=== PATIENT | male | born 1990 | race Caucasian/White ===

== ENCOUNTER → 2018-07-25 12:21 | Outpatient (CLI) | payer MEDICAID, SELFPAY ==
[2018-07-25 12:28] LABS: Bacteria 0 SEEN /hpf (None Seen); Mucous, Urine 0 SEEN /hpf (<or=2+); Red Blood Cells-Urine 0 SEEN /hpf (0-5); Squamous Epithelial Cells - UA 0 SEEN /hpf (0-5); White Blood Cells 0 SEEN /hpf (0-5)
[2018-07-25 14:23] LABS: Absolute Lymphocyte Count 2.34 X10^3/ul (0.83-4.51); Absolute Neutrophil Count 4.4 X10^3/uL (2.0-7.7); Basophil# 0.09 X10^3/uL; Basophil% 1.2 % (0-1); Eosinophil# 0.07 X10^3/uL; Eosinophils% 0.9 % (0-5); Hemoglobin 14.6 g/dl (13.0-16.5); Lymphocyte # 2.34 X10^3/ul (4.0); Lymphocyte % 30.2 % (19-41); Mean Corp Hgb Conc 33.2 g/gl (32-36); Mean Corpuscular Hgb 34.4 pg (27.0-32.0); Mean Corpuscular Volume 103.5 fL (80-94); Mean Platelet Vol. 9.7 fl (6.2-12.0); Monocyte# 0.84 X10^3/uL; Monocyte% 10.9 % (0-10); Neutrophil # 4.38 X10^3/uL (2.7-7.7); Neutrophil % 56.5 % (47-70); POSITIVE COUNT NO; POSITIVE DIFFERENTIAL NO; POSITIVE MORPHOLOGY NO; Platelet Count 164 K/mm3 (150-450); RBC Distribution Width CV 12.6 % (11.6-14.6); RBC Distribution Width SD 47.3 fl (35.1-43.9); Red Blood Count 4.25 M/mm3 (4.6-6.2); White Blood Count 7.7 K/mm3 (4.4-11.0)
[2018-07-25 14:55] LABS: Color, Urine Yellow (Yellow); Glucose, Dipstick Normal (Normal); Ketone-Dipstick Negative (Negative); Leukocyte Esterase-Dipstick Negative /ul (Negative); Nitrite-Dipstick Negative (Negative); Occult Blood-Urine Negative /ul (Negative); Protein-Dipstick Negative (Negative); Specific Gravity, Urine 1.005 (1.002-1.030); Urine Bilirubin Dipstick Negative (Negative); Urine Clarity Clear (Clear); Urine Urobilinogen Normal (Normal)
[2018-07-25 14:59] LABS: ALB/GLOB Ratio 0.8 RATIO (0.9-2.4); AST(SGOT) 307 U/L (15-37); Alanine Aminotransfer ALT/SGPT 88 U/L (16-61); Albumin, Serum 3.9 g/dL (3.2-5.0); Alkaline Phosphatase 164 U/L (45-117); Anion Gap 9 (5-15); BUN 5 mg/dL (7-18); BUN/Creat Ratio 10.3 RATIO (10-20); Calcium,Total 8.2 mg/dL (8.5-10.1); Chloride 101 mmol/L (98-107); Creatinine, Serum 0.49 mg/dL (0.70-1.30); EST Glomerular Filtration Rate 218 mL/min (>60); Est Glom Filt Rate - Afr Amer 264 mL/min (>60); Globulin 4.8 g/dL (2.2-4.2); Glucose 105 mg/dL (74-106); Potassium 3.6 mmol/L (3.5-5.1); Protein, Total 8.7 g/dL (6.4-8.2); Sodium Level 132 mmol/L (136-145)
[2018-07-25 15:01] LABS: Amphetamine Urine VISTA NEGATIVE (<1000 ng/mL); Barbiturate Urine VISTA NEGATIVE (< 200 ng/mL); Benzodiazepine Urine VISTA NEGATIVE (< 200 ng/mL); Cocaine Urine VISTA NEGATIVE (< 300 ng/mL); Ecstacy Urine VISTA NEGATIVE (< 500 ng/mL); Methadone Urine VISTA NEGATIVE (< 300 ng/mL); PCP Urine VISTA NEGATIVE (< 25 ng/mL); THC Urine VISTA NEGATIVE (< 50 ng/mL); Vista UDS pH Range 5
[2018-07-25 15:32] LABS: HIV - WCH Non-Reactive (Nonreactive); Vitamin B12 1190 pg/mL (211-911)
[2018-07-25 16:04] LABS: Chlamydia Trachomatis by PCR Negative (Negative); Neisserai gonorrhoeae by PCR Negative (Negative); Probe Check PASS; Sample Adequacy Control PASS; Specimen Processing Control PASS
[2018-07-29 01:31] LABS: Rapid Plasmin Reagin (RPR) NONREACTIVE (NONREACTIVE)
[2018-07-29 08:18] LABS: HEPATITIS B SURFACE AG Negative (Negative); Hep B Surface Antibodies Reactive (.); Vitamin B1, Thiamine 143.8 nmol/L (66.5-200.0)
[2018-07-29 08:19] LABS: Hep C Antibodies >11.0 s/co ratio (0.0-0.9)
== END ==
PROVIDERS: Family Provider Family Medicine; PCP Family Medicine; Referring Provider Family Medicine; Visit Provider Family Medicine
DX: F10.20 Alcohol dependence, uncomplicated (principal); Z72.52 High risk homosexual behavior; Z72.0 Tobacco use; Z87.898 Personal history of other specified conditions
CPT/HCPCS: 80053; 80307; 80320; 81001; 82607; 82746; 84425; 85025; 86592; 86703; 86706; 86803; 87340; 87491; 87591; G0480

== ENCOUNTER 2018-08-28 20:11 | Inpatient (IN) | payer MEDICAID, SELFPAY ==
[2018-08-28 20:13] VITALS: BP 139/81; PULSE 123; RESP 18; TEMP 36.8; O2SAT 92; BMI 25.0
[2018-08-28] MEDS: 0.9% Normal Saline 1,000 ML 1000 ML IV (22:00)
[2018-08-28 22:17] LABS: Absolute Lymphocyte Count 3.74 X10^3/ul (0.83-4.51); Absolute Neutrophil Count 4.1 X10^3/uL (2.0-7.7); Basophil# 0.15 X10^3/uL; Basophil% 1.7 % (0-1); Eosinophil# 0.04 X10^3/uL; Eosinophils% 0.4 % (0-5); Hematocrit 41.8 % (40-54); Hemoglobin 14.6 g/dl (13.0-16.5); Lymphocyte # 3.74 X10^3/ul (4.0); Lymphocyte % 41.5 % (19-41); Mean Corp Hgb Conc 34.9 g/gl (32-36); Mean Corpuscular Hgb 35.1 pg (27.0-32.0); Mean Corpuscular Volume 100.5 fL (80-94); Mean Platelet Vol. 9.4 fl (6.2-12.0); Monocyte# 0.95 X10^3/uL; Monocyte% 10.5 % (0-10); Neutrophil % 45.6 % (47-70); Platelet Count 126 K/mm3 (150-450); RBC Distribution Width CV 14.4 % (11.6-14.6); Red Blood Count 4.16 M/mm3 (4.6-6.2)
[2018-08-28 22:23] LABS: POSITIVE COUNT NO; POSITIVE DIFFERENTIAL NO; POSITIVE MORPHOLOGY NO
[2018-08-28 22:25] VITALS: BP 116/81; PULSE 110; RESP 14; O2SAT 91
[2018-08-28 22:32] LABS: ALB/GLOB Ratio 0.7 RATIO (0.9-2.4); AST(SGOT) 225 U/L (15-37); Alanine Aminotransfer ALT/SGPT 39 U/L (16-61); Albumin, Serum 3.3 g/dL (3.2-5.0); Alkaline Phosphatase 246 U/L (45-117); Anion Gap 14 (5-15); BUN 4 mg/dL (7-18); BUN/Creat Ratio 7.2 RATIO (10-20); Calcium,Total 8.1 mg/dL (8.5-10.1); Chloride 101 mmol/L (98-107); Creatinine, Serum 0.56 mg/dL (0.70-1.30); EST Glomerular Filtration Rate 187 mL/min (>60); Est Glom Filt Rate - Afr Amer 226 mL/min (>60); Estimated Creatinine Clearance 185.25 ml/min; Globulin 4.8 g/dL (2.2-4.2); Glucose 124 mg/dL (74-106); Potassium 3.8 mmol/L (3.5-5.1); Protein, Total 8.1 g/dL (6.4-8.2); Sodium Level 138 mmol/L (136-145)
--- NOTE | 2018-08-28 23:10 | ED.RN ---
md aware of alchol level of 673.
[2018-08-28 23:15] LABS: Amphetamine Urine VISTA NEGATIVE (<1000 ng/mL); Barbiturate Urine VISTA NEGATIVE (< 200 ng/mL); Benzodiazepine Urine VISTA NEGATIVE (< 200 ng/mL); Cocaine Urine VISTA NEGATIVE (< 300 ng/mL); Ecstacy Urine VISTA NEGATIVE (< 500 ng/mL); Methadone Urine VISTA NEGATIVE (< 300 ng/mL); PCP Urine VISTA NEGATIVE (< 25 ng/mL); THC Urine VISTA NEGATIVE (< 50 ng/mL); Vista UDS pH Range 6
--- NOTE | 2018-08-28 23:15 | ED.DCSUM_ITS ---
- ER Visit Summary Date of Service: 08/28/18 Chief Complaint: Requesting detox History of Present Illness: The patient is a 28 M presenting requesting alcohol detox. Patient states that [facility]. He is requesting help for alcohol detox. His last drink was at 6 PM. He drinks ap proximately a case of beer per day. His last detox was in May in [place]. Physical Examination: Vitals are stable. Patient is afebrile. Alert no acute distress. HEENT exam is unremarkable. Neck is supple. Lungs are clear and equal bilaterally. Heart is regular and tachycardic Abdomen is soft nontender nondistended. Extremities are unremarkable. Skin is warm and dry. No focal neurologic deficit. Intoxicated Remainder of exam is unremarkable. Emergency Department Course and Treatment: Patient was given IV fluids. CBC shows platelets 126. Chemistries show glucose 124. Total bili 1.7, alk phos 246, AST 225. Alcohol level 673. Urine tox is negative. Discussed with the hospitalist for admission. Disposition: Admission Impression: Alcohol intoxication and alcohol dependence This note was generated with [employer] dictation software. It may contain incorrect words, spelling, and punctuation that were not noted in review of the chart prior to signing ED Disposition - Plan for ED Patient: Referrals: Dipak Steve MD [Primary Care Provider] -
[2018-08-28 23:19] VITALS: BP 104/63; PULSE 101; RESP 14
--- NOTE | 2018-08-28 23:47 | PCM.HP.STD ---
Problem List (1) Alcohol dependence Status: Acute (2) Alcohol withdrawal Status: Acute History of Present Illness Date of Admission: 08/29/18 Chief Complaint: alcohol withdrawal The patient is a 28 year old M with a significant history of alcohol dependence and tobacco abuse who presented with alcohol withdrawal symptoms. Patient reports shakiness; nausea; and visual hallucinations. At the time of evaluation patient had urinated in his clothes and on the floor of the emergency department; and stripped naked to remove his wet clothes and apologized for his nakedness. He reports drinking 20 beers per day. Emergency department doctor reported that per patient's friend [employer] had accepted the patient in the program beginning from 08/29/2018. Patient's alcohol level on presentation was 673. Emergency department doctor determined that it was not safe for patient to be discharged home. His last drink was on the same day of presentation. Urinary drug screen at the emergency department was unremarkable. Patient was found to have elevated liver enzymes on presentation. Past Medical History Medical History: Medical History (Last Updated 08/29/18 @ 04:57 by Juan Griffin MD) Alcohol dependence F10.20 Allergies Penicillins Adverse Reaction (Verified 08/28/18 20:14) Vomiting Home Medications: Ambulatory Orders Medication Instructions Recorded NK 08/28/18 Surgical History: - - Face reconstruction Psychiatric History: Anxiety, Depression Smoking Status: Current every day smoker Tobacco Use: Cigarettes - *Family History Maternal History Items: - - Alcoholism Paternal History Items: - - Denies any knowledge of paternal medical history Review of Systems Unable to obtain accurate/complete ROS d/t: Poor cognitive ability secondary to under the influence of alcohol VTE Information - Inpt Only VTE Present on Admission: No VTE Mechan Device Prophylaxis: None VTE Pharm Prophylaxis ordered?: No Reason prophylaxis not ordered:: Treatment Not Indicated - Low risk ambulate Patient Problems: Active and Suspected Problems Alcohol dependence (Acute) Alcohol withdrawal (Acute) - Physical Exam General: Alert, Oriented x3 HEENT: Atraumatic, PERRLA, EOMI, Normocephalic Neck: Supple, No JVD, Negative Carotid Bruits Lungs: Clear to auscultation, Normal air movement Cardiovascular: No murmurs, Tachycardic Abdomen: Bowel Sounds Present, Soft, Tender - Mild Extremities: No edema, Capillary Refill Less than 3 Seconds Skin: No rashes, No breakdown Musculoskeletal: No Tenderness to Palpation of Joints or Extremities Neurological: - - Poor cognitive ability with urinating on himself and on the floor. [facility] Psych/Mental Status: Irrational Behavior - Urinated on himself and at the floor of the emergency department Vital Signs Temp Pulse Resp BP Pulse Ox 98.3 F 101 H 14 104/63 91 08/28/18 20:13 08/28/18 23:19 08/28/18 23:19 08/28/18 23:19 08/28/18 22:25 Oxygen Delivery Method Room Air Weight: 72.3 kg Body Mass Index (BMI) 25.0 Laboratory Tests Past 24 Hrs 08/28/18 08/28/18 08/28/18 20:55 21:55 21:55 WBC 9.0 RBC 4.16 L Hgb 14.6 Hct 41.8 MCV 100.5 H MCH 35.1 H MCHC 34.9 RDW 14.4 RDW Differential 53.0 H Plt Count 126 L MPV 9.4 Immature Gran % (Auto) 0.300 Neut % (Auto) 45.6 L Lymph % (Auto) 41.5 H [place] % (Auto) 10.5 H Eos % (Auto) 0.4 Baso % (Auto) 1.7 H Absolute Neuts (auto) 4.1 Absolute Lymphs (auto) 3.74 Total Counted Not Reportable Sodium 138 Potassium 3.8 Chloride 101 Carbon Dioxide 23.0 Anion Gap 14 BUN 4 L Creatinine 0.56 L Estim Creat Clear Calc 185.25 Est GFR (MDRD) Af Amer 226 Est GFR (MDRD) Non-Af 187 BUN/Creatinine Ratio 7.2 L Glucose 124 H Calcium 8.1 L Total Bilirubin 1.70 H AST 225 H ALT 39 Alkaline Phosphatase 246 H Total Protein 8.1 Albumin 3.3 Globulin 4.8 H Albumin/Globulin Ratio 0.7 L Urine Opiates Screen NEGATIVE Urine Methadone Screen NEGATIVE Ur Barbiturates Screen NEGATIVE Ur Phencyclidine Scrn NEGATIVE Ur Amphetamines Screen NEGATIVE U Methamphetamin-MDMA NEGATIVE U Benzodiazepines Scrn NEGATIVE Urine Cocaine Screen NEGATIVE U Cannabinoids Screen NEGATIVE Ur Drug Screen Comment Ethyl Alcohol 08/28/18 21:55 WBC RBC Hgb Hct MCV MCH MCHC RDW RDW Differential Plt Count MPV Immature Gran % (Auto) Neut % (Auto) Lymph % (Auto) [place] % (Auto) Eos % (Auto) Baso % (Auto) Absolute Neuts (auto) Absolute Lymphs (auto) Total Counted Sodium Potassium Chloride Carbon Dioxide Anion Gap BUN Creatinine Estim Creat Clear Calc Est GFR (MDRD) Af Amer Est GFR (MDRD) Non-Af BUN/Creatinine Ratio Glucose Calcium Total Bilirubin AST ALT Alkaline Phosphatase Total Protein Albumin Globulin Albumin/Globulin Ratio Urine Opiates Screen Urine Methadone Screen Ur Barbiturates Screen Ur Phencyclidine Scrn Ur Amphetamines Screen U Methamphetamin-MDMA U Benzodiazepines Scrn Urine Cocaine Screen U Cannabinoids Screen Ur Drug Screen Comment Ethyl Alcohol 673.0 H* Assessment/Plan All Active Problems Alcohol dependence (Acute) Alcohol withdrawal (Acute) The patient is a 28 year old M with a significant history of alcohol dependence and tobacco abuse who presented in an early stage of alcohol withdrawal. Alcohol withdrawal Patient noted to have a level of 673 admission and with withdrawal symptoms. Drug urine screen unremarkable. Will place patient on acute [facility] withdrawal program. Because of liver dysfunction ativan was chosen for withdrawal management Folic acid; multivitamins and thiamine ordered. Supportive medications with Bentyl, methocarbamol and Zofran as needed. Patient was counseled Alcoholic hepatitis Patient noted to have AST of 225; ALT of 39. Alkaline phosphatase 246. Likely from alcoholic hepatitis. Review of records show that this is chronic. Tobacco abuse Counseled. Nicotine patch ordered DVT prophylaxis Low risk Ambulate. Code Visit OBSV E&M: 42758 Initial observation care L3
[2018-08-29] VITALS (11 sets, daily range): BP systolic 112–138; BP diastolic 67–90; PULSE 98–128; RESP 12–20; TEMP 36.5–37.7; O2SAT 89–98; BMI 23.3
[2018-08-29] MEDS: LORazepam 1 MG Tablet PO ×6 (02:56→22:35)
[2018-08-29] MEDS: hydrOXYzine PAM 25 MG Capsule 50 MG PO ×3 (02:56→22:35)
[2018-08-29] MEDS: Methocarbamol 750 MG Tablet PO ×3 (02:56→18:12)
[2018-08-29] MEDS: Multivitamins,Therapeutic Tablet 1 TABLET PO (08:43)
[2018-08-29] MEDS: Folic Acid 1 MG Tablet PO (08:43)
[2018-08-29] MEDS: Thiamine Hydrochloride 100 MG Tablet PO (08:43)
--- NOTE | 2018-08-29 10:31 | PCM.PN.HOSP ---
Patient Problems: Active and Suspected Problems (Last Updated 08/29/18 @ 04:57 by Juan Griffin MD) Alcohol dependence (Acute) Alcohol withdrawal (Acute) Subjective: Patient seen and examined. He is been managed for acute alcohol withdrawal. He complained of tremors. He denied any fever chills, palpitations or dizziness, chest pain, diarrhea vomiting. Review of systems otherwise negative. He is on alcohol withdrawal protocol with Ativan. Labs and vitals reviewed. Vitals/I&O's: Vital Signs Temp Pulse Resp BP Pulse Ox 98.2 F 115 H 16 128/72 H 97 08/29/18 09:29 08/29/18 09:29 08/29/18 09:41 08/29/18 09:29 08/29/18 06:35 Oxygen Flow Rate (L/min) 2 Oxygen Delivery Method Nasal Cannula Weight: 153 lb 3.54 oz Body Mass Index (BMI) 23.3 Intake and Output for Last 24 Hours 08/27/18 08/28/18 08/29/18 23:59 23:59 23:59 Output Total 550 / 550 Balance -550 / -550 General: Alert, Oriented x3, Cooperative, No apparent distress HEENT: Atraumatic, PERRLA, EOMI, Normocephalic Oral: Moist Mucosa Neck: Supple, No JVD, Negative Carotid Bruits Lungs: Clear to auscultation, Normal air movement, No rhonchi, No wheeze, No rales Cardiovascular: Regular Rhythm, Normal S1, Normal S2, No murmurs, Tachycardic Abdomen: Bowel Sounds Present, Soft, Non Tender, Non-Distended, No Hepato-splenomegaly Extremities: No clubbing, No cyanosis, No edema, Capillary Refill Less than 3 Seconds Skin: No rashes, No breakdown Musculoskeletal: No Tenderness to Palpation of Joints or Extremities Lymphatic: No Cervical, Supraclavicular, or Inguinal Adenopathy Neurological: Cranial nerves II-XII grossly intact, - - tremors of UEs Psych/Mental Status: Normal Affect, Appropriate, Alert and oriented to time, place, person, mood and affect Laboratory Results 08/28/18 20:55: Urine Opiates Screen NEGATIVE, Urine Methadone Screen NEGATIVE, Ur Barbiturates Screen NEGATIVE, Ur Phencyclidine Scrn NEGATIVE, Ur Amphetamines Screen NEGATIVE, U Methamphetamin-MDMA NEGATIVE, U Benzodiazepines Scrn NEGATIVE, Urine Cocaine Screen NEGATIVE, U Cannabinoids Screen NEGATIVE, Ur Drug Screen Comment 08/28/18 21:55: WBC 9.0, RBC 4.16 L, Hgb 14.6, Hct 41.8, MCV 100.5 H, MCH 35.1 H, MCHC 34.9, RDW 14.4, RDW Differential 53.0 H, Plt Count 126 L, MPV 9.4, Immature Gran % (Auto) 0.300, Neut % (Auto) 45.6 L, Lymph % (Auto) 41.5 H, [place] % (Auto) 10.5 H, Eos % (Auto) 0.4, Baso % (Auto) 1.7 H, Absolute Neuts (auto) 4.1, Absolute Lymphs (auto) 3.74, Total Counted Not Reportable 08/28/18 21:55: Sodium 138, Potassium 3.8, Chloride 101, Carbon Dioxide 23.0, Anion Gap 14, BUN 4 L, Creatinine 0.56 L, Estim Creat Clear Calc 185.25, Est GFR (MDRD) Af Amer 226, Est GFR (MDRD) Non-Af 187, BUN/Creatinine Ratio 7.2 L, Glucose 124 H, Calcium 8.1 L, Total Bilirubin 1.70 H, AST 225 H, ALT 39, Alkaline Phosphatase 246 H, Total Protein 8.1, Albumin 3.3, Globulin 4.8 H, Albumin/Globulin Ratio 0.7 L 08/28/18 21:55: Ethyl Alcohol 673.0 H* Current Medications Bisacodyl (Dulcolax) 5 mg PO DAILY PRN PRN PRN Reason: Constipation Dicyclomine HCl (Bentyl) 20 mg PO Q6H PRN PRN PRN Reason: abdominal discomfort Folic Acid (Folic Acid) 1 mg PO DAILYCM SHERYL Stop: 08/31/18 08:01 Last Admin: 08/29/18 08:43 Dose: 1 mg Hydroxyzine Pamoate (Vistaril Pamoate Capsule) 50 mg PO Q6H PRN PRN PRN Reason: Mild Anxiety (score 1/3) Last Admin: 08/29/18 02:56 Dose: 50 mg Lorazepam (Ativan) 1 mg IV Q4H PRN PRN PRN Reason: Severe Anxiety Lorazepam (Ativan) 2 mg IV X1 PRN PRN Reason: Seizure Lorazepam (Ativan) 1 mg PO Q4H SHERYL; Taper Stop: 09/01/18 06:29 Last Admin: 08/29/18 09:55 Dose: 1 mg Methocarbamol (Methocarbamol) 750 mg PO Q6H PRN PRN PRN Reason: Muscle Aches Last Admin: 08/29/18 09:55 Dose: 750 mg Multivitamins (Multivitamin) 1 tablet PO DAILYCM SHERYL Last Admin: 08/29/18 08:43 Dose: 1 tablet Nicotine (Nicoderm Cq (Pbkc)) 21 mg TRANSDERM. DAILY SHERYL Last Admin: 08/29/18 03:25 Dose: 21 mg Ondansetron HCl (Zofran) 4 mg IV Q8H PRN PRN PRN Reason: NAUSEA/VOMITING Sodium Chloride () 5 - 15 ml IV UD PRN PRN Reason: SALINE FLUSH Thiamine HCl (Vitamin B1) 100 mg PO DAILYCM SHERYL Stop: 08/31/18 08:01 Last Admin: 08/29/18 08:43 Dose: 100 mg Medical Necessity - Tobacco Use Smoking Status: Current every day smoker Tobacco Use: Cigarettes Assessment/Plan All Active Problems (Last Updated 08/29/18 @ 04:57 by Juan Griffin MD) Alcohol dependence (Acute) Alcohol withdrawal (Acute) 1. Acute alcohol withdrawal Alcohol level on admission was 673. Urine tox screen was unremarkable. On alcohol withdrawal protocol because of Ativan. Folic acid, thiamine and multivitamins. Monitor CIWA score. 2. Elevated liver enzymes: total bilirubin was 1.7, with AST/ALT of 225/39, and ALP of 246. This is chronic, and likely due to liver disease from alcohol abuse. WIll monitor 3. Tobacco abuse: counselled to quit. On nicotine patch 21mg daily 4. Thrombocytopenia: Platelets of 126. Likely due to alcohol effect on bone marrow. Will monitor. DVT prophylaxis: low risk; encouraged to ambulate Code Visit Inpatient E&M: 02585 Subs Hosp L2
--- NOTE | 2018-08-29 10:36 | PN_ITS ---
Patient Problems: Active and Suspected Problems (Last Updated 08/29/18 @ 04:57 by Juan Griffin MD) Alcohol dependence (Acute) Alcohol withdrawal (Acute) Subjective: Patient seen and examined. He is been managed for acute alcohol withdrawal. He complained of tremors. He denied any fever chills, palpitations or dizziness, chest pain, diarrhea vomiting. Review of systems otherwise negative. He is on alcohol withdrawal protocol with Ativan. Labs and vitals reviewed. Vitals/I&O's: Vital Signs Temp Pulse Resp BP Pulse Ox 98.2 F 115 H 16 128/72 H 97 08/29/18 09:29 08/29/18 09:29 08/29/18 09:41 08/29/18 09:29 08/29/18 06:35 Oxygen Flow Rate (L/min) 2 Oxygen Delivery Method Nasal Cannula Weight: 153 lb 3.54 oz Body Mass Index (BMI) 23.3 Intake and Output for Last 24 Hours 08/27/18 08/28/18 08/29/18 23:59 23:59 23:59 Output Total 550 / 550 Balance -550 / -550 General: Alert, Oriented x3, Cooperative, No apparent distress HEENT: Atraumatic, PERRLA, EOMI, Normocephalic Oral: Moist Mucosa Neck: Supple, No JVD, Negative Carotid Bruits Lungs: Clear to auscultation, Normal air movement, No rhonchi, No wheeze, No rales Cardiovascular: Regular Rhythm, Normal S1, Normal S2, No murmurs, Tachycardic Abdomen: Bowel Sounds Present, Soft, Non Tender, Non-Distended, No Hepato- splenomegaly Extremities: No clubbing, No cyanosis, No edema, Capillary Refill Less than 3 Seconds Skin: No rashes, No breakdown Musculoskeletal: No Tenderness to Palpation of Joints or Extremities Lymphatic: No Cervical, Supraclavicular, or Inguinal Adenopathy Neurological: Cranial nerves II-XII grossly intact, - - tremors of UEs Psych/Mental Status: Normal Affect, Appropriate, Alert and oriented to time, place, person, mood and affect Laboratory Results 08/28/18 20:55: Urine Opiates Screen NEGATIVE, Urine Methadone Screen NEGATIVE, Ur Barbiturates Screen NEGATIVE, Ur Phencyclidine Scrn NEGATIVE, Ur Amphetamines Screen NEGATIVE, U Methamphetamin-MDMA NEGATIVE, U Benzodiazepines Scrn NEGATIVE, Urine Cocaine Screen NEGATIVE, U Cannabinoids Screen NEGATIVE, Ur Drug Screen Comment 08/28/18 21:55: WBC 9.0, RBC 4.16 L, Hgb 14.6, Hct 41.8, MCV 100.5 H, MCH 35.1 H , MCHC 34.9, RDW 14.4, RDW Differential 53.0 H, Plt Count 126 L, MPV 9.4, Immature Gran % (Auto) 0.300, Neut % (Auto) 45.6 L, Lymph % (Auto) 41.5 H, [place] % (Auto) 10.5 H, Eos % (Auto) 0.4, Baso % (Auto) 1.7 H, Absolute Neuts (auto) 4.1, Absolute Lymphs (auto) 3.74, Total Counted Not Reportable 08/28/18 21:55: Sodium 138, Potassium 3.8, Chloride 101, Carbon Dioxide 23.0, Anion Gap 14, BUN 4 L, Creatinine 0.56 L, Estim Creat Clear Calc 185.25, Est GFR (MDRD) Af Amer 226, Est GFR (MDRD) Non-Af 187, BUN/Creatinine Ratio 7.2 L, Glucose 124 H, Calcium 8.1 L, Total Bilirubin 1.70 H, AST 225 H, ALT 39, Alkaline Phosphatase 246 H, Total Protein 8.1, Albumin 3.3, Globulin 4.8 H, Albumin/Globulin Ratio 0.7 L 08/28/18 21:55: Ethyl Alcohol 673.0 H* Current Medications Bisacodyl (Dulcolax) 5 mg PO DAILY PRN PRN PRN Reason: Constipation Dicyclomine HCl (Bentyl) 20 mg PO Q6H PRN PRN PRN Reason: abdominal discomfort Folic Acid (Folic Acid) 1 mg PO DAILYCM SHERYL Stop: 08/31/18 08:01 Last Admin: 08/29/18 08:43 Dose: 1 mg Hydroxyzine Pamoate (Vistaril Pamoate Capsule) 50 mg PO Q6H PRN PRN PRN Reason: Mild Anxiety (score 1/3) Last Admin: 08/29/18 02:56 Dose: 50 mg Lorazepam (Ativan) 1 mg IV Q4H PRN PRN PRN Reason: Severe Anxiety Lorazepam (Ativan) 2 mg IV X1 PRN PRN Reason: Seizure Lorazepam (Ativan) 1 mg PO Q4H SHERYL; Taper Stop: 09/01/18 06:29 Last Admin: 08/29/18 09:55 Dose: 1 mg Methocarbamol (Methocarbamol) 750 mg PO Q6H PRN PRN PRN Reason: Muscle Aches Last Admin: 08/29/18 09:55 Dose: 750 mg Multivitamins (Multivitamin) 1 tablet PO DAILYCM SHERYL Last Admin: 08/29/18 08:43 Dose: 1 tablet Nicotine (Nicoderm Cq (Pbkc)) 21 mg TRANSDERM. DAILY SHERYL Last Admin: 08/29/18 03:25 Dose: 21 mg Ondansetron HCl (Zofran) 4 mg IV Q8H PRN PRN PRN Reason: NAUSEA/VOMITING Sodium Chloride () 5 - 15 ml IV UD PRN PRN Reason: SALINE FLUSH Thiamine HCl (Vitamin B1) 100 mg PO DAILYCM SHERYL Stop: 08/31/18 08:01 Last Admin: 08/29/18 08:43 Dose: 100 mg Medical Necessity - Tobacco Use Smoking Status: Current every day smoker Tobacco Use: Cigarettes Assessment/Plan All Active Problems (Last Updated 08/29/18 @ 04:57 by Juan Griffin MD) Alcohol dependence (Acute) Alcohol withdrawal (Acute) 1. Acute alcohol withdrawal * Alcohol level on admission was 673. Urine tox screen was unremarkable. * On alcohol withdrawal protocol because of Ativan. * Folic acid, thiamine and multivitamins. * Monitor CIWA score. * 2. Elevated liver enzymes: * total bilirubin was 1.7, with AST/ALT of 225/39, and ALP of 246. * This is chronic, and likely due to liver disease from alcohol abuse. * WIll monitor * 3. Tobacco abuse: counselled to quit. On nicotine patch 21mg daily 4. Thrombocytopenia: Platelets of 126. Likely due to alcohol effect on bone marrow. Will monitor. DVT prophylaxis: low risk; encouraged to ambulate Code Visit Inpatient E&M: 36394 Subs Hosp L2
[2018-08-29] MEDS: Dicyclomine 10 MG Capsule 20 MG PO (18:12)
[2018-08-29] MEDS: Ondansetron 4 MG/2 ML Vial IV (20:03)
[2018-08-29] MEDS: LORazepam 2 MG/ML Syringe 1 MG IV (22:45)
[2018-08-30] VITALS (7 sets, daily range): BP systolic 133–142; BP diastolic 82–100; PULSE 97–121; RESP 16–18; TEMP 36.9–38.1; O2SAT 93–97
[2018-08-30] MEDS: LORazepam 2 MG/ML Syringe 1 MG IV (03:10)
[2018-08-30] MEDS: Methocarbamol 750 MG Tablet PO ×3 (03:10→23:24)
[2018-08-30] MEDS: chlordiazePOXIDE 25 MG Capsule 50 MG PO ×4 (03:55→21:53)
--- NOTE | 2018-08-30 03:55 | NURSING ---
I pulled Librium dose from accudose machine for Cecile ROMERO because the pt really needed the med and I was helping her out. I then watched her administer the med to the pt.
--- NOTE | 2018-08-30 08:16 | RAD_ITS ---
STUDY: X-RAY - LUMBAR SPINE REASON FOR EXAM: Male, 28 years old. Back pain TECHNIQUE: 2 view(s) of the lumbar spine were obtained. COMPARISON: None FINDINGS: There is straightening of the normal lumbar lordosis. There is no substantial scoliosis. There is a normal alignment of the vertebrae. Normal vertebral bodies and endplates. Normal disc space heights. The soft tissue structures are unremarkable. RAD/Lumbar Spine 2 or 3 Views IMPRESSION: There is straightening of the normal lordotic curve, a nonspecific finding, which may be due to positioning or which might be due to muscle spasm. Electronically Signed: Rubia Keenan MD at 1:47 EDT , Service support ,
[2018-08-30] MEDS: Folic Acid 1 MG Tablet PO (08:25)
[2018-08-30] MEDS: Thiamine Hydrochloride 100 MG Tablet PO (08:25)
[2018-08-30] MEDS: Multivitamins,Therapeutic Tablet 1 TABLET PO (08:25)
--- NOTE | 2018-08-30 08:25 | NEWVISION ---
Patient has pre-arranged plan to go to [facility] for their men's rehabilitation housing / [facility] in [place] immediately post discharge. Agency to provide transportation upon discharge. [facility] [phone]
--- NOTE | 2018-08-30 09:59 | PCM.PN.HOSP ---
Patient Problems: Active and Suspected Problems (Last Updated 08/29/18 @ 04:57 by Juan Griffin MD) Alcohol dependence (Acute) Alcohol withdrawal (Acute) Subjective: Patient seen and examined. He complains of low back pain which is been going on for about 2 months. He denies any fever or chills, palpitations or dizziness, chest pain, diarrhea vomiting. His last use of IV drugs was 2 years ago. 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 Review of systems otherwise negative. Vitals reviewed. Vitals/I&O's: Vital Signs Temp Pulse Resp BP Pulse Ox 98.4 F 97 16 138/97 H 94 08/30/18 08:09 08/30/18 08:09 08/30/18 08:09 08/30/18 08:09 08/30/18 08:09 Oxygen Flow Rate (L/min) 2 Oxygen Delivery Method Room Air Weight: 153 lb 3.54 oz Body Mass Index (BMI) 23.3 Intake and Output for Last 24 Hours 08/28/18 08/29/18 08/30/18 23:59 23:59 23:59 Intake Total 1000 / 1000 Output Total 550 / 550 400 / 400 Balance -550 / -550 600 / 600 General: Alert, Oriented x3, Cooperative, No apparent distress HEENT: Atraumatic, PERRLA, EOMI, Normocephalic Oral: Moist Mucosa Neck: Supple, No JVD, Negative Carotid Bruits Lungs: Clear to auscultation, Normal air movement, No rhonchi, No wheeze, No rales Cardiovascular: Regular Rhythm, Normal S1, Normal S2, No murmurs, Tachycardic Abdomen: Bowel Sounds Present, Soft, Non Tender, Non-Distended, No Hepato-splenomegaly Extremities: No clubbing, No cyanosis, No edema, Capillary Refill Less than 3 Seconds Skin: No rashes, No breakdown Musculoskeletal: No Tenderness to Palpation of Joints or Extremities; no tenderness on palpation of lower back Lymphatic: No Cervical, Supraclavicular, or Inguinal Adenopathy Neurological: Cranial nerves II-XII grossly intact, - - tremors of UEs have improved significantly Psych/Mental Status: Normal Affect, Appropriate, Alert and oriented to time, place, person, mood and affect Current Medications Bisacodyl (Dulcolax) 5 mg PO DAILY PRN PRN PRN Reason: Constipation Chlordiazepoxide (Librium) 50 mg PO Q6H [facility]; Taper Stop: 09/02/18 05:44 Last Admin: 08/30/18 03:55 Dose: 50 mg Dicyclomine HCl (Bentyl) 20 mg PO Q6H PRN PRN PRN Reason: abdominal discomfort Last Admin: 08/29/18 18:12 Dose: 20 mg [facility] Stop: 08/31/18 08:01 Last Admin: 08/30/18 08:25 Dose: 1 mg Hydroxyzine Pamoate (Vistaril Pamoate Capsule) 50 mg PO Q6H PRN PRN PRN Reason: Mild Anxiety (score 1/3) Last Admin: 08/29/18 22:35 Dose: 50 mg Lorazepam (Ativan) 1 mg IV Q4H PRN PRN PRN Reason: Severe Anxiety Last Admin: 08/30/18 03:10 Dose: 1 mg Lorazepam (Ativan) 2 mg IV X1 PRN PRN Reason: Seizure Lorazepam (Ativan) 1 mg PO Q6H [facility]; Taper Stop: 09/01/18 06:29 Last Admin: 08/30/18 05:25 Dose: Not Given Methocarbamol (Methocarbamol) 750 mg PO Q6H PRN PRN PRN Reason: Muscle Aches Last Admin: 08/30/18 03:10 Dose: 750 mg Multivitamins ([facility]ivitamin) [facility] Last Admin: 08/30/18 08:25 Dose: 1 tablet Nicotine (Nicoderm Cq (Pbkc)) 21 mg TRANSDERM. DAILY [facility] Last Admin: 08/29/18 03:25 Dose: 21 mg Ondansetron HCl (Zofran) 4 mg IV Q8H PRN PRN PRN Reason: NAUSEA/VOMITING Last Admin: 08/29/18 20:03 Dose: 4 mg Sodium Chloride () 5 - 15 ml IV UD PRN PRN Reason: SALINE FLUSH Thiamine HCl (Vitamin B1) [facility] Stop: 08/31/18 08:01 Last Admin: 08/30/18 08:25 Dose: 100 mg Medical Necessity - Tobacco Use Smoking Status: Current every day smoker Tobacco Use: Cigarettes Assessment/Plan All Active Problems (Last Updated 08/29/18 @ 04:57 by Juan Griffin MD) Alcohol dependence (Acute) Alcohol withdrawal (Acute) 1. Acute alcohol withdrawal Alcohol level on admission was 673. Urine tox screen was unremarkable. On alcohol withdrawal protocol with of Ativan. Folic acid, thiamine and multivitamins. Monitor CIWA score- is 8 today 2. Back pain, likely musculoskeletal complains of 6/10 back pain; no recent use of IV drugs, so suspicion for diskitis is low. will get lumbar xray ibuprofen for pain 3. Elevated liver enzymes: This is chronic, and likely due to liver disease from alcohol abuse. counseled to quit alcohol use 4. Tobacco abuse: counselled to quit. On nicotine patch 21mg daily 5. Thrombocytopenia: platelets were 126 on admission; is chronic. Due to alcohol abuse. WIll monitor DVT prophylaxis: low risk; encouraged to ambulate\ [facility]. Code Visit Inpatient E&M: 53843 Subs Hosp L2
--- NOTE | 2018-08-30 10:04 | PN_ITS ---
Patient Problems: Active and Suspected Problems (Last Updated 08/29/18 @ 04:57 by Juan Griffin MD) Alcohol dependence (Acute) Alcohol withdrawal (Acute) Subjective: Patient seen and examined. He complains of low back pain which is been going on for about 2 months. He denies any fever or chills, palpitations or dizziness, chest pain, diarrhea vomiting. His last use of IV drugs was 2 years ago. 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 Review of systems otherwise negative. Vitals reviewed. Vitals/I&O's: Vital Signs Temp Pulse Resp BP Pulse Ox 98.4 F 97 16 138/97 H 94 08/30/18 08:09 08/30/18 08:09 08/30/18 08:09 08/30/18 08:09 08/30/18 08:09 Oxygen Flow Rate (L/min) 2 Oxygen Delivery Method Room Air Weight: 153 lb 3.54 oz Body Mass Index (BMI) 23.3 Intake and Output for Last 24 Hours 08/28/18 08/29/18 08/30/18 23:59 23:59 23:59 Intake Total 1000 / 1000 Output Total 550 / 550 400 / 400 Balance -550 / -550 600 / 600 General: Alert, Oriented x3, Cooperative, No apparent distress HEENT: Atraumatic, PERRLA, EOMI, Normocephalic Oral: Moist Mucosa Neck: Supple, No JVD, Negative Carotid Bruits Lungs: Clear to auscultation, Normal air movement, No rhonchi, No wheeze, No rales Cardiovascular: Regular Rhythm, Normal S1, Normal S2, No murmurs, Tachycardic Abdomen: Bowel Sounds Present, Soft, Non Tender, Non-Distended, No Hepato- splenomegaly Extremities: No clubbing, No cyanosis, No edema, Capillary Refill Less than 3 Seconds Skin: No rashes, No breakdown Musculoskeletal: No Tenderness to Palpation of Joints or Extremities; no tenderness on palpation of lower back Lymphatic: No Cervical, Supraclavicular, or Inguinal Adenopathy Neurological: Cranial nerves II-XII grossly intact, - - tremors of UEs have improved significantly Psych/Mental Status: Normal Affect, Appropriate, Alert and oriented to time, place, person, mood and affect Current Medications Bisacodyl (Dulcolax) 5 mg PO DAILY PRN PRN PRN Reason: Constipation Chlordiazepoxide (Librium) 50 mg PO Q6H [facility]; Taper Stop: 09/02/18 05:44 Last Admin: 08/30/18 03:55 Dose: 50 mg Dicyclomine HCl (Bentyl) 20 mg PO Q6H PRN PRN PRN Reason: abdominal discomfort Last Admin: 08/29/18 18:12 Dose: 20 [facility] Stop: 08/31/18 08:01 Last Admin: 08/30/18 08:25 Dose: 1 mg Hydroxyzine Pamoate (Vistaril Pamoate Capsule) 50 mg PO Q6H PRN PRN PRN Reason: Mild Anxiety (score 1/3) Last Admin: 08/29/18 22:35 Dose: 50 mg Lorazepam (Ativan) 1 mg IV Q4H PRN PRN PRN Reason: Severe Anxiety Last Admin: 08/30/18 03:10 Dose: 1 mg Lorazepam (Ativan) 2 mg IV X1 PRN PRN Reason: Seizure Lorazepam (Ativan) 1 mg PO Q6H [facility]; Taper Stop: 09/01/18 06:29 Last Admin: 08/30/18 05:25 Dose: Not Given Methocarbamol (Methocarbamol) 750 mg PO Q6H PRN PRN PRN Reason: Muscle Aches Last Admin: 08/30/18 03:10 Dose: 750 mg [facility]amin) [facility] Last Admin: 08/30/18 08:25 Dose: 1 tablet Nicotine (Nicoderm Cq (Pbkc)) 21 mg TRANSDERM. DAILY [facility] Last Admin: 08/29/18 03:25 Dose: 21 mg Ondansetron HCl (Zofran) 4 mg IV Q8H PRN PRN PRN Reason: NAUSEA/VOMITING Last Admin: 08/29/18 20:03 Dose: 4 mg Sodium Chloride () 5 - 15 ml IV UD PRN PRN Reason: SALINE FLUSH Thiamine [facility]itamin B1) [facility] Stop: 08/31/18 08:01 Last Admin: 08/30/18 08:25 Dose: 100 mg Medical Necessity - Tobacco Use Smoking Status: Current every day smoker Tobacco Use: Cigarettes Assessment/Plan All Active Problems (Last Updated 08/29/18 @ 04:57 by Juan Griffin MD) Alcohol dependence (Acute) Alcohol withdrawal (Acute) 1. Acute alcohol withdrawal * Alcohol level on admission was 673. Urine tox screen was unremarkable. * On alcohol withdrawal protocol with of Ativan. * Folic acid, thiamine and multivitamins. * Monitor CIWA score- is 8 today * 2. Back pain, likely musculoskeletal * complains of 6/10 back pain; no recent use of IV drugs, so suspicion for diskitis is low. * will get lumbar xray * ibuprofen for pain * 3. Elevated liver enzymes: * This is chronic, and likely due to liver disease from alcohol abuse. * counseled to quit alcohol use * 4. Tobacco abuse: counselled to quit. On nicotine patch 21mg daily 5. Thrombocytopenia: platelets were 126 on admission; is chronic. Due to alcohol abuse. WIll monitor DVT prophylaxis: low risk; encouraged to ambulate\ [facility]. Code Visit Inpatient E&M: 04432 Subs Hosp L2
[2018-08-30] MEDS: LORazepam 1 MG Tablet PO ×3 (10:24→23:23)
[2018-08-30] MEDS: hydrOXYzine PAM 25 MG Capsule 50 MG PO (20:03)
[2018-08-31] MEDS: hydrOXYzine PAM 25 MG Capsule 50 MG PO (02:31)
[2018-08-31 05:53] VITALS: BP 111/69; PULSE 105; RESP 16; TEMP 37.4
[2018-08-31] MEDS: chlordiazePOXIDE 25 MG Capsule 50 MG PO (05:54)
[2018-08-31] MEDS: Methocarbamol 750 MG Tablet PO (06:43)
[2018-08-31] MEDS: LORazepam 1 MG Tablet PO (06:43)
[2018-08-31] MEDS: Multivitamins,Therapeutic Tablet 1 TABLET PO (08:57)
[2018-08-31] MEDS: Folic Acid 1 MG Tablet PO (08:57)
[2018-08-31] MEDS: Thiamine Hydrochloride 100 MG Tablet PO (08:57)
[2018-08-31 09:01] VITALS: BP 115/77; PULSE 111; RESP 18; TEMP 37.2
--- NOTE | 2018-08-31 09:57 | PCM.DC ---
- Discharge Diagnoses Current Active Problems: Current Active and Chronic Problems (Last Updated 08/29/18 @ 04:57 by Juan Griffin MD) Alcohol dependence (Acute) Alcohol withdrawal (Acute) You will use the following diet at home:: No restrictions Your food should be the consistency of: Regular Your liquids should be the consistency of: Regular/Thin Discharge Activity: Return to Normal Activity Weight Bearing Status: Weight bearing as tolerated Call your doctor if you observe: Fever of 101 or Higher, Shortness of breath, Uncontrolled pain Instructions: The Impact of Alcoholism, Alcoholism: Getting Help Allergies/Adverse Reactions: Allergies Penicillins Adverse Reaction (Verified 08/28/18 20:14) Vomiting Medications to take at Discharge NK 08/28/18 Primary Care Physician: Dipak Steve MD [Primary Care Provider] - Please follow up with your Primary Care Physician in: one week Test Results: Test results from this visit will be discussed in further detail at your follow-up appointment, if applicable. Proposed Discharge Date: 08/31/18
--- NOTE | 2018-08-31 10:00 | DCINST_ITS ---
- Discharge Diagnoses Current Active Problems: Current Active and Chronic Problems (Last Updated 08/29/18 @ 04:57 by Juan Griffin MD) Alcohol dependence (Acute) Alcohol withdrawal (Acute) You will use the following diet at home:: No restrictions Your food should be the consistency of: Regular Your liquids should be the consistency of: Regular/Thin Discharge Activity: Return to Normal Activity Weight Bearing Status: Weight bearing as tolerated Call your doctor if you observe: Fever of 101 or Higher, Shortness of breath, Uncontrolled pain Instructions: The Impact of Alcoholism, Alcoholism: Getting Help Allergies/Adverse Reactions: Allergies Penicillins Adverse Reaction (Verified 08/28/18 20:14) Vomiting Medications to take at Discharge NK 08/28/18 Primary Care Physician: Dipak Steve MD [Primary Care Provider] - Please follow up with your Primary Care Physician in: one week Test Results: Test results from this visit will be discussed in further detail at your follow- up appointment, if applicable. Proposed Discharge Date: 08/31/18
--- NOTE | 2018-08-31 10:00 | PCM.DC.SUM ---
Discharge Date and Diagnosis Date of Admission: 08/29/18 Date of Discharge: 08/31/18 - Primary Discharge Diagnosis Active and Suspected Problems (Last Updated 08/29/18 @ 04:57 by Juan Griffin MD) Alcohol dependence (Acute) Alcohol withdrawal (Acute) Hospital Course and Treatment Imaging Results: Diagnostic Data Lumbar Spine X-Ray 08/30/18 08:16 IMPRESSION: There is straightening of the normal lordotic curve, a nonspecific finding, which may be due to positioning or which might be due to muscle spasm. Electronically Signed: Rubia Keenan MD at 1:47 EDT , Service support , Consultations 08/29/18 04:51 Consult: [employer] Routine Consulting Provider: Consulted Physician Type:: Other * Specify below * Reason for consult:: etoh withdrawal Operations: None Procedures: None Summary of Care Provided: The patient is a 28 year old M with past medical history of alcohol and tobacco dependence. He was admitted for acute alcohol withdrawal. He complained of increased shakiness, nausea and visual hallucinations. Patient stated he drank up to 20 beers per day and his blood alcohol level on admission was 673. He was admitted and managed for acute alcohol withdrawal per [employer] protocol. U tox was negative. He however had elevated liver enzymes which were chronic and was thought to be due to alcohol. He was started on alcohol withdrawal protocol with Ativan. Patient subsequently complained of back pain which was chronic and x-ray of the lumbar spine done was negative for any acute pathology. Patient remained stable and CIWA score trended down, and was 5 on day of discharge. He was discharged to rehab facility- [facility]- on 08/31/2018. He is to follow-up with his primary care doctor in 1 week. Patient seen and examined prior to discharge. He had no complaints and felt well. Back pain had resolved. Review of systems otherwise negative. Labs and vitals reviewed. Home medication reviewed and reconciled. o/e: Vital Signs Height 5 ft 8 in Weight: 153 lb 3.54 oz Weight in Pounds 153.2 lbs Pulse Ox 97 Temperature 98.9 F Pulse Rate 111 Respiratory Rate 18 Blood Pressure [BP] 112/68 Blood Pressure 115/77 Blood Pressure Position [BP] Supine Blood Pressure Position Semi-Fowlers [] General: Alert, Oriented x3, Cooperative, No apparent distress HEENT: Atraumatic, PERRLA, EOMI, Normocephalic Oral: Moist Mucosa Neck: Supple, No JVD, Negative Carotid Bruits Lungs: Clear to auscultation, Normal air movement, No rhonchi, No wheeze, No rales Cardiovascular: Regular Rhythm, Normal S1, Normal S2, No murmurs, Tachycardic Abdomen: Bowel Sounds Present, Soft, Non Tender, Non-Distended, No Hepato-splenomegaly Extremities: No clubbing, No cyanosis, No edema, Capillary Refill Less than 3 Seconds Skin: No rashes, No breakdown Musculoskeletal: No Tenderness to Palpation of Joints or Extremities; no tenderness on palpation of lower back Lymphatic: No Cervical, Supraclavicular, or Inguinal Adenopathy Neurological: Cranial nerves II-XII grossly intact, - - tremors of UEs have resolved Psych/Mental Status: Normal Affect, Appropriate, Alert and oriented to time, place, person, mood and affect Plan as discussed. - Physical Exam Vital Signs Temp Pulse Resp BP Pulse Ox 98.9 F 111 H 18 115/77 97 08/31/18 09:01 08/31/18 09:01 08/31/18 09:01 08/31/18 09:01 08/30/18 14:48 Oxygen Flow Rate (L/min) 2 Oxygen Delivery Method Room Air Weight: 153 lb 3.54 oz Body Mass Index (BMI) 23.3 Intake and Output for Last 24 Hours 08/29/18 08/30/18 08/31/18 23:59 23:59 23:59 Intake Total 1700 / 1700 100 / 100 Output Total 550 / 550 1974 400 / 400 Balance -550 / -550 -275 / -275 -300 / -300 Discharge Diet: No Restrictions Discharge Activity: Return to Normal Activity Weight Bearing Status: Weight bearing as tolerated Call your doctor if you observe: Fever of 101 or Higher, Shortness of breath, Uncontrolled pain Home Medications: Medications to take at Discharge NK 08/28/18 Primary Care Physician: Dipak Steve MD [Primary Care Provider] - Please follow up with your Primary Care Physician in: one week Patient Instructions: The Impact of Alcoholism, Alcoholism: Getting Help Disposition: Inpt Rehab Unit/Facility Minutes spent on discharge:: 40 Patient Condition:: Stable Medical Necessity - Tobacco Use Smoking Status: Current every day smoker Tobacco Use: Cigarettes Meaningful Use Info Meaningful Use Diagnoses (Choose all that apply): None applicable Code Visit Inpatient E&M: 52810 Disch Hosp
--- NOTE | 2018-08-31 10:18 | NURSING ---
Addendum entered by Meryl Leblanc 08/31/18 10:19: Primary RN aware of this conversation Original Note: discussed discharge plan including taper with both Dr. Klein and Deann from [facility]. aware pt will be discharged. Deann aware and re-arranged pickling grader by [facility] for 11:30. aware per Deann pt may leave unit prior to this time as they know pt and his has their phone number.
== END 2018-08-31 10:30 | disposition home or self-care (01) | DRG 775 ==
LOC: ED 08-29 00:11 → MS3 08-29 01:21
PROVIDERS: Admitting Provider Hospitalist; Emergency Provider Emergency Medicine; Family Provider Family Medicine; PCP Family Medicine; Visit Provider Student in an Organized Health Care Education/Training Program
DX: F10.239 Alcohol dependence with withdrawal, unspecified (principal); F10.229 Alcohol dependence with intoxication, unspecified; Y90.8 Blood alcohol level of 240 mg/100 ml or more; F17.210 Nicotine dependence, cigarettes, uncomplicated; M54.9 Dorsalgia, unspecified; R74.8 Abnormal levels of other serum enzymes; D69.6 Thrombocytopenia, unspecified
CPT/HCPCS: 72100; 80053; 80307; 80320; 85025; 99284; 99406; J7030; G0480; J2405; J3490

== ENCOUNTER 2019-01-07 14:25 | Inpatient (IN) | payer MEDICAID, SELFPAY ==
[2018-10-28 14:35] VITALS: BMI 23.3
[2019-01-07] VITALS (10 sets, daily range): BP systolic 117–132; BP diastolic 89–97; PULSE 94–109; RESP 15–24; TEMP 36.8; O2SAT 96–98; BMI 25.2; BMI 24.7
[2019-01-07] MEDS: 0.9% Normal Saline 1,000 ML 1000 ML IV (15:15)
[2019-01-07 15:24] LABS: Absolute Lymphocyte Count 3.18 X10^3/uL (0.83-4.51); Absolute Neutrophil Count 4.5 X10^3/uL (2.0-7.7); Basophil# 0.12 X10^3/uL; Basophil% 1.3 % (0-1); Eosinophil# 0.11 X10^3/uL; Eosinophils% 1.2 % (0-5); Hematocrit 46.7 % (40-54); Hemoglobin 15.8 g/dL (13.0-16.5); Lymphocyte # 3.18 X10^3/ul (4.0); Lymphocyte % 34.2 % (19-41); Mean Corp Hgb Conc 33.8 g/dL (32-36); Mean Corpuscular Hgb 31.6 pg (27.0-32.0); Mean Corpuscular Volume 93.4 fL (80-94); Mean Platelet Vol. 8.2 fl (6.2-12.0); Monocyte# 1.28 X10^3/uL; Monocyte% 13.8 % (0-10); NRBC Flagged by Analyzer 0 % (0-5); Neutrophil # 4.54 X10^3/uL (2.7-7.7); Neutrophil % 48.7 % (47-70); Platelet Count 207 K/mm3 (150-450); RBC Distribution Width CV 18.6 % (11.6-14.6); RBC Distribution Width SD 61.6 fl (35.1-43.9); White Blood Count 9.3 K/mm3 (4.4-11.0)
[2019-01-07 15:29] LABS: Amphetamine Urine VISTA NEGATIVE (<1000 ng/mL); Barbiturate Urine VISTA NEGATIVE (< 200 ng/mL); Benzodiazepine Urine VISTA NEGATIVE (< 200 ng/mL); Cocaine Urine VISTA NEGATIVE (< 300 ng/mL); Ecstacy Urine VISTA NEGATIVE (< 500 ng/mL); Methadone Urine VISTA NEGATIVE (< 300 ng/mL); PCP Urine VISTA NEGATIVE (< 25 ng/mL); THC Urine VISTA NEGATIVE (< 50 ng/mL); Vista UDS pH Range 6
[2019-01-07 15:43] LABS: ALB/GLOB Ratio 0.9 RATIO (0.9-2.4); AST(SGOT) 468 U/L (15-37); Alanine Aminotransfer ALT/SGPT 239 U/L (16-61); Albumin, Serum 4.1 g/dL (3.2-5.0); Alkaline Phosphatase 177 U/L (45-117); Anion Gap 7 (5-15); BUN 10 mg/dL (7-18); Calcium,Total 8.5 mg/dL (8.5-10.1); Chloride 103 mmol/L (98-107); Creatinine, Serum 0.77 mg/dL (0.70-1.30); EST Glomerular Filtration Rate 128 mL/min (>60); Est Glom Filt Rate - Afr Amer 155 mL/min (>60); Globulin 4.8 g/dL (2.2-4.2); Glucose 107 mg/dL (74-106); Lipase 439 U/L (73-393); Potassium 4.1 mmol/L (3.5-5.1); Protein, Total 8.9 g/dL (6.4-8.2); Sodium Level 139 mmol/L (136-145)
--- NOTE | 2019-01-07 15:43 | ED.VISSUMM ---
- ER Visit Summary Date of Service: 01/07/19 Chief Complaint: Alcohol detox History of Present Illness: The patient is a [address] Dang. He reports that he went through detox in August and had been going to [facility]. However, he began drinking approximately 10 days ago. He reports that he is drinking a pint of vodka and 30 beers per day. His last drink was just prior to arrival. He reports his had 6 beers today. Physical Examination: Vitals: Stable. Afebrile. General: Well-nourished and well-developed. Head: Normocephalic atraumatic. Neck: Supple, no lymphadenopathy. No JVD. Nontender. Cardiovascular: Regular rate and rhythm. No murmurs. Respiratory: No respiratory distress. Clear to auscultation bilaterally. Abdominal: Soft, Mild epigastric tenderness to palpation, nondistended, normal bowel sounds. No guarding, rebound, or peritoneal signs. Back: Nontender. Extremities: Nontender, no edema. Skin: Normal color, no rash. Neurologic: Alert and oriented ?3. Cranial nerves II through XII are intact. Normal strength and sensation. Psych: Normal affect. Vomiting. Test Results: CBC shows monocytes of 14. Chem-7 is unremarkable. LFTs show an alk phos of 177, ALP of 239, AST 468. Lipase is 439. Toxin is negative. Alcohol level is 398. Emergency Department Course and Treatment: Patient was given a dose of Ativan IV. He is resting comfortably. Treatment Plan: Patient was discussed with Dr. Osorio. He will be admitted to the hospital for further evaluation and treatment. Disposition: Admitted in stable condition. Impression: 1. Alcohol withdrawal. This note was generated with [employer] dictation software. It may contain incorrect words, spelling, and punctuation that were not noted in review of the chart prior to signing ED Disposition - Plan for ED Patient: Referrals: Fady Dang MD [Primary Care Provider] -
[2019-01-07] MEDS: LORazepam 2 MG/ML Syringe 1 MG IV ×2 (16:45→23:35)
--- NOTE | 2019-01-07 16:47 | ED.RN ---
DR PATTON NOTIFIED OF ETOH RESULTS
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
[2019-01-07] MEDS: chlordiazePOXIDE 25 MG Capsule PO ×2 (18:14→23:35)
[2019-01-07] MEDS: Folic Acid 1 MG Tablet PO (18:14)
[2019-01-07] MEDS: Lactated Ringers 1,000 ML 125 ML IV (18:14)
[2019-01-07] MEDS: Thiamine Hydrochloride 100 MG Tablet PO (18:14)
[2019-01-07] MEDS: traZODone 50 MG Tablet PO (21:26)
--- NOTE | 2019-01-07 23:40 | NURSING ---
Pt asked for Ativan. He appears to be fairly calm but he said that he is feeling very anxious during this phase of his withdrawal so Ativan given.
[2019-01-08] VITALS (9 sets, daily range): BP systolic 131–137; BP diastolic 88–97; PULSE 71–99; RESP 16–20; TEMP 36.8–37.2; O2SAT 94–99
[2019-01-08] MEDS: chlordiazePOXIDE 25 MG Capsule PO ×3 (05:33→20:48)
[2019-01-08] MEDS: 0.9% NaCl Peripheral Flush Adult/Peds IV ×3 (05:36→21:01)
[2019-01-08] MEDS: LORazepam 2 MG/ML Syringe 1 MG IV ×2 (05:44→12:15)
[2019-01-08] MEDS: Dicyclomine 10 MG Capsule 20 MG PO (05:54)
[2019-01-08 06:29] LABS: ALB/GLOB Ratio 0.9 RATIO (0.9-2.4); AST(SGOT) 343 U/L (15-37); Alanine Aminotransfer ALT/SGPT 193 U/L (16-61); Albumin, Serum 3.3 g/dL (3.2-5.0); Alkaline Phosphatase 146 U/L (45-117); Anion Gap 8 (5-15); BUN 11 mg/dL (7-18); BUN/Creat Ratio 16.5 RATIO (10-20); Calcium,Total 8.1 mg/dL (8.5-10.1); Chloride 110 mmol/L (98-107); Creatinine, Serum 0.67 mg/dL (0.70-1.30); EST Glomerular Filtration Rate 151 mL/min (>60); Est Glom Filt Rate - Afr Amer 183 mL/min (>60); Estimated Creatinine Clearance 165.61 ml/min; Globulin 3.6 g/dL (2.2-4.2); Glucose 84 mg/dL (74-106); Lipase 382 U/L (73-393); Potassium 4.2 mmol/L (3.5-5.1); Protein, Total 6.9 g/dL (6.4-8.2); Sodium Level 143 mmol/L (136-145)
[2019-01-08] MEDS: Folic Acid 1 MG Tablet PO (07:58)
[2019-01-08] MEDS: Thiamine Hydrochloride 100 MG Tablet PO (07:58)
[2019-01-08] MEDS: Multivitamins,Therapeutic Tablet 1 TABLET PO (07:58)
[2019-01-08] MEDS: FLUoxetine 20 MG Capsule 40 MG PO (07:59)
[2019-01-08] MEDS: hydrOXYzine PAM 25 MG Capsule 50 MG PO ×2 (08:01→15:57)
[2019-01-08] MEDS: Ibuprofen 600 MG Tablet PO ×2 (08:01→21:14)
--- NOTE | 2019-01-08 08:56 | NURSING ---
offered pt shower but declined at this time
--- NOTE | 2019-01-08 09:16 | PCM.PN.HOSP ---
Patient Problems: Active and Suspected Problems (Last Reviewed 10/28/18 @ 14:33 by Angélica Bliss) Alcohol withdrawal (Acute) Subjective: Still with tremors, nausea, abdominal pain. No hallucination, no headache. Vitals/I&O's: Vital Signs Temp Pulse Resp BP Pulse Ox 36.8 C 99 16 131/91 H 97 01/08/19 08:04 01/08/19 08:04 01/08/19 08:04 01/08/19 08:04 01/08/19 08:04 Oxygen Delivery Method Room Air Weight: 76.204 kg Body Mass Index (BMI) 24.7 Intake and Output for Last 24 Hours 01/06/19 01/07/19 01/08/19 23:59 23:59 23:59 Intake Total 1634 / 1634 781 / 781 Output Total / Balance 1630 / 1630 781 / 781 General: Alert, - - diaphoretic. non-toxic HEENT: Atraumatic, Normocephalic Oral: Moist Mucosa, No Gingival or Mucosal Lesions/ Ulcerations Neck: No Nodes, Thyroid Normal Size and Texture Lungs: Clear to auscultation, Normal air movement, No rhonchi, No wheeze, No rales Cardiovascular: Regular rate, Regular Rhythm, Normal S1, Normal S2, No murmurs Abdomen: Bowel Sounds Present, Soft, Non-Distended, Hepatomegaly - approximately 1 cm below costal margin., Tender - in RUQ Extremities: No edema, No Calf Tenderness Psych/Mental Status: Normal Affect, Appropriate Laboratory Results 01/07/19 15:05: Urine Opiates Screen NEGATIVE, Urine Methadone Screen NEGATIVE, Ur Barbiturates Screen NEGATIVE, Ur Phencyclidine Scrn NEGATIVE, Ur Amphetamines Screen NEGATIVE, U Methamphetamin-MDMA NEGATIVE, U Benzodiazepines Scrn NEGATIVE, Urine Cocaine Screen NEGATIVE, U Cannabinoids Screen NEGATIVE, Ur Drug Screen Comment 01/07/19 15:10: WBC 9.3, RBC 5.00, Hgb 15.8, Hct 46.7, MCV 93.4, MCH 31.6, MCHC 33.8, RDW Std Deviation 61.6 H, RDW Coeff of Mango 18.6 H, Plt Count 207, MPV 8.2, Immature Gran % (Auto) 0.800, Neut % (Auto) 48.7, Lymph % (Auto) 34.2, [place] % (Auto) 13.8 H, Eos % (Auto) 1.2, Baso % (Auto) 1.3 H, Absolute Neuts (auto) 4.5, Absolute Lymphs (auto) 3.18, Nucleated RBC % 0 01/07/19 15:10: Sodium 139, Potassium 4.1, Chloride 103, Carbon Dioxide 29.0, Anion Gap 7, BUN 10, Creatinine 0.77, Estim Creat Clear Calc 144.10, Est GFR (MDRD) Af Amer 155, Est GFR (MDRD) Non-Af 128, BUN/Creatinine Ratio 13.0, Glucose 107 H, Calcium 8.5, Total Bilirubin 0.70, AST 468 H, ALT 239 H, Alkaline Phosphatase 177 H, Total Protein 8.9 H, Albumin 4.1, Globulin 4.8 H, Albumin/Globulin Ratio 0.9, Lipase 439 H 01/07/19 15:10: Ethyl Alcohol 398.0 H* 01/07/19 15:10: Magnesium 2.0 01/07/19 15:10: Phosphorus 4.0 01/08/19 05:32: Sodium 143, Potassium 4.2, Chloride 110 H, Carbon Dioxide 25.0, Anion Gap 8, BUN 11, Creatinine 0.67 L, Estim Creat Clear Calc 165.61, Est GFR (MDRD) Af Amer 183, Est GFR (MDRD) Non-Af 151, BUN/Creatinine Ratio 16.5, Glucose 84, Calcium 8.1 L, Total Bilirubin 0.80, AST 343 H, ALT 193 H, Alkaline Phosphatase 146 H, Total Protein 6.9, Albumin 3.3, Globulin 3.6, Albumin/Globulin Ratio 0.9, Lipase 382 Current Medications Acetaminophen (Tylenol) 500 mg PO Q4H PRN PRN PRN Reason: Temp > 100.4 F Al Hydroxide/Mg Hydroxide (Mylanta Ii) 30 ml PO Q6H PRN PRN PRN Reason: dyspesia Bisacodyl (Dulcolax) 10 mg RECTAL DAILY PRN PRN Reason: Constipation Chlordiazepoxide (Librium) 50 mg PO Q6H SHERYL; Taper Stop: 01/10/19 19:59 Last Admin: 01/08/19 05:33 Dose: 50 mg Documented by: Dextrose (D50w Syringe) 0 gm IV X1 PRN; Protocol PRN Reason: Hypoglycemia Dicyclomine HCl (Bentyl) 20 mg PO Q6H PRN PRN PRN Reason: abdominal discomfort Last Admin: 01/08/19 05:54 Dose: 20 mg Documented by: Famotidine (Pepcid) 20 mg PO QHS PRN PRN Reason: gerd symptoms Fluoxetine HCl (Prozac) 40 mg PO DAILY [facility] Last Admin: 01/08/19 07:59 Dose: 40 mg Documented by: Folic [facility] ([facility] Acid) [facility] Stop: 01/09/19 08:01 Last Admin: 01/08/19 07:58 Dose: 1 mg Documented by: Glucagon () 1 mg IM .X1 PRN PRN Reason: Hypoglycemia Hydroxyzine Pamoate (Vistaril Pamoate Capsule) 50 mg PO Q6H PRN PRN PRN Reason: Mild Anxiety (score 1/3) Last Admin: 01/08/19 08:01 Dose: 50 mg Documented by: Ibuprofen (Motrin) 600 mg PO Q8H PRN PRN PRN Reason: Mild-Moderate Pain (1-5/10) Last Admin: 01/08/19 08:01 Dose: 600 mg Documented by: Loperamide HCl (Imodium) 2 - 4 mg PO UD PRN PRN Reason: LOOSE STOOLS Loratadine (Claritin) 10 mg PO DAILY PRN PRN Reason: allergy symptoms Lorazepam (Ativan) 1 mg IV Q4H PRN PRN PRN Reason: Severe Anxiety Last Admin: 01/08/19 05:44 Dose: 1 mg Documented by: Lorazepam (Ativan) 2 mg IV X1 PRN PRN Reason: Seizure Methocarbamol (Methocarbamol) 750 mg PO Q6H PRN PRN PRN Reason: Muscle Aches Multivitamins ([facility]ivitamin) [facility] Last Admin: 01/08/19 07:58 Dose: 1 tablet Documented by: Nicotine (Nicoderm Cq (Pbkc)) 14 mg TRANSDERM. DAILY [facility] Last Admin: 01/08/19 07:59 Dose: 14 mg Documented by: Ondansetron HCl (Zofran Odt) 4 mg PO Q6H PRN PRN PRN Reason: NAUSEA Senna (Senokot) 1 tablet PO QHS PRN PRN Reason: Constipation Sodium Chloride () 10 - 40 ml IV UD PRN PRN Reason: SALINE FLUSH Last Admin: 01/08/19 05:43 Dose: 10 ml Documented by: Thiamine HCl (Vitamin B1) 100 mg PO DAILYCM [facility] Stop: 01/09/19 08:01 Last Admin: 01/08/19 07:58 Dose: 100 mg Documented by: Trazodone HCl (Desyrel) 50 mg PO QHS [facility] Last Admin: 01/07/19 21:26 Dose: 50 mg Documented by: Medical Necessity - Tobacco Use Smoking Status: Current every day smoker - 1/2 pack/day cigarette tobacco usage. Tobacco Use: Cigarettes Assessment/Plan All Active Problems (Last Reviewed 10/28/18 @ 14:33 by Angélica Bliss) Alcohol withdrawal (Acute) Substance abuse in remission (Acute) Drug abuse (Resolved) UTI (urinary tract infection) (Resolved) Bone fracture (Resolved) Alcohol dependence (Acute) Alcohol withdrawal (Acute) Alcohol dependence (Acute) 1. acute alcohol withdrawal CIWA 16 (on medication) continue chlordiazepoxide taper continue thiamine and folate. last drink was 01/07 at 1400. had been sober until 2 weeks ago, then he resumed drinking large quantities of alcohol has had delirium tremens previously. 2. acute alcoholic hepatitis monitor for now LFTs trending down slightly monitor consider imaging if gets worse 3. Elevated lipase trivial elevation resolved no further work up at this time unless clear signs of acute pancreatitis 4. VTE prophylaxis: low-risk at this time. ambulation. Code Visit Inpatient E&M: 52399 Subs Hosp L2
[2019-01-08] MEDS: Methocarbamol 750 MG Tablet PO (15:57)
[2019-01-08] MEDS: traZODone 50 MG Tablet PO (21:14)
[2019-01-09 02:45] VITALS: BP 133/96; PULSE 77; RESP 16; TEMP 36.7; O2SAT 98
[2019-01-09] MEDS: chlordiazePOXIDE 25 MG Capsule PO ×3 (03:56→21:04)
[2019-01-09 06:30] LABS: ALB/GLOB Ratio 0.9 RATIO (0.9-2.4); AST(SGOT) 290 U/L (15-37); Alanine Aminotransfer ALT/SGPT 170 U/L (16-61); Albumin, Serum 3.5 g/dL (3.2-5.0); Alkaline Phosphatase 156 U/L (45-117); Anion Gap 8 (5-15); BUN 10 mg/dL (7-18); BUN/Creat Ratio 14.6 RATIO (10-20); Calcium,Total 8.4 mg/dL (8.5-10.1); Chloride 109 mmol/L (98-107); Creatinine, Serum 0.68 mg/dL (0.70-1.30); EST Glomerular Filtration Rate 147 mL/min (>60); Est Glom Filt Rate - Afr Amer 178 mL/min (>60); Estimated Creatinine Clearance 163.18 ml/min; Globulin 3.8 g/dL (2.2-4.2); Glucose 95 mg/dL (74-106); Potassium 3.6 mmol/L (3.5-5.1); Protein, Total 7.3 g/dL (6.4-8.2); Sodium Level 141 mmol/L (136-145)
[2019-01-09 10:56] VITALS: BP 134/97; PULSE 86; RESP 18; TEMP 36.8; O2SAT 100
[2019-01-09] MEDS: Thiamine Hydrochloride 100 MG Tablet PO (10:58)
[2019-01-09] MEDS: FLUoxetine 20 MG Capsule 40 MG PO (10:58)
[2019-01-09] MEDS: Folic Acid 1 MG Tablet PO (10:58)
[2019-01-09] MEDS: Multivitamins,Therapeutic Tablet 1 TABLET PO (10:58)
--- NOTE | 2019-01-09 11:11 | PCM.PN.HOSP ---
Patient Problems: Active and Suspected Problems (Last Reviewed 10/28/18 @ 14:33 by Angélica Bliss) Alcohol withdrawal (Acute) Subjective: Feeling much better. Slept like a baby last night. No headache, nausea, vomiting. Vitals/I&O's: Vital Signs Temp Pulse Resp BP Pulse Ox 36.8 C 86 18 134/97 H 100 01/09/19 10:56 01/09/19 10:56 01/09/19 10:56 01/09/19 10:56 01/09/19 10:56 Oxygen Delivery Method Room Air Weight: 76.204 kg Body Mass Index (BMI) 24.7 Intake and Output for Last 24 Hours 01/07/19 01/08/19 01/09/19 23:59 23:59 23:59 Intake Total 1634 / 1634 781 / 1186 505 / 505 Output Total 650 / 650 Balance 1630 / 1630 781 / 536 -145 / -145 General: Alert, No apparent distress HEENT: Atraumatic, Normocephalic Oral: Moist Mucosa, No Gingival or Mucosal Lesions/ Ulcerations Neck: No Nodes, Thyroid Normal Size and Texture Lungs: Clear to auscultation, Normal air movement, No rhonchi, No wheeze, No rales Cardiovascular: Regular rate, Regular Rhythm, Normal S1, Normal S2 Abdomen: Bowel Sounds Present, Soft, Non Tender, Non-Distended, No Hepato-splenomegaly Extremities: No edema, No Calf Tenderness Psych/Mental Status: Normal Affect, Appropriate Laboratory Results 01/09/19 05:34: Sodium 141, Potassium 3.6, Chloride 109 H, Carbon Dioxide 24.0, Anion Gap 8, BUN 10, Creatinine 0.68 L, Estim Creat Clear Calc 163.18, Est GFR (MDRD) Af Amer 178, Est GFR (MDRD) Non-Af 147, BUN/Creatinine Ratio 14.6, Glucose 95, Calcium 8.4 L, Total Bilirubin 2.20 H, AST 290 H, ALT 170 H, Alkaline Phosphatase 156 H, Total Protein 7.3, Albumin 3.5, Globulin 3.8, Albumin/Globulin Ratio 0.9 Current Medications Acetaminophen (Tylenol) 500 mg PO Q4H PRN PRN PRN Reason: Temp > 100.4 F Al Hydroxide/Mg Hydroxide (Mylanta Ii) 30 ml PO Q6H PRN PRN PRN Reason: dyspesia Bisacodyl (Dulcolax) 10 mg RECTAL DAILY PRN PRN Reason: Constipation Chlordiazepoxide (Librium) 50 mg PO Q8H SHERYL; Taper Stop: 01/10/19 19:59 Last Admin: 01/09/19 03:56 Dose: 50 mg Documented by: Dextrose (D50w Syringe) 0 gm IV X1 PRN; Protocol PRN Reason: Hypoglycemia Dicyclomine HCl (Bentyl) 20 mg PO Q6H PRN PRN PRN Reason: abdominal discomfort Last Admin: 01/08/19 05:54 Dose: 20 mg Documented by: Famotidine (Pepcid) 20 mg PO QHS PRN PRN Reason: gerd symptoms Fluoxetine HCl (Prozac) 40 mg PO DAILY [facility] Last Admin: 01/09/19 10:58 Dose: 40 mg Documented by: Glucagon () 1 mg IM .X1 PRN PRN Reason: Hypoglycemia Hydroxyzine Pamoate (Vistaril Pamoate Capsule) 50 mg PO Q6H PRN PRN PRN Reason: Mild Anxiety (score 1/3) Last Admin: 01/08/19 15:57 Dose: 50 mg Documented by: Ibuprofen (Motrin) 600 mg PO Q8H PRN PRN PRN Reason: Mild-Moderate Pain (1-5/10) Last Admin: 01/08/19 21:14 Dose: 600 mg Documented by: Loperamide HCl (Imodium) 2 - 4 mg PO UD PRN PRN Reason: LOOSE STOOLS Loratadine (Claritin) 10 mg PO DAILY PRN PRN Reason: allergy symptoms Lorazepam (Ativan) 1 mg IV Q4H PRN PRN PRN Reason: Severe Anxiety Last Admin: 01/08/19 12:15 Dose: 1 mg Documented by: Lorazepam (Ativan) 2 mg IV X1 PRN PRN Reason: Seizure Methocarbamol (Methocarbamol) 750 mg PO Q6H PRN PRN PRN Reason: Muscle Aches Last Admin: 01/08/19 15:57 Dose: 750 mg Documented by: Multivitamins (Multivitamin) 1 tablet PO DAILYCM [facility] Last Admin: 01/09/19 10:58 Dose: 1 tablet Documented by: Nicotine (Nicoderm Cq (Pbkc)) 14 mg TRANSDERM. DAILY [facility] Last Admin: 01/09/19 10:58 Dose: 14 mg Documented by: Ondansetron HCl (Zofran Odt) 4 mg PO Q6H PRN PRN PRN Reason: NAUSEA Senna (Senokot) 1 tablet PO QHS PRN PRN Reason: Constipation Sodium Chloride () 10 - 40 ml IV UD PRN PRN Reason: SALINE FLUSH Last Admin: 01/08/19 21:01 Dose: 10 ml Documented by: Trazodone HCl (Desyrel) 50 mg PO QHS [facility] Last Admin: 01/08/19 21:14 Dose: 50 mg Documented by: Medical Necessity - Tobacco Use Smoking Status: Current every day smoker Tobacco Use: Cigarettes Assessment/Plan All Active Problems (Last Reviewed 10/28/18 @ 14:33 by Angélica Bliss) Alcohol withdrawal (Acute) Substance abuse in remission (Acute) Drug abuse (Resolved) UTI (urinary tract infection) (Resolved) Bone fracture (Resolved) Alcohol dependence (Acute) Alcohol withdrawal (Acute) Alcohol dependence (Acute) 1. acute alcohol withdrawal improving CIWA 6 (on medication) continue chlordiazepoxide taper continue thiamine and folate. last drink was 01/07 at 1400. had been sober until 2 weeks ago, then he resumed drinking large quantities of alcohol has had delirium tremens previously. patient plans on going to [facility] after he is discharged (previously arranged) anticipate discharge on 01/10, if continues to improve. 2. acute alcoholic hepatitis improving, though bilirubin is up LFTs trending down slightly monitor consider imaging if gets worse 3. Elevated lipase trivial elevation resolved no further work up at this time unless clear signs of acute pancreatitis 4. VTE prophylaxis: low-risk at this time. ambulation. Code Visit Inpatient E&M: 58453 Subs Hosp L2
--- NOTE | 2019-01-09 11:15 | CASEMGMT ---
Social Work Note SW met with pt to discuss discharge plans. Pt states that he plans to follow up with [facility] in [place], [place] where pt is from. Pt states that he was already a client of [facility] and will be returning there at discharge. Pt denied additional needs or concerns at this time. Brenda Ayala COMMUNITY ENGAGEMENT LEADER, BUILDING STONECUTTER
[2019-01-09] MEDS: hydrOXYzine PAM 25 MG Capsule 50 MG PO (17:38)
[2019-01-09] MEDS: traZODone 50 MG Tablet PO (21:04)
[2019-01-09] MEDS: LORazepam 2 MG/ML Syringe 1 MG IV (21:09)
[2019-01-09] MEDS: 0.9% NaCl Peripheral Flush Adult/Peds IV (21:09)
[2019-01-09 22:00] VITALS: BP 126/93; PULSE 77; RESP 16; TEMP 37.3; O2SAT 97
[2019-01-10 02:00] VITALS: BP 126/93; PULSE 77; RESP 16; TEMP 37.3; O2SAT 97
[2019-01-10 02:45] VITALS: BP 128/95; PULSE 76; RESP 16; TEMP 37.1; O2SAT 97
[2019-01-10 06:00] VITALS: BP 128/94; PULSE 78; RESP 16; TEMP 37.1; O2SAT 97
--- NOTE | 2019-01-10 08:01 | DCINST_ITS ---
- Discharge Diagnoses Current Active Problems: Current Active and Chronic Problems (Last Reviewed 10/28/18 @ 14:33 by Angélica Bliss) Alcohol withdrawal (Acute) Tobacco use (Chronic) You will use the following diet at home:: No restrictions Your food should be the consistency of: Regular Your liquids should be the consistency of: Regular/Thin Call your doctor if you observe: Fever of 101 or Higher, - - intractable nausea and vomiting. worsening abdominal pain. Allergies/Adverse Reactions: Allergies adhesive tape Allergy (Mild, Verified 01/07/19 14:29) Hives Medications to take at Discharge fluoxetine 20 mg capsule 20 mg PO DAILY #90 cap 10/28/18 fluoxetine 40 mg capsule 40 mg PO DAILY #90 cap 10/28/18 loratadine 10 mg capsule 10 mg PO DAILY PRN #30 cap 10/28/18 hydroxyzine HCl 25 mg tablet 25 mg PO TID-QID PRN #60 tab 11/29/18 Multivitamins,Therapeutic [Multivitamin] 1 tablet PO DAILY #1 tablet 01/10/19 The following prescriptions were given: Multivitamins,Therapeutic [Multivitamin] 1 tablet PO DAILY #1 tablet Primary Care Physician: Fady Dang MD [Primary Care Provider] - Within 2 Weeks Test Results: Test results from this visit will be discussed in further detail at your follow- up appointment, if applicable. Please Follow Up With: Intensive outpatient program When: This week. Proposed Discharge Date: 01/10/19
--- NOTE | 2019-01-10 08:03 | DS.PCM_ITS ---
Discharge Date and Diagnosis - Problem List Patient Problems: Active and Suspected Problems (Last Reviewed 10/28/18 @ 14:33 by Angélica Bliss) Alcohol withdrawal (Acute) Date of Admission: 01/07/19 Date of Discharge: 01/10/19 - Primary Discharge Diagnosis Active and Suspected Problems (Last Reviewed 10/28/18 @ 14:33 by Angélica Bliss) Alcohol withdrawal (Acute) - Secondary Discharge Diagnosis Chronic Problems (Last Reviewed 10/28/18 @ 14:33 by Angélica Bliss) Tobacco use (Chronic) Depression with anxiety (Chronic) Hypertension (Chronic) Hepatitis C (Chronic) Hepatitis B (Chronic) H/O emotional problems (Chronic) Seasonal allergies (Chronic) Hospital Course and Treatment Operations: None Procedures: None Summary of Care Provided: The patient is a 28 year old M presents seeking treatment for alcohol withdrawal. 1. acute alcohol withdrawal * improving * CIWA 1 (on medication) * last drink was 01/07 at 1400. * had been sober until 2 weeks prior to arrival, then he resumed drinking large quantities of alcohol * has had delirium tremens previously--none here. * patient plans on going to [facility] after he is discharged (previously arranged) * DC home. 2. acute alcoholic hepatitis * improving, though bilirubin is up * LFTs trending down slightly * monitor * consider imaging if gets worse * follow up as outpatient. 3. Elevated lipase * trivial elevation * resolved * no further work up at this time unless clear signs of acute pancreatitis [] Patient Problems: Active and Suspected Problems (Last Reviewed 10/28/18 @ 14:33 by Angélica Bliss) Alcohol withdrawal (Acute) - Physical Exam General: Alert, No apparent distress HEENT: Atraumatic, Normocephalic Psych/Mental Status: Normal Affect, Appropriate Vital Signs Temp Pulse Resp BP Pulse Ox 37.1 C 78 16 128/94 H 97 01/10/19 06:00 01/10/19 06:00 01/10/19 06:00 01/10/19 06:00 01/10/19 06:00 Oxygen Delivery Method Room Air Weight: 76.204 kg Body Mass Index (BMI) 24.7 Intake and Output for Last 24 Hours 01/08/19 01/09/19 01/10/19 23:59 23:59 23:59 Intake Total 781 / 1186 1225 / 2065 1320 / 1320 Output Total 650 / 650 Balance 781 / 536 575 / 1415 1320 / 1320 Discharge Diet: No Restrictions Call your doctor if you observe: Fever of 101 or Higher, - - intractable nausea and vomiting. worsening abdominal pain. Home Medications: Medications to take at Discharge fluoxetine 20 mg capsule 20 mg PO DAILY #90 cap 10/28/18 fluoxetine 40 mg capsule 40 mg PO DAILY #90 cap 10/28/18 loratadine 10 mg capsule 10 mg PO DAILY PRN #30 cap 10/28/18 hydroxyzine HCl 25 mg tablet 25 mg PO TID-QID PRN #60 tab 11/29/18 Multivitamins,Therapeutic [Multivitamin] 1 tablet PO DAILY #1 tablet 01/10/19 Following Prescrptions Were Given to Patient: Multivitamins,Therapeutic [Multivitamin] 1 tablet PO DAILY #1 tablet Primary Care Physician: Fady Dang MD [Primary Care Provider] - Within 2 Weeks Please Follow Up With: Intensive outpatient program When: This week. Disposition: Home Minutes spent on discharge:: 24 Patient Condition:: Good Medical Necessity - Tobacco Use Smoking Status: Current every day smoker Tobacco Use: Cigarettes Meaningful Use Info Meaningful Use Diagnoses (Choose all that apply): None applicable Code Visit Inpatient E&M: 27315 Disch Hosp
[2019-01-10 08:21] VITALS: BP 124/87; PULSE 84; RESP 16; TEMP 36.8; O2SAT 100
[2019-01-10] MEDS: Multivitamins,Therapeutic Tablet 1 TABLET PO (08:23)
[2019-01-10] MEDS: FLUoxetine 20 MG Capsule 40 MG PO (08:23)
[2019-01-10] MEDS: hydrOXYzine PAM 25 MG Capsule 50 MG PO (08:27)
[2019-01-10] MEDS: chlordiazePOXIDE 25 MG Capsule PO (08:27)
[2019-01-10 10:08] VITALS: BP 122/68; PULSE 78; RESP 16; TEMP 36.7; O2SAT 99
== END 2019-01-10 11:40 | disposition home or self-care (01) | DRG 775 ==
LOC: ED 15:38 → MS3 18:24
PROVIDERS: Admitting Provider Family Medicine; Emergency Provider Emergency Medicine; Family Provider Internal Medicine; PCP Internal Medicine; Referring Provider Family Medicine
DX: F10.239 Alcohol dependence with withdrawal, unspecified (principal); Y90.8 Blood alcohol level of 240 mg/100 ml or more; F17.210 Nicotine dependence, cigarettes, uncomplicated; B18.1 Chronic viral hepatitis B without delta-agent; B18.2 Chronic viral hepatitis C; K70.10 Alcoholic hepatitis without ascites; I10 Essential (primary) hypertension; J30.2 Other seasonal allergic rhinitis; F41.8 Other specified anxiety disorders
CPT/HCPCS: 36415; 80053; 80307; 80320; 83690; 83735; 84100; 85025; 99285; J7030; J7120; A4216; G0480

== ENCOUNTER → 2019-01-20 | Outpatient (CLI) | payer MEDICAID, SELFPAY ==
[2019-01-20 10:05] VITALS: BMI 24.7
[2019-01-20 12:39] LABS: Hematocrit 46.2 % (40-54); Hemoglobin 15.2 g/dL (13.0-16.5); Mean Corp Hgb Conc 32.9 g/dL (32-36); Mean Corpuscular Hgb 31.8 pg (27.0-32.0); Mean Corpuscular Volume 96.7 fL (80-94); Mean Platelet Vol. 9.5 fl (6.2-12.0); Platelet Count 303 K/mm3 (150-450); RBC Distribution Width CV 15.5 % (11.6-14.6); RBC Distribution Width SD 55.4 fl (35.1-43.9); Red Blood Count 4.78 M/mm3 (4.6-6.2); White Blood Count 8.7 K/mm3 (4.4-11.0)
[2019-01-20 13:11] LABS: ALB/GLOB Ratio 1.2 RATIO (0.9-2.4); AST(SGOT) 43 U/L (15-37); Alanine Aminotransfer ALT/SGPT 52 U/L (16-61); Albumin, Serum 4.3 g/dL (3.2-5.0); Alkaline Phosphatase 100 U/L (45-117); Anion Gap 4 (5-15); BUN 9 mg/dL (7-18); BUN/Creat Ratio 9.3 RATIO (10-20); Calcium,Total 8.8 mg/dL (8.5-10.1); Chloride 106 mmol/L (98-107); Creatinine, Serum 0.97 mg/dL (0.70-1.30); EST Glomerular Filtration Rate 98 mL/min (>60); Est Glom Filt Rate - Afr Amer 119 mL/min (>60); Globulin 3.7 g/dL (2.2-4.2); Glucose 93 mg/dL (74-106); Potassium 4.5 mmol/L (3.5-5.1); Sodium Level 138 mmol/L (136-145)
[2019-01-20 13:14] LABS: GGTP 900 U/L (15-85)
[2019-01-24 15:11] LABS: HCV log 10 6.637 (.)
== END | disposition home or self-care (01) ==
PROVIDERS: Family Provider Internal Medicine; PCP Internal Medicine; Visit Provider Nurse Practitioner Family
DX: B19.20 Unspecified viral hepatitis C without hepatic coma (principal); F10.20 Alcohol dependence, uncomplicated; R74.8 Abnormal levels of other serum enzymes
CPT/HCPCS: 36415; 80053; 82977; 85027; 87522

== ENCOUNTER 2019-04-09 14:42 | Inpatient (IN) | payer MEDICAID, SELFPAY ==
[2019-01-20 10:05] VITALS: BMI 24.7
[2019-04-09 14:43] VITALS: BP 134/95; PULSE 101; RESP 16; TEMP 36.4; O2SAT 100; BMI 27.3
--- NOTE | 2019-04-09 15:35 | ED.VIS.GEN ---
History of Present Illness Chief Complaint: ETOH Intox Informant: Patient, Friend Narrative: Patient presenting wanting detox from alcohol. States he has been drinking heavily for at least 4 months, the last time he was here in detox. His last drink was less than half an hour prior to arrival here today. He has withdrawal symptoms every morning before he starts drinking. He has no suicidal ideation. He had a cold recently but he is over that. He has had upper abdominal sharp pains for the past several weeks that do not get worse when he drinks alcohol, he states he just drinks until he does not feel it anymore. His typical daily intake is about a 24 pack of beer plus a pint of vodka. He denies doing any other illicit substances. - Past Medical History (1) Substance abuse in remission Status: Chronic (2) Depression with anxiety Status: Chronic (3) Hepatitis B Status: Chronic (4) Hepatitis C Status: Chronic (5) Hypertension Status: Chronic (6) Seasonal allergies Status: Chronic Past Medical History - Allergies and Home Meds Allergies/Adverse Reactions: Allergies adhesive tape Allergy (Mild, Verified 04/09/19 14:45) Hives Surgical History: - Lives: Friends Smoking Status: Current every day smoker Alcohol: Heavy Drugs: None - Family History Maternal Family History: Family History (Last Reviewed 10/28/18 @ 14:33 by Angéliac Bliss) Grandfather Hypertension Grandmother Hypertension Breast cancer Mother Breast cancer Hypertension Alcohol abuse Anxiety Asthma Respiratory disease Cancer Father Alcohol abuse Family History: Reports: - - Alcoholism history, noted to be sober x30 years now. Paternal Family History: Family History (Last Reviewed 10/28/18 @ 14:33 by Angélica Bliss) Grandfather Hypertension Grandmother Hypertension Breast cancer Mother Breast cancer Hypertension Alcohol abuse Anxiety Asthma Respiratory disease Cancer Father Alcohol abuse Family History: Reports: - - Alcoholism, drug abuse ongoing, history of breast cancer. Review of Systems General: Denies: Chills, Fever, Sweats Eyes: Denies: Visual changes - bilaterally, Diplopia ENT: Denies: Rhinorrhea, Sore throat Cardiovascular: Denies: Chest pain, Palpitations Respiratory: Denies: Dyspnea, Cough, Dyspnea on exertion Gastrointestinal: Reports: Abdominal pain. Denies: Nausea, Vomiting, Diarrhea, Melena, Hematochezia Genitourinary: Denies: Dysuria, Hematuria, Frequency Musculoskeletal: Denies: Neck pain, Back pain, Extremity Pain Skin: Denies: Rash, Wounds Neurological: Denies: Headache, Weakness, Numbness Psych: Denies: Suicidal thoughts, Suicidal ideations Physical Exam Vital Signs/Narrative: Vital Signs Temp Pulse Resp BP Pulse Ox 04/09/19 14:43 97.5 F L 101 H 16 134/95 H 100 Inital Vital Signs reviewed: Yes General: Well nourished, Well developed, No Acute Distress - Pleasantly intoxicated. Head: Normocephalic, Atraumatic Eyes: Perrl, EOMI. Negative for: Scleral icterus ENT: Moist mucous membranes, No rhinorrhea Neck: Supple, Nontender Cardiovascular: Regular rate, Regular rhythm, No murmurs Respiratory: No distress, CTA bilaterally, Chest nontender Abdomen: Soft, Nondistended, Normal bowel sounds, Tender - Diffusely but worse in upper abdomen, Guarding - Voluntary. Negative for: Hepatomegaly - Exam limited by voluntary guarding, Splenomegaly - Exam limited by voluntary guarding Back: Nontender, Normal Inspection Extremities: Nontender, No edema Skin: Normal color, No rash, No Trauma. Negative for: Jaundice Neurological: Alert, Oriented x3, Cranial nerves II-XII grossly intact, Normal Strength, Normal Sensation, Normal Gait Psychological: Normal affect, Normal Mood Diagnostic/Tx/Re-eval 04/09/19 16:43 Abdomen/Pelvis W IV Cont ONLY [CT] Stat Laboratory Results 04/09/19 04/09/19 04/09/19 15:15 15:15 15:15 WBC 8.2 RBC 4.19 L Hgb 14.2 Hct 40.7 MCV 97.1 H MCH 33.9 H MCHC 34.9 RDW Std Deviation 63.8 H RDW Coeff of Mango 18.0 H Plt Count 235 MPV 8.7 Immature Gran % (Auto) 1.000 H Neut % (Auto) 43.1 L Lymph % (Auto) 41.7 H [place] % (Auto) 10.8 H Eos % (Auto) 1.8 Baso % (Auto) 1.6 H Absolute Neuts (auto) 3.5 Absolute Lymphs (auto) 3.42 Nucleated RBC % 0 PT INR Sodium 133 L Potassium 4.1 Chloride 99 Carbon Dioxide 25.0 Anion Gap 9 BUN 7 Creatinine 0.62 L Estim Creat Clear Calc 171.61 Est GFR (MDRD) Af Amer 199 Est GFR (MDRD) Non-Af 164 BUN/Creatinine Ratio 11.3 Glucose 109 H Calcium 8.4 L Total Bilirubin 1.60 H AST 291 H ALT 108 H Alkaline Phosphatase 213 H Total Protein 8.8 H Albumin 3.7 Globulin 5.1 H Albumin/Globulin Ratio 0.7 L Lipase 1918 H Urine Opiates Screen Urine Methadone Screen Ur Barbiturates Screen Ur Phencyclidine Scrn Ur Amphetamines Screen U Methamphetamin-MDMA U Benzodiazepines Scrn Urine Cocaine Screen U Cannabinoids Screen Ur Drug Screen Comment Ethyl Alcohol 401.0 H* 04/09/19 04/09/19 04/09/19 15:15 15:15 15:55 WBC RBC Hgb Hct MCV MCH MCHC RDW Std Deviation RDW Coeff of Mango Plt Count MPV Immature Gran % (Auto) Neut % (Auto) Lymph % (Auto) [place] % (Auto) Eos % (Auto) Baso % (Auto) Absolute Neuts (auto) Absolute Lymphs (auto) Nucleated RBC % PT Cancelled 13.6 INR Cancelled 1.1 Sodium Potassium Chloride Carbon Dioxide Anion Gap BUN Creatinine Estim Creat Clear Calc Est GFR (MDRD) Af Amer Est GFR (MDRD) Non-Af BUN/Creatinine Ratio Glucose Calcium Total Bilirubin AST ALT Alkaline Phosphatase Total Protein Albumin Globulin Albumin/Globulin Ratio Lipase Urine Opiates Screen NEGATIVE Urine Methadone Screen NEGATIVE Ur Barbiturates Screen NEGATIVE Ur Phencyclidine Scrn NEGATIVE Ur Amphetamines Screen NEGATIVE U Methamphetamin-MDMA NEGATIVE U Benzodiazepines Scrn NEGATIVE Urine Cocaine Screen NEGATIVE U Cannabinoids Screen NEGATIVE Ur Drug Screen Comment Ethyl Alcohol - Medical Decision Making Labs show slightly elevated liver enzymes which is not surprising, however his lipase is almost 2000. On reevaluation the patient is eating a meal. I suspect he does not have acute pancreatitis given his symptoms, however in discussing with hospitalist we both agree that a CT for further evaluation would be warranted. After the CT, will admit to the floor for further testing/treatment/evaluation. I reviewed the CT, it does not appear to show major inflammatory changes around the pancreas. The liver looks a little enlarged. The gallbladder wall enhances but there does not appear to be significant distention or stones. Results are pending, I am okay with patient going to floor. ED Disposition - Plan for ED Patient: Disposition: Acute Care Hospital [facility] Diagnosis: Alcohol dependence, Chronic pancreatitis due to acute alcohol intoxication
[2019-04-09 15:36] LABS: Absolute Lymphocyte Count 3.42 X10^3/uL (0.83-4.51); Absolute Neutrophil Count 3.5 X10^3/uL (2.0-7.7); Basophil# 0.13 X10^3/uL; Basophil% 1.6 % (0-1); Eosinophil# 0.15 X10^3/uL; Eosinophils% 1.8 % (0-5); Hematocrit 40.7 % (40-54); Hemoglobin 14.2 g/dL (13.0-16.5); Lymphocyte # 3.42 X10^3/ul (4.0); Lymphocyte % 41.7 % (19-41); Mean Corp Hgb Conc 34.9 g/dL (32-36); Mean Corpuscular Hgb 33.9 pg (27.0-32.0); Mean Corpuscular Volume 97.1 fL (80-94); Mean Platelet Vol. 8.7 fl (6.2-12.0); Monocyte# 0.89 X10^3/uL; Monocyte% 10.8 % (0-10); NRBC Flagged by Analyzer 0 % (0-5); Neutrophil # 3.54 X10^3/uL (2.7-7.7); Neutrophil % 43.1 % (47-70); Platelet Count 235 K/mm3 (150-450); RBC Distribution Width SD 63.8 fl (35.1-43.9); Red Blood Count 4.19 M/mm3 (4.6-6.2); White Blood Count 8.2 K/mm3 (4.4-11.0)
--- NOTE | 2019-04-09 15:42 | NURSING ---
COAGS NEED REDRAWN
[2019-04-09 15:59] LABS: ALB/GLOB Ratio 0.7 RATIO (0.9-2.4); AST(SGOT) 291 U/L (15-37); Alanine Aminotransfer ALT/SGPT 108 U/L (16-61); Albumin, Serum 3.7 g/dL (3.2-5.0); Alkaline Phosphatase 213 U/L (45-117); Anion Gap 9 (5-15); BUN 7 mg/dL (7-18); BUN/Creat Ratio 11.3 RATIO (10-20); Calcium,Total 8.4 mg/dL (8.5-10.1); Chloride 99 mmol/L (98-107); Creatinine, Serum 0.62 mg/dL (0.70-1.30); EST Glomerular Filtration Rate 164 mL/min (>60); Est Glom Filt Rate - Afr Amer 199 mL/min (>60); Estimated Creatinine Clearance 171.61 ml/min; Globulin 5.1 g/dL (2.2-4.2); Glucose 109 mg/dL (74-106); Lipase 1918 U/L (73-393); Potassium 4.1 mmol/L (3.5-5.1); Protein, Total 8.8 g/dL (6.4-8.2); Sodium Level 133 mmol/L (136-145)
[2019-04-09 16:02] LABS: Amphetamine Urine VISTA NEGATIVE (<1000 ng/mL); Barbiturate Urine VISTA NEGATIVE (< 200 ng/mL); Benzodiazepine Urine VISTA NEGATIVE (< 200 ng/mL); Cocaine Urine VISTA NEGATIVE (< 300 ng/mL); Ecstacy Urine VISTA NEGATIVE (< 500 ng/mL); Methadone Urine VISTA NEGATIVE (< 300 ng/mL); PCP Urine VISTA NEGATIVE (< 25 ng/mL); THC Urine VISTA NEGATIVE (< 50 ng/mL); Vista UDS pH Range 6
[2019-04-09 16:19] LABS: International Normalized Ratio 1.1; Prothrombin Time (Protime)PT. 13.6 SECONDS (11.7-14.9)
--- NOTE | 2019-04-09 16:43 | CT_ITS ---
HISTORY: UPPER ABD PAIN, ALCOHOL DETOX, ELEVATED LIVER PANC ENZYMES TECHNIQUE: Helically acquired images were obtained of the abdomen and pelvis following the intravenous administration of 100 ml of Isovue 370 Iodinated contrast. 2D reformats. No oral contrast was administered. A radiation dose optimization technique was used for this scan. COMPARISON: None FINDINGS: # of images incl. paperwork: 412 LUNG BASES: Clear. CT abdomen: Bones are unremarkable. The gallbladder is contracted with a hyperenhancing thickened wall. The liver is enlarged and heterogeneous with severe amounts of fatty infiltration The umbilical vein is enlarged suggesting collateral portosystemic blood flow and portal venous hypertension. The spleen is not enlarged. No splenic hilar varices are perceived spleen, pancreas, and adrenal glands, are normal. The kidneys are normal. The aorta is normal. CT pelvis: No ascites is present. The prostate gland is not enlarged. The appendix is normal. Series 2 image 80. The bladder is normal. Bowel-gas pattern is normal. CT/Abdomen/Pelvis W IV Cont ONLY IMPRESSION: Hepatomegaly with severe hepatic steatosis. Evidence for portal venous hypertension and spontaneous portosystemic shunting through the umbilical vein Evidence for contusion in the subcutaneous fat superficial to the right gluteus muscle. This could be related to a subcutaneous injection Individualized dose optimization techniques were used for this CT. at 0016 Reported and signed by: Seng Encarnacion MD Electronically Signed: Seng Encarnacion MD at 0:15 EST Tel , Service support ,
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
--- NOTE | 2019-04-09 16:46 | NURSING ---
MED SURG KORAM PANCREATITIS, ALCOHOL DEPENDENCE
[2019-04-09] MEDS: 0.9% Normal Saline 1,000 ML 999 ML IV (17:27)
[2019-04-09 17:57] VITALS: BP 117/78; PULSE 92; RESP 18; O2SAT 95
[2019-04-09 18:52] VITALS: BMI 25.8
[2019-04-09 19:06] VITALS: BP 139/99; PULSE 104; RESP 16; TEMP 36.6; O2SAT 98
[2019-04-09] MEDS: chlordiazePOXIDE 25 MG Capsule PO (19:11)
[2019-04-09] MEDS: 0.9% Normal Saline 1,000 ML 150 ML IV (19:11)
[2019-04-09] MEDS: LORazepam 2 MG/ML Syringe IV (19:40)
[2019-04-09 22:54] VITALS: BP 129/90; PULSE 101; RESP 16; TEMP 36.8; O2SAT 97
[2019-04-09] MEDS: QUEtiapine 25 MG Tablet PO (22:59)
[2019-04-09] MEDS: Famotidine 20 MG Tablet PO (22:59)
[2019-04-10] MEDS: 0.9% Normal Saline 1,000 ML 150 ML IV ×2 (01:00→07:49)
[2019-04-10] MEDS: chlordiazePOXIDE 25 MG Capsule PO ×4 (01:00→22:00)
[2019-04-10 03:00] VITALS: BP 140/101; PULSE 89; RESP 16; TEMP 37.1; O2SAT 95
[2019-04-10] MEDS: hydrOXYzine PAM 25 MG Capsule PO (03:29)
[2019-04-10 06:17] LABS: Absolute Lymphocyte Count 1.87 X10^3/uL (0.83-4.51); Basophil# 0.12 X10^3/uL; Basophil% 2.5 % (0-1); Eosinophils% 2.1 % (0-5); Hematocrit 39.1 % (40-54); Hemoglobin 13.2 g/dL (13.0-16.5); Lymphocyte # 1.87 X10^3/ul (4.0); Lymphocyte % 38.4 % (19-41); Mean Corp Hgb Conc 33.8 g/dL (32-36); Mean Corpuscular Hgb 33.2 pg (27.0-32.0); Mean Corpuscular Volume 98.5 fL (80-94); Monocyte% 14.4 % (0-10); NRBC Flagged by Analyzer 0 % (0-5); Neutrophil # 2.04 X10^3/uL (2.7-7.7); Neutrophil % 41.8 % (47-70); Platelet Count 202 K/mm3 (150-450); RBC Distribution Width CV 17.5 % (11.6-14.6); RBC Distribution Width SD 63.8 fl (35.1-43.9); Red Blood Count 3.97 M/mm3 (4.6-6.2); White Blood Count 4.9 K/mm3 (4.4-11.0)
[2019-04-10 06:51] LABS: ALB/GLOB Ratio 0.8 RATIO (0.9-2.4); AST(SGOT) 199 U/L (15-37); Alanine Aminotransfer ALT/SGPT 84 U/L (16-61); Albumin, Serum 3.3 g/dL (3.2-5.0); Alkaline Phosphatase 179 U/L (45-117); Anion Gap 9 (5-15); BUN 8 mg/dL (7-18); BUN/Creat Ratio 14.4 RATIO (10-20); Calcium,Total 8.2 mg/dL (8.5-10.1); Chloride 109 mmol/L (98-107); Creatinine, Serum 0.56 mg/dL (0.70-1.30); EST Glomerular Filtration Rate 186 mL/min (>60); Est Glom Filt Rate - Afr Amer 225 mL/min (>60); Glucose 82 mg/dL (74-106); Potassium 4.4 mmol/L (3.5-5.1); Protein, Total 7.3 g/dL (6.4-8.2); Sodium Level 140 mmol/L (136-145)
[2019-04-10 08:58] VITALS: BP 152/101; PULSE 90; RESP 16; TEMP 36.9; O2SAT 96
[2019-04-10] MEDS: LORazepam 1 MG Tablet 2 MG PO ×2 (09:14→19:41)
[2019-04-10] MEDS: Multivitamins,Ther W-Minerals Tablet 1 TABLET PO (09:15)
[2019-04-10] MEDS: Thiamine Hydrochloride 100 MG Tablet PO (09:15)
[2019-04-10] MEDS: FLUoxetine 20 MG Capsule 60 MG PO (09:15)
[2019-04-10] MEDS: Folic Acid 1 MG Tablet PO (09:15)
--- NOTE | 2019-04-10 09:51 | PCM.PN.HOSP ---
Patient Problems: Active and Suspected Problems (Last Reviewed 10/28/18 @ 14:33 by Angélica Bliss) Alcohol dependence (Acute) Detox - 2-07/2018 & 08/2018 Subjective: Patient seen and examined. Abdominal pain is better today. He does admit to some tremors of his upper extremities but denies any nausea vomiting, diarrhea, lightheadedness weakness or dizziness. Review of systems otherwise negative. Patient tells me that he was told that he had hepatitis B but later told that he may have cleared it from his body. He does have hepatitis C but has never been treated for it.Labs and vitals reviewed; total bilirubin went up to 2, and AST and ALT trended down slightly. Vitals/I&O's: Vital Signs Temp Pulse Resp BP Pulse Ox 98.4 F 90 16 152/101 H 96 04/10/19 08:58 04/10/19 08:58 04/10/19 08:58 04/10/19 08:58 04/10/19 08:58 Oxygen Delivery Method Room Air Weight: 169 lb 14.4 oz Body Mass Index (BMI) 25.8 Intake and Output for Last 24 Hours 04/08/19 04/09/19 04/10/19 23:59 23:59 23:59 Intake Total 1000 / 1400 2372.5 / 2372.5 Balance 1000 / 1400 2372.5 / 2372.5 General: Alert, Oriented x3, Cooperative, No apparent distress HEENT: Atraumatic, PERRLA, EOMI, Normocephalic Oral: Dry Mucosa Neck: Supple, No JVD, Negative Carotid Bruits Lungs: Clear to auscultation, Normal air movement, No rhonchi, No wheeze, No rales Cardiovascular: Regular rate, Regular Rhythm, Normal S1, Normal S2, No murmurs Abdomen: Bowel Sounds Present, Soft, Tender - Minimal epigastric tenderness with no guarding or rebound tenderness. Extremities: No clubbing, No cyanosis, No edema, Capillary Refill Less than 3 Seconds Skin: No rashes, No breakdown Musculoskeletal: No Tenderness to Palpation of Joints or Extremities Lymphatic: No Cervical, Supraclavicular, or Inguinal Adenopathy Neurological: Cranial nerves II-XII grossly intact, Neuro grossly intact, Motor Exam 5/5 strength throughout Psych/Mental Status: Normal Affect, Appropriate, Alert and oriented to time, place, person, mood and affect Laboratory Results 04/09/19 15:15: WBC 8.2, RBC 4.19 L, Hgb 14.2, Hct 40.7, MCV 97.1 H, MCH 33.9 H, MCHC 34.9, RDW Std Deviation 63.8 H, RDW Coeff of Mango 18.0 H, Plt Count 235, MPV 8.7, Immature Gran % (Auto) 1.000 H, Neut % (Auto) 43.1 L, Lymph % (Auto) 41.7 H, Mccreary % (Auto) 10.8 H, Eos % (Auto) 1.8, Baso % (Auto) 1.6 H, Absolute Neuts (auto) 3.5, Absolute Lymphs (auto) 3.42, Nucleated RBC % 0 04/09/19 15:15: Sodium 133 L, Potassium 4.1, Chloride 99, Carbon Dioxide 25.0, Anion Gap 9, BUN 7, Creatinine 0.62 L, Estim Creat Clear Calc 171.61, Est GFR (MDRD) Af Amer 199, Est GFR (MDRD) Non-Af 164, BUN/Creatinine Ratio 11.3, Glucose 109 H, Calcium 8.4 L, Total Bilirubin 1.60 H, AST 291 H, ALT 108 H, Alkaline Phosphatase 213 H, Total Protein 8.8 H, Albumin 3.7, Globulin 5.1 H, Albumin/Globulin Ratio 0.7 L, Lipase 1918 H 04/09/19 15:15: Ethyl Alcohol 401.0 H* 04/09/19 15:15: PT Cancelled, INR Cancelled 04/09/19 15:15: Urine Opiates Screen NEGATIVE, Urine Methadone Screen NEGATIVE, Ur Barbiturates Screen NEGATIVE, Ur Phencyclidine Scrn NEGATIVE, Ur Amphetamines Screen NEGATIVE, U Methamphetamin-MDMA NEGATIVE, U Benzodiazepines Scrn NEGATIVE, Urine Cocaine Screen NEGATIVE, U Cannabinoids Screen NEGATIVE, Ur Drug Screen Comment 04/09/19 15:31: Magnesium 2.0 04/09/19 15:55: PT 13.6, INR 1.1 04/10/19 05:32: WBC 4.9, RBC 3.97 L, Hgb 13.2, Hct 39.1 L, MCV 98.5 H, MCH 33.2 H, MCHC 33.8, RDW Std Deviation 63.8 H, RDW Coeff of Mango 17.5 H, Plt Count 202, MPV 9.0, Immature Gran % (Auto) 0.800, Neut % (Auto) 41.8 L, Lymph % (Auto) 38.4, Mccreary % (Auto) 14.4 H, Eos % (Auto) 2.1, Baso % (Auto) 2.5 H, Absolute Neuts (auto) 2.0, Absolute Lymphs (auto) 1.87, Nucleated RBC % 0 04/10/19 05:32: Sodium 140, Potassium 4.4, Chloride 109 H, Carbon Dioxide 22.0, Anion Gap 9, BUN 8, Creatinine 0.56 L, Estim Creat Clear Calc 190.00, Est GFR (MDRD) Af Amer 225, Est GFR (MDRD) Non-Af 186, BUN/Creatinine Ratio 14.4, Glucose 82, Calcium 8.2 L, Total Bilirubin 2.00 H, AST 199 H, ALT 84 H, Alkaline Phosphatase 179 H, Total Protein 7.3, Albumin 3.3, Globulin 4.0, Albumin/Globulin Ratio 0.8 L Diagnostic Data Abdomen/Pelvis CT 04/09/19 16:43 IMPRESSION: Hepatomegaly with severe hepatic steatosis. Evidence for portal venous hypertension and spontaneous portosystemic shunting through the umbilical vein Evidence for contusion in the subcutaneous fat superficial to the right gluteus muscle. This could be related to a subcutaneous injection Individualized dose optimization techniques were used for this CT. at 0016 Reported and signed by: Seng Encarnacion MD Electronically Signed: Seng Encarnacion MD at 0:15 EST Tel , Service support , Current Medications Chlordiazepoxide (Librium) 50 mg PO Q6H [facility]; Taper Stop: 04/12/19 20:59 Last Admin: 04/10/19 06:41 Dose: 50 mg Documented by: Dextrose (D50w Syringe) 0 gm IV X1 PRN; Protocol PRN Reason: Hypoglycemia Diphenhydramine HCl (Benadryl) 25 mg PO QHS PRN PRN Reason: allergic reaction Enoxaparin Sodium (Lovenox) 40 mg SC DAILY@1000 [facility] Last Admin: 04/10/19 09:15 Dose: Not Given Documented by: Famotidine (Pepcid) 20 mg PO QHS [facility] Last Admin: 04/09/19 22:59 Dose: 20 mg Documented by: Fluoxetine HCl (Prozac) 60 mg PO DAILY [facility] Last Admin: 04/10/19 09:15 Dose: 60 mg Documented by: Folic Acid (Folic Acid) 1 mg PO DAILYCM [facility] Stop: 04/12/19 08:01 Last Admin: 04/10/19 09:15 Dose: 1 mg Documented by: Glucagon () 1 mg IM .X1 PRN PRN Reason: Hypoglycemia Hydroxyzine Pamoate (Vistaril Pamoate Capsule) 25 mg PO Q6H PRN PRN PRN Reason: ANXIETY Last Admin: 04/10/19 03:29 Dose: 25 mg Documented by: Sodium Chloride () 1,000 mls @ 150 mls/hr IV .Q6H40M [facility] Stop: 04/10/19 14:50 Last Admin: 04/10/19 07:49 Dose: 150 mls/hr Documented by: Lorazepam (Ativan) 2 mg PO Q2H PRN PRN; Protocol PRN Reason: CIWA score > 8 but <15 Last Admin: 04/10/19 09:14 Dose: 2 mg Documented by: Lorazepam (Ativan) 2 mg PO UD PRN; Protocol PRN Reason: CIWA score >/=15. Lorazepam (Ativan) 2 mg IV Q2H PRN PRN; Protocol PRN Reason: CIWA score > 8 but <15 Last Admin: 04/09/19 19:40 Dose: 2 mg Documented by: Lorazepam (Ativan) 2 mg IV UD PRN; Protocol PRN Reason: CIWA score >/=15. Lorazepam (Ativan) 2 mg IV X1 PRN PRN Reason: Seizure Morphine Sulfate () 2 mg IV Q3H PRN PRN PRN Reason: Pain Score 6-10/10 Multivitamins/Minerals (Multivitamin With Minerals) 1 tablet PO DAILY@0800 [facility] Last Admin: 04/10/19 09:15 Dose: 1 tablet Documented by: Nicotine (Nicoderm Cq (Pbkc)) 21 mg TRANSDERM. DAILY [facility] Last Admin: 04/10/19 09:19 Dose: 21 mg Documented by: Ondansetron HCl (Zofran) 4 mg IV Q8H PRN PRN PRN Reason: NAUSEA/VOMITING Quetiapine Fumarate (Seroquel) 25 mg PO QHS [facility] Last Admin: 04/09/19 22:59 Dose: 25 mg Documented by: Sodium Chloride () 10 - 40 ml IV UD PRN PRN Reason: SALINE FLUSH Thiamine HCl (Vitamin B1) 100 mg PO DAILY [facility] Last Admin: 04/10/19 09:15 Dose: 100 mg Documented by: STROKE Vital Signs/Narrative: Vital Signs Temp Pulse Resp BP Pulse Ox 04/10/19 08:58 98.4 F 90 16 152/101 H 96 Medical Necessity - Tobacco Use Smoking Status: Current every day smoker Tobacco Use: Cigarettes Assessment/Plan All Active Problems (Last Reviewed 10/28/18 @ 14:33 by Angélica Bliss) Alcohol withdrawal (Acute) Drug abuse (Resolved) UTI (urinary tract infection) (Resolved) Bone fracture (Resolved) Alcohol dependence (Acute) Alcohol withdrawal (Acute) Alcohol dependence (Acute) 61-wddy-kue-year-old male admitted with complaint of acute abdominal pain and also acute alcohol withdrawal. 1. Acute alcohol withdrawal serum alcohol level was 401 on alcohol withdrawal protocol with librium monitor CIWA score magnesium level was 2 Folic acid, multivitamin as well as thiamine p.o. 2. Acute pancreatitis due to alcohol: lipase level was 1918. Epiastric pain is much better today. CT of the abdomen and pelvis showed hepatomegaly with severe hepatic steatosis and evidence of portal venous hypertension and spontaneous portosystemic shunting through the umbilical vein. No mention was made of pancreas. Start clear liquid diet and advance as tolerated today. Continue hydration with IV fluids and continue IV morphine PRN. 3. History of hepatitis C Bilirubin is trended up to 2 but AST and ALT have trended down today. States that he was told he had chronic hepatitis B and C but was subsequently told that his body had likely clear the hepatitis B. He is treatment na?ve for hepatitis C. CT of the abdomen and pelvis as under treatment showed evidence of severe hepatic steatosis and portal venous hypertension and spontaneous portosystemic shunting through the umbilical vein. Need follow-up with pst supervisor upon discharge. Counseled to quit drinking as he had developed portal hypertension from the drinking and was at risk of esophageal varices and resultant GI bleed if he continued drinking. Previous serology done showed hepatitis B antibody of more than 11 and positive hepatitis C RNA. 4. Depression and bipolar disorder: On fluoxetine and Seroquel. DVT prophylaxis: Lovenox. Disposition: plan is for intensive outpatient therapy in [place] once acute withdrawal process is complete. Code Visit Inpatient E&M: 81949 Subs Hosp L2
--- NOTE | 2019-04-10 10:39 | CASEMGMT ---
Social Work Pt admitted for alcohol detox. Pt at [facility] in August and December of 2018 for same with followup at [facility] in [place]. SW met with pt in room and inquired of d/c plan. Pt stating that [facility] has been very helpful to him in the past and he has been able to stay sober for a while and then becomes undisciplined and falls back into it. Pt stating that he plans to go back to [facility] upon d/c. SW inquired if SW needs to make appointment and pt declined stating he has his child welfare social worker's number at [facility] and will call her at time of discharge and she will get him a same day appointment. Pt stating no further needs at this time. SW will remain available should further needs arise. HAKEEM Collins
[2019-04-10 13:56] VITALS: BP 137/94; PULSE 84; RESP 16; TEMP 37.1; O2SAT 98
[2019-04-10 19:30] VITALS: BP 143/105; PULSE 84; PULSE 85; RESP 18; TEMP 37.4; O2SAT 97; O2SAT 98
[2019-04-10] MEDS: QUEtiapine 25 MG Tablet PO (22:01)
[2019-04-11] MEDS: chlordiazePOXIDE 25 MG Capsule PO ×3 (05:26→20:57)
[2019-04-11 05:35] VITALS: BP 127/95; PULSE 91; RESP 18; TEMP 36.6; O2SAT 100
[2019-04-11 06:22] LABS: Absolute Lymphocyte Count 1.78 X10^3/uL (0.83-4.51); Absolute Neutrophil Count 2.7 X10^3/uL (2.0-7.7); Basophil% 1.8 % (0-1); Eosinophil# 0.16 X10^3/uL; Eosinophils% 2.9 % (0-5); Hematocrit 43.5 % (40-54); Hemoglobin 14.8 g/dL (13.0-16.5); Lymphocyte # 1.78 X10^3/ul (4.0); Lymphocyte % 32.6 % (19-41); Mean Corpuscular Hgb 33.7 pg (27.0-32.0); Mean Corpuscular Volume 99.1 fL (80-94); Monocyte# 0.68 X10^3/uL; Monocyte% 12.5 % (0-10); NRBC Flagged by Analyzer 0 % (0-5); Neutrophil % 49.5 % (47-70); Platelet Count 227 K/mm3 (150-450); RBC Distribution Width CV 15.8 % (11.6-14.6); RBC Distribution Width SD 57.1 fl (35.1-43.9); Red Blood Count 4.39 M/mm3 (4.6-6.2); White Blood Count 5.5 K/mm3 (4.4-11.0)
[2019-04-11 06:47] LABS: Anion Gap 8 (5-15); BUN 8 mg/dL (7-18); BUN/Creat Ratio 12.9 RATIO (10-20); Calcium,Total 9.3 mg/dL (8.5-10.1); Chloride 106 mmol/L (98-107); Creatinine, Serum 0.62 mg/dL (0.70-1.30); EST Glomerular Filtration Rate 164 mL/min (>60); Est Glom Filt Rate - Afr Amer 198 mL/min (>60); Estimated Creatinine Clearance 171.61 ml/min; Glucose 101 mg/dL (74-106); Potassium 3.9 mmol/L (3.5-5.1); Sodium Level 136 mmol/L (136-145)
[2019-04-11 07:57] VITALS: BP 127/88; PULSE 90; RESP 16; TEMP 37.1; O2SAT 100
[2019-04-11] MEDS: Multivitamins,Ther W-Minerals Tablet 1 TABLET PO (08:04)
[2019-04-11] MEDS: Folic Acid 1 MG Tablet PO (08:04)
--- NOTE | 2019-04-11 10:15 | PCM.PN.HOSP ---
Patient Problems: Active and Suspected Problems (Last Reviewed 10/28/18 @ 14:33 by Angélica Bliss) Alcohol dependence (Acute) Detox - 2-07/2018 & 08/2018 Subjective: Patient seen and examined. He feels much better today and has no complaints. Review of symptoms otherwise negative. Labs and vitals reviewed. Was able to tolerate a diet yesterday. Vitals/I&O's: Vital Signs Temp Pulse Resp BP Pulse Ox 98.8 F 90 16 127/88 H 100 04/11/19 07:57 04/11/19 07:57 04/11/19 07:57 04/11/19 07:57 04/11/19 07:57 Oxygen Delivery Method Room Air Weight: 169 lb 14.4 oz Body Mass Index (BMI) 25.8 Intake and Output for Last 24 Hours 04/09/19 04/10/19 04/11/19 23:59 23:59 23:59 Intake Total 1000 / 1400 3312.5 / 3312.5 1300 / 1300 Balance 1000 / 1400 3312.5 / 3312.5 1300 / 1300 General: Alert, Oriented x3, Cooperative, No apparent distress HEENT: Atraumatic, PERRLA, EOMI, Normocephalic Oral: Dry Mucosa Neck: Supple, No JVD, Negative Carotid Bruits Lungs: Clear to auscultation, Normal air movement, No rhonchi, No wheeze, No rales Cardiovascular: Regular rate, Regular Rhythm, Normal S1, Normal S2, No murmurs Abdomen: Bowel Sounds Present, Soft, nontender Extremities: No clubbing, No cyanosis, No edema, Capillary Refill Less than 3 Seconds Skin: No rashes, No breakdown Musculoskeletal: No Tenderness to Palpation of Joints or Extremities Lymphatic: No Cervical, Supraclavicular, or Inguinal Adenopathy Neurological: Cranial nerves II-XII grossly intact, Neuro grossly intact, Motor Exam 5/5 strength throughout Psych/Mental Status: Normal Affect, Appropriate, Alert and oriented to time, place, person, mood and affect Laboratory Results 04/11/19 05:50: WBC 5.5, RBC 4.39 L, Hgb 14.8, Hct 43.5, MCV 99.1 H, MCH 33.7 H, MCHC 34.0, RDW Std Deviation 57.1 H, RDW Coeff of Mango 15.8 H, Plt Count 227, MPV 9.0, Immature Gran % (Auto) 0.700, Neut % (Auto) 49.5, Lymph % (Auto) 32.6, Sterling % (Auto) 12.5 H, Eos % (Auto) 2.9, Baso % (Auto) 1.8 H, Absolute Neuts (auto) 2.7, Absolute Lymphs (auto) 1.78, Nucleated RBC % 0 04/11/19 05:50: Sodium 136, Potassium 3.9, Chloride 106, Carbon Dioxide 22.0, Anion Gap 8, BUN 8, Creatinine 0.62 L, Estim Creat Clear Calc 171.61, Est GFR (MDRD) Af Amer 198, Est GFR (MDRD) Non-Af 164, BUN/Creatinine Ratio 12.9, Glucose 101, Calcium 9.3 Current Medications Chlordiazepoxide (Librium) 50 mg PO Q8H [facility]; Taper Stop: 04/12/19 20:59 Last Admin: 04/11/19 05:26 Dose: 50 mg Documented by: Dextrose (D50w Syringe) 0 gm IV X1 PRN; Protocol PRN Reason: Hypoglycemia Diphenhydramine HCl (Benadryl) 25 mg PO QHS PRN PRN Reason: allergic reaction Enoxaparin Sodium (Lovenox) 40 mg SC DAILY@1000 [facility] Last Admin: 04/10/19 09:15 Dose: Not Given Documented by: Famotidine (Pepcid) 20 mg PO QHS [facility] Last Admin: 04/10/19 22:03 Dose: Not Given Documented by: Fluoxetine HCl (Prozac) 60 mg PO DAILY [facility] Last Admin: 04/10/19 09:15 Dose: 60 mg Documented by: [facility]) [facility] Stop: 04/12/19 08:01 Last Admin: 04/11/19 08:04 Dose: 1 mg Documented by: Glucagon () 1 mg IM .X1 PRN PRN Reason: Hypoglycemia Hydroxyzine Pamoate (Vistaril Pamoate Capsule) 25 mg PO Q6H PRN PRN PRN Reason: ANXIETY Last Admin: 04/10/19 03:29 Dose: 25 mg Documented by: Lorazepam (Ativan) 2 mg PO Q2H PRN PRN; Protocol PRN Reason: CIWA score > 8 but <15 Last Admin: 04/10/19 19:41 Dose: 2 mg Documented by: Lorazepam (Ativan) 2 mg PO UD PRN; Protocol PRN Reason: CIWA score >/=15. Lorazepam (Ativan) 2 mg IV Q2H PRN PRN; Protocol PRN Reason: CIWA score > 8 but <15 Last Admin: 04/09/19 19:40 Dose: 2 mg Documented by: Lorazepam (Ativan) 2 mg IV UD PRN; Protocol PRN Reason: CIWA score >/=15. Lorazepam (Ativan) 2 mg IV X1 PRN PRN Reason: Seizure Morphine Sulfate () 2 mg IV Q3H PRN PRN PRN Reason: Pain Score 6-10/10 Multivitamins/Minerals (Multivitamin With Minerals) 1 tablet PO DAILY@0800 [facility] Last Admin: 04/11/19 08:04 Dose: 1 tablet Documented by: Nicotine (Nicoderm Cq (Pbkc)) 21 mg TRANSDERM. DAILY [facility] Last Admin: 04/10/19 09:19 Dose: 21 mg Documented by: Ondansetron HCl (Zofran) 4 mg IV Q8H PRN PRN PRN Reason: NAUSEA/VOMITING Quetiapine Fumarate (Seroquel) 25 mg PO QHS [facility] Last Admin: 04/10/19 22:01 Dose: 25 mg Documented by: Sodium Chloride () 10 - 40 ml IV UD PRN PRN Reason: SALINE FLUSH Thiamine HCl (Vitamin B1) 100 mg PO DAILY [facility] Last Admin: 04/10/19 09:15 Dose: 100 mg Documented by: STROKE Vital Signs/Narrative: Vital Signs Temp Pulse Resp BP Pulse Ox 04/11/19 07:57 98.8 F 90 16 127/88 H 100 Medical Necessity - Tobacco Use Smoking Status: Current every day smoker Tobacco Use: Cigarettes Assessment/Plan All Active Problems (Last Reviewed 10/28/18 @ 14:33 by Angélica Bliss) Alcohol withdrawal (Acute) Drug abuse (Resolved) UTI (urinary tract infection) (Resolved) Bone fracture (Resolved) Alcohol dependence (Acute) Alcohol withdrawal (Acute) Alcohol dependence (Acute) 13-ayri-[age]-year-old male admitted with complaint of acute abdominal pain and also acute alcohol withdrawal. 1. Acute alcohol withdrawal on alcohol withdrawal protocol with librium monitor CIWA score Folic acid, multivitamin as well as thiamine p.o. 2. Acute pancreatitis due to alcohol: resolving. Abdominal pain has resolved. tolerating regular diet. IV morphine prn 3. History of hepatitis C Bilirubin is trended up to 2 but AST and ALT have trended down today. States that he was told he had chronic hepatitis B and C but was subsequently told that his body had likely clear the hepatitis B. He is treatment na?ve for hepatitis C. CT of the abdomen and pelvis as under treatment showed evidence of severe hepatic steatosis and portal venous hypertension and spontaneous portosystemic shunting through the umbilical vein. Need follow-up with train gate attendant upon discharge. Counseled to quit drinking as he had developed portal hypertension from the drinking and was at risk of esophageal varices and resultant GI bleed if he continued drinking. Previous serology done showed hepatitis B antibody of more than 11 and positive hepatitis C RNA. 4. Depression and bipolar disorder: On fluoxetine and Seroquel. DVT prophylaxis: Lovenox. Disposition: plan is for intensive outpatient therapy in [place] once acute withdrawal process is complete. For DC tomorrow Code Visit Inpatient E&M: 48504 Subs Hosp L2
[2019-04-11] MEDS: Thiamine Hydrochloride 100 MG Tablet PO (10:28)
[2019-04-11] MEDS: FLUoxetine 20 MG Capsule 60 MG PO (10:28)
[2019-04-11 20:40] VITALS: BP 132/93; PULSE 88; RESP 18; TEMP 36.8; O2SAT 99
[2019-04-11] MEDS: LORazepam 1 MG Tablet 2 MG PO (20:54)
[2019-04-11] MEDS: QUEtiapine 25 MG Tablet PO (22:36)
[2019-04-11] MEDS: Famotidine 20 MG Tablet PO (22:36)
[2019-04-11 22:38] VITALS: BP 130/91; PULSE 95; RESP 18; TEMP 36.9; O2SAT 99
[2019-04-12 04:34] VITALS: BP 114/74; PULSE 77; RESP 16; TEMP 36.4; O2SAT 98
[2019-04-12 08:43] VITALS: BP 112/81; PULSE 83; RESP 16; TEMP 36.7; O2SAT 100
[2019-04-12 08:45] VITALS: PULSE 80
[2019-04-12] MEDS: hydrOXYzine PAM 25 MG Capsule PO (08:55)
[2019-04-12] MEDS: Multivitamins,Ther W-Minerals Tablet 1 TABLET PO (08:55)
[2019-04-12] MEDS: Thiamine Hydrochloride 100 MG Tablet PO (08:55)
[2019-04-12] MEDS: chlordiazePOXIDE 25 MG Capsule PO (08:55)
[2019-04-12] MEDS: Folic Acid 1 MG Tablet PO (08:55)
[2019-04-12] MEDS: FLUoxetine 20 MG Capsule 60 MG PO (08:55)
--- NOTE | 2019-04-12 09:36 | DCINST_ITS ---
- Discharge Diagnoses Current Active Problems: Current Active and Chronic Problems (Last Reviewed 10/28/18 @ 14:33 by Angélica Bliss) Chronic pancreatitis due to acute alcohol intoxication (Chronic) Alcohol dependence (Acute) Detox - 2-07/2018 & 08/2018 You will use the following diet at home:: Regular Your food should be the consistency of: Regular Your liquids should be the consistency of: Regular/Thin Discharge Activity: Return to Normal Activity Weight Bearing Status: Weight bearing as tolerated Call your doctor if you observe: Dizziness, Uncontrolled pain Instructions: Signs of Alcohol Addiction (Alcoholism), Understanding Alcoholism, The Impact of Alcoholism, Recovering from Addiction, Addiction: Getting Help, Acute Pancreatitis Additional Instructions: To follow up with outpatient addiction rehab in [place] as scheduled Allergies/Adverse Reactions: Allergies adhesive tape Allergy (Mild, Verified 04/09/19 14:45) Hives Medications to take at Discharge fluoxetine 20 mg capsule 20 mg PO DAILY #90 cap 10/28/18 fluoxetine 40 mg capsule 40 mg PO DAILY #90 cap 10/28/18 diphenhydramine 25 mg capsule 25 mg PO QHS PRN 01/20/19 famotidine 20 mg tablet 20 mg PO QHS 01/20/19 multivitamin tablet 1 tab PO DAILY #90 tab 01/20/19 thiamine HCl (vitamin B1) 100 mg tablet 100 mg PO DAILY #90 tab 01/20/19 Hydroxyzine HCl 25 mg PO Q6H PRN 04/09/19 Quetiapine Fumarate 25 mg PO QHS 04/09/19 Primary Care Physician: Fady Dang MD [Primary Care Provider] - Please follow up with your Primary Care Physician in: one week Test Results: Test results from this visit will be discussed in further detail at your follow- up appointment, if applicable. Proposed Discharge Date: 04/12/19
--- NOTE | 2019-04-12 09:38 | DS.PCM_ITS ---
Discharge Date and Diagnosis Date of Admission: 04/09/19 Date of Discharge: 04/12/19 - Primary Discharge Diagnosis Active and Suspected Problems (Last Reviewed 10/28/18 @ 14:33 by Angélica Bliss) Alcohol dependence (Acute) Detox - 2-07/2018 & 08/2018 acute pancreatitis due to alcohol - Secondary Discharge Diagnosis Chronic Problems (Last Reviewed 10/28/18 @ 14:33 by Angélica Bliss) Tobacco use (Chronic) Chronic pancreatitis due to acute alcohol intoxication (Chronic) Substance abuse in remission (Chronic) Depression with anxiety (Chronic) Hypertension (Chronic) Hepatitis C (Chronic) Hepatitis B (Chronic) H/O emotional problems (Chronic) Seasonal allergies (Chronic) Hospital Course and Treatment Operations: None Procedures: None Summary of Care Provided: The patient is a 29 year old M with past medical history significant for alcohol abuse hepatitis B as well as depression and anxiety and bipolar disorder. He was admitted through the ED on 04/09/2019 for alcohol withdrawal. Patient states he drinks about 24 12 ounce cans as well as 1 bottle of vodka daily. He had been through detox numerous times and stated the last time was several months ago, but he started drinking again a few weeks prior to admission. He denies any lightheadedness or dizziness but admits to some palpitations and abdominal pain. He denies any nausea vomiting or diarrhea. Review systems otherwise negative. On admission in the ED pulse rate was 101 blood pressure was 154/95. Temperature was 91.5 Fahrenheit. Chemistry shows sodium of 133 and total bilirubin of 1.6 as well as AST/ALT of 291/108. Lipase was 1918. CBC showed no leukocytosis. CT of the abdomen and pelvis showed hepatomegaly with severe hepatic steatosis and evidence for portal venous hypertension and spontaneous portosystemic shunting through the umbilical vein. He was admitted to be managed for acute alcohol withdrawal and acute pancreatitis likely alcohol induced. He was started on alcohol withdrawal protocol with Librium. He was initially kept n.p.o. until abdominal pain improved. He was started on full liquid diet which he tolerated and was gradually advanced to regular diet. Patient was counseled to stop drinking and said he wanted to go for an intensive outpatient therapy program in [place]. Patient was also counseled to see his primary care doctor for referral to a pharmacy data analyst as needed on account of the CT scan findings of hepato-megaly with severe hepatic steatosis and portal hypertension. He was discharged home on 04/12/2019 after completing a 3-day acute alcohol withdrawal program. He is follow-up with his primary care doctor within 1 week. Patient seen and examined prior to discharge. He had no complaints and was ready to go home. Review of systems otherwise negative. Labs and vitals reviewed. Home medication reviewed and reconciled. o/e: Vital Signs Height 5 ft 8 in Weight: 169 lb 14.4 oz Weight in Pounds 169.9 lbs Pulse Ox 96 Temperature 98.4 F Pulse Rate 117 Respiratory Rate 16 Blood Pressure 121/87 Blood Pressure Position Sitting General: Alert, Oriented x3, Cooperative, No apparent distress HEENT: Atraumatic, PERRLA, EOMI, Normocephalic Oral: Dry Mucosa Neck: Supple, No JVD, Negative Carotid Bruits Lungs: Clear to auscultation, Normal air movement, No rhonchi, No wheeze, No rales Cardiovascular: Regular rate, Regular Rhythm, Normal S1, Normal S2, No murmurs Abdomen: Bowel Sounds Present, Soft, nontender Extremities: No clubbing, No cyanosis, No edema, Capillary Refill Less than 3 Seconds Skin: No rashes, No breakdown Musculoskeletal: No Tenderness to Palpation of Joints or Extremities Lymphatic: No Cervical, Supraclavicular, or Inguinal Adenopathy Neurological: Cranial nerves II-XII grossly intact, Neuro grossly intact, Motor Exam 5/5 strength throughout Psych/Mental Status: Normal Affect, Appropriate, Alert and oriented to time, place, person, mood and affect Plan as above. - Physical Exam Vitals/I&O's: Vital Signs Temp Pulse Resp BP Pulse Ox 98.0 F 83 16 112/81 H 100 04/12/19 08:43 04/12/19 08:43 04/12/19 08:43 04/12/19 08:43 04/12/19 08:43 Oxygen Delivery Method Room Air Weight: 169 lb 14.4 oz Body Mass Index (BMI) 25.8 Intake and Output for Last 24 Hours 04/10/19 04/11/19 04/12/19 23:59 23:59 23:59 Intake Total 3312.5 / 3312.5 1600 / 1600 Balance 3312.5 / 3312.5 1600 / 1600 Current Medications Chlordiazepoxide (Librium) 25 mg PO Q12H [facility]; Taper Stop: 04/12/19 20:59 Last Admin: 04/12/19 08:55 Dose: 25 mg Documented by: Dextrose (D50w Syringe) 0 gm IV X1 PRN; Protocol PRN Reason: Hypoglycemia Diphenhydramine HCl (Benadryl) 25 mg PO QHS PRN PRN Reason: allergic reaction Enoxaparin Sodium (Lovenox) 40 mg SC DAILY@1000 [facility] Last Admin: 04/12/19 08:56 Dose: Not Given Documented by: Famotidine (Pepcid) 20 mg PO QHS [facility] Last Admin: 04/11/19 22:36 Dose: 20 mg Documented by: Fluoxetine HCl (Prozac) 60 mg PO DAILY [facility] Last Admin: 04/12/19 08:55 Dose: 60 mg Documented by: Glucagon () 1 mg IM .X1 PRN PRN Reason: Hypoglycemia Hydroxyzine Pamoate (Vistaril Pamoate Capsule) 25 mg PO Q6H PRN PRN PRN Reason: ANXIETY Last Admin: 04/12/19 08:55 Dose: 25 mg Documented by: Lorazepam (Ativan) 2 mg PO Q2H PRN PRN; Protocol PRN Reason: CIWA score > 8 but <15 Last Admin: 04/11/19 20:54 Dose: 2 mg Documented by: Lorazepam (Ativan) 2 mg PO UD PRN; Protocol PRN Reason: CIWA score >/=15. Lorazepam (Ativan) 2 mg IV Q2H PRN PRN; Protocol PRN Reason: CIWA score > 8 but <15 Last Admin: 04/09/19 19:40 Dose: 2 mg Documented by: Lorazepam (Ativan) 2 mg IV UD PRN; Protocol PRN Reason: CIWA score >/=15. Lorazepam (Ativan) 2 mg IV X1 PRN PRN Reason: Seizure Morphine Sulfate () 2 mg IV Q3H PRN PRN PRN Reason: Pain Score 6-10/10 Multivitamins/Minerals (Multivitamin With Minerals) 1 tablet PO DAILY@0800 [facility] Last Admin: 04/12/19 08:55 Dose: 1 tablet Documented by: Nicotine (Nicoderm Cq (Pbkc)) 21 mg TRANSDERM. DAILY [facility] Last Admin: 04/12/19 08:56 Dose: 21 mg Documented by: Ondansetron HCl (Zofran) 4 mg IV Q8H PRN PRN PRN Reason: NAUSEA/VOMITING Quetiapine Fumarate (Seroquel) 25 mg PO QHS [facility] Last Admin: 04/11/19 22:36 Dose: 25 mg Documented by: Sodium Chloride () 10 - 40 ml IV UD PRN PRN Reason: SALINE FLUSH Thiamine HCl (Vitamin B1) 100 mg PO DAILY [facility] Last Admin: 04/12/19 08:55 Dose: 100 mg Documented by: Discharge Diet: Low fat/ Low Cholesterol Discharge Activity: Return to Normal Activity Weight Bearing Status: Weight bearing as tolerated Call your doctor if you observe: Dizziness, Uncontrolled pain Home Medications: Medications to take at Discharge fluoxetine 20 mg capsule 20 mg PO DAILY #90 cap 10/28/18 fluoxetine 40 mg capsule 40 mg PO DAILY #90 cap 10/28/18 diphenhydramine 25 mg capsule 25 mg PO QHS PRN 01/20/19 famotidine 20 mg tablet 20 mg PO QHS 01/20/19 multivitamin tablet 1 tab PO DAILY #90 tab 01/20/19 thiamine HCl (vitamin B1) 100 mg tablet 100 mg PO DAILY #90 tab 01/20/19 Hydroxyzine HCl 25 mg PO Q6H PRN 04/09/19 Quetiapine Fumarate 25 mg PO QHS 04/09/19 Primary Care Physician: Fady Dang MD [Primary Care Provider] - Please follow up with your Primary Care Physician in: one week Patient Instructions: Signs of Alcohol Addiction (Alcoholism), Understanding Alcoholism, The Impact of Alcoholism, Addiction: Getting Help, Recovering from Addiction, Acute Pancreatitis Disposition: Home Minutes spent on discharge:: 40 Patient Condition:: Stable Medical Necessity - Tobacco Use Smoking Status: Current every day smoker Tobacco Use: Cigarettes Meaningful Use Info Meaningful Use Diagnoses (Choose all that apply): None applicable Code Visit Inpatient E&M: 90666 Disch Hosp
--- NOTE | 2019-04-12 09:58 | CASEMGMT ---
Social Work Note Pt is being discharged today. SW met with pt. Pt confirms he plans on going to [facility] and states he will have someone available to transport him. Plan: [facility] Brenda Ayala MSW, WAITSTAFF
[2019-04-12 10:43] VITALS: BP 121/87; PULSE 117; RESP 16; TEMP 36.9; O2SAT 96
== END 2019-04-12 10:50 | disposition home or self-care (01) | DRG 775 ==
LOC: ED 16:46 → MS3 17:12
PROVIDERS: Admitting Provider Student in an Organized Health Care Education/Training Program; Emergency Provider Emergency Medicine; Family Provider Internal Medicine; PCP Internal Medicine; Referring Provider Student in an Organized Health Care Education/Training Program; Visit Provider Student in an Organized Health Care Education/Training Program
DX: F10.239 Alcohol dependence with withdrawal, unspecified (principal); F31.9 Bipolar disorder, unspecified; K85.20 Alcohol induced acute pancreatitis without necrosis or infection; K76.6 Portal hypertension; B18.2 Chronic viral hepatitis C; F10.229 Alcohol dependence with intoxication, unspecified; Y90.8 Blood alcohol level of 240 mg/100 ml or more; F41.8 Other specified anxiety disorders; I10 Essential (primary) hypertension; J30.2 Other seasonal allergic rhinitis; B19.10 Unspecified viral hepatitis B without hepatic coma
CPT/HCPCS: 36415; 74177; 80048; 80053; 80307; 80320; 83690; 83735; 85025; 85610; 99284; 99406; J7030; Q9967; G0480

== ENCOUNTER 2019-06-03 16:24 | Inpatient (IN) | payer MEDICAID, SELFPAY ==
[2019-04-09 18:52] VITALS: BMI 25.8
[2019-06-03 16:25] VITALS: BP 127/81; PULSE 110; RESP 15; TEMP 37; O2SAT 96; BMI 26.2
--- NOTE | 2019-06-03 16:49 | ED.VISSUMM ---
- ER Visit Summary Date of Service: 06/03/19 Chief Complaint: Alcohol detox History of Present Illness: The patient is a 29 M who comes in today requesting alcohol detox. He states his last drink was about 2 hours ago. He drinks about 24 beers a day. His last attempted detox was in February which was performed here. He does have a history of alcohol withdrawal and states he gets withdrawal symptoms every morning before he starts drinking again. No history of alcohol withdrawal seizures. He states he tried to do this at home but his symptoms were too bad so he started just drinking again. Physical Examination: Vital signs reviewed. HEENT exam unremarkable. Heart is tachycardic and regular rhythm without murmurs. Lungs are clear to auscultation. Abdomen is soft and nontender. Extremities reveal no edema. Skin exam normal. Neurologic exam normal. Test Results: Laboratory studies show potassium 3.3, alkaline phosphatase 177, ALT to 126, AST 308. Tox screen negative. Alcohol level 266. Emergency Department Course and Treatment: I talked to the hospitalist and since the patient was still intoxicated and not showing any signs of withdrawal he elected not to accept the patient. I kept the patient in the emergency department. I reevaluated him and he is now a little more anxious and he is tremulous on exam. I believe he is starting to exhibit some withdrawal symptoms. I then talked to the hospitalist again we will admit the patient. Treatment Plan: [] Disposition: Admit Impression: Alcohol dependence This note was generated with [employer] dictation software. It may contain incorrect words, spelling, and punctuation that were not noted in review of the chart prior to signing ED Disposition - Plan for ED Patient: Referrals: Fady Dang MD [Primary Care Provider] -
[2019-06-03 17:25] LABS: Absolute Lymphocyte Count 3.32 X10^3/uL (0.83-4.51); Absolute Neutrophil Count 3.6 X10^3/uL (2.0-7.7); Basophil% 1.2 % (0-1); Eosinophil# 0.17 X10^3/uL; Hematocrit 45.8 % (40-54); Hemoglobin 15.7 g/dL (13.0-16.5); Lymphocyte # 3.32 X10^3/ul (4.0); Lymphocyte % 39.8 % (19-41); Mean Corp Hgb Conc 34.3 g/dL (32-36); Mean Corpuscular Hgb 34.5 pg (27.0-32.0); Mean Corpuscular Volume 100.7 fL (80-94); Mean Platelet Vol. 9.2 fl (6.2-12.0); Monocyte# 1.08 X10^3/uL; Monocyte% 12.9 % (0-10); NRBC Flagged by Analyzer 0 % (0-5); Neutrophil % 43.3 % (47-70); Platelet Count 163 K/mm3 (150-450); RBC Distribution Width CV 13.5 % (11.6-14.6); RBC Distribution Width SD 49.8 fl (35.1-43.9); Red Blood Count 4.55 M/mm3 (4.6-6.2); White Blood Count 8.3 K/mm3 (4.4-11.0)
[2019-06-03 17:42] LABS: ALB/GLOB Ratio 0.9 RATIO (0.9-2.4); AST(SGOT) 308 U/L (15-37); Alanine Aminotransfer ALT/SGPT 126 U/L (16-61); Alkaline Phosphatase 177 U/L (45-117); Anion Gap 10 (5-15); BUN 6 mg/dL (7-18); BUN/Creat Ratio 8.8 RATIO (10-20); Calcium,Total 8.9 mg/dL (8.5-10.1); Chloride 102 mmol/L (98-107); Creatinine, Serum 0.68 mg/dL (0.70-1.30); EST Glomerular Filtration Rate 146 mL/min (>60); Est Glom Filt Rate - Afr Amer 177 mL/min (>60); Estimated Creatinine Clearance 156.47 ml/min; Globulin 4.4 g/dL (2.2-4.2); Glucose 97 mg/dL (74-106); Potassium 3.3 mmol/L (3.5-5.1); Protein, Total 8.4 g/dL (6.4-8.2); Sodium Level 139 mmol/L (136-145)
[2019-06-03 17:46] LABS: Amphetamine Urine VISTA NEGATIVE (<1000 ng/mL); Barbiturate Urine VISTA NEGATIVE (< 200 ng/mL); Benzodiazepine Urine VISTA NEGATIVE (< 200 ng/mL); Cocaine Urine VISTA NEGATIVE (< 300 ng/mL); Ecstacy Urine VISTA NEGATIVE (< 500 ng/mL); Methadone Urine VISTA NEGATIVE (< 300 ng/mL); PCP Urine VISTA NEGATIVE (< 25 ng/mL); THC Urine VISTA NEGATIVE (< 50 ng/mL); Vista UDS pH Range 6
[2019-06-03 20:24] VITALS: BP 129/83; PULSE 111; RESP 15; O2SAT 96
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
[2019-06-03 21:33] VITALS: BMI 25.9
[2019-06-03 21:50] VITALS: BP 139/91; PULSE 98; RESP 24; TEMP 36.9; O2SAT 100
[2019-06-03 22:05] VITALS: PULSE 90
[2019-06-03 22:24] VITALS: BP 139/91; PULSE 98; RESP 24; TEMP 36.9; O2SAT 100
[2019-06-03] MEDS: QUEtiapine 25 MG Tablet PO (22:55)
[2019-06-03] MEDS: traZODone 50 MG Tablet PO (22:55)
[2019-06-03] MEDS: LORazepam 1 MG Tablet PO (22:55)
[2019-06-03] MEDS: Famotidine 20 MG Tablet PO (22:55)
[2019-06-04] VITALS (10 sets, daily range): BP systolic 130–155; BP diastolic 83–99; PULSE 84–95; RESP 16–20; TEMP 36.6–37; O2SAT 96–98
[2019-06-04] MEDS: LORazepam 1 MG Tablet PO ×5 (02:32→18:58)
--- NOTE | 2019-06-04 06:33 | NURSING ---
Pt states that his blurry vision has worsened. He states he has had this problem before when he has gone through withdrawal.
[2019-06-04 07:11] LABS: ALB/GLOB Ratio 0.9 RATIO (0.9-2.4); AST(SGOT) 162 U/L (15-37); Alanine Aminotransfer ALT/SGPT 97 U/L (16-61); Albumin, Serum 3.4 g/dL (3.2-5.0); Alkaline Phosphatase 142 U/L (45-117); Anion Gap 7 (5-15); BUN 8 mg/dL (7-18); BUN/Creat Ratio 11.3 RATIO (10-20); Calcium,Total 8.7 mg/dL (8.5-10.1); Chloride 106 mmol/L (98-107); Creatinine, Serum 0.71 mg/dL (0.70-1.30); EST Glomerular Filtration Rate 141 mL/min (>60); Est Glom Filt Rate - Afr Amer 170 mL/min (>60); Estimated Creatinine Clearance 149.86 ml/min; Globulin 3.7 g/dL (2.2-4.2); Glucose 94 mg/dL (74-106); Potassium 4.2 mmol/L (3.5-5.1); Protein, Total 7.1 g/dL (6.4-8.2); Sodium Level 140 mmol/L (136-145)
--- NOTE | 2019-06-04 07:41 | NURSING ---
Anna ROMERO aware of pt's blurry vision and the fact that pt has experienced this before going through withdrawal.
[2019-06-04] MEDS: Multivitamins,Therapeutic Tablet 1 TABLET PO (08:28)
[2019-06-04] MEDS: Thiamine Hydrochloride 100 MG Tablet PO (08:28)
[2019-06-04] MEDS: Folic Acid 1 MG Tablet PO (08:28)
[2019-06-04] MEDS: Loratadine 10 MG Tablet PO (10:35)
[2019-06-04] MEDS: FLUoxetine 20 MG Capsule 60 MG PO (10:35)
[2019-06-04] MEDS: hydrOXYzine PAM 25 MG Capsule 50 MG PO ×2 (10:43→18:58)
--- NOTE | 2019-06-04 13:55 | PCM.PN.HOSP ---
Subjective: Skin okay, has some tremors otherwise resting Vitals/I&O's: Vital Signs Temp Pulse Resp BP Pulse Ox 98.3 F 86 20 H 155/89 H 97 06/04/19 10:30 06/04/19 10:30 06/04/19 10:30 06/04/19 10:30 06/04/19 10:30 Oxygen Delivery Method Room Air Weight: 170 lb 10.205 oz Body Mass Index (BMI) 25.9 Intake and Output for Last 24 Hours 06/02/19 06/03/19 06/04/19 23:59 23:59 23:59 Intake Total 2280 / 2280 Output Total 500 / 500 Balance 1780 / 1780 General: Alert, Oriented x3, Cooperative, No apparent distress HEENT: Atraumatic, PERRLA, EOMI, Normocephalic Oral: Dry Mucosa Neck: Supple, No JVD Lungs: Clear to auscultation, Normal air movement, No rhonchi, No wheeze, No rales Cardiovascular: Regular rate, Regular Rhythm, Normal S1, Normal S2, No murmurs Abdomen: Soft, Non Tender, Non-Distended, No Hepato-splenomegaly Extremities: No edema, Capillary Refill Less than 3 Seconds Skin: No rashes, No breakdown Neurological: Neuro grossly intact, Sensory exam intact to light touch and pain, - - Slight tremors Psych/Mental Status: Normal Affect, Anxious Laboratory Results 06/03/19 17:05: WBC 8.3, RBC 4.55 L, Hgb 15.7, Hct 45.8, MCV 100.7 H, MCH 34.5 H, MCHC 34.3, RDW Std Deviation 49.8 H, RDW Coeff of Mango 13.5, Plt Count 163, MPV 9.2, Immature Gran % (Auto) 0.800, Neut % (Auto) 43.3 L, Lymph % (Auto) 39.8, [place] % (Auto) 12.9 H, Eos % (Auto) 2.0, Baso % (Auto) 1.2 H, Absolute Neuts (auto) 3.6, Absolute Lymphs (auto) 3.32, Nucleated RBC % 0 06/03/19 17:05: Sodium 139, Potassium 3.3 L, Chloride 102, Carbon Dioxide 27.0, Anion Gap 10, BUN 6 L, Creatinine 0.68 L, Estim Creat Clear Calc 156.47, Est GFR (MDRD) Af Amer 177, Est GFR (MDRD) Non-Af 146, BUN/Creatinine Ratio 8.8 L, Glucose 97, Calcium 8.9, Total Bilirubin 0.50, AST 308 H, ALT 126 H, Alkaline Phosphatase 177 H, Total Protein 8.4 H, Albumin 4.0, Globulin 4.4 H, Albumin/Globulin Ratio 0.9 06/03/19 17:05: Ethyl Alcohol 266.0 06/03/19 17:26: Urine Opiates Screen NEGATIVE, Urine Methadone Screen NEGATIVE, Ur Barbiturates Screen NEGATIVE, Ur Phencyclidine Scrn NEGATIVE, Ur Amphetamines Screen NEGATIVE, U Methamphetamin-MDMA NEGATIVE, U Benzodiazepines Scrn NEGATIVE, Urine Cocaine Screen NEGATIVE, U Cannabinoids Screen NEGATIVE, Ur Drug Screen Comment 06/04/19 05:55: Magnesium Cancelled 06/04/19 06:13: Sodium 140, Potassium 4.2, Chloride 106, Carbon Dioxide 27.0, Anion Gap 7, BUN 8, Creatinine 0.71, Estim Creat Clear Calc 149.86, Est GFR (MDRD) Af Amer 170, Est GFR (MDRD) Non-Af 141, BUN/Creatinine Ratio 11.3, Glucose 94, Calcium 8.7, Total Bilirubin 1.00, AST 162 H, ALT 97 H, Alkaline Phosphatase 142 H, Total Protein 7.1, Albumin 3.4, Globulin 3.7, Albumin/Globulin Ratio 0.9 Current Medications Acetaminophen (Tylenol) 500 mg PO Q4H PRN PRN PRN Reason: Temp > 100.4 F Al Hydroxide/Mg Hydroxide (Mylanta Ii) 30 ml PO Q6H PRN PRN PRN Reason: dyspesia Bisacodyl (Dulcolax) 10 mg RECTAL DAILY PRN PRN Reason: Constipation Dicyclomine HCl (Bentyl) 20 mg PO Q6H PRN PRN PRN Reason: abdominal discomfort Diphenhydramine HCl (Benadryl) 25 mg PO QHS PRN PRN Reason: allergic reaction Famotidine (Pepcid) 20 mg PO QHS [facility] Last Admin: 06/03/19 22:55 Dose: 20 mg Documented by: Fluoxetine HCl (Prozac) 60 mg PO DAILY [facility] Last Admin: 06/04/19 10:35 Dose: 60 mg Documented by: Folic Acid ([facility] Acid) [facility] Stop: 06/06/19 08:01 Last Admin: 06/04/19 08:28 Dose: 1 mg Documented by: Hydroxyzine Pamoate (Vistaril Pamoate Capsule) 50 mg PO Q6H PRN PRN PRN Reason: Mild Anxiety (score 1/3) Last Admin: 06/04/19 10:43 Dose: 50 mg Documented by: Ibuprofen (Motrin) 600 mg PO Q8H PRN PRN PRN Reason: Pain Score 1-10/10 Loperamide HCl (Imodium) 2 - 4 mg PO UD PRN PRN Reason: LOOSE STOOLS Loratadine (Claritin) 10 mg PO DAILY [facility] Last Admin: 06/04/19 10:35 Dose: 10 mg Documented by: Lorazepam (Ativan) 2 mg IV X1 PRN PRN Reason: Seizure Lorazepam (Ativan) 1 mg PO Q4H [facility]; Taper Stop: 06/07/19 02:44 Last Admin: 06/04/19 10:43 Dose: 1 mg Documented by: Methocarbamol (Methocarbamol) 750 mg PO Q6H PRN PRN PRN Reason: Muscle Aches Multivitamins (Multivitamin) [facility] Last Admin: 06/04/19 08:28 Dose: 1 tablet Documented by: Nicotine (Nicoderm Cq (Pbkc)) 21 mg TRANSDERM. DAILY [facility] Last Admin: 06/04/19 10:35 Dose: 21 mg Documented by: Nutritional Formula (Lactose Free) (Ensure Enlive) 120 ml PO 4X/DAY [facility] Last Admin: 06/04/19 10:43 Dose: 120 ml Documented by: Ondansetron HCl (Zofran Odt) 4 mg PO Q6H PRN PRN PRN Reason: NAUSEA Quetiapine Fumarate (Seroquel) 25 mg PO QHS [facility] Last Admin: 06/03/19 22:55 Dose: 25 mg Documented by: Senna (Senokot) 1 tablet PO QHS PRN PRN Reason: Constipation Sodium Chloride () 10 - 40 ml IV UD PRN PRN Reason: SALINE FLUSH Thiamine HCl (Vitamin B1) [facility] Stop: 06/06/19 08:01 Last Admin: 06/04/19 08:28 Dose: 100 mg Documented by: Trazodone HCl (Desyrel) 50 mg PO QHS [facility] Last Admin: 06/03/19 22:55 Dose: 50 mg Documented by: STROKE Vital Signs/Narrative: Vital Signs Temp Pulse Resp BP Pulse Ox 06/04/19 10:30 98.3 F 86 20 H 155/89 H 97 06/04/19 10:00 98.2 F 86 20 H 155/89 H 97 Medical Necessity - Tobacco Use Smoking Status: Current every day smoker Tobacco Use: Cigarettes Assessment/Plan All Active Problems (Last Reviewed 10/28/18 @ 14:33 by Angélica Bliss) Alcohol withdrawal (Acute) Drug abuse (Resolved) UTI (urinary tract infection) (Resolved) Bone fracture (Resolved) Alcohol withdrawal (Acute) Alcohol dependence (Acute) 1. Acute alcohol withdrawal -Continue with alcohol withdrawal protocol -We will have social work set him up with outpatient rehab 2. Chronically elevated LFTs -Due to untreated hepatitis -Advised to quit drinking so he can get treatment for his hepatitis C 3. Nicotine abuse -Continue with nicotine patch -Advised cessation 4. Bipolar disorder -Stable -Continue with Prozac and Seroquel DVT: Ambulation Code Visit Inpatient E&M: 49176 Subs Hosp L2
[2019-06-04] MEDS: QUEtiapine 25 MG Tablet PO (22:27)
[2019-06-04] MEDS: Famotidine 20 MG Tablet PO (22:27)
[2019-06-04] MEDS: traZODone 50 MG Tablet PO (22:27)
[2019-06-04] MEDS: 0.9% Saline Lock 10 ML Syringe IV (22:28)
[2019-06-05] MEDS: LORazepam 1 MG Tablet PO ×4 (00:46→17:59)
[2019-06-05 00:47] VITALS: BP 127/86; PULSE 86; RESP 18; TEMP 36.5; O2SAT 96
[2019-06-05 06:09] VITALS: BP 133/86; PULSE 83; RESP 18; TEMP 36.8; O2SAT 94
[2019-06-05] MEDS: hydrOXYzine PAM 25 MG Capsule 50 MG PO ×2 (06:15→14:10)
[2019-06-05] MEDS: Ibuprofen 600 MG Tablet PO ×2 (06:15→17:59)
[2019-06-05] MEDS: Thiamine Hydrochloride 100 MG Tablet PO (08:57)
[2019-06-05] MEDS: Folic Acid 1 MG Tablet PO (08:57)
[2019-06-05] MEDS: Multivitamins,Therapeutic Tablet 1 TABLET PO (08:57)
[2019-06-05] MEDS: FLUoxetine 20 MG Capsule 60 MG PO (09:00)
[2019-06-05] MEDS: Loratadine 10 MG Tablet PO (09:00)
--- NOTE | 2019-06-05 10:29 | PCM.PN.HOSP ---
Reason for Visit: Acute alcohol withdrawal Subjective: Patient is a 29-year-old gentleman with history of chronic alcohol abuse admitted with acute alcohol withdrawal Objective: GENERAL: cooperative remains tremulous HEENT: Atraumatic; EYES; Anicteric, Normal Conjunctiva NECK; supple, normal thyroid, RESPIRATORY: Diminished to auscultation CARDIOVASCULAR: Regular S1 S2, GI: soft, normoactive bowel sounds, : No Renal angle tenderness; EXTREMITIES: No edema, no clubbing, MUSCULOSKELETAL: no muscle waisting NEURO: Awake; no lateralizing signs. SKIN: No Rash PSYCH; Flat affect Vitals/I&O's: Vital Signs Temp Pulse Resp BP Pulse Ox 98.2 F 83 18 133/86 H 94 06/05/19 06:09 06/05/19 06:09 06/05/19 06:09 06/05/19 06:09 06/05/19 06:09 Oxygen Delivery Method Room Air Weight: 77.4 kg Body Mass Index (BMI) 25.9 Intake and Output for Last 24 Hours 06/03/19 06/04/19 06/05/19 23:59 23:59 23:59 Intake Total 3460 / 3460 300 / 300 Output Total 500 / 500 Balance 2960 / 2960 300 / 300 Current Medications Acetaminophen (Tylenol) 500 mg PO Q4H PRN PRN PRN Reason: Temp > 100.4 F Al Hydroxide/Mg Hydroxide (Mylanta Ii) 30 ml PO Q6H PRN PRN PRN Reason: dyspesia Bisacodyl (Dulcolax) 10 mg RECTAL DAILY PRN PRN Reason: Constipation Dicyclomine HCl (Bentyl) 20 mg PO Q6H PRN PRN PRN Reason: abdominal discomfort Diphenhydramine HCl (Benadryl) 25 mg PO QHS PRN PRN Reason: allergic reaction Famotidine (Pepcid) 20 mg PO QHS [facility] Last Admin: 06/04/19 22:27 Dose: 20 mg Documented by: Fluoxetine HCl (Prozac) 60 mg PO DAILY [facility] Last Admin: 06/05/19 09:00 Dose: 60 mg Documented by: [facility]olic [facility] ([facility]) [facility] Stop: 06/06/19 08:01 Last Admin: 06/05/19 08:57 Dose: 1 mg Documented by: Hydroxyzine Pamoate (Vistaril Pamoate Capsule) 50 mg PO Q6H PRN PRN PRN Reason: Mild Anxiety (score 1/3) Last Admin: 06/05/19 06:15 Dose: 50 mg Documented by: Ibuprofen (Motrin) 600 mg PO Q8H PRN PRN PRN Reason: Pain Score 1-10/10 Last Admin: 06/05/19 06:15 Dose: 600 mg Documented by: Loperamide HCl (Imodium) 2 - 4 mg PO UD PRN PRN Reason: LOOSE STOOLS Loratadine (Claritin) 10 mg PO DAILY [facility] Last Admin: 06/05/19 09:00 Dose: 10 mg Documented by: Lorazepam (Ativan) 2 mg IV X1 PRN PRN Reason: Seizure Lorazepam (Ativan) 1 mg PO Q6H [facility]; Taper Stop: 06/07/19 02:44 Last Admin: 06/05/19 06:43 Dose: 1 mg Documented by: Methocarbamol (Methocarbamol) 750 mg PO Q6H PRN PRN PRN Reason: Muscle Aches Multivitamins (Multivitamin) [facility] Last Admin: 06/05/19 08:57 Dose: 1 tablet Documented by: Nicotine (Nicoderm Cq (Pbkc)) 21 mg TRANSDERM. DAILY [facility] Last Admin: 06/05/19 09:00 Dose: 21 mg Documented by: Nutritional Formula (Lactose Free) (Ensure Enlive) 120 ml PO 4X/DAY [facility] Last Admin: 06/05/19 09:07 Dose: 120 ml Documented by: Ondansetron HCl (Zofran Odt) 4 mg PO Q6H PRN PRN PRN Reason: NAUSEA Quetiapine Fumarate (Seroquel) 25 mg PO QHS [facility] Last Admin: 06/04/19 22:27 Dose: 25 mg Documented by: Senna (Senokot) 1 tablet PO QHS PRN PRN Reason: Constipation Sodium Chloride () 10 - 40 ml IV UD PRN PRN Reason: SALINE FLUSH Last Admin: 06/04/19 22:28 Dose: 10 ml Documented by: Thiamine HCl (Vitamin B1) [facility] Stop: 06/06/19 08:01 Last Admin: 06/05/19 08:57 Dose: 100 mg Documented by: Trazodone HCl (Desyrel) 50 mg PO QHS [facility] Last Admin: 06/04/19 22:27 Dose: 50 mg Documented by: Medical Necessity - Tobacco Use Smoking Status: Current every day smoker Tobacco Use: Cigarettes Assessment/Plan All Active Problems (Last Reviewed 10/28/18 @ 14:33 by Angélica Bliss) Alcohol withdrawal (Acute) Drug abuse (Resolved) UTI (urinary tract infection) (Resolved) Bone fracture (Resolved) Alcohol withdrawal (Acute) Alcohol dependence (Acute) Patient is a 29-year-old gentleman with history of chronic alcohol abuse admitted with acute alcohol withdrawal 1. Acute alcohol withdrawal ?Admitted to regular nursing floor currently being managed with alcohol withdrawal protocol using present plan 2. Elevated liver function test ?due to combination of patient underlying chronic hep C as well as his alcohol abuse. Monitoring levels which is currently trending down 3. Chronic hep C ?Patient counseled on the need to follow-up with PCP to initiate treatment 4. Tobacco dependence -counseled on cessation, offered nicotine patch for tobacco cravings 5. Bipolar disorder - patient is on Prozac and Seroquel discontinued 6. DVT prophylaxis -low risk did encourage early ambulation Active Medications Acetaminophen (Tylenol) 500 mg PO Q4H PRN PRN PRN Reason: Temp > 100.4 F Al Hydroxide/Mg Hydroxide (Mylanta Ii) 30 ml PO Q6H PRN PRN PRN Reason: dyspesia Bisacodyl (Dulcolax) 10 mg RECTAL DAILY PRN PRN Reason: Constipation Dicyclomine HCl (Bentyl) 20 mg PO Q6H PRN PRN PRN Reason: abdominal discomfort Diphenhydramine HCl (Benadryl) 25 mg PO QHS PRN PRN Reason: allergic reaction Famotidine (Pepcid) 20 mg PO QHS [facility] Last Admin: 06/04/19 22:27 Dose: 20 mg Documented by: Fluoxetine HCl (Prozac) 60 mg PO DAILY [facility] Last Admin: 06/05/19 09:00 Dose: 60 mg Documented by: Folic Acid (Folic Acid) [facility] Stop: 06/06/19 08:01 Last Admin: 06/05/19 08:57 Dose: 1 mg Documented by: Hydroxyzine Pamoate (Vistaril Pamoate Capsule) 50 mg PO Q6H PRN PRN PRN Reason: Mild Anxiety (score 1/3) Last Admin: 06/05/19 06:15 Dose: 50 mg Documented by: Ibuprofen (Motrin) 600 mg PO Q8H PRN PRN PRN Reason: Pain Score 1-10/10 Last Admin: 06/05/19 06:15 Dose: 600 mg Documented by: Loperamide HCl (Imodium) 2 - 4 mg PO UD PRN PRN Reason: LOOSE STOOLS Loratadine (Claritin) 10 mg PO DAILY [facility] Last Admin: 06/05/19 09:00 Dose: 10 mg Documented by: Lorazepam (Ativan) 2 mg IV X1 PRN PRN Reason: Seizure Lorazepam (Ativan) 1 mg PO Q6H [facility]; Taper Stop: 06/07/19 02:44 Last Admin: 06/05/19 06:43 Dose: 1 mg Documented by: Methocarbamol (Methocarbamol) 750 mg PO Q6H PRN PRN PRN Reason: Muscle Aches Multivitamins (Multivitamin) [facility] Last Admin: 06/05/19 08:57 Dose: 1 tablet Documented by: Nicotine (Nicoderm Cq (Pbkc)) 21 mg TRANSDERM. DAILY [facility] Last Admin: 06/05/19 09:00 Dose: 21 mg Documented by: Nutritional Formula (Lactose Free) (Ensure Enlive) 120 ml PO 4X/DAY [facility] Last Admin: 06/05/19 09:07 Dose: 120 ml Documented by: Ondansetron HCl (Zofran Odt) 4 mg PO Q6H PRN PRN PRN Reason: NAUSEA Quetiapine Fumarate (Seroquel) 25 mg PO QHS [facility] Last Admin: 06/04/19 22:27 Dose: 25 mg Documented by: Senna (Senokot) 1 tablet PO QHS PRN PRN Reason: Constipation Sodium Chloride () 10 - 40 ml IV UD PRN PRN Reason: SALINE FLUSH Last Admin: 06/04/19 22:28 Dose: 10 ml Documented by: Thiamine HCl (Vitamin B1) [facility] Stop: 06/06/19 08:01 Last Admin: 06/05/19 08:57 Dose: 100 mg Documented by: Trazodone HCl (Desyrel) 50 mg PO QHS [facility] Last Admin: 06/04/19 22:27 Dose: 50 mg Documented by: Code Visit Inpatient E&M: 71115 Subs Hosp L2
--- NOTE | 2019-06-05 13:30 | CASEMGMT ---
Social Work Note Pt is at [facility] for alcohol withdrawal. Pt was at [facility] 04/09/2019-04/12/2019 for alcohol withdrawal as well. SW met with pt and introduced self and role at [facility]. Pt is alert and orientated x3. Pt states that the last time he was discharged from [facility] he didn't follow up with [facility] as he thought he could remain sober by himself. Pt states I was too cocky and thought I didn't need help but obviously that didn't work. Pt states that he does plan to resume services at [facility] at discharge. SW asked pt if this worker could make him an appointment and pt denied. Pt states I have a job interview when I leave [facility] and then will schedule an appointment at [facility]. Pt denied additional needs or concerns at this time. Plan: [facility] Brenda Ayala [employer] TRAINING DIRECTOR, [employer]
[2019-06-05 13:59] VITALS: BP 139/99; PULSE 96; RESP 16; TEMP 36.8; O2SAT 98
[2019-06-05 17:51] VITALS: BP 137/102; PULSE 98; RESP 18; TEMP 37; O2SAT 95
[2019-06-05] MEDS: Methocarbamol 750 MG Tablet PO (17:59)
[2019-06-05] MEDS: cloNIDine HCl 0.1 MG Tablet 0.2 MG PO (19:49)
[2019-06-05 22:00] VITALS: BP 134/85; PULSE 83; RESP 18; TEMP 37.1; O2SAT 95
[2019-06-05] MEDS: Famotidine 20 MG Tablet PO (22:00)
[2019-06-05] MEDS: traZODone 50 MG Tablet PO (22:00)
[2019-06-05] MEDS: QUEtiapine 25 MG Tablet PO (22:01)
[2019-06-06 02:30] VITALS: BP 122/85; PULSE 83; RESP 16; TEMP 36.7; O2SAT 97
[2019-06-06] MEDS: LORazepam 1 MG Tablet PO ×3 (03:19→17:39)
--- NOTE | 2019-06-06 07:33 | PCM.PN.HOSP ---
Reason for Visit: Acute alcohol withdrawal Subjective: Patient seen still remains significantly tremulous plan is to observe patient for 1 additional day Objective: GENERAL: cooperative remains tremulous HEENT: Atraumatic; EYES; Anicteric, Normal Conjunctiva NECK; supple, normal thyroid, RESPIRATORY: Diminished to auscultation CARDIOVASCULAR: Regular S1 S2, GI: soft, normoactive bowel sounds, : No Renal angle tenderness; EXTREMITIES: No edema, no clubbing, MUSCULOSKELETAL: no muscle waisting NEURO: Awake; no lateralizing signs. SKIN: No Rash PSYCH; Flat affect Vitals/I&O's: Vital Signs Temp Pulse Resp BP Pulse Ox 98.0 F 83 16 122/85 H 97 06/06/19 02:30 06/06/19 02:30 06/06/19 02:30 06/06/19 02:30 06/06/19 02:30 Oxygen Delivery Method Room Air Weight: 77.4 kg Body Mass Index (BMI) 25.9 Intake and Output for Last 24 Hours 06/04/19 06/05/19 06/06/19 23:59 23:59 23:59 Intake Total 3460 / 3460 1540 / 1540 50 / 50 Output Total 500 / 500 0 / 0 Balance 2960 / 2960 1540 / 1540 50 / 50 Current Medications Acetaminophen (Tylenol) 500 mg PO Q4H PRN PRN PRN Reason: Temp > 100.4 F Al Hydroxide/Mg Hydroxide (Mylanta Ii) 30 ml PO Q6H PRN PRN PRN Reason: dyspesia Bisacodyl (Dulcolax) 10 mg RECTAL DAILY PRN PRN Reason: Constipation Dicyclomine HCl (Bentyl) 20 mg PO Q6H PRN PRN PRN Reason: abdominal discomfort Diphenhydramine HCl (Benadryl) 25 mg PO QHS PRN PRN Reason: allergic reaction Famotidine (Pepcid) 20 mg PO QHS [facility] Last Admin: 06/05/19 22:00 Dose: 20 mg Documented by: Fluoxetine HCl (Prozac) 60 mg PO DAILY [facility] Last Admin: 06/05/19 09:00 Dose: 60 mg Documented by: F[facility] ([facility]) [facility] Stop: 06/06/19 08:01 Last Admin: 06/05/19 08:57 Dose: 1 mg Documented by: Hydroxyzine Pamoate (Vistaril Pamoate Capsule) 50 mg PO Q6H PRN PRN PRN Reason: Mild Anxiety (score 1/3) Last Admin: 06/05/19 14:10 Dose: 50 mg Documented by: Ibuprofen (Motrin) 600 mg PO Q8H PRN PRN PRN Reason: Pain Score 1-10/10 Last Admin: 06/05/19 17:59 Dose: 600 mg Documented by: Loperamide HCl (Imodium) 2 - 4 mg PO UD PRN PRN Reason: LOOSE STOOLS Loratadine (Claritin) 10 mg PO DAILY [facility] Last Admin: 06/05/19 09:00 Dose: 10 mg Documented by: Lorazepam (Ativan) 2 mg IV X1 PRN PRN Reason: Seizure Lorazepam (Ativan) 1 mg PO Q8H [facility]; Taper Stop: 06/07/19 02:44 Last Admin: 06/06/19 03:19 Dose: 1 mg Documented by: Methocarbamol (Methocarbamol) 750 mg PO Q6H PRN PRN PRN Reason: Muscle Aches Last Admin: 06/05/19 17:59 Dose: 750 mg Documented by: Multivitamins ([facility]itamin) [facility] Last Admin: 06/05/19 08:57 Dose: 1 tablet Documented by: Nicotine (Nicoderm Cq (Pbkc)) 21 mg TRANSDERM. DAILY [facility] Last Admin: 06/05/19 09:00 Dose: 21 mg Documented by: Nutritional Formula (Lactose Free) (Ensure Enlive) 120 ml PO 4X/DAY [facility] Last Admin: 06/05/19 22:01 Dose: 120 ml Documented by: Ondansetron HCl (Zofran Odt) 4 mg PO Q6H PRN PRN PRN Reason: NAUSEA Quetiapine Fumarate (Seroquel) 25 mg PO QHS [facility] Last Admin: 06/05/19 22:01 Dose: 25 mg Documented by: Senna (Senokot) 1 tablet PO QHS PRN PRN Reason: Constipation Sodium Chloride () 10 - 40 ml IV UD PRN PRN Reason: SALINE FLUSH Last Admin: 06/04/19 22:28 Dose: 10 ml Documented by: Thiamine HCl (Vitamin B1) [facility] Stop: 06/06/19 08:01 Last Admin: 06/05/19 08:57 Dose: 100 mg Documented by: Trazodone HCl (Desyrel) 50 mg PO QHS [facility] Last Admin: 06/05/19 22:00 Dose: 50 mg Documented by: Medical Necessity - Tobacco Use Smoking Status: Current every day smoker Tobacco Use: Cigarettes Assessment/Plan All Active Problems (Last Reviewed 10/28/18 @ 14:33 by Angélica Bliss) Alcohol withdrawal (Acute) Drug abuse (Resolved) UTI (urinary tract infection) (Resolved) Bone fracture (Resolved) Alcohol withdrawal (Acute) Alcohol dependence (Acute) Patient is a 29-year-old gentleman with history of chronic alcohol abuse admitted with acute alcohol withdrawal 1. Acute alcohol withdrawal ?Admitted to regular nursing floor currently being managed with alcohol withdrawal protocol using Ativan ?06/06/2019; Patient seen still remains significantly tremulous plan is to observe patient for 1 additional day 2. Elevated liver function test ?due to combination of patient underlying chronic hep C as well as his alcohol abuse. Monitoring levels which is currently trending down 3. Chronic hep C ?Patient counseled on the need to follow-up with PCP to initiate treatment 4. Tobacco dependence -counseled on cessation, offered nicotine patch for tobacco cravings 5. Bipolar disorder - patient is on Prozac and Seroquel discontinued 6. DVT prophylaxis -low risk did encourage early ambulation Code Visit Inpatient E&M: [id number] Subs Hosp L2
[2019-06-06 08:18] VITALS: BP 126/91; PULSE 78; RESP 16; TEMP 37; O2SAT 98
[2019-06-06] MEDS: Loratadine 10 MG Tablet PO (08:21)
[2019-06-06] MEDS: Folic Acid 1 MG Tablet PO (08:21)
[2019-06-06] MEDS: Thiamine Hydrochloride 100 MG Tablet PO (08:21)
[2019-06-06] MEDS: Multivitamins,Therapeutic Tablet 1 TABLET PO (08:21)
[2019-06-06] MEDS: FLUoxetine 20 MG Capsule 60 MG PO (08:22)
[2019-06-06] MEDS: Methocarbamol 750 MG Tablet PO ×2 (08:27→15:01)
[2019-06-06] MEDS: Dicyclomine 10 MG Capsule 20 MG PO ×2 (08:27→17:39)
[2019-06-06] MEDS: hydrOXYzine PAM 25 MG Capsule 50 MG PO ×2 (08:27→15:01)
[2019-06-06 15:20] VITALS: BP 128/86; PULSE 76; RESP 18; TEMP 36.7; O2SAT 95
[2019-06-06 21:17] VITALS: BP 145/100; PULSE 77; RESP 16; TEMP 37.2; O2SAT 98
[2019-06-06] MEDS: traZODone 50 MG Tablet PO (21:24)
[2019-06-06] MEDS: Famotidine 20 MG Tablet PO (21:25)
[2019-06-06] MEDS: QUEtiapine 25 MG Tablet PO (21:25)
[2019-06-06] MEDS: Bisacodyl 10 MG Suppository RECTAL (21:27)
[2019-06-07 02:13] VITALS: BP 116/81; PULSE 80; RESP 14; TEMP 36.7; O2SAT 97
--- NOTE | 2019-06-07 08:50 | DCINST_ITS ---
You will use the following diet at home:: Regular Discharge Activity: May not drive while taking narcotic pain medications. Allergies/Adverse Reactions: Allergies adhesive tape Allergy (Mild, Verified 06/03/19 16:29) Hives Medications to take at Discharge diphenhydramine HCl 25 mg capsule 25 mg PO QHS PRN 01/20/19 famotidine 20 mg tablet 20 mg PO QHS 01/20/19 Hydroxyzine HCl 25 mg PO Q6H PRN 04/09/19 Quetiapine Fumarate 25 mg PO QHS PRN 04/09/19 Fluoxetine HCl 20 mg PO DAILY 06/03/19 Fluoxetine HCl 40 mg PO DAILY 06/03/19 Loratadine [Claritin] 10 mg PO DAILY 06/03/19 Multivitamin [Multivitamins] 1 tab PO DAILY 06/03/19 Thiamine HCl [Vitamin B-1] 100 mg PO DAILY 06/03/19 Primary Care Physician: Fady Dang MD [Primary Care Provider] - Please follow up with your Primary Care Physician in: in 1 week Test Results: Test results from this visit will be discussed in further detail at your follow- up appointment, if applicable. Proposed Discharge Date: 06/07/19
--- NOTE | 2019-06-07 08:51 | PCM.DC.SUM ---
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 Acute alcohol withdrawal ?Admitted to regular nursing floor currently being managed with alcohol withdrawal protocol using Ativan ?06/06/2019; Patient seen still remains significantly tremulous plan is to observe patient for 1 additional day 06/07/2019; patient was deemed stable enough to be discharged. He has an appointment to start intensive outpatient therapy. 2. Elevated liver function test ?due to combination of patient underlying chronic hep C as well as his alcohol abuse. Monitoring levels which is currently trending down 3. Chronic hep C ?Patient counseled on the need to follow-up with PCP to initiate treatment 4. Tobacco dependence -counseled on cessation, offered nicotine patch for tobacco cravings 5. Bipolar disorder - patient is on Prozac and Seroquel discontinued 6. DVT prophylaxis -low risk did encourage early ambulation Objective: GENERAL: cooperative HEENT: Atraumatic; EYES; Anicteric, Normal Conjunctiva NECK; supple, normal thyroid, RESPIRATORY: Diminished to auscultation CARDIOVASCULAR: Regular S1 S2, GI: soft, normoactive bowel sounds, : No Renal angle tenderness; EXTREMITIES: No edema, no clubbing, MUSCULOSKELETAL: no muscle waisting NEURO: Awake; no lateralizing signs. SKIN: No Rash PSYCH; Flat affect - Physical Exam Vitals/I&O's: Vital Signs Temp Pulse Resp BP Pulse Ox 98.0 F 80 14 116/81 H 97 06/07/19 02:13 06/07/19 02:13 06/07/19 02:13 06/07/19 02:13 06/07/19 02:13 Oxygen Delivery Method Room Air Weight: 77.4 kg Body Mass Index (BMI) 25.9 Intake and Output for Last 24 Hours 06/05/19 06/06/19 06/07/19 23:59 23:59 23:59 Intake Total 1540 / 1540 1550 / 1550 Output Total 0 / 0 Balance 1540 / 1540 1550 / 1550 Current Medications Acetaminophen (Tylenol) 500 mg PO Q4H PRN PRN PRN Reason: Temp > 100.4 F Al Hydroxide/Mg Hydroxide (Mylanta Ii) 30 ml PO Q6H PRN PRN PRN Reason: dyspesia Bisacodyl (Dulcolax) 10 mg RECTAL DAILY PRN PRN Reason: Constipation Last Admin: 06/06/19 21:27 Dose: 10 mg Documented by: Dicyclomine HCl (Bentyl) 20 mg PO Q6H PRN PRN PRN Reason: abdominal discomfort Last Admin: 06/06/19 17:39 Dose: 20 mg Documented by: Diphenhydramine HCl (Benadryl) 25 mg PO QHS PRN PRN Reason: allergic reaction [facility] Last Admin: 06/06/19 21:25 Dose: 20 mg Documented by: Fluoxetine HCl (Prozac) 60 mg PO DAILY [facility] Last Admin: 06/06/19 08:22 Dose: 60 mg Documented by: Hydroxyzine Pamoate (Vistaril Pamoate Capsule) 50 mg PO Q6H PRN PRN PRN Reason: Mild Anxiety (score 1/3) Last Admin: 06/06/19 15:01 Dose: 50 mg Documented by: Ibuprofen (Motrin) 600 mg PO Q8H PRN PRN PRN Reason: Pain Score 1-10/10 Last Admin: 06/05/19 17:59 Dose: 600 mg Documented by: Loperamide HCl (Imodium) 2 - 4 mg PO UD PRN PRN Reason: LOOSE STOOLS Loratadine (Claritin) 10 mg PO DAILY [facility] Last Admin: 06/06/19 08:21 Dose: 10 mg Documented by: Lorazepam (Ativan) 2 mg IV X1 PRN PRN Reason: Seizure Methocarbamol (Methocarbamol) 750 mg PO Q6H PRN PRN PRN Reason: Muscle Aches Last Admin: 06/06/19 15:01 Dose: 750 mg Documented by: [facility]amin) [facility] Last Admin: 06/06/19 08:21 Dose: 1 tablet Documented by: Nicotine (Nicoderm Cq (Pbkc)) 21 mg TRANSDERM. DAILY [facility] Last Admin: 06/06/19 08:22 Dose: 21 mg Documented by: Nutritional Formula (Lactose Free) (Ensure Enlive) 120 ml PO 4X/DAY [facility] Last Admin: 06/06/19 21:27 Dose: 120 ml Documented by: Ondansetron HCl (Zofran Odt) 4 mg PO Q6H PRN PRN PRN Reason: NAUSEA Quetiapine Fumarate (Seroquel) 25 mg PO QHS [facility] Last Admin: 06/06/19 21:25 Dose: 25 mg Documented by: Senna (Senokot) 1 tablet PO QHS PRN PRN Reason: Constipation Sodium Chloride () 10 - 40 ml IV UD PRN PRN Reason: SALINE FLUSH Last Admin: 06/04/19 22:28 Dose: 10 ml Documented by: Trazodone HCl (Desyrel) 50 mg PO QHS [facility] Last Admin: 06/06/19 21:24 Dose: 50 mg Documented by: Discharge Diet: No Restrictions Discharge Activity: May not drive while taking narcotic pain medications. Home Medications: Medications to take at Discharge diphenhydramine HCl 25 mg capsule 25 mg PO QHS PRN 01/20/19 famotidine 20 mg tablet 20 mg PO QHS 01/20/19 Hydroxyzine HCl 25 mg PO Q6H PRN 04/09/19 Quetiapine Fumarate 25 mg PO QHS PRN 04/09/19 Fluoxetine HCl 20 mg PO DAILY 06/03/19 Fluoxetine HCl 40 mg PO DAILY 06/03/19 Loratadine [Claritin] 10 mg PO DAILY 06/03/19 Multivitamin [Multivitamins] 1 tab PO DAILY 06/03/19 Thiamine HCl [Vitamin B-1] 100 mg PO DAILY 06/03/19 Primary Care Physician: Fady Dang MD [Primary Care Provider] - Please follow up with your Primary Care Physician in: in 1 week Disposition: Home Minutes spent on discharge:: 35 Patient Condition:: Stable Medical Necessity - Tobacco Use Smoking Status: Current every day smoker Tobacco Use: Cigarettes Meaningful Use Info Meaningful Use Diagnoses (Choose all that apply): None applicable Code Visit Inpatient E&M: 23306 Disch Hosp
[2019-06-07 09:30] VITALS: BP 136/94; PULSE 105; RESP 16; TEMP 37.2; O2SAT 99
== END 2019-06-07 09:35 | disposition home or self-care (01) | DRG 775 ==
LOC: ED 17:11 → MS3 21:07
PROVIDERS: Admitting Provider Internal Medicine; Emergency Provider Emergency Medicine; Family Provider Internal Medicine; PCP Internal Medicine; Visit Provider Internal Medicine
DX: F10.230 Alcohol dependence with withdrawal, uncomplicated (principal); B18.2 Chronic viral hepatitis C; F10.229 Alcohol dependence with intoxication, unspecified; F17.210 Nicotine dependence, cigarettes, uncomplicated; Y90.8 Blood alcohol level of 240 mg/100 ml or more; F31.9 Bipolar disorder, unspecified; K86.0 Alcohol-induced chronic pancreatitis; F41.8 Other specified anxiety disorders; J30.2 Other seasonal allergic rhinitis; I10 Essential (primary) hypertension
CPT/HCPCS: 36415; 80053; 80307; 80320; 85025; 97802; 99283; A4216; G0480

== ENCOUNTER 2019-06-19 14:20 | Inpatient (IN) | payer MEDICAID, SELFPAY ==
[2019-06-03 21:33] VITALS: BMI 25.9
[2019-06-19 14:22] VITALS: BP 152/75; PULSE 119; RESP 18; TEMP 37.3; O2SAT 97; BMI 26.6
--- NOTE | 2019-06-19 14:55 | ED.VISSUMM ---
- ER Visit Summary Date of Service: 06/19/19 Chief Complaint: Alcohol withdrawal History of Present Illness: The patient is a 29 M who drinks 1/5 of alcohol daily. Last use was earlier today. He reports withdrawal symptoms including anxiety, tremors, and unsteadiness. Denies any history of DTs or seizures. Denies any suicidal thoughts. Denies any medical complaints currently. He does have a history of hepatitis B and C as well as pancreatitis. Physical Examination: Tachycardic but otherwise vitals unremarkable. Alert and oriented. Depressed mood and flat affect. Heart tachycardic. Lungs clear. Abdomen soft. Skin unremarkable. Test Results: Labs, tox pending. Emergency Department Course and Treatment: We will perform medical clearance and discussed with the hospitalist. Hemoglobin 17.2, alkaline phosphatase 252, ALT 685, AST 1096. Lipase normal. INR 1.0. Urinalysis unremarkable. Tox screen pending. Alcohol level 446. Patient was treated with Ativan for withdrawal symptoms. Hospitalist was contacted for further care. Treatment Plan: As above Disposition: Admission Impression: 1. Alcohol withdrawal This note was generated with [employer] dictation software. It may contain incorrect words, spelling, and punctuation that were not noted in review of the chart prior to signing ED Disposition - Plan for ED Patient: Referrals: Fady Dang MD [Primary Care Provider] -
[2019-06-19 15:17] LABS: Absolute Lymphocyte Count 2.82 X10^3/uL (0.83-4.51); Absolute Neutrophil Count 5.1 X10^3/uL (2.0-7.7); Basophil# 0.09 X10^3/uL; Basophil% 1.1 % (0-1); Eosinophil# 0.11 X10^3/uL; Eosinophils% 1.3 % (0-5); Hematocrit 48.2 % (40-54); Hemoglobin 17.2 g/dL (13.0-16.5); Lymphocyte # 2.82 X10^3/ul (4.0); Lymphocyte % 32.9 % (19-41); Mean Corp Hgb Conc 35.7 g/dL (32-36); Mean Corpuscular Hgb 33.8 pg (27.0-32.0); Mean Corpuscular Volume 94.7 fL (80-94); Mean Platelet Vol. 8.7 fl (6.2-12.0); Monocyte# 0.46 X10^3/uL; Monocyte% 5.4 % (0-10); NRBC Flagged by Analyzer 0 % (0-5); Neutrophil # 5.07 X10^3/uL (2.7-7.7); Neutrophil % 59.1 % (47-70); Platelet Count 228 K/mm3 (150-450); RBC Distribution Width CV 12.5 % (11.6-14.6); RBC Distribution Width SD 44.2 fl (35.1-43.9); Red Blood Count 5.09 M/mm3 (4.6-6.2); White Blood Count 8.6 K/mm3 (4.4-11.0)
[2019-06-19 15:29] LABS: Prothrombin Time (Protime)PT. 12.8 SECONDS (11.7-14.9)
[2019-06-19 15:39] LABS: ALB/GLOB Ratio 0.9 RATIO (0.9-2.4); AST(SGOT) 1096 U/L (15-37); Alanine Aminotransfer ALT/SGPT 685 U/L (16-61); Albumin, Serum 4.3 g/dL (3.2-5.0); Alkaline Phosphatase 252 U/L (45-117); Anion Gap 13 (5-15); BUN 6 mg/dL (7-18); BUN/Creat Ratio 8.2 RATIO (10-20); Calcium,Total 8.7 mg/dL (8.5-10.1); Chloride 103 mmol/L (98-107); Creatinine, Serum 0.73 mg/dL (0.70-1.30); EST Glomerular Filtration Rate 135 mL/min (>60); Est Glom Filt Rate - Afr Amer 164 mL/min (>60); Estimated Creatinine Clearance 145.75 ml/min; Globulin 4.6 g/dL (2.2-4.2); Glucose 98 mg/dL (74-106); Lipase 347 U/L (73-393); Potassium 3.5 mmol/L (3.5-5.1); Protein, Total 8.9 g/dL (6.4-8.2); Sodium Level 140 mmol/L (136-145)
[2019-06-19 16:21] VITALS: BP 141/93; PULSE 127; RESP 17; O2SAT 98
[2019-06-19 16:42] LABS: Bacteria 0 SEEN /hpf (None Seen); Mucous, Urine 0 SEEN /hpf (<or=2+); Red Blood Cells-Urine 0 SEEN /hpf (0-5); Squamous Epithelial Cells - UA 0 SEEN /hpf (0-5); White Blood Cells 0 SEEN /hpf (0-5)
[2019-06-19 16:48] LABS: Color, Urine Yellow (Yellow); Glucose, Dipstick Normal (Normal); Ketone-Dipstick 50 mg/dl (Negative); Leukocyte Esterase-Dipstick Negative /ul (Negative); Nitrite-Dipstick Negative (Negative); Occult Blood-Urine 25 /ul (Negative); Protein-Dipstick 100 mg/dl (Negative); Specific Gravity, Urine 1.015 (1.002-1.030); Urine Bilirubin Dipstick Negative (Negative); Urine Clarity Clear (Clear); Urine Urobilinogen 1 mg/dl (Normal)
[2019-06-19 17:05] LABS: Amphetamine Urine VISTA NEGATIVE (<1000 ng/mL); Barbiturate Urine VISTA NEGATIVE (< 200 ng/mL); Benzodiazepine Urine VISTA NEGATIVE (< 200 ng/mL); Cocaine Urine VISTA NEGATIVE (< 300 ng/mL); Ecstacy Urine VISTA NEGATIVE (< 500 ng/mL); Methadone Urine VISTA NEGATIVE (< 300 ng/mL); PCP Urine VISTA NEGATIVE (< 25 ng/mL); THC Urine VISTA NEGATIVE (< 50 ng/mL); Vista UDS pH Range 6
--- NOTE | 2019-06-19 17:20 | CM.ED ---
SOCIAL WORK INFORMANT: SELF REFERRAL REASON FOR REFERRAL: SUBSTANCE ABUSE MET WITH PATIENT IN ROOM. INTRODUCED ROLE AND REASON FOR REFERRAL. PATIENT PRESENTS TO EMERGENCY DEPARTMENT REQUESTING DETOX FROM ALCOHOL. PATIENT STATES COMPLETED INTAKE WITH [facility] TODAY WITH SAMINA AND WAS BROUGHT TO EMERGENCY DEPARTMENT BY STATION MECHANIC APPRENTICE FROM [facility] FOR DETOX. PATIENT STATES PLAN IS TO COMPLETE 3 MONTH PROGRAM AFTER DETOX WITH [facility]. PATIENT STATES IS TO CONTACT [facility] UPON D/C AND SOMEONE WILL BE IN TO ENGLISH INSTRUCTOR PATIENT FROM HOSPITAL. CALL TO [facility] TO CONFIRM D/C PLAN. LEFT MESSAGE FOR SAMINA. AWAITING CALL BACK. Nancy FOUNTAIN ,LIGHTER, CERTIFIED MASSAGE THERAPIST.
[2019-06-19] MEDS: LORazepam 2 MG/ML Syringe 1 MG IV (17:29)
--- NOTE | 2019-06-19 17:36 | NURSING ---
[address] [facility] ALCOHOL WITHDRAWAL
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
[2019-06-19 18:16] VITALS: BMI 25.0
[2019-06-19 18:27] VITALS: BP 141/89; PULSE 132; RESP 18; TEMP 36.7; O2SAT 98
[2019-06-19 18:28] VITALS: BMI 25.1
[2019-06-19 18:41] LABS: Bedside Glucose 129 mg/dL (70-110)
[2019-06-19] MEDS: LORazepam 1 MG Tablet PO ×2 (18:48→22:31)
[2019-06-19] MEDS: 0.9% Saline Lock 10 ML Syringe IV ×2 (20:08→20:10)
[2019-06-19] MEDS: hydrOXYzine PAM 25 MG Capsule 50 MG PO (20:08)
[2019-06-19] MEDS: Ondansetron ODT 4 MG Tablet PO (20:08)
[2019-06-19] MEDS: Methocarbamol 750 MG Tablet PO (20:08)
[2019-06-19] MEDS: Ibuprofen 400 MG Tablet PO (20:08)
[2019-06-19 20:28] VITALS: BP 147/98; PULSE 124; RESP 18; TEMP 36.4; O2SAT 99
[2019-06-19] MEDS: traZODone 50 MG Tablet PO (20:32)
[2019-06-20 02:00] VITALS: BP 130/91; PULSE 112; RESP 18; TEMP 36.9; O2SAT 98
[2019-06-20] MEDS: LORazepam 1 MG Tablet PO ×5 (02:32→20:16)
[2019-06-20] MEDS: Methocarbamol 750 MG Tablet PO ×3 (02:32→20:22)
[2019-06-20 06:00] VITALS: BP 142/99; PULSE 100; RESP 18; TEMP 36.7; O2SAT 97
[2019-06-20] MEDS: hydrOXYzine PAM 25 MG Capsule 50 MG PO ×3 (06:27→21:45)
[2019-06-20] MEDS: Ibuprofen 400 MG Tablet PO ×2 (06:28→14:57)
--- NOTE | 2019-06-20 07:53 | PCM.PN.HOSP ---
Reason for Visit: Follow-up acute alcohol withdrawal Subjective: Patient is a 29-year-old gentleman with history of chronic alcohol use presented with tremors and assessment of acute alcohol withdrawal made admitted to regular nursing floor for subsequent management Objective: GENERAL: cooperative HEENT: Atraumatic; EYES; Anicteric, Normal Conjunctiva NECK; supple, normal thyroid, RESPIRATORY: Diminished to auscultation CARDIOVASCULAR: Regular S1 S2, GI: soft, normoactive bowel sounds, : No Renal angle tenderness; EXTREMITIES: No edema, no clubbing, MUSCULOSKELETAL: no muscle waisting NEURO: Awake; no lateralizing signs. SKIN: No Rash PSYCH; Flat affect Vitals/I&O's: Vital Signs Temp Pulse Resp BP Pulse Ox 98.1 F 100 18 142/99 H 97 06/20/19 06:00 06/20/19 06:00 06/20/19 06:00 06/20/19 06:00 06/20/19 06:00 Oxygen Delivery Method Room Air Weight: 74.797 kg Body Mass Index (BMI) 25.0 Intake and Output for Last 24 Hours 06/18/19 06/19/19 06/20/19 23:59 23:59 23:59 Intake Total 52 / 52 Balance 52 / 52 Laboratory Results 06/19/19 15:10: WBC 8.6, RBC 5.09, Hgb 17.2 H, Hct 48.2, MCV 94.7 H, MCH 33.8 H, MCHC 35.7, RDW Std Deviation 44.2 H, RDW Coeff of Mango 12.5, Plt Count 228, MPV 8.7, Immature Gran % (Auto) 0.200, Neut % (Auto) 59.1, Lymph % (Auto) 32.9, [place] % (Auto) 5.4, Eos % (Auto) 1.3, Baso % (Auto) 1.1 H, Absolute Neuts (auto) 5.1, Absolute Lymphs (auto) 2.82, Nucleated RBC % 0 06/19/19 15:10: PT 12.8, INR 1.0 06/19/19 15:10: Sodium 140, Potassium 3.5, Chloride 103, Carbon Dioxide 24.0, Anion Gap 13, BUN 6 L, Creatinine 0.73, Estim Creat Clear Calc 145.75, Est GFR (MDRD) Af Amer 164, Est GFR (MDRD) Non-Af 135, BUN/Creatinine Ratio 8.2 L, Glucose 98, Calcium 8.7, Total Bilirubin 0.50, AST 1096 H, ALT 685 H, Alkaline Phosphatase 252 H, Total Protein 8.9 H, Albumin 4.3, Globulin 4.6 H, Albumin/Globulin Ratio 0.9, Lipase 347 06/19/19 15:10: Ethyl Alcohol 446.0 H* 06/19/19 16:20: Urine Color Yellow, Urine Clarity Clear, Urine pH 6.0, Ur Specific [place] 1.015, Urine Protein 100 H, Urine Glucose (UA) Normal, Urine Ketones 50 H, Urine Occult Blood 25 H, Urine Nitrite Negative, Urine Bilirubin Negative, Urine Urobilinogen 1 H, Ur Leukocyte Esterase Negative, Urine RBC 0 SEEN, Urine WBC 0 SEEN, Ur Squamous Epith Cells 0 SEEN, Urine Bacteria 0 SEEN, Urine Mucus 0 SEEN 06/19/19 16:20: Urine Opiates Screen NEGATIVE, Urine Methadone Screen NEGATIVE, Ur Barbiturates Screen NEGATIVE, Ur Phencyclidine Scrn NEGATIVE, Ur Amphetamines Screen NEGATIVE, U Methamphetamin-MDMA NEGATIVE, U Benzodiazepines Scrn NEGATIVE, Urine Cocaine Screen NEGATIVE, U Cannabinoids Screen NEGATIVE, Ur Drug Screen Comment 06/19/19 18:35: POC Glucose 129 H Current Medications Acetaminophen (Tylenol) 500 mg PO Q4H PRN PRN PRN Reason: Temp > 100.4 F Al Hydroxide/Mg Hydroxide (Mylanta Ii) 30 ml PO Q6H PRN PRN PRN Reason: dyspesia Bisacodyl (Dulcolax) 10 mg RECTAL DAILY PRN PRN Reason: Constipation Dicyclomine HCl (Bentyl) 20 mg PO Q6H PRN PRN PRN Reason: abdominal discomfort Fluoxetine HCl (Prozac) 60 mg PO DAILY SHERYL Folic Acid (Folic Acid) 1 mg PO DAILY SHERYL Stop: 06/22/19 08:01 Hydroxyzine Pamoate (Vistaril Pamoate Capsule) 50 mg PO Q6H PRN PRN PRN Reason: Mild Anxiety (score 1/3) Last Admin: 06/20/19 06:27 Dose: 50 mg Documented by: Ibuprofen (Motrin) 400 mg PO Q8H PRN PRN PRN Reason: pain score 1-5/10 Last Admin: 06/20/19 06:28 Dose: 400 mg Documented by: Loperamide HCl (Imodium) 2 - 4 mg PO UD PRN PRN Reason: LOOSE STOOLS Lorazepam (Ativan) 1 mg IV Q4H PRN PRN PRN Reason: Severe Anxiety Lorazepam (Ativan) 2 mg IV X1 PRN PRN Reason: Seizure Lorazepam (Ativan) 1 mg PO Q4H SHERYL; Taper Stop: 06/22/19 22:29 Last Admin: 06/20/19 06:27 Dose: 1 mg Documented by: Methocarbamol (Methocarbamol) 750 mg PO Q6H PRN PRN PRN Reason: Muscle Aches Last Admin: 06/20/19 02:32 Dose: 750 mg Documented by: [facility] Nicotine (Nicoderm Cq (Pbkc)) 21 mg TRANSDERM. DAILY [facility] Last Admin: 06/19/19 18:48 Dose: 21 mg Documented by: Ondansetron HCl (Zofran Odt) 4 mg PO Q6H PRN PRN PRN Reason: NAUSEA Last Admin: 06/19/19 20:08 Dose: 4 mg Documented by: Senna (Senokot) 1 tablet PO QHS PRN PRN Reason: Constipation Sodium Chloride () 10 - 40 ml IV UD PRN PRN Reason: SALINE FLUSH Last Admin: 06/19/19 20:10 Dose: 10 ml Documented by: Thiamine HCl (Vitamin B1) 100 mg PO DAILYCM [facility] Stop: 06/22/19 08:01 Trazodone HCl (Desyrel) 50 mg PO QHS [facility] Last Admin: 06/19/19 20:32 Dose: 50 mg Documented by: STROKE Vital Signs/Narrative: Vital Signs Temp Pulse Resp BP Pulse Ox 06/20/19 06:00 98.1 F 100 18 142/99 H 97 Medical Necessity - Tobacco Use Smoking Status: Current every day smoker Tobacco Use: Cigarettes Assessment/Plan All Active Problems (Last Reviewed 10/28/18 @ 14:33 by Angélica Bliss) Alcohol withdrawal (Acute) Drug abuse (Resolved) UTI (urinary tract infection) (Resolved) Bone fracture (Resolved) Alcohol withdrawal (Acute) Alcohol dependence (Acute) Patient is a 29-year-old gentleman with history of chronic alcohol use presented with tremors and assessment of acute alcohol withdrawal made admitted to regular nursing floor for subsequent management 1. Acute alcohol withdrawal ?Admitted to regular nursing floor being managed with phenobarbital alcohol withdrawal protocol. 2. Acute hepatitis ?Patient liver profile consistent with acute alcoholic hepatitis. Ordered serial monitoring of liver function test and if patient does not improve do plan to start patient on prednisone 3. History of chronic hep C ?Patient to follow-up with PCP for subsequent care 4. Hypertension - may be secondary to patient alcohol withdrawal started on amlodipine 5. Tobacco dependence counseled on cessation, offered nicotine patch for tobacco cravings 6. Bipolar disorder ?Did continue patient psychotropic medications 7. DVT prophylaxis ?Low risk did encourage early ambulation Active Medications Acetaminophen (Tylenol) 500 mg PO Q4H PRN PRN PRN Reason: Temp > 100.4 F Al Hydroxide/Mg Hydroxide (Mylanta Ii) 30 ml PO Q6H PRN PRN PRN Reason: dyspesia Bisacodyl (Dulcolax) 10 mg RECTAL DAILY PRN PRN Reason: Constipation Dicyclomine HCl (Bentyl) 20 mg PO Q6H PRN PRN PRN Reason: abdominal discomfort Fluoxetine HCl (Prozac) 60 mg PO DAILY SHERYL Folic Acid (Folic Acid) 1 mg PO DAILYCM SHERYL Stop: 06/22/19 08:01 Hydroxyzine Pamoate (Vistaril Pamoate Capsule) 50 mg PO Q6H PRN PRN PRN Reason: Mild Anxiety (score 1/3) Last Admin: 06/20/19 06:27 Dose: 50 mg Documented by: Ibuprofen (Motrin) 400 mg PO Q8H PRN PRN PRN Reason: pain score 1-5/10 Last Admin: 06/20/19 06:28 Dose: 400 mg Documented by: Loperamide HCl (Imodium) 2 - 4 mg PO UD PRN PRN Reason: LOOSE STOOLS Lorazepam (Ativan) 1 mg IV Q4H PRN PRN PRN Reason: Severe Anxiety Lorazepam (Ativan) 2 mg IV X1 PRN PRN Reason: Seizure Lorazepam (Ativan) 1 mg PO Q4H SHERYL; Taper Stop: 06/22/19 22:29 Last Admin: 06/20/19 06:27 Dose: 1 mg Documented by: Methocarbamol (Methocarbamol) 750 mg PO Q6H PRN PRN PRN Reason: Muscle Aches Last Admin: 06/20/19 02:32 Dose: 750 mg Documented by: [facility]) [facility] Nicotine (Nicoderm Cq (Pbkc)) 21 mg TRANSDERM. DAILY [facility] Last Admin: 06/19/19 18:48 Dose: 21 mg Documented by: Ondansetron HCl (Zofran Odt) 4 mg PO Q6H PRN PRN PRN Reason: NAUSEA Last Admin: 06/19/19 20:08 Dose: 4 mg Documented by: Senna (Senokot) 1 tablet PO QHS PRN PRN Reason: Constipation Sodium Chloride () 10 - 40 ml IV UD PRN PRN Reason: SALINE FLUSH Last Admin: 06/19/19 20:10 Dose: 10 ml Documented by: Thiamine HCl (Vitamin B1) [facility] Stop: 06/22/19 08:01 Trazodone HCl (Desyrel) 50 mg PO QHS [facility] Last Admin: 06/19/19 20:32 Dose: 50 mg Documented by: Code Visit Inpatient E&M: 71985 Subs Hosp L2
[2019-06-20 09:23] LABS: AST(SGOT) 976 U/L (15-37); Alanine Aminotransfer ALT/SGPT 575 U/L (16-61); Albumin, Serum 3.8 g/dL (3.2-5.0); Alkaline Phosphatase 231 U/L (45-117); Bilirubin, Direct 1.02 mg/dL (0.00-0.30); Globulin 3.7 g/dL (2.2-4.2); Magnesium 1.5 mg/dL (1.6-2.6); Protein, Total 7.5 g/dL (6.4-8.2)
--- NOTE | 2019-06-20 10:33 | CASEMGMT ---
SOCIAL WORK RECEIVED CALL FROM [facility] WITH [facility]. PER SAMINA, PATIENT'S COUNSELOR WILL LIKELY BE OVER TO MEET WITH PATIENT WHILE INPATIENT. PLAN IS FOR [facility] AT DISCHARGE. [facility] REQUESTING CALL, IF POSSIBLE, DAY BEFORE DISCHARGE TO MAKE ARRANGEMENTS. [facility] STATES [facility] IS UNABLE TO ADMIT IF OVER THE WEEKEND. PLAN: CONTACT [facility] AT DISCHARGE ([phone]) Nancy FOUNTAIN MSW, CAMOUFLAGE ASSEMBLER.
[2019-06-20 10:45] VITALS: BP 142/100; PULSE 90; RESP 18; TEMP 36.9; O2SAT 98
[2019-06-20] MEDS: Thiamine Hydrochloride 100 MG Tablet PO (10:47)
[2019-06-20] MEDS: Multivitamins,Therapeutic Tablet 1 TABLET PO (10:48)
[2019-06-20] MEDS: Folic Acid 1 MG Tablet PO (10:48)
[2019-06-20] MEDS: FLUoxetine 20 MG Capsule 60 MG PO (10:48)
[2019-06-20] MEDS: amLODIPine 10 MG Tablet PO (10:49)
--- NOTE | 2019-06-20 14:43 | CHAPLAIN ---
Type of Pastoral Visit _x__ Initial Visit ___ Follow-up Visit ___ On-call Visit ___ General Patient Visit ___ Spiritual Assessment ___ Family Conference ___ Bereavement ___ Rapid Response ___ Code Blue ___ Other (describe below) Pastoral Care Referral From _x__ Patient ___ Family _x__ Nurse ___ Physician ___ Provisioning Specialist ___ Extractor Operator Helper ___ Other (describe below) Sacrament/Intervention _x__ Active listening ___ Anointing ___ Latter Day ___ Bereavement ___ Communion ___ Loren exploration ___ _x__ Life review _x__ Prayer ___ Reconciliation ___ Sacrament of Sick _x__ Supportive presence ___ Wedding ___ Other (describe below) Pastoral Comments patient has a plan to go to [facility] for rehab; pt has been there before and wants similar help again
[2019-06-20 14:50] VITALS: BP 142/95; PULSE 100; RESP 18; TEMP 37.6; O2SAT 96
--- NOTE | 2019-06-20 16:17 | CASEMGMT ---
Social Work Note Per previous SW notes, the plan is for pt to discharge to [facility] to complete residential program. Don would like to be notified the day before pt is discharged. to continue to follow. Plan: Don Ayala CLAY DIGGER, CRIMINAL JUSTICE TEACHER
[2019-06-20] MEDS: 0.9% Saline Lock 10 ML Syringe IV (18:36)
[2019-06-20] MEDS: LORazepam 2 MG/ML Syringe 1 MG IV (18:37)
[2019-06-20 20:09] VITALS: BP 146/102; PULSE 103; RESP 18; TEMP 36.8; O2SAT 97
[2019-06-20] MEDS: Ondansetron ODT 4 MG Tablet PO (20:22)
[2019-06-20] MEDS: traZODone 50 MG Tablet PO (21:45)
[2019-06-21 00:59] VITALS: BP 135/96; PULSE 104; RESP 18; TEMP 36.8; O2SAT 97
[2019-06-21] MEDS: 0.9% Saline Lock 10 ML Syringe IV ×2 (01:08→18:17)
[2019-06-21] MEDS: LORazepam 2 MG/ML Syringe 1 MG IV ×2 (01:08→18:17)
[2019-06-21] MEDS: LORazepam 1 MG Tablet PO ×4 (03:15→22:31)
[2019-06-21 06:10] LABS: AST(SGOT) 918 U/L (15-37); Alanine Aminotransfer ALT/SGPT 556 U/L (16-61); Albumin, Serum 3.7 g/dL (3.2-5.0); Alkaline Phosphatase 229 U/L (45-117); Bilirubin, Direct 1.17 mg/dL (0.00-0.30); Globulin 4.2 g/dL (2.2-4.2); Protein, Total 7.9 g/dL (6.4-8.2)
--- NOTE | 2019-06-21 07:10 | PN_ITS ---
Reason for Visit: acute alcohol withdrawal Subjective: Patient seen still remains significantly tremulous. His AST and ALT still si gnificantly elevated Objective: GENERAL: cooperative, still remains tremulous HEENT: Atraumatic; EYES; Anicteric, Normal Conjunctiva NECK; supple, normal thyroid, RESPIRATORY: Diminished to auscultation CARDIOVASCULAR: Regular S1 S2, GI: soft, normoactive bowel sounds, : No Renal angle tenderness; EXTREMITIES: No edema, no clubbing, MUSCULOSKELETAL: no muscle waisting NEURO: Awake; no lateralizing signs. SKIN: No Rash PSYCH; Flat affect Vitals/I&O's: Vital Signs Temp Pulse Resp BP Pulse Ox 98.2 F 104 H 18 135/96 H 97 06/21/19 00:59 06/21/19 00:59 06/21/19 00:59 06/21/19 00:59 06/21/19 00:59 Oxygen Delivery Method Room Air Weight: 74.8 kg Body Mass Index (BMI) 25.0 Intake and Output for Last 24 Hours 06/19/19 06/20/19 06/21/19 23:59 23:59 23:59 Intake Total 52 / 52 450 / 450 900 / 900 Balance 52 / 52 450 / 450 900 / 900 Laboratory Results 06/20/19 08:33: Magnesium 1.5 L, Total Bilirubin 2.30 H, Direct Bilirubin 1.02 H , AST 976 H, ALT 575 H, Alkaline Phosphatase 231 H, Total Protein 7.5, Albumin 3.8, Globulin 3.7 06/21/19 05:20: Total Bilirubin 2.90 H, Direct Bilirubin 1.17 H, AST 918 H, ALT 556 H, Alkaline Phosphatase 229 H, Total Protein 7.9, Albumin 3.7, Globulin 4.2 Current Medications Acetaminophen (Tylenol) 500 mg PO Q4H PRN PRN PRN Reason: Temp > 100.4 F Al Hydroxide/Mg Hydroxide (Mylanta Ii) 30 ml PO Q6H PRN PRN PRN Reason: dyspesia Amlodipine Besylate (Norvasc) 10 mg PO DAILY SHERYL Last Admin: 06/20/19 10:49 Dose: 10 mg Documented by: Bisacodyl (Dulcolax) 10 mg RECTAL DAILY PRN PRN Reason: Constipation Dicyclomine HCl (Bentyl) 20 mg PO Q6H PRN PRN PRN Reason: abdominal discomfort Fluoxetine HCl (Prozac) 60 mg PO DAILY [facility] Last Admin: 06/20/19 10:48 Dose: 60 mg Documented by: Folic Acid (Folic Acid) [facility] Stop: 06/22/19 08:01 Last Admin: 06/20/19 10:48 Dose: 1 mg Documented by: Hydroxyzine Pamoate (Vistaril Pamoate Capsule) 50 mg PO Q6H PRN PRN PRN Reason: Mild Anxiety (score 1/3) Last Admin: 06/20/19 21:45 Dose: 50 mg Documented by: Ibuprofen (Motrin) 400 mg PO Q8H PRN PRN PRN Reason: pain score 1-5/10 Last Admin: 06/20/19 14:57 Dose: 400 mg Documented by: Loperamide HCl (Imodium) 2 - 4 mg PO UD PRN PRN Reason: LOOSE STOOLS Lorazepam (Ativan) 1 mg IV Q4H PRN PRN PRN Reason: Severe Anxiety Last Admin: 06/21/19 01:08 Dose: 1 mg Documented by: Lorazepam (Ativan) 2 mg IV X1 PRN PRN Reason: Seizure Lorazepam (Ativan) 1 mg PO Q6H [facility]PLACED [facility]; Taper Stop: 06/22/19 22:29 Last Admin: 06/21/19 03:15 Dose: 1 mg Documented by: Methocarbamol (Methocarbamol) 750 mg PO Q6H PRN PRN PRN Reason: Muscle Aches Last Admin: 06/20/19 20:22 Dose: 750 mg Documented by: Multivitamins (Multivitamin) 1 tablet PO [facility] Last Admin: 06/20/19 10:48 Dose: 1 tablet Documented by: Nicotine (Nicoderm Cq (Pbkc)) 21 mg TRANSDERM. DAILY [facility] Last Admin: 06/20/19 10:50 Dose: 21 mg Documented by: Ondansetron HCl (Zofran Odt) 4 mg PO Q6H PRN PRN PRN Reason: NAUSEA Last Admin: 06/20/19 20:22 Dose: 4 mg Documented by: Senna (Senokot) 1 tablet PO QHS PRN PRN Reason: Constipation Sodium Chloride () 10 - 40 ml IV UD PRN PRN Reason: SALINE FLUSH Last Admin: 06/21/19 01:08 Dose: 10 ml Documented by: Thiamine HCl (Vitamin B1) 100 mg PO DAILY[facility] Stop: 06/22/19 08:01 Last Admin: 06/20/19 10:47 Dose: 100 mg Documented by: Trazodone HCl (Desyrel) 50 mg PO QHS REPLACED BY [facility] Last Admin: 06/20/19 21:45 Dose: 50 mg Documented by: Medical Necessity - Tobacco Use Smoking Status: Current every day smoker Tobacco Use: Cigarettes Assessment/Plan All Active Problems (Last Reviewed 10/28/18 @ 14:33 by Angélica Bliss) Alcohol withdrawal (Acute) Drug abuse (Resolved) UTI (urinary tract infection) (Resolved) Bone fracture (Resolved) Alcohol withdrawal (Acute) Alcohol dependence (Acute) Patient is a 29-year-old gentleman with history of chronic alcohol use presented with tremors and assessment of acute alcohol withdrawal made admitted to regular nursing floor for subsequent management 1. Acute alcohol withdrawal ?Admitted to regular nursing floor being managed with phenobarbital alcohol withdrawal protocol. ?06/21/2019; patient still remains significantly tremulous plan is for patient to be transferred to [facility] inpatient rehab unit once medically stable 2. Acute hepatitis ?Patient liver profile consistent with acute alcoholic hepatitis. Ordered serial monitoring of liver function test and if patient does not improve do plan to start patient on prednisone Line?patient liver function test remains still elevated however trending down. 3. History of chronic hep C ?Patient to follow-up with PCP for subsequent care 4. Hypertension - may be secondary to patient alcohol withdrawal started on amlodipine 5. Tobacco dependence counseled on cessation, offered nicotine patch for tobacco cravings 6. Bipolar disorder ?Did continue patient psychotropic medications 7. DVT prophylaxis ?Low risk did encourage early ambulation Code Visit Inpatient E&M: 62223 Subs Hosp L2
[2019-06-21 07:52] VITALS: BP 140/100; PULSE 103; RESP 18; TEMP 37.3; O2SAT 97
[2019-06-21] MEDS: Thiamine Hydrochloride 100 MG Tablet PO (07:55)
[2019-06-21] MEDS: Multivitamins,Therapeutic Tablet 1 TABLET PO (07:55)
[2019-06-21] MEDS: Folic Acid 1 MG Tablet PO (07:55)
[2019-06-21] MEDS: FLUoxetine 20 MG Capsule 60 MG PO (07:56)
[2019-06-21] MEDS: amLODIPine 10 MG Tablet PO (07:56)
[2019-06-21] MEDS: hydrOXYzine PAM 25 MG Capsule 50 MG PO ×3 (08:05→22:31)
[2019-06-21] MEDS: Ibuprofen 400 MG Tablet PO ×2 (08:08→18:17)
--- NOTE | 2019-06-21 09:42 | CASEMGMT ---
Addendum entered by Brenda Ayala 06/21/19 13:39: SW received call from Edie at [facility] stating she spoke with pt today and plan is for pt to come to [facility] for residential treatment. Edie states she would like H+P and progress notes faxed to her. SW in to speak with pt. Pt confirms he spoke with [facility] today and that his plan is to go to [facility] at discharge for residential. Pt signed release of information. SW faxed clinicals to [facility]. Plan: [facility] residential at discharge Original Note: Social Work Note Per physician, pt is likely discharging tomorrow. KARY placed a call to Cierra at [facility] and updated her on this. Cierra states she believes Edie, pt's counselor through [facility], is going to come today to [facility] to complete assessment. Cierra states she will check with Edie and then give this worker a call back. Brenda Ayala HARVESTING MANAGER, VEHICLE WASHER
[2019-06-21 10:00] VITALS: BP 138/98; PULSE 114; RESP 18; TEMP 36.9; O2SAT 97
[2019-06-21 14:00] VITALS: BP 138/94; PULSE 108; RESP 18; TEMP 37.2; O2SAT 98
[2019-06-21 18:00] VITALS: BP 145/104; PULSE 125; RESP 18; TEMP 37.2; O2SAT 99
[2019-06-21] MEDS: Methocarbamol 750 MG Tablet PO (18:17)
[2019-06-21 21:13] VITALS: BP 130/90; PULSE 105; RESP 18; TEMP 37.2; O2SAT 97
[2019-06-21] MEDS: traZODone 50 MG Tablet PO (22:30)
[2019-06-22] MEDS: 0.9% Saline Lock 10 ML Syringe IV (00:24)
[2019-06-22] MEDS: LORazepam 2 MG/ML Syringe 1 MG IV (00:24)
[2019-06-22 03:39] VITALS: BP 118/80; PULSE 96; RESP 18; TEMP 36.9; O2SAT 100
[2019-06-22 06:07] LABS: AST(SGOT) 536 U/L (15-37); Alanine Aminotransfer ALT/SGPT 454 U/L (16-61); Albumin, Serum 3.7 g/dL (3.2-5.0); Alkaline Phosphatase 211 U/L (45-117); Bilirubin, Direct 0.94 mg/dL (0.00-0.30); Globulin 4.1 g/dL (2.2-4.2); Protein, Total 7.8 g/dL (6.4-8.2)
--- NOTE | 2019-06-22 08:20 | DCINST_ITS ---
- Discharge Diagnoses Current Active Problems: Current Active and Chronic Problems (Last Reviewed 10/28/18 @ 14:33 by Angélica Bliss) Chronic pancreatitis (Chronic) You will use the following diet at home:: Regular Your food should be the consistency of: Regular Discharge Activity: May Not Drive Weight Bearing Status: Weight bearing as tolerated Call your doctor if you observe: Fever of 101 or Higher, Coldness, Increased Pain, Numbness or Tingling, Change in Color, Inability to urinate, Inability to have a bowel movement, Using more than one pad per hour, Shortness of breath, Dizziness, Fainting spells, Swelling in the ankles, Chest pain, Prolonged hiccoughing, Increased palpitations (irregular heartbeat), Calf discomfort, Uncontrolled pain Additional Instructions: F/U 180 after discharge Allergies/Adverse Reactions: Allergies adhesive tape Allergy (Mild, Verified 06/19/19 14:22) Hives Medications to take at Discharge Fluoxetine HCl 20 mg PO DAILY 06/03/19 Fluoxetine HCl 40 mg PO DAILY 06/03/19 hydroxyzine HCl 25 mg tablet 25 mg PO Q6H PRN #90 tab 06/09/19 Quetiapine Fumarate [Seroquel] 25 mg PO QHS 06/19/19 Tizanidine HCl [Zanaflex] 4 mg PO PRN PRN 06/19/19 Primary Care Physician: Fady Dang MD [Primary Care Provider] - Please follow up with your Primary Care Physician in: in 1-2 week Test Results: Test results from this visit will be discussed in further detail at your follow- up appointment, if applicable.
--- NOTE | 2019-06-22 08:30 | DS.PCM_ITS ---
Discharge Date and Diagnosis Date of Admission: 06/19/19 Date of Discharge: 06/22/19 - Secondary Discharge Diagnosis Chronic Problems (Last Reviewed 10/28/18 @ 14:33 by Angélica Bliss) Tobacco use (Chronic) Chronic pancreatitis due to acute alcohol intoxication (Chronic) Chronic pancreatitis (Chronic) Substance abuse in remission (Chronic) Depression with anxiety (Chronic) Hypertension (Chronic) Hepatitis C (Chronic) Hepatitis B (Chronic) H/O emotional problems (Chronic) Seasonal allergies (Chronic) Alcohol dependence (Chronic) Hospital Course and Treatment Operations: None Summary of Care Provided: The Patient is a 29-year-old gentleman with history of chronic alcohol use presented with tremors and assessment of acute alcohol withdrawal made admitted to regular nursing floor for subsequent management 1. Acute alcohol withdrawal ?Admitted to regular nursing floor being managed with alcohol withdrawal protocol. ?06/22: Patient withdrawal symptoms are controlled. Patient is being discharged 180. Patient was on IV and p.o. Ativan protocol because of elevated transaminases 2. Acute on chronic alcoholic hepatitis ?Patient liver profile consistent with acute alcoholic hepatitis. Ordered serial monitoring of liver function test and if patient does not improve do plan to start patient on prednisone 06/22: Serial liver function test shows improvement. Total bilirubin 2.0. Alcohol cessation advised. 3. History of chronic hep C ?Patient to follow-up with PCP for subsequent care Work-up and treatment for hepatitis C. 4. Hypertension, transient secondary to a acute alcohol withdrawal Patient blood pressure normalized. He does not have history of hypertension therefore related to alcohol withdrawal syndrome. Amlodipine discontinued. Follow-up as an outpatient with PCP. 5. Tobacco dependence counseled on cessation, offered nicotine patch for tobacco cravings 6. Bipolar disorder ? continue patient psychotropic medications 7. DVT prophylaxis ?Low risk did encourage early ambulation Discharge medication reconciliation done. Discharge follow-up instructions completed. Discharge process discussed with the patient and all questions were answered to patient's satisfaction. Discharged home. Follow-up with 180 Total time spent, exact 35 minutes on discharge meds reconciliation, examination, coordination of care with nurses and ancillary staff, review of imaging and blood test and discussion with the patient on follow-up instructions Laboratory Results 06/22/19 05:18: Total Bilirubin 2.00 H, Direct Bilirubin 0.94 H, AST 536 H, ALT 454 H, Alkaline Phosphatase 211 H, Total Protein 7.8, Albumin 3.7, Globulin 4.1 Subjective: Seen and examined. No acute issues overnight. No hallucination, seizure or delirium. - Physical Exam Vitals/I&O's: Vital Signs Temp Pulse Resp BP Pulse Ox 98.5 F 96 18 118/80 100 06/22/19 03:39 06/22/19 03:39 06/22/19 03:39 06/22/19 03:39 06/22/19 03:39 Oxygen Delivery Method Room Air Weight: 164 lb 14.492 oz Body Mass Index (BMI) 25.0 Intake and Output for Last 24 Hours 06/20/19 06/21/19 06/22/19 23:59 23:59 23:59 Intake Total 450 / 450 3120 / 3120 200 / 200 Balance 450 / 450 3120 / 3120 200 / 200 General: Alert, Oriented x3, Cooperative HEENT: Atraumatic, PERRLA, EOMI, Normocephalic Neck: Supple, No JVD, Negative Carotid Bruits Lungs: Clear to auscultation, Normal air movement, No rhonchi, No wheeze, No rales Cardiovascular: Regular rate, Regular Rhythm, Normal S1, Normal S2, No murmurs Abdomen: Bowel Sounds Present, Soft, Non Tender, Non-Distended Extremities: No edema, Capillary Refill Less than 3 Seconds Skin: No rashes, No breakdown Musculoskeletal: No Tenderness to Palpation of Joints or Extremities Neurological: Cranial nerves II-XII grossly intact, Deep Tendon Reflexes 2+/4 and Symmetrical, Neuro grossly intact Psych/Mental Status: Normal Affect, Appropriate Laboratory Results 06/22/19 05:18: Total Bilirubin 2.00 H, Direct Bilirubin 0.94 H, AST 536 H, ALT 454 H, Alkaline Phosphatase 211 H, Total Protein 7.8, Albumin 3.7, Globulin 4.1 Current Medications Acetaminophen (Tylenol) 500 mg PO Q4H PRN PRN PRN Reason: Temp > 100.4 F Al Hydroxide/Mg Hydroxide (Mylanta Ii) 30 ml PO Q6H PRN PRN PRN Reason: dyspesia Amlodipine Besylate (Norvasc) 10 mg PO DAILY SHERYL Last Admin: 06/21/19 07:56 Dose: 10 mg Documented by: Bisacodyl (Dulcolax) 10 mg RECTAL DAILY PRN PRN Reason: Constipation Dicyclomine HCl (Bentyl) 20 mg PO Q6H PRN PRN PRN Reason: abdominal discomfort Fluoxetine HCl (Prozac) 60 mg PO DAILY [facility] Last Admin: 06/21/19 07:56 Dose: 60 mg Documented by: Hydroxyzine Pamoate (Vistaril Pamoate Capsule) 50 mg PO Q6H PRN PRN PRN Reason: Mild Anxiety (score 1/3) Last Admin: 06/21/19 22:31 Dose: 50 mg Documented by: Magnesium Sulfate 2 gm/ Sodium (Chloride) 104 mls @ 52 mls/hr IV X1 ONE Stop: 06/22/19 10:12 Ibuprofen (Motrin) 400 mg PO Q8H PRN PRN PRN Reason: pain score 1-5/10 Last Admin: 06/21/19 18:17 Dose: 400 mg Documented by: Loperamide HCl (Imodium) 2 - 4 mg PO UD PRN PRN Reason: LOOSE STOOLS Lorazepam (Ativan) 1 mg IV Q4H PRN PRN PRN Reason: Severe Anxiety Last Admin: 06/22/19 00:24 Dose: 1 mg Documented by: Lorazepam (Ativan) 2 mg IV X1 PRN PRN Reason: Seizure Lorazepam (Ativan) 1 mg PO Q8H [facility]; Taper Stop: 06/22/19 22:29 Last Admin: 06/22/19 06:35 Dose: Not Given Documented by: Methocarbamol (Methocarbamol) 750 mg PO Q6H PRN PRN PRN Reason: Muscle Aches Last Admin: 06/21/19 18:17 Dose: 750 mg Documented by: [facility]ivit[facility] ([facility]ivitamin) [facility] Last Admin: 06/21/19 07:55 Dose: 1 tablet Documented by: Nicotine (Nicoderm Cq (Pbkc)) 21 mg TRANSDERM. DAILY [facility] Last Admin: 06/21/19 08:04 Dose: 21 mg Documented by: Ondansetron HCl (Zofran Odt) 4 mg PO Q6H PRN PRN PRN Reason: NAUSEA Last Admin: 06/20/19 20:22 Dose: 4 mg Documented by: Senna (Senokot) 1 tablet PO QHS PRN PRN Reason: Constipation Sodium Chloride () 10 - 40 ml IV UD PRN PRN Reason: SALINE FLUSH Last Admin: 06/22/19 00:24 Dose: 10 ml Documented by: Trazodone HCl (Desyrel) 50 mg PO QHS SHERYL Last Admin: 06/21/19 22:30 Dose: 50 mg Documented by: Discharge Activity: May Not Drive Weight Bearing Status: Weight bearing as tolerated Call your doctor if you observe: Fever of 101 or Higher, Coldness, Increased Pain, Numbness or Tingling, Change in Color, Inability to urinate, Inability to have a bowel movement, Using more than one pad per hour, Shortness of breath, Dizziness, Fainting spells, Swelling in the ankles, Chest pain, Prolonged hiccoughing, Increased palpitations (irregular heartbeat), Calf discomfort, Uncontrolled pain Home Medications: Medications to take at Discharge Fluoxetine HCl 20 mg PO DAILY 06/03/19 Fluoxetine HCl 40 mg PO DAILY 06/03/19 hydroxyzine HCl 25 mg tablet 25 mg PO Q6H PRN #90 tab 06/09/19 Quetiapine Fumarate [Seroquel] 25 mg PO QHS 06/19/19 Tizanidine HCl [Zanaflex] 4 mg PO PRN PRN 06/19/19 Primary Care Physician: Fady Dang MD [Primary Care Provider] - Please follow up with your Primary Care Physician in: in 1-2 week Medical Necessity - Tobacco Use Smoking Status: Current every day smoker Tobacco Use: Cigarettes Meaningful Use Info Meaningful Use Diagnoses (Choose all that apply): None applicable Code Visit Inpatient E&M: 55222 Disch Hosp
--- NOTE | 2019-06-22 08:59 | CASEMGMT ---
Social Work Note Pt has discharge in. KARY placed a call to Edie at [facility] and updated her on this. Edie states she will call transportation and have someone come to [facility] to transport pt. KARY updated pt that [facility] will be coming to transport pt to [facility]. Plan:[facility] today Brenad Ayala SERGEANT MISSILE CREWMAN, SOIL EXPERT
[2019-06-22 09:35] VITALS: BP 129/83; PULSE 114; RESP 16; TEMP 36.9; O2SAT 96
[2019-06-22] MEDS: Folic Acid 1 MG Tablet PO (09:36)
[2019-06-22] MEDS: Thiamine Hydrochloride 100 MG Tablet PO (09:36)
[2019-06-22] MEDS: FLUoxetine 20 MG Capsule 60 MG PO (09:36)
[2019-06-22] MEDS: Multivitamins,Therapeutic Tablet 1 TABLET PO (09:36)
[2019-06-22] MEDS: amLODIPine 10 MG Tablet PO (09:37)
[2019-06-22] MEDS: LORazepam 1 MG Tablet PO (09:55)
[2019-06-22] MEDS: Magnesium Oxide 400 MG Tablet 800 MG PO (09:55)
== END 2019-06-22 10:03 | disposition home or self-care (01) | DRG 775 ==
LOC: ED 14:51 → MS3 19:40
PROVIDERS: Internal Medicine; Admitting Provider Internal Medicine; Emergency Provider Emergency Medicine; PCP Internal Medicine; Visit Provider Internal Medicine
DX: F10.239 Alcohol dependence with withdrawal, unspecified (principal); Y90.8 Blood alcohol level of 240 mg/100 ml or more; F17.210 Nicotine dependence, cigarettes, uncomplicated; B18.2 Chronic viral hepatitis C; F15.11 Other stimulant abuse, in remission; F12.11 Cannabis abuse, in remission; F31.9 Bipolar disorder, unspecified; K70.10 Alcoholic hepatitis without ascites; R03.0 Elevated blood-pressure reading, without diagnosis of hypertension; B18.1 Chronic viral hepatitis B without delta-agent
CPT/HCPCS: 36415; 80053; 80076; 80307; 80320; 81001; 82962; 83690; 83735; 85025; 85610; 99284; 99406; J7040; A4216; G0480; J3490

== ENCOUNTER → 2019-07-20 09:33 | Outpatient (CLI) | payer MEDICAID, SELFPAY ==
[2019-07-20 09:03] VITALS: BMI 27.9
[2019-07-20 12:31] LABS: Hemoglobin 15.9 g/dL (13.0-16.5); Mean Corp Hgb Conc 33.1 g/dL (32-36); Mean Corpuscular Hgb 32.9 pg (27.0-32.0); Mean Corpuscular Volume 99.2 fL (80-94); Mean Platelet Vol. 9.3 fl (6.2-12.0); Platelet Count 229 K/mm3 (150-450); RBC Distribution Width SD 47.4 fl (35.1-43.9); Red Blood Count 4.84 M/mm3 (4.6-6.2)
[2019-07-20 13:00] LABS: AST(SGOT) 269 U/L (15-37); Alanine Aminotransfer ALT/SGPT 521 U/L (16-61); Albumin, Serum 3.9 g/dL (3.2-5.0); Alkaline Phosphatase 84 U/L (45-117); Anion Gap 7 (5-15); BUN 12 mg/dL (7-18); BUN/Creat Ratio 13.9 RATIO (10-20); Calcium,Total 9.2 mg/dL (8.5-10.1); Chloride 102 mmol/L (98-107); Creatinine, Serum 0.86 mg/dL (0.70-1.30); EST Glomerular Filtration Rate 112 mL/min (>60); Est Glom Filt Rate - Afr Amer 135 mL/min (>60); Glucose 82 mg/dL (74-106); Potassium 4.3 mmol/L (3.5-5.1); Protein, Total 7.9 g/dL (6.4-8.2); Sodium Level 137 mmol/L (136-145); Thyroid Stim Hormone (TSH) 2.34 uIU/mL (0.358-3.74)
== END ==
PROVIDERS: PCP Internal Medicine; Referring Provider Nurse Practitioner Family; Visit Provider Nurse Practitioner Family
DX: B19.20 Unspecified viral hepatitis C without hepatic coma (principal); F19.10 Other psychoactive substance abuse, uncomplicated
CPT/HCPCS: 36415; 80053; 84443; 85027

== ENCOUNTER 2019-10-19 21:58 | Inpatient (IN) | payer MEDICAID, SELFPAY ==
[2019-08-17 11:02] VITALS: BMI 25.0
[2019-10-19 21:59] VITALS: BP 140/88; PULSE 120; RESP 18; TEMP 36.3; O2SAT 93; BMI 31.9
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
[2019-10-19] MEDS: Ketorolac 30 MG/ML Syringe IM (23:00)
[2019-10-19 23:24] LABS: Absolute Lymphocyte Count 2.53 X10^3/uL (0.83-4.51); Absolute Neutrophil Count 3.2 X10^3/uL (2.0-7.7); Basophil# 0.07 X10^3/uL; Basophil% 1.1 % (0-1); Eosinophil# 0.16 X10^3/uL; Eosinophils% 2.5 % (0-5); Hematocrit 49.7 % (40-54); Hemoglobin 17.2 g/dL (13.0-16.5); Lymphocyte # 2.53 X10^3/ul (4.0); Lymphocyte % 39.3 % (19-41); Mean Corp Hgb Conc 34.6 g/dL (32-36); Mean Corpuscular Volume 92.6 fL (80-94); Monocyte# 0.44 X10^3/uL; Monocyte% 6.8 % (0-10); NRBC Flagged by Analyzer 0 % (0-5); Neutrophil # 3.21 X10^3/uL (2.7-7.7); Platelet Count 119 K/mm3 (150-450); RBC Distribution Width CV 13.8 % (11.6-14.6); RBC Distribution Width SD 46.5 fl (35.1-43.9); Red Blood Count 5.37 M/mm3 (4.6-6.2); White Blood Count 6.4 K/mm3 (4.4-11.0)
[2019-10-19 23:34] LABS: AST(SGOT) 253 U/L (15-37); Alanine Aminotransfer ALT/SGPT 150 U/L (16-61); Albumin, Serum 4.2 g/dL (3.2-5.0); Alkaline Phosphatase 119 U/L (45-117); Anion Gap 14 (5-15); BUN 10 mg/dL (7-18); BUN/Creat Ratio 13.2 RATIO (10-20); Calcium,Total 8.4 mg/dL (8.5-10.1); Chloride 100 mmol/L (98-107); Creatinine, Serum 0.76 mg/dL (0.70-1.30); EST Glomerular Filtration Rate 129 mL/min (>60); Est Glom Filt Rate - Afr Amer 156 mL/min (>60); Globulin 4.4 g/dL (2.2-4.2); Glucose 130 mg/dL (74-106); Potassium 3.4 mmol/L (3.5-5.1); Protein, Total 8.6 g/dL (6.4-8.2); Sodium Level 139 mmol/L (136-145)
[2019-10-20] VITALS (9 sets, daily range): BP systolic 114–150; BP diastolic 81–124; PULSE 83–127; RESP 16–18; TEMP 36.6–37.1; O2SAT 93–97; BMI 28.7
--- NOTE | 2019-10-20 00:19 | ED.RN ---
pt still unable to void still, given 2 additional cups of water.
[2019-10-20] MEDS: 0.9% Normal Saline 1,000 ML 1000 ML IV (00:29)
[2019-10-20 02:25] LABS: Amphetamine Urine VISTA NEGATIVE (<1000 ng/mL); Barbiturate Urine VISTA NEGATIVE (< 200 ng/mL); Benzodiazepine Urine VISTA NEGATIVE (< 200 ng/mL); Cocaine Urine VISTA NEGATIVE (< 300 ng/mL); Ecstacy Urine VISTA NEGATIVE (< 500 ng/mL); Methadone Urine VISTA NEGATIVE (< 300 ng/mL); PCP Urine VISTA NEGATIVE (< 25 ng/mL); THC Urine VISTA POSITIVE (< 50 ng/mL); Vista UDS pH Range 6
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
[2019-10-20] MEDS: Ibuprofen 600 MG Tablet PO ×2 (04:02→20:28)
[2019-10-20] MEDS: Gabapentin 300 MG Capsule PO ×2 (04:02→11:52)
[2019-10-20] MEDS: traZODone 100 MG Tablet PO ×2 (04:02→20:29)
[2019-10-20] MEDS: Phenobarbital 32.4 MG Tablet 97.2 MG PO ×6 (04:02→23:55)
[2019-10-20] MEDS: Thiamine Hydrochloride 100 MG Tablet PO (07:23)
[2019-10-20] MEDS: Folic Acid 1 MG Tablet PO (07:23)
--- NOTE | 2019-10-20 08:35 | CASEMGMT ---
Addendum entered by Brenda Ayala 10/20/19 14:00: KARY received message from Dr. Aretha Paniagua, clinical director at [facility], that Jen is out of the office today but [facility] is sending over the counselor Edie to meet with pt. Original Note: Social Work Note KARY placed a call to Jen at [facility] and left message that pt will need to be seen. Brenda Ayala HEARING IMPAIRED TEACHER, FLEXO OPERATOR
[2019-10-20] MEDS: Ondansetron 8 MG Tablet PO (09:08)
--- NOTE | 2019-10-20 09:10 | NURSING ---
pt stated he has no one to call for an update.
--- NOTE | 2019-10-20 14:37 | CHAPLAIN ---
Type of Pastoral Visit _x__ Initial Visit ___ Follow-up Visit ___ On-call Visit ___ General Patient Visit ___ Spiritual Assessment ___ Family Conference ___ Bereavement ___ Rapid Response ___ Code Blue ___ Other (describe below) Pastoral Care Referral From _x__ Patient ___ Family ___ Nurse ___ Physician ___ Nozzle And Sleeve Worker ___ Force Dispatcher ___ Other (describe below) Sacrament/Intervention _x__ Active listening ___ Anointing ___ Muslim ___ Bereavement ___ Communion ___ Loren exploration ___ _x__ Life review ___ Prayer ___ Reconciliation ___ Sacrament of Sick _x__ Supportive presence ___ Wedding ___ Other (describe below) Pastoral Comments patient states that he is shaky due to detox and that he has gone through this before; pt claims that he has a lot of support from family and friends and that he is very fortunate; pt says he has been with [facility] previously but that he just plans to go home after this and just be determined, because I know what I need; pt says that he does not have a loren/belief; pt states that he does not need anything at this time
[2019-10-20] MEDS: 0.9% Saline Lock 10 ML Syringe IV ×2 (14:47→20:33)
[2019-10-20] MEDS: LORazepam 2 MG/ML Syringe IV (14:47)
--- NOTE | 2019-10-20 15:24 | CASEMGMT ---
Social Work Note Dr. Jay at [facility] to speak with pt regarding substance abuse. Dr. Jay states pt's plan is to complete IOP at [facility] in [place] and pt will need to schedule appointment once pt is discharged. SW updated charge nurse. Brenda Ayala MOUSE BREEDER, ANESTHESIA ASSISTANT
--- NOTE | 2019-10-20 18:25 | NURSING ---
attempted to call sig other lisa for update per pt request, but no answer.
[2019-10-20] MEDS: Dicyclomine 10 MG Capsule 20 MG PO (20:22)
[2019-10-20] MEDS: hydrOXYzine PAM 25 MG Capsule 50 MG PO (20:23)
[2019-10-20] MEDS: RisperiDONE 1 MG Tablet PO (20:30)
[2019-10-21 04:16] VITALS: BP 139/95; PULSE 89; RESP 18; TEMP 36.7; O2SAT 95
[2019-10-21 08:15] VITALS: BP 144/101; PULSE 108; RESP 16; TEMP 36.7; O2SAT 96
--- NOTE | 2019-10-21 09:42 | PCM.PN.HOSP ---
Patient Problems: Active and Suspected Problems (Last Updated 10/20/19 @ 03:[address] Luigi Mills MD) Alcohol dependence (Acute) Lumbar radiculopathy, acute (Acute) Subjective: Doing well with the addition of Ativan PRN, no issues overnight Vitals/I&O's: Vital Signs Temp Pulse Resp BP Pulse Ox 98.1 F 108 H 16 144/101 H 96 10/21/19 08:15 10/21/19 08:15 10/21/19 08:15 10/21/19 08:15 10/21/19 08:15 Oxygen Delivery Method Room Air Weight: 189 lb Body Mass Index (BMI) 28.7 Intake and Output for Last 24 Hours 10/19/19 10/20/19 10/21/19 23:59 23:59 23:59 Intake Total 2450 / 3450 1100 / 1100 Balance 2450 / 3450 1100 / 1100 General: Alert, Oriented x3, Cooperative, No apparent distress HEENT: Atraumatic, PERRLA, EOMI, Normocephalic Oral: Moist Mucosa Neck: Supple, No JVD Lungs: Clear to auscultation, Normal air movement, No rhonchi, No wheeze, No rales Cardiovascular: Regular rate, Regular Rhythm, Normal S1, Normal S2, No murmurs Abdomen: Soft, Non Tender, Non-Distended, No Hepato-splenomegaly Extremities: No edema, Capillary Refill Less than 3 Seconds Skin: No rashes, No breakdown Neurological: Neuro grossly intact, Sensory exam intact to light touch and pain, - - Slight tremor Psych/Mental Status: Normal Affect, Appropriate Current Medications Al Hydroxide/Mg Hydroxide (Mylanta Ii) 30 ml PO Q6H PRN PRN PRN Reason: dyspesia Dicyclomine HCl (Bentyl) 20 mg PO Q6H PRN PRN PRN Reason: abdominal discomfort Last Admin: 10/20/19 20:22 Dose: 20 mg Documented by: Fluoxetine HCl (Prozac) 40 mg PO DAILY SHERYL Folic Acid (Folic Acid) 1 mg PO DAILY@0800 SHERYL Last Admin: 10/20/19 07:23 Dose: 1 mg Documented by: Gabapentin (Neurontin) 300 mg PO Q8H PRN PRN PRN Reason: moderate to severe anxiety Last Admin: 10/20/19 11:52 Dose: 300 mg Documented by: Hydroxyzine Pamoate (Vistaril Pamoate Capsule) 50 mg PO Q4H PRN PRN PRN Reason: mild anxiety Last Admin: 10/20/19 20:23 Dose: 50 mg Documented by: Ibuprofen (Motrin) 600 mg PO Q8H PRN PRN PRN Reason: Pain Score 1-10/10 Last Admin: 10/20/19 20:28 Dose: 600 mg Documented by: Loperamide HCl (Imodium) 2 mg PO Q4H PRN PRN PRN Reason: LOOSE STOOLS Lorazepam (Ativan) 1 mg IV Q2H PRN PRN PRN Reason: ANXIETY/AGITATION Nicotine (Nicoderm Cq (Pbkc)) 21 mg TRANSDERM. DAILY [facility] Last Admin: 10/20/19 04:01 Dose: 21 mg Documented by: Nutritional Formula (Lactose Free) (Ensure Enlive) 120 ml PO 4X/DAY [facility] Last Admin: 10/20/19 20:29 Dose: 120 ml Documented by: Ondansetron HCl (Zofran) 8 mg PO Q8H PRN PRN PRN Reason: NAUSEA Last Admin: 10/20/19 09:08 Dose: 8 mg Documented by: Phenobarbital (Phenobarbital) 97.2 mg PO Q4H [facility]; Taper Stop: 10/24/19 11:44 Last Admin: 10/21/19 04:12 Dose: 97.2 mg Documented by: Risperidone (Risperdal) 1 mg PO QHS [facility] Last Admin: 10/20/19 20:30 Dose: 1 mg Documented by: Sodium Chloride () 10 - 40 ml IV UD PRN PRN Reason: SALINE FLUSH Last Admin: 10/20/19 20:33 Dose: 10 ml Documented by: Thi[facility]) [facility] Last Admin: 10/20/19 07:23 Dose: 100 mg Documented by: Trazodone HCl (Desyrel) 100 mg PO QHS PRN PRN Reason: INSOMNIA Last Admin: 10/20/19 20:29 Dose: 100 mg Documented by: STROKE Vital Signs/Narrative: Vital Signs Temp Pulse Resp BP Pulse Ox 10/21/19 08:15 98.1 F 108 H 16 144/101 H 96 Medical Necessity - Tobacco Use Smoking Status: Current every day smoker Tobacco Use: Cigarettes Assessment/Plan All Active Problems (Last Updated 10/20/19 @ 03:[address] Luigi Mills MD) Alcohol dependence (Acute) Lumbar radiculopathy, acute (Acute) Alcohol withdrawal (Acute) 1. Acute alcohol withdrawal/elevated LFTs from chronic hepatitis B and C -With alcohol withdrawal protocol -Was in residential treatment at [facility] last year which she does not want to do again but he is okay with doing an outpatient regimen -Liver function tests are chronically elevated secondary to his alcoholic liver disease 2. Bipolar disorder/depression/anxiety -We will continue with his psych meds, he does appear stable -This is likely the biggest barrier to his recovery 3. Chronic low back pain -He does have an MRI of his lumbar spine scheduled as an outpatient for 2 weeks -Continue with NSAIDs for pain 4. Tobacco abuse -Counseled on cessation -Continue with patch DVT: Ambulation Inpatient E&M: 04624 Subs Hosp L2
[2019-10-21] MEDS: FLUoxetine 20 MG Capsule 40 MG PO (09:47)
[2019-10-21] MEDS: Thiamine Hydrochloride 100 MG Tablet PO (09:48)
[2019-10-21] MEDS: Folic Acid 1 MG Tablet PO (09:48)
[2019-10-21] MEDS: Ibuprofen 600 MG Tablet PO (11:53)
[2019-10-21 15:46] VITALS: BP 157/106; PULSE 108; RESP 18; TEMP 36.7; O2SAT 98
--- NOTE | 2019-10-21 16:33 | NURSING ---
Patient states that he would like significant other Rashad called and updated. He states that even if he doesn't answer he would like this RN to leave a message. Message left and Rashad was notified that patient is doing well and that he is planning to leave hospital tomorrow around dinner time. He notified this RN that he is only off tomorrow and that is the only day he can pick him up.
--- NOTE | 2019-10-21 18:12 | NURSING ---
pt has been up walking hallways t/o day
[2019-10-21 19:55] VITALS: BP 139/96; PULSE 102; RESP 18; TEMP 37.2; O2SAT 97
[2019-10-21] MEDS: hydrOXYzine PAM 25 MG Capsule 50 MG PO (20:04)
[2019-10-21] MEDS: traZODone 100 MG Tablet PO (21:38)
[2019-10-21] MEDS: RisperiDONE 1 MG Tablet PO (21:38)
[2019-10-22 00:12] VITALS: BP 139/98; PULSE 93; RESP 16; TEMP 37.2; O2SAT 96
[2019-10-22 03:50] VITALS: BP 137/101; PULSE 118; RESP 18; TEMP 36.8; O2SAT 99
[2019-10-22] MEDS: Ibuprofen 600 MG Tablet PO ×2 (04:06→12:40)
[2019-10-22 04:07] VITALS: BP 144/100; PULSE 98
[2019-10-22 04:40] VITALS: BP 137/99; PULSE 89
[2019-10-22 09:05] VITALS: BP 130/90; PULSE 102; RESP 18; TEMP 36.5; O2SAT 97
[2019-10-22] MEDS: FLUoxetine 20 MG Capsule 40 MG PO (09:12)
[2019-10-22] MEDS: Thiamine Hydrochloride 100 MG Tablet PO (09:16)
[2019-10-22] MEDS: Folic Acid 1 MG Tablet PO (09:16)
--- NOTE | 2019-10-22 11:44 | DCINST_ITS ---
- Discharge Diagnoses Current Active Problems: Current Active and Chronic Problems (Last Updated 10/20/19 @ 03:[address] Luigi Mills MD) Alcohol dependence (Acute) Lumbar radiculopathy, acute (Acute) You will use the following diet at home:: Regular Your food should be the consistency of: Regular Your liquids should be the consistency of: Regular/Thin Discharge Activity: Return to Normal Activity Call your doctor if you observe: Fever of 101 or Higher, Shortness of breath, Dizziness, Fainting spells, Swelling in the ankles, Chest pain, Increased palpitations (irregular heartbeat) Allergies/Adverse Reactions: Allergies adhesive tape Allergy (Mild, Verified 10/19/19 22:02) Hives Penicillins Allergy (Verified 10/20/19 03:50) Hives Medications to take at Discharge fluoxetine 40 mg capsule 40 mg PO DAILY #90 cap 07/05/19 lidocaine 5 % topical patch 2 patch TOPICAL DAILY #60 ea 08/17/19 meloxicam 15 mg tablet 15 mg PO DAILY PRN #90 tab 08/17/19 risperidone 1 mg tablet 1 mg PO QHS 08/17/19 trazodone 50 mg tablet 50 mg PO QHS PRN #90 tab 08/17/19 lidocaine HCl 4 % topical cream 1 applic TOPICAL TID PRN #120 g 08/18/19 multivitamin 1 tab PO DAILY #90 tab 09/01/19 vitamin B complex 1 tab PO DAILY #90 tab 09/01/19 Primary Care Physician: Rita Romero NP-C [Primary Care Provider] - Please follow up with your Primary Care Physician in: 3-5 days Test Results: Test results from this visit will be discussed in further detail at your follow- up appointment, if applicable. Please Follow Up With: [facility] When: SCOTT
--- NOTE | 2019-10-22 13:02 | PCM.DC.SUM ---
Discharge Date and Diagnosis - Problem List Patient Problems: Active and Suspected Problems (Last Updated 10/20/19 @ 03:[address] Luigi Mills MD) Alcohol dependence (Acute) Lumbar radiculopathy, acute (Acute) Date of Admission: 10/20/19 Date of Discharge: 10/22/19 - Primary Discharge Diagnosis Acute Problems: Active Problems (Last Updated 10/20/19 @ 03:[address] Luigi Mills MD) Alcohol dependence (Acute) Lumbar radiculopathy, acute (Acute) - Secondary Discharge Diagnosis Chronic Problems: Chronic Problems (Last Updated 10/20/19 @ 03:[address] Luigi Mills MD) Tobacco use (Chronic) Chronic pancreatitis due to acute alcohol intoxication (Chronic) Chronic pancreatitis (Chronic) Substance abuse in remission (Chronic) Depression with anxiety (Chronic) Hypertension (Chronic) Hepatitis C (Chronic) Hepatitis B (Chronic) H/O emotional problems (Chronic) Seasonal allergies (Chronic) Alcohol dependence (Chronic) Hospital Course and Treatment Imaging Results: None Consults: None Operations: None Procedures: None Summary of Care Provided: Per HPI: The patient is a 29 year old M with past medical history as mentioned above presented to the emergency room because of low back pain. His main presenting complaint was low back pain that has been going on for 6 weeks, dull aching pain, mild, not radiating, no associated symptoms and without aggravating or relieving factors. He is scheduled to have an MRI done in his lower back in 2 weeks. He denied fall or trauma. He denied numbness or tingling. He denied bowel or bladder incontinence. His other complaint was alcoholism, patient has been drinking 20 beers a day. He complains of mild hand tremors but no other significant withdrawal symptoms. Upon revision of his chart, patient was admitted for alcohol detoxification 4 times over the last year, last one was on May, but he relapsed. Beginning of 2018, he underwent alcohol withdrawal stabilization, was in residential treatment at [facility] for 5 months, was discharged and he remained sober for 4 months but he relapsed. After last admission for medical stabilization on May,, he relapsed almost immediately. In the emergency department, he was slightly tachycardic, other vital signs were stable. His routine blood work was remarkable for potassium of 3.4, otherwise normal. LFT revealed elevated liver transaminases and slightly elevated alkaline phosphatase, total bilirubin is normal. Urine drug screen was positive for cannabinoids. Blood alcohol level is 396. He is being admitted for acute alcohol withdrawal for medical stabilization. Hospital Course: 1. Acute alcohol withdrawal/elevated LFTs from chronic hepatitis B and C -With alcohol withdrawal protocol -Was in residential treatment at [facility] last year which she does not want to do again but he is okay with doing an outpatient regimen -Liver function tests are chronically elevated secondary to his alcoholic liver disease and chronic hepatitis B and C -I discussed with him that his last dose will be tried 11 PM and that if he does well into tomorrow we will however rather leave tonight after his a.m. dose, I explained the risks and benefits of going home and he expressed understanding. 2. Bipolar disorder/depression/anxiety -We will continue with his psych meds, he does appear stable -This is likely the biggest barrier to his recovery 3. Chronic low back pain -He does have an MRI of his lumbar spine scheduled as an outpatient for 2 weeks -Continue with NSAIDs for pain 4. Tobacco abuse -Counseled on cessation -Continue with patch Patient Problems: Active and Suspected Problems (Last Updated 10/20/19 @ 03:[address] Luigi Mills MD) Alcohol dependence (Acute) Lumbar radiculopathy, acute (Acute) - Physical Exam Vitals/I&O's: Vital Signs Temp Pulse Resp BP Pulse Ox 97.7 F L 102 H 18 130/90 H 97 10/22/19 09:05 10/22/19 09:05 10/22/19 09:05 10/22/19 09:05 10/22/19 09:05 Oxygen Delivery Method Room Air Weight: 189 lb 0.001 oz Body Mass Index (BMI) 28.7 Intake and Output for Last 24 Hours 10/20/19 10/21/19 10/22/19 23:59 23:59 23:59 Intake Total 2450 / 3450 3500 / 3500 400 / 400 Balance 2450 / 3450 3500 / 3500 400 / 400 General: Alert, Oriented x3, Cooperative, No apparent distress HEENT: Atraumatic, PERRLA, EOMI, Normocephalic Oral: Moist Mucosa Neck: Supple, No JVD Lungs: Clear to auscultation, Normal air movement, No rhonchi, No wheeze, No rales Cardiovascular: Regular rate, Regular Rhythm, Normal S1, Normal S2, No murmurs Abdomen: Soft, Non Tender, Non-Distended, No Hepato-splenomegaly Extremities: No edema, Capillary Refill Less than 3 Seconds Skin: No rashes, No breakdown Neurological: Neuro grossly intact, Sensory exam intact to light touch and pain, Psych/Mental Status: Normal Affect, Appropriate Current Medications Al Hydroxide/Mg Hydroxide (Mylanta Ii) 30 ml PO Q6H PRN PRN PRN Reason: dyspesia Dicyclomine HCl (Bentyl) 20 mg PO Q6H PRN PRN PRN Reason: abdominal discomfort Last Admin: 10/20/19 20:22 Dose: 20 mg Documented by: Fluoxetine HCl (Prozac) 40 mg PO DAILY [facility] Last Admin: 10/22/19 09:12 Dose: 40 mg Documented by: Folic Acid (Folic Acid) 1 mg PO DAILY@0800 [facility] Last Admin: 10/22/19 09:16 Dose: 1 mg Documented by: Gabapentin (Neurontin) 300 mg PO Q8H PRN PRN PRN Reason: moderate to severe anxiety Last Admin: 10/20/19 11:52 Dose: 300 mg Documented by: Hydroxyzine Pamoate (Vistaril Pamoate Capsule) 50 mg PO Q4H PRN PRN PRN Reason: mild anxiety Last Admin: 10/21/19 20:04 Dose: 50 mg Documented by: Ibuprofen (Motrin) 600 mg PO Q8H PRN PRN PRN Reason: Pain Score 1-10/10 Last Admin: 10/22/19 12:40 Dose: 600 mg Documented by: Loperamide HCl (Imodium) 2 mg PO Q4H PRN PRN PRN Reason: LOOSE STOOLS Lorazepam (Ativan) 1 mg IV Q2H PRN PRN PRN Reason: ANXIETY/AGITATION Nicotine (Nicoderm Cq (Pbkc)) 21 mg TRANSDERM. DAILY [facility] Last Admin: 10/22/19 09:16 Dose: 21 mg Documented by: Nutritional Formula (Lactose Free) (Ensure Enlive) 120 ml PO 4X/DAY [facility] Last Admin: 10/22/19 09:13 Dose: 120 ml Documented by: Ondansetron HCl (Zofran) 8 mg PO Q8H PRN PRN PRN Reason: NAUSEA Last Admin: 10/20/19 09:08 Dose: 8 mg Documented by: Phenobarbital (Phenobarbital) 64.8 mg PO Q6H [facility]; Taper Stop: 10/24/19 11:44 Last Admin: 10/22/19 12:36 Dose: 64.8 mg Documented by: Risperidone (Risperdal) 1 mg PO QHS [facility] Last Admin: 10/21/19 21:38 Dose: 1 mg Documented by: Sodium Chloride () 10 - 40 ml IV UD PRN PRN Reason: SALINE FLUSH Last Admin: 10/20/19 20:33 Dose: 10 ml Documented by: Thiamine HCl (Vitamin B1) 100 mg PO DAILYCM [facility] Last Admin: 10/22/19 09:16 Dose: 100 mg Documented by: Trazodone HCl (Desyrel) 100 mg PO QHS PRN PRN Reason: INSOMNIA Last Admin: 10/21/19 21:38 Dose: 100 mg Documented by: Discharge Activity: Return to Normal Activity Call your doctor if you observe: Fever of 101 or Higher, Shortness of breath, Dizziness, Fainting spells, Swelling in the ankles, Chest pain, Increased palpitations (irregular heartbeat) Home Medications: Medications to take at Discharge fluoxetine 40 mg capsule 40 mg PO DAILY #90 cap 07/05/19 lidocaine 5 % topical patch 2 patch TOPICAL DAILY #60 ea 08/17/19 meloxicam 15 mg tablet 15 mg PO DAILY PRN #90 tab 08/17/19 risperidone 1 mg tablet 1 mg PO QHS 08/17/19 trazodone 50 mg tablet 50 mg PO QHS PRN #90 tab 08/17/19 lidocaine HCl 4 % topical cream 1 applic TOPICAL TID PRN #120 g 08/18/19 multivitamin 1 tab PO DAILY #90 tab 09/01/19 vitamin B complex 1 tab PO DAILY #90 tab 09/01/19 Primary Care Physician: Rita Romero NP-C [Primary Care Provider] - Please follow up with your Primary Care Physician in: 3-5 days Please Follow Up With: 180 When: SCOTT Disposition: Home Minutes spent on discharge:: 35 Patient Condition:: Stable Medical Necessity - Tobacco Use Smoking Status: Current every day smoker Tobacco Use: Cigarettes Meaningful Use Info Meaningful Use Diagnoses (Choose all that apply): None applicable Inpatient E&M: 86613 [facility] Hosp
[2019-10-22 15:00] VITALS: BP 140/98; PULSE 97; RESP 18; TEMP 37.4; O2SAT 100
== END 2019-10-22 17:54 | disposition home or self-care (01) | DRG 775 ==
LOC: ED 10-20 02:33 → MS3 10-20 03:24
PROVIDERS: Emergency Medicine; Admitting Provider Hospitalist; Emergency Provider Emergency Medicine; PCP Nurse Practitioner Family; Visit Provider Family Medicine
DX: F10.239 Alcohol dependence with withdrawal, unspecified (principal); F10.229 Alcohol dependence with intoxication, unspecified; Y90.8 Blood alcohol level of 240 mg/100 ml or more; K86.0 Alcohol-induced chronic pancreatitis; K70.9 Alcoholic liver disease, unspecified; B18.2 Chronic viral hepatitis C; B18.1 Chronic viral hepatitis B without delta-agent; M54.16 Radiculopathy, lumbar region; G89.29 Other chronic pain; I10 Essential (primary) hypertension; F31.9 Bipolar disorder, unspecified; F41.9 Anxiety disorder, unspecified; F19.11 Other psychoactive substance abuse, in remission; F17.210 Nicotine dependence, cigarettes, uncomplicated; Z79.899 Other long term (current) drug therapy
CPT/HCPCS: 80053; 80307; 80320; 85025; 99406; J7030; A4216; G0480

== ENCOUNTER 2020-01-11 17:43 | Inpatient (IN) | payer MEDICAID, SELFPAY ==
[2019-10-20 03:42] VITALS: BMI 28.7
[2020-01-11] VITALS (7 sets, daily range): BP systolic 130–164; BP diastolic 79–105; PULSE 113–161; RESP 18–126; TEMP 36.6–36.9; O2SAT 96–100; BMI 32.5; BMI 27.4; BMI 27.5
--- NOTE | 2020-01-11 17:59 | CT_ITS ---
STUDY: CT BRAIN WITHOUT CONTRAST REASON FOR EXAM: Male, 29 years old. Fell down stairs last night. Hematoma to right eye and face. Elevated white count. History of hypertension, hepatitis C and alcohol abuse. Patient in hospital for detoxification. RADIATION DOSAGE (If Supplied By Facility): CTDIvol = ( 44.99 ) mGy, DLP = ( 745.49 ) mGycm TECHNIQUE: Transaxial CT imaging of the brain was performed without administration of intravenous contrast material. Individualized dose optimization techniques were used for this CT. COMPARISON: No relevant priors. FINDINGS: There is soft tissue swelling over the right maxilla extending into the preseptal soft tissues and right frontotemporal region. The right orbital contents are intact. Normal calvarium. Normal size ventricles and extra-axial spaces for the patient''s age. Normal white matter tracts of the cerebral hemispheres. There are small punctate calcifications of the bilateral basal ganglia. The differential diagnostic considerations includes: Fahrs disease, or endocrine disorders (hyperparathyroidism, hypoparathyroidism, pseudohypoparathyroidism). The incidental discovery of basal ganglia calcifications in a patient less than 50 years of age merits investigation. Normal brainstem. Normal cerebellum. There is no intracranial hemorrhage. There are no findings of an acute ischemic infarction. Normal visualized paranasal sinuses. CT/Brain/Head without Contrast IMPRESSION: 1. No evidence of acute intracranial calvarial abnormality. 2. Basal ganglia calcifications, see above. 3. Marked right frontotemporal, preseptal and facial soft tissue swelling and hematoma. Electronically Signed: Milton Portillo DO at 19:34 EDT Tel [phone], Service support ,
--- NOTE | 2020-01-11 17:59 | EKG12_ITS ---
Test Reason : Blood Pressure : / mmHG Vent. Rate : 125 BPM Atrial Rate : 125 BPM P-R Int : 136 ms QRS Dur : 092 ms QT Int : 344 ms P-R-T Axes : 056 061 034 degrees QTc Int : 496 ms Sinus tachycardia Otherwise normal ECG Confirmed by OBED HOANG, GISSELLE ([id number]), scientific publications editor KAREEM SAUER ([id number]) on 01/19/2020 11:18:10 A M Referred By: BRENDA Confirmed By:ONEIL CLAY MD
--- NOTE | 2020-01-11 18:00 | CT_ITS ---
STUDY: CT CERVICAL SPINE WITHOUT CONTRAST REASON FOR EXAM: Male, 29 years old. FELL DOWN STAIRS LAST Night, hematoma TO RT EYE AND Face, elevated Wbc, pt HERE FOR DETOX -- HX:HTN,HEP C, alcohol ABUSE RADIATION DOSAGE (If Supplied By Facility): CTDIvol = ( 25.75 ) mGy, DLP = ( 580.37 ) mGycm TECHNIQUE: High resolution transaxial imaging was performed without contrast material. Sagittal and coronal images were reconstructed. Individualized dose optimization techniques were used for this CT. COMPARISON: None FINDINGS: Normal craniovertebral junction. Normal anterior atlantoaxial articulation. Normal odontoid process. There is straightening of the normal cervical lordosis. Normal vertebral bodies and posterior osseous elements. C2-3: Normal endplates. Normal disc height and morphology. Normal central canal and intervertebral neuroforamina. C3-4: Normal endplates. Normal disc height and morphology. Normal central canal and intervertebral neuroforamina. C4-5: Normal endplates. Normal disc height and morphology. Normal central canal and intervertebral neuroforamina. C5-6: Normal endplates. Normal disc height and morphology. Normal central canal and intervertebral neuroforamina. C6-7: Normal endplates. Normal disc height and morphology. Normal central canal and intervertebral neuroforamina. C7-T1: Normal endplates. Normal disc height and morphology. Normal central canal and intervertebral neuroforamina. Normal visualized soft tissue structures. CT/Spine Cervical without Contras IMPRESSION: No acute fracture nor dislocation. Loss of the normal cervical lordosis as may be secondary to positioning and/or muscle spasm. Electronically Signed: Edilia Elizondo MD at 19:19 EDT Tel , Service support ,
--- NOTE | 2020-01-11 18:01 | CT_ITS ---
STUDY: CT ORBITS WITHOUT CONTRAST REASON FOR EXAM: Male, 29 years old. FELL DOWN STAIRS LAST Night, hematoma TO RT EYE AND Face, elevated WBC,PT HERE FOR DETOX -- HX:HTN,HEP C, alcohol ABUSE RADIATION DOSAGE (If Supplied By Facility): CTDIvol = ( 29.38 ) mGy, DLP = ( 378.50 ) mGycm TECHNIQUE: The patient was scanned in a multi detector CT scanner. Transaxial imaging was performed without the administration of intravenous contrast material. Sagittal and coronal images were reconstructed. Individualized dose optimization techniques were used for this CT. COMPARISON: None. FINDINGS: There is a right periorbital hematoma which is contiguous with a subcutaneous hematoma overlying the right frontal calvarium. Normal globes. Normal intraconal spaces. Normal optic nerve sheath complex. Normal bilateral extraocular muscles. Normal lacrimal glands. Normal bilateral medial and inferior orbital grant. Normal bilateral maxillary bones. Normal bilateral frontozygomatic arches. Normal bilateral zygomatic temporal arches. Normal frontal sinus. Normal ethmoidal sinuses. Normal maxillary sinuses. Normal sphenoid sinuses. CT/Orb Sella Post Fossa Ear w/o IMPRESSION: Right periorbital hematoma associated with a subcutaneous hematoma overlying the right frontal calvarium. Electronically Signed: Edilia Elizondo MD at 19:23 EDT Tel , Service support ,
--- NOTE | 2020-01-11 18:01 | CT_ITS ---
STUDY: CT ABDOMEN AND PELVIS WITH CONTRAST REASON FOR EXAM: Male, 29 years old. Fell down stairs last night. Hematoma over the right eye and face. Elevated white count. Patient and Hospital for detox. History of hypertension, hepatitis C and alcohol abuse. RADIATION DOSAGE (If Supplied By Facility): CTDIvol = ( 11.05 ) mGy, DLP = ( 1083.17 ) mGycm TECHNIQUE: Transaxial images were obtained from the dome of the diaphragm to the symphysis pubis without oral contrast. IV 100mL [id number]-300 was administered. Sagittal and coronal images were reconstructed. Individualized dose optimization techniques were used for this CT. COMPARISON: 04/03/2019. FINDINGS: The visualized lung bases are unremarkable. The visualized portions of the heart are within normal limits. The liver is markedly enlarged and diffusely fatty infiltrated. There is recannulization of the umbilical vein. Liver is unchanged from prior study. Normal gallbladder and extrahepatic biliary system. Normal spleen. Normal pancreas. Normal bilateral adrenal glands. Normal right kidney. Normal left kidney. Normal visualized stomach. Normal small intestine. Normal colon. The appendix is visualized and appears normal. Normal abdominal aorta. Normal inferior vena cava. Normal retroperitoneum. Normal urinary bladder. Normal prostate and seminal vesicles. There is minimal free fluid in the pelvis and supravesical space and is without free air. No pelvic lymphadenopathy. Normal abdominal wall. Normal osseous structures. CT/Abdomen/Pelvis W IV Cont ONLY IMPRESSION: 1. Enlarged fatty infiltrated liver unchanged from previous study. 2. Mild ascites not previously noted. 3. No evidence of acute intra-abdominal process or other major interval change. Electronically Signed: Milton Portillo DO at 19:31 EDT Tel [phone], Service support ,
--- NOTE | 2020-01-11 18:01 | CT_ITS ---
STUDY: CT CHEST WITH CONTRAST REASON FOR EXAM: Male, 29 years old. Bone down stairs last night. Hematoma over the right eye and face. Elevated white count. Patient and Hospital for detox indication alcohol abuse. RADIATION DOSAGE (If Supplied By Facility): CTDIvol = ( 11.05 ) mGy, DLP = ( 1083.17 ) mGycm TECHNIQUE: Transaxial imaging was performed following intravenous administration of IV 100mL Isovue-300. Multiplanar coronal and sagittal images were reformatted. Individualized dose optimization techniques were used for this CT. COMPARISON: None. FINDINGS: The lungs are well expanded. There is vague linear subpleural densities in the posterior right upper lobe with halo sign. Minimal patchy densities are seen anteriorly in the right upper lobe. The lungs are otherwise clear. There is no demonstrated pleural abnormality. Normal heart and pericardium. Normal mediastinum. Normal hilar regions. Normal enhanced pulmonary arteries. Normal aorta arch and descending thoracic aorta. Normal osseous structures. The liver is markedly enlarged and diffusely fatty infiltrated. CT/Chest WITH Contrast IMPRESSION: Minimal right upper lobe infiltrates versus less likely contusions. The chest is otherwise grossly unremarkable. Electronically Signed: Milton Portillo DO at 19:47 EDT Tel [phone], Service support ,
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
[2020-01-11] MEDS: LORazepam 2 MG/ML Syringe 1 MG IV (18:29)
[2020-01-11] MEDS: 0.9% Normal Saline 1,000 ML 1000 ML IV (18:30)
[2020-01-11 18:35] LABS: International Normalized Ratio 1.1; Prothrombin Time (Protime)PT. 13.5 SECONDS (11.7-14.9)
[2020-01-11 18:36] LABS: Partial Thromboplast Time 26.5 Seconds (24.1-36.2)
[2020-01-11 18:41] LABS: Absolute Lymphocyte Count 1.59 X10^3/uL (0.83-4.51); Absolute Neutrophil Count 8.4 X10^3/uL (2.0-7.7); Basophil# 0.04 X10^3/uL; Basophil% 0.3 % (0-1); Eosinophil# 0.02 X10^3/uL; Eosinophils% 0.2 % (0-5); Hematocrit 38.8 % (40-54); Hemoglobin 14.2 g/dL (13.0-16.5); Lymphocyte # 1.59 X10^3/ul (4.0); Lymphocyte % 13.6 % (19-41); Mean Corp Hgb Conc 36.6 g/dL (32-36); Mean Corpuscular Hgb 33.3 pg (27.0-32.0); Mean Corpuscular Volume 91.1 fL (80-94); Mean Platelet Vol. 10.6 fl (6.2-12.0); Monocyte# 1.47 X10^3/uL; Monocyte% 12.6 % (0-10); NRBC Flagged by Analyzer 0.3 % (0-5); Neutrophil # 8.42 X10^3/uL (2.7-7.7); Neutrophil % 72.3 % (47-70); POSITIVE COUNT YES; Platelet Count 87 K/mm3 (150-450); RBC Distribution Width CV 13.6 % (11.6-14.6); Red Blood Count 4.26 M/mm3 (4.6-6.2); White Blood Count 11.7 K/mm3 (4.4-11.0)
[2020-01-11 18:42] LABS: Differential Indicated SCAN CRITERIA MET
[2020-01-11 18:43] LABS: AST(SGOT) 406 U/L (15-37); Alanine Aminotransfer ALT/SGPT 143 U/L (16-61); Albumin, Serum 3.6 g/dL (3.2-5.0); Alkaline Phosphatase 261 U/L (45-117); Anion Gap 15 (5-15); BUN 7 mg/dL (7-18); BUN/Creat Ratio 11.8 RATIO (10-20); Bilirubin, Direct 2.59 mg/dL (0.00-0.30); Calcium,Total 8.6 mg/dL (8.5-10.1); Chloride 94 mmol/L (98-107); Creatinine, Serum 0.59 mg/dL (0.70-1.30); EST Glomerular Filtration Rate 172 mL/min (>60); Est Glom Filt Rate - Afr Amer 208 mL/min (>60); Globulin 4.3 g/dL (2.2-4.2); Glucose 129 mg/dL (74-106); Potassium 3.4 mmol/L (3.5-5.1); Protein, Total 7.9 g/dL (6.4-8.2); Sodium Level 130 mmol/L (136-145)
[2020-01-11 19:43] LABS: Differential Comment SCANNED; Platelet Estimate MOD DEC (ADEQ)
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
--- NOTE | 2020-01-11 20:51 | CM.ED ---
SOCIAL WORK Informant: Dr. Stanley Reason for Consult: Substance Abuse- Alcohol Case discussed with Dr. Stanley. Patient being admitted to [facility] for alcohol withdrawal management. Call to [facility] Treatment Navigator, Norberto. Per Norberto, can intake worker from [facility] will be in tomorrow to complete assessment. Nancy Kilpatrick, DUPLICATION SPECIALIST, REHAB RN
[2020-01-11 21:08] LABS: Amphetamine Urine VISTA NEGATIVE (<1000 ng/mL); Barbiturate Urine VISTA NEGATIVE (< 200 ng/mL); Benzodiazepine Urine VISTA NEGATIVE (< 200 ng/mL); Cocaine Urine VISTA NEGATIVE (< 300 ng/mL); Ecstacy Urine VISTA NEGATIVE (< 500 ng/mL); Methadone Urine VISTA NEGATIVE (< 300 ng/mL); PCP Urine VISTA NEGATIVE (< 25 ng/mL); THC Urine VISTA NEGATIVE (< 50 ng/mL); Vista UDS pH Range 6
[2020-01-11] MEDS: Ondansetron 4 MG/2 ML Vial IV (21:50)
[2020-01-11] MEDS: Dicyclomine 10 MG Capsule 20 MG PO (22:03)
[2020-01-11] MEDS: hydrOXYzine PAM 25 MG Capsule 50 MG PO (22:03)
[2020-01-11] MEDS: Gabapentin 300 MG Capsule PO (22:03)
[2020-01-11] MEDS: RisperiDONE 2 MG Tablet PO (22:03)
[2020-01-11] MEDS: Phenobarbital 32.4 MG Tablet PO (22:03)
[2020-01-11] MEDS: Diphth,Pertuss(Acell),Tet Vac 0.5 ML Vial IM (22:29)
[2020-01-12] VITALS (15 sets, daily range): BP systolic 111–143; BP diastolic 62–88; PULSE 98–161; RESP 16–19; TEMP 36.6–38.1; O2SAT 94–100
[2020-01-12] MEDS: Phenobarbital 32.4 MG Tablet PO ×6 (01:55→21:53)
[2020-01-12] MEDS: oxyCODONE 5 MG Tablet PO (01:59)
--- NOTE | 2020-01-12 02:11 | PCM.PN.BLA ---
Progress Note Nurse reports that patient's heart rate is 150; blood pressure is 111/62. Will start patient on clonidine patch and clonidine p.o. as needed. STROKE Vital Signs/Narrative: Vital Signs Temp Pulse Resp BP Pulse Ox 01/12/20 02:10 100.5 F H 150 H 16 111/62 98
[2020-01-12] MEDS: cloNIDine HCl 0.1 MG Patch TRANSDERM. (02:22)
[2020-01-12] MEDS: cloNIDine HCl 0.1 MG Tablet PO ×2 (02:22→18:59)
[2020-01-12 06:33] LABS: Absolute Neutrophil Count 4.4 X10^3/uL (2.0-7.7); Basophil# 0.03 X10^3/uL; Basophil% 0.4 % (0-1); Eosinophil# 0.06 X10^3/uL; Eosinophils% 0.8 % (0-5); Hemoglobin 11.7 g/dL (13.0-16.5); Lymphocyte % 23.9 % (19-41); Mean Corp Hgb Conc 34.4 g/dL (32-36); Mean Corpuscular Hgb 32.6 pg (27.0-32.0); Mean Corpuscular Volume 94.7 fL (80-94); Mean Platelet Vol. 10.4 fl (6.2-12.0); Monocyte# 0.86 X10^3/uL; Monocyte% 12.1 % (0-10); NRBC Flagged by Analyzer 0 % (0-5); Neutrophil # 4.41 X10^3/uL (2.7-7.7); Neutrophil % 62.1 % (47-70); POSITIVE COUNT YES; Platelet Count 53 K/mm3 (150-450); RBC Distribution Width CV 14.4 % (11.6-14.6); RBC Distribution Width SD 48.9 fl (35.1-43.9); Red Blood Count 3.59 M/mm3 (4.6-6.2); White Blood Count 7.1 K/mm3 (4.4-11.0)
[2020-01-12] MEDS: hydrOXYzine PAM 25 MG Capsule 50 MG PO ×2 (06:34→10:42)
[2020-01-12 06:52] LABS: BUN 6 mg/dL (7-18); Creatinine, Serum 0.56 mg/dL (0.70-1.30); Estimated Creatinine Clearance 196.39 ml/min; Glucose 101 mg/dL (74-106)
[2020-01-12 06:53] LABS: Anion Gap 11 (5-15); BUN/Creat Ratio 10.7 RATIO (10-20); Calcium,Total 8.1 mg/dL (8.5-10.1); Chloride 96 mmol/L (98-107); EST Glomerular Filtration Rate 182 mL/min (>60); Est Glom Filt Rate - Afr Amer 221 mL/min (>60); Magnesium 1.2 mg/dL (1.6-2.6); Potassium 3.4 mmol/L (3.5-5.1); Sodium Level 132 mmol/L (136-145)
--- NOTE | 2020-01-12 06:56 | PCM.PN.BLA ---
Progress Note Patient with a persistent tachycardia heart rate now 161. On clonidine patch and as needed clonidine. His symptoms could be from alcohol withdrawal. Overnight noted that patient had a temperature of 100.5 Fahrenheit. On presentation patient had mild leukocytosis and mild bandemia of 1%. Cannot rule out any source of infection at her right eye. Patient is allergic to penicillins. Allergy is listed as hives. Will start patient on cefazolin. Behavioral Health Case Manager to see patient today. STROKE Vital Signs/Narrative: Vital Signs Temp Pulse Resp BP BP Pulse Ox 01/12/20 06:00 98.6 F 161 H 16 126/88 H 99 01/12/20 03:30 98.3 F 134 H 16 111/73 98
[2020-01-12 07:02] LABS: Differential Indicated SCAN CRITERIA MET
[2020-01-12 07:03] LABS: Differential Comment SCANNED
[2020-01-12] MEDS: 0.9% Saline Lock 10 ML Syringe IV ×3 (07:20→15:27)
[2020-01-12] MEDS: Ondansetron 4 MG/2 ML Vial IV (07:20)
[2020-01-12 07:36] LABS: AST(SGOT) 344 U/L (15-37); Alanine Aminotransfer ALT/SGPT 121 U/L (16-61); Albumin, Serum 3.3 g/dL (3.2-5.0); Alkaline Phosphatase 248 U/L (45-117); Bilirubin, Direct 2.62 mg/dL (0.00-0.30); Globulin 3.8 g/dL (2.2-4.2); Protein, Total 7.1 g/dL (6.4-8.2)
[2020-01-12] MEDS: 0.9% Normal Saline 1,000 ML 100 ML IV ×2 (07:44→14:01)
[2020-01-12] MEDS: Cefazolin 2 GM in 0.9% Normal Saline 100 ML IV ×3 (07:55→22:06)
[2020-01-12] MEDS: Multivitamins,Therapeutic Tablet 1 TABLET PO (07:58)
[2020-01-12] MEDS: Thiamine Hydrochloride 100 MG Tablet PO (07:58)
[2020-01-12] MEDS: Folic Acid 1 MG Tablet PO (07:58)
--- NOTE | 2020-01-12 07:59 | PN_ITS ---
Patient Problems: Active and Suspected Problems (Last Reviewed 01/11/20 @ 21:[address] Juan Griffin MD) Desire for detoxification (Acute) Periorbital hematoma of right eye (Acute) Reason for Visit: Follow-up on acute alcohol withdrawal/right periorbital hematoma Subjective: Patient was seen and examined. Complains of pain in the right periorbital region. Has been applying ice to the area. Denied any blurred vision or dizziness or fever or chills. Overnight, patient was tachycardic, started on clonidine. His CIWA score this morning was 7. Objective: Physical exam: General: Alert, Oriented x3, Cooperative HEENT: Normocephalic, - - Ecchymosis and edema of right periorbital area. Extraocular eye movements of left intact. Patient unable to open right eye. Neck: Supple, No JVD, Negative Carotid Bruits Lungs: Clear to auscultation, Normal air movement, No rhonchi, No wheeze, No rales Cardiovascular: Normal S1, Normal S2, No murmurs, Tachycardic Abdomen: Bowel Sounds Present, Soft, Non Tender, - Extremities: No edema, Capillary Refill Less than 3 Seconds Skin: - - Ecchymosis of right upper abdominal area; ecchymosis of right eye Musculoskeletal: No Tenderness to Palpation of Joints or Extremities Neurological: Cranial nerves II-XII grossly intact - Unable to open right eye., - - Tremors Psych/Mental Status: Normal Affect, Appropriate Vitals/I&O's: Vital Signs Temp Pulse Resp BP Pulse Ox 98.6 F 161 H 16 126/88 H 98 01/12/20 06:00 01/12/20 06:00 01/12/20 06:00 01/12/20 06:00 01/12/20 07:15 Oxygen Delivery Method Room Air Weight: 84.4 kg Body Mass Index (BMI) 27.4 Intake and Output for Last 24 Hours 01/10/20 01/11/20 01/12/20 23:59 23:59 23:59 Intake Total 1000 / 1000 500 / 500 Output Total 100 / 100 Balance 1000 / 900 400 / 400 Laboratory Results 01/11/20 18:15: WBC 11.7 H, RBC 4.26 L, Hgb 14.2, Hct 38.8 L, MCV 91.1, MCH 33.3 H, MCHC 36.6 H, RDW Std Deviation 45.0 H, RDW Coeff of [place]ango 13.6, Plt Count 87 L, MPV 10.6, Immature Gran % (Auto) 1.000 H, Neut % (Auto) 72.3 H, Lymph % (Auto) 13.6 L, [place] % (Auto) 12.6 H, Eos % (Auto) 0.2, Baso % (Auto) 0.3, Absolute Neuts (auto) 8.4 H, Absolute Lymphs (auto) 1.59, Nucleated RBC % 0.3, Differential Comment SCANNED, Platelet Estimate MOD 01/11/20 18:15: PT 13.5, INR 1.1, APTT 26.5 01/11/20 18:15: Sodium 130 L, Potassium 3.4 L, Chloride 94 L, Carbon Dioxide 21.0, Anion Gap 15, BUN 7, Creatinine 0.59 L, Estim Creat Clear Calc 186.40, Est GFR (MDRD) Af Amer 208, Est GFR (MDRD) Non-Af 172, BUN/Creatinine Ratio 11.8, Glucose 129 H, Calcium 8.6, Total Bilirubin 3.70 H, Direct Bilirubin 2.59 H, AST 406 H, ALT 143 H, Alkaline Phosphatase 261 H, Total Protein 7.9, Albumin 3.6, Globulin 4.3 H 01/11/20 18:15: Ethyl Alcohol 325.0 H* 01/11/20 19:50: Urine Opiates Screen NEGATIVE, Urine Methadone Screen NEGATIVE, Ur Barbiturates Screen NEGATIVE, Ur Phencyclidine Scrn NEGATIVE, Ur Amphetamines Screen NEGATIVE, U Methamphetamin-MDMA NEGATIVE, U Benzodiazepines Scrn NEGATIVE, Urine Cocaine Screen NEGATIVE, U Cannabinoids Screen NEGATIVE, Ur Drug Screen Comment 01/12/20 05:57: Sodium 132 L, Potassium 3.4 L, Chloride 96 L, Carbon Dioxide 25.0, Anion Gap 11, BUN 6 L, Creatinine 0.56 L, Estim Creat Clear Calc 196.39, Est GFR (MDRD) Af Amer 221, Est GFR (MDRD) Non-Af 182, BUN/Creatinine Ratio 10.7, Glucose 101, Calcium 8.1 L, Magnesium 1.2 L 01/12/20 05:57: WBC 7.1, RBC 3.59 L, Hgb 11.7 L, Hct 34.0 L, MCV 94.7 H, MCH 32.6 H, MCHC 34.4 D, RDW Std Deviation 48.9 H, RDW Coeff of [place] 14.4, Plt Count 53 L, MPV 10.4, Immature Gran % (Auto) 0.700, Neut % (Auto) 62.1, Lymph % (Auto) 23.9, [place] % (Auto) 12.1 H, Eos % (Auto) 0.8, Baso % (Auto) 0.4, Absolute Neuts (auto) 4.4, Absolute Lymphs (auto) 1.70, Nucleated RBC % 0, Differential Comment SCANNED 01/12/20 05:57: Total Bilirubin 3.80 H, Direct Bilirubin 2.62 H, AST 344 H, ALT 121 H, Alkaline Phosphatase 248 H, Total Protein 7.1, Albumin 3.3, Globulin 3.8 Current Medications Albuterol Sulfate (Ventolin Aerosols) 2.5 mg INHALATION Q2H PRN PRN PRN Reason: Shortness of Breath/Wheezing Clonidine (Catapres) 0.1 mg PO Q6H PRN PRN PRN Reason: HR > 120 . Hold for SBP < 100. Last Admin: 01/12/20 02:22 Dose: 0.1 mg Documented by: Clonidine HCl (Catapres-Tts1) 0.1 mg TRANSDERM. Q7D [facility] Last Admin: 01/12/20 02:22 Dose: 0.1 mg Documented by: Cyclobenzaprine HCl (Flexeril) 10 mg PO TID PRN PRN PRN Reason: muscle spasms Dicyclomine HCl (Bentyl) 20 mg PO Q6H PRN PRN PRN Reason: abdominal discomfort Last Admin: 01/11/20 22:03 Dose: 20 mg Documented by: Fluoxetine HCl (Prozac) 40 mg PO DAILY [facility] Folic Acid (Folic Acid) 1 mg PO DAILY@0800 [facility] Last Admin: 01/12/20 07:58 Dose: 1 mg Documented by: Gabapentin (Neurontin) 300 mg PO Q8H PRN PRN PRN Reason: moderate to severe anxiety Last Admin: 01/11/20 22:03 Dose: 300 mg Documented by: Hydroxyzine Pamoate (Vistaril Pamoate Capsule) 50 mg PO Q4H PRN PRN PRN Reason: mild anxiety Last Admin: 01/12/20 06:34 Dose: 50 mg Documented by: Cefazolin Sodium 2 gm/ Sodium (Chloride) 110 mls @ 150 mls/hr IV Q8 [facility] Last Admin: 01/12/20 07:55 Dose: 150 mls/hr Documented by: Magnesium Sulfate () 4 gm in 100 mls @ 25 mls/hr IV X1 ONE Stop: 01/12/20 11:44 Sodium Chloride () 1,000 mls @ 100 mls/hr IV .Q10H [facility] Last Admin: 01/12/20 07:44 Dose: 100 mls/hr Documented by: Loperamide HCl (Imodium) 2 mg PO Q4H PRN PRN PRN Reason: LOOSE STOOLS Multivitamins (Multivitamin) 1 tablet PO DAILYCM [facility] Last Admin: 01/12/20 07:58 Dose: 1 tablet Documented by: Nicotine (Nicoderm Cq (Pbkc)) 21 mg TRANSDERM. DAILY [facility] Last Admin: 01/11/20 22:04 Dose: 21 mg Documented by: Nutritional Formula (Lactose Free) (Ensure Enlive) 120 ml PO 4X/DAY [facility] Ondansetron HCl (Zofran) 8 mg PO Q8H PRN PRN PRN Reason: NAUSEA Ondansetron HCl (Zofran) 4 mg IV Q8H PRN PRN PRN Reason: NAUSEA/VOMITING Last Admin: 01/12/20 07:20 Dose: 4 mg Documented by: Oxycodone HCl (Oxyir) 5 mg PO Q6H PRN PRN PRN Reason: Pain Score 6-10/10 Last Admin: 01/12/20 01:59 Dose: 5 mg Documented by: Phenobarbital (Phenobarbital) 97.2 mg PO Q4H [facility]; Taper Stop: 01/16/20 05:59 Last Admin: 01/12/20 06:35 Dose: 97.2 mg Documented by: Risperidone (Risperdal) 2 mg PO QHS [facility] Last Admin: 01/11/20 22:03 Dose: 2 mg Documented by: Senna/Docusate Sodium (Senokot-S, Salma-Colace) 2 tablet PO BID PRN PRN PRN Reason: Constipation Sodium Chloride () 10 - 40 ml IV UD PRN PRN Reason: SALINE FLUSH Last Admin: 01/12/20 07:45 Dose: 10 ml Documented by: Thiamine HCl (Vitamin B1) 100 mg PO DAILYCM [facility] Last Admin: 01/12/20 07:58 Dose: 100 mg Documented by: STROKE Vital Signs/Narrative: Vital Signs Temp Pulse Resp BP Pulse Ox 01/12/20 07:15 98 01/12/20 06:00 98.6 F 161 H 16 126/88 H 99 Medical Necessity - Tobacco Use Smoking Status: Current every day smoker Tobacco Use: Cigarettes Assessment/Plan All Active Problems (Last Reviewed 01/11/20 @ 21:[address] Juan Griffin MD) Desire for detoxification (Acute) Periorbital hematoma of right eye (Acute) Alcohol withdrawal (Acute) 1. Acute alcohol withdrawal, moderate, Patient CIWA today is 7, down from 12 Patient remains tachycardic, added on clonidine yesterday Continue on phenobarbital withdrawal protocol 2. Acute right periorbital hematoma/right frontal calvarium hematoma secondary to fall Confirmed with CT scan of the orbits Supportive therapies such as ice packs to the right eye ongoing Ophthalmology consulted 3. Acute lung contusion, not on oxygen seen on CT of the chest, Not on oxygen, supportive treatment 4. Hypokalemia, replace, recheck in a.m. 5. Hypomagnesemia, replaced, recheck in a.m. 6. Hyponatremia secondary to beer potomania, slightly improved, Continue to monitor 7. Leukocytosis, resolved, likely reactive 8. Chronic thrombocytopenia secondary to chronic alcohol use, continue to trend 7. Chronic liver disease/fatty liver/chronic hepatitis B and C Liver function appears slightly improved compared to yesterday We will repeat blood work in a.m. 8. Nicotine dependence, on replacement 9. DVT prophylaxis with early ambulation Inpatient E&M: 36371 Subs Hosp L2
[2020-01-12] MEDS: Magnesium Sulfate 4gm/100mL 4 GM/100 ML IV.SOLN. IV (10:33)
[2020-01-12] MEDS: Dicyclomine 10 MG Capsule 20 MG PO (10:36)
[2020-01-12] MEDS: FLUoxetine 20 MG Capsule 40 MG PO (10:36)
--- NOTE | 2020-01-12 11:14 | ADDICTION ---
This senior technical writer met with patient in his room to conduct ASAM, MSE and AUDIT assessments and to process discharge planning. Patient was alert and oritned x4 and particioapted apporpraitely thoughtout session. Patient presented with depressed mood and flat affect. He is requesting Residential treatment at [facility]. Referral has been made, currently pending approval. He is scheduled for an appointment with [facility] on 01/15/2020 at noon. This senior technical writer will fax completed documentation to [facility].
--- NOTE | 2020-01-12 11:30 | CASEMGMT ---
Social Work Note KARY asked to see if Hospital Van can transport pt to appointment on Wednesday to . Anabell states she will also check with peer support for transport. KARY updated Anabell that this worker will call to put pt on list for hospital van transport to Wednesday in case it is needed. Anabell states understanding. Brenda Ayala EQUIPMENT CLEANER, INSPECTOR TIMERS
--- NOTE | 2020-01-12 12:30 | EKG12_ITS ---
Test Reason : ARRYTHMIA Blood Pressure : / mmHG Vent. Rate : 110 BPM Atrial Rate : 110 BPM P-R Int : 132 ms QRS Dur : 096 ms QT Int : 364 ms P-R-T Axes : 021 042 044 degrees QTc Int : 492 ms Sinus tachycardia Otherwise normal ECG Confirmed by HERMINIA SANCHEZ ([id number]), photographic editor PARUL POON ([id number]) on 01/18/2020 9:10:41 AM Referred By: RUFINO Confirmed By:HERMINIA SANCHEZ
[2020-01-12] MEDS: Magnesium Hydroxide 30 ML UDC PO (12:38)
--- NOTE | 2020-01-12 12:45 | CASEMGMT ---
Addendum entered by Brenda Ayala 01/12/20 14:42: KARY placed a call to Jen at [facility] and updated her that transportation has been arranged. Jen states she found peer support person Liss who will transport pt Wednesday at 12:00pm to [facility]. KARY placed a call to Cat to cancel transportation. Original Note: Social Work Note SW placed a call to Cat in [employer] for hospital van transportation. Cat states she can have the hospital van transport pt on Wednesday at 11:00am to [facility]. Brenda Ayala GRAPHIC MANAGER, TRAFFIC COORDINATOR
[2020-01-12] MEDS: LORazepam 2 MG/ML Syringe 1 MG IV (15:27)
[2020-01-12] MEDS: 0.9% Normal Saline 1,000 ML 150 ML IV (19:17)
[2020-01-12] MEDS: RisperiDONE 2 MG Tablet PO (21:54)
[2020-01-13] VITALS (11 sets, daily range): BP systolic 124–139; BP diastolic 73–82; PULSE 92–121; RESP 14–18; TEMP 36.4–37.7; O2SAT 97–99
[2020-01-13] MEDS: 0.9% Normal Saline 1,000 ML 150 ML IV ×2 (01:57→09:41)
[2020-01-13] MEDS: Phenobarbital 32.4 MG Tablet PO ×6 (01:58→22:14)
[2020-01-13] MEDS: cloNIDine HCl 0.1 MG Tablet PO (02:21)
[2020-01-13] MEDS: Cefazolin 2 GM in 0.9% Normal Saline 100 ML IV ×3 (05:45→22:14)
[2020-01-13 06:27] LABS: Absolute Lymphocyte Count 1.56 X10^3/uL (0.83-4.51); Absolute Neutrophil Count 2.7 X10^3/uL (2.0-7.7); Basophil# 0.05 X10^3/uL; Hemoglobin 10.5 g/dL (13.0-16.5); Lymphocyte # 1.56 X10^3/ul (4.0); Lymphocyte % 31.2 % (19-41); Mean Corpuscular Hgb 32.9 pg (27.0-32.0); Mean Platelet Vol. 10.5 fl (6.2-12.0); NRBC Flagged by Analyzer 0 % (0-5); Neutrophil # 2.71 X10^3/uL (2.7-7.7); Neutrophil % 54.2 % (47-70); POSITIVE COUNT YES; Platelet Count 57 K/mm3 (150-450); RBC Distribution Width CV 14.5 % (11.6-14.6); RBC Distribution Width SD 49.4 fl (35.1-43.9); Red Blood Count 3.19 M/mm3 (4.6-6.2)
[2020-01-13 06:29] LABS: Differential Indicated SCAN CRITERIA MET
[2020-01-13 06:54] LABS: Differential Comment SCANNED
[2020-01-13 06:57] LABS: ALB/GLOB Ratio 0.8 RATIO (0.9-2.4); AST(SGOT) 628 U/L (15-37); Alanine Aminotransfer ALT/SGPT 151 U/L (16-61); Alkaline Phosphatase 271 U/L (45-117); Anion Gap 7 (5-15); BUN 2 mg/dL (7-18); Calcium,Total 8.1 mg/dL (8.5-10.1); Chloride 101 mmol/L (98-107); EST Glomerular Filtration Rate 208 mL/min (>60); Est Glom Filt Rate - Afr Amer 251 mL/min (>60); Estimated Creatinine Clearance 219.96 ml/min; Globulin 3.6 g/dL (2.2-4.2); Glucose 97 mg/dL (74-106); Magnesium 1.7 mg/dL (1.6-2.6); Potassium 2.9 mmol/L (3.5-5.1); Protein, Total 6.6 g/dL (6.4-8.2); Sodium Level 136 mmol/L (136-145)
[2020-01-13] MEDS: Multivitamins,Therapeutic Tablet 1 TABLET PO (08:31)
[2020-01-13] MEDS: Folic Acid 1 MG Tablet PO (08:31)
[2020-01-13] MEDS: Thiamine Hydrochloride 100 MG Tablet PO (08:31)
[2020-01-13] MEDS: Potassium Chloride 10mEq/100mL 10 MEQ/100 ML IV.SOLN. 100 MEQ IV BOLUS ×4 (08:35→14:09)
[2020-01-13] MEDS: FLUoxetine 20 MG Capsule 40 MG PO (11:09)
--- NOTE | 2020-01-13 11:33 | PCM.PN.HOSP ---
Patient Problems: Active and Suspected Problems (Last Reviewed 01/11/20 @ 21:[address] Juan Griffin MD) Desire for detoxification (Acute) Periorbital hematoma of right eye (Acute) Subjective: Patient seen and examined. He complains of hallucinations overnight. Otherwise he feels well. He was evaluated by ophthalmology on account of right periorbital hematoma and plan is for him to have outpatient follow-up on Wednesday. Review of systems otherwise negative. He does remain tachycardic with heart rate being 111. He admits to not being compliant with his beta-blockers on outpatient basis. Potassium is 2.9 today. Total bilirubin is also trended up to 4.2 with total AST and ALT also trending up as well as ALP. Vitals/I&O's: Vital Signs Temp Pulse Resp BP Pulse Ox 98.6 F 111 H 16 131/82 H 98 01/13/20 11:10 01/13/20 11:10 01/13/20 11:10 01/13/20 11:10 01/13/20 11:10 Oxygen Delivery Method Room Air Weight: 186 lb 1.122 oz Body Mass Index (BMI) 27.4 Intake and Output for Last 24 Hours 01/11/20 01/12/20 01/13/20 23:59 23:59 23:59 Intake Total 1000 / 1000 3910.00 / 3910.00 1815 / 1815 Output Total 325 / 325 1300 / 1300 Balance 1000 / 900 3585.00 / 3585.00 515 / 515 General: Alert, Oriented x3, Cooperative HEENT: PERRLA, EOMI, Normocephalic, - - significant right periorbital hematoma and swelling. Oral: Dry Mucosa Neck: Supple, No JVD, Negative Carotid Bruits Lungs: Clear to auscultation, Normal air movement, No rhonchi, No wheeze Cardiovascular: Regular Rhythm, Normal S1, Normal S2, No murmurs, Tachycardic Abdomen: Bowel Sounds Present, Soft, Non Tender, Non-Distended, No Hepato-splenomegaly Extremities: No clubbing, No cyanosis, No edema, Capillary Refill Less than 3 Seconds Skin: No rashes, No breakdown Musculoskeletal: No Tenderness to Palpation of Joints or Extremities Lymphatic: No Cervical, Supraclavicular, or Inguinal Adenopathy Neurological: Cranial nerves II-XII grossly intact, Neuro grossly intact, Motor Exam 5/5 strength throughout Psych/Mental Status: Normal Affect, Appropriate, Alert and oriented to time, place, person, mood and affect Laboratory Results 01/13/20 05:35: WBC 5.0, RBC 3.19 L, Hgb 10.5 L, Hct 30.0 L, MCV 94.0, MCH 32.9 H, MCHC 35.0, RDW Std Deviation 49.4 H, RDW Coeff of [place]ango 14.5, Plt Count 57 L, MPV 10.5, Immature Gran % (Auto) 1.600 H, Neut % (Auto) 54.2, Lymph % (Auto) 31.2, [place] % (Auto) 10.0, Eos % (Auto) 2.0, Baso % (Auto) 1.0, Absolute Neuts (auto) 2.7, Absolute Lymphs (auto) 1.56, Nucleated RBC % 0, Differential Comment SCANNED 01/13/20 05:35: Sodium 136, Potassium 2.9 L, Chloride 101, Carbon Dioxide 28.0, Anion Gap 7, BUN 2 L, Creatinine 0.50 L, Estim Creat Clear Calc 219.96, Est GFR (MDRD) Af Amer 251, Est GFR (MDRD) Non-Af 208, BUN/Creatinine Ratio 4.0 L, Glucose 97, Calcium 8.1 L, Magnesium 1.7, Total Bilirubin 4.20 H, AST 628 H, ALT 151 H, Alkaline Phosphatase 271 H, Total Protein 6.6, Albumin 3.0 L, Globulin 3.6, Albumin/Globulin Ratio 0.8 L Diagnostic Data Brain CT 01/11/20 17:59 IMPRESSION: 1. No evidence of acute intracranial calvarial abnormality. 2. Basal ganglia calcifications, see above. 3. Marked right frontotemporal, preseptal and facial soft tissue swelling and hematoma. Electronically Signed: Milton Portillo DO at 19:34 EDT Tel [phone], Service support , Cervical Spine CT 01/11/20 18:00 IMPRESSION: No acute fracture nor dislocation. Loss of the normal cervical lordosis as may be secondary to positioning and/or muscle spasm. Electronically Signed: Edilia Elizondo MD at 19:19 EDT Tel , Service support , Abdomen/Pelvis CT 01/11/20 18:01 IMPRESSION: 1. Enlarged fatty infiltrated liver unchanged from previous study. 2. Mild ascites not previously noted. 3. No evidence of acute intra-abdominal process or other major interval change. Electronically Signed: Milton Portillo DO at 19:31 EDT Tel [phone], Service support , CT Orbit Sella Inner 01/11/20 18:01 IMPRESSION: Right periorbital hematoma associated with a subcutaneous hematoma overlying the right frontal calvarium. Electronically Signed: Edilia Elizondo MD at 19:23 EDT Tel , Service support , Chest CT 01/11/20 18:01 IMPRESSION: Minimal right upper lobe infiltrates versus less likely contusions. The chest is otherwise grossly unremarkable. Electronically Signed: Milton Portillo DO at 19:47 EDT Tel [phone], Service support , Current Medications Albuterol Sulfate (Ventolin Aerosols) 2.5 mg INHALATION Q2H PRN PRN PRN Reason: Shortness of Breath/Wheezing Clonidine (Catapres) 0.1 mg PO Q6H PRN PRN PRN Reason: HR > 120 . Hold for SBP < 100. Last Admin: 01/13/20 02:21 Dose: 0.1 mg Documented by: Clonidine HCl (Catapres-Tts1) 0.1 mg TRANSDERM. Q7D [facility] Last Admin: 01/12/20 02:22 Dose: 0.1 mg Documented by: Cyclobenzaprine HCl (Flexeril) 10 mg PO TID PRN PRN PRN Reason: muscle spasms Dicyclomine HCl (Bentyl) 20 mg PO Q6H PRN PRN PRN Reason: abdominal discomfort Last Admin: 01/12/20 10:36 Dose: 20 mg Documented by: Fluoxetine HCl (Prozac) 40 mg PO DAILY [facility] Last Admin: 01/13/20 11:09 Dose: 40 mg Documented by: Folic Acid (Folic Acid) 1 mg PO DAILY@0800 [facility] Last Admin: 01/13/20 08:31 Dose: 1 mg Documented by: Gabapentin (Neurontin) 300 mg PO Q8H PRN PRN PRN Reason: moderate to severe anxiety Last Admin: 01/11/20 22:03 Dose: 300 mg Documented by: Hydroxyzine Pamoate (Vistaril Pamoate Capsule) 50 mg PO Q4H PRN PRN PRN Reason: mild anxiety Last Admin: 01/12/20 10:42 Dose: 50 mg Documented by: Cefazolin Sodium 2 gm/ Sodium (Chloride) 110 mls @ 150 mls/hr IV Q8 [facility] Last Infusion: 01/13/20 06:29 Dose: Infused Documented by: Sodium Chloride () 1,000 mls @ 150 mls/hr IV .Q6H40M [facility] Last Admin: 01/13/20 09:41 Dose: 150 mls/hr Documented by: Potassium Chloride () 10 meq in 100 mls @ 100 mls/hr IV BOLUS Q1H [facility] Stop: 01/13/20 11:59 Last Admin: 01/13/20 11:05 Dose: 100 mls/hr Documented by: Loperamide HCl (Imodium) 2 mg PO Q4H PRN PRN PRN Reason: LOOSE STOOLS Multivitamins (Multivitamin) 1 tablet PO DAILYCM [facility] Last Admin: 01/13/20 08:31 Dose: 1 tablet Documented by: Nicotine (Nicoderm Cq (Pbkc)) 21 mg TRANSDERM. DAILY [facility] Last Admin: 01/13/20 08:32 Dose: 21 mg Documented by: Nutritional Formula (Lactose Free) (Ensure Enlive) 120 ml PO 4X/DAY [facility] Last Admin: 01/13/20 08:58 Dose: 120 ml Documented by: Ondansetron HCl (Zofran) 8 mg PO Q8H PRN PRN PRN Reason: NAUSEA Ondansetron HCl (Zofran) 4 mg IV Q8H PRN PRN PRN Reason: NAUSEA/VOMITING Last Admin: 01/12/20 07:20 Dose: 4 mg Documented by: Oxycodone HCl (Oxyir) 5 mg PO Q6H PRN PRN PRN Reason: Pain Score 6-10/10 Last Admin: 01/12/20 01:59 Dose: 5 mg Documented by: Phenobarbital (Phenobarbital) 64.8 mg PO Q4H [facility]; Taper Stop: 01/16/20 05:59 Last Admin: 01/13/20 11:08 Dose: 64.8 mg Documented by: Risperidone (Risperdal) 2 mg PO QHS [facility] Last Admin: 01/12/20 21:54 Dose: 2 mg Documented by: Senna/Docusate Sodium (Senokot-S, Salma-Colace) 2 tablet PO BID PRN PRN PRN Reason: Constipation Sodium Chloride () 10 - 40 ml IV UD PRN PRN Reason: SALINE FLUSH Last Admin: 01/12/20 15:27 Dose: 10 ml Documented by: Thiamine HCl (Vitamin B1) 100 mg PO DAILYCM [facility] Last Admin: 01/13/20 08:31 Dose: 100 mg Documented by: STROKE Vital Signs/Narrative: Vital Signs Temp Pulse Resp BP Pulse Ox 01/13/20 11:10 98.6 F 111 H 16 131/82 H 98 Medical Necessity - Tobacco Use Smoking Status: Current every day smoker Tobacco Use: Cigarettes Assessment/Plan All Active Problems (Last Reviewed 01/11/20 @ 21:[address] Juan Griffin MD) Desire for detoxification (Acute) Periorbital hematoma of right eye (Acute) Alcohol withdrawal (Acute) 1. Acute alcohol withdrawal CIWA score today is 1 on alcohol withdrawal protocol phenobarbital monitor CIWA score 2. Acute right periorbital hematoma Due to mechanical fall. CT scan of fairly orbits confirmed right periorbital hematoma. Ophthalmology consulted. To follow-up with patient on outpatient basis on Wednesday after discharge. 3. Chronic liver disease Due to history of fatty liver as well as chronic hepatitis B and C. Total bilirubin trended up to 4.2 today AST and ALT have also trended upwards as well as ALP. To follow-up with family centered specialist on outpatient basis. 4. Hypokalemia: Potassium is 2.9 today. Magnesium is 1.7. Will replace aggressively. 5. Sinus tachycardia: Patient was transferred to the PCU on account of persistent tachycardia. Will DC albuterol for now. Patient states this is chronic and he used to be on medication for it but he is not been compliant. No record of any beta-oskar in home meds. Will start on low-dose metoprolol 2.5 mg daily. 6. Acute lung contusion: Stable. Does not require oxygen support. Breathing treatments as needed. 7. Hyponatremia: Resolved. 8. Thrombocytopenia: Platelets of 57 today. platelets were 229 in June 2019. Has however been down since September 2019. Was 87 on admission and now 57. Has improved from 53 yesterday. We will continue to trend. 9. Nicotine dependence: Nicotine patch on a milligram daily. . DVT prophylaxis: Low risk. Encourage in the ambulation. No anticoagulation on account of thrombocytopenia and periorbital hematoma. Inpatient E&M: [id number] [facility] Hosp L3
[2020-01-13] MEDS: RisperiDONE 2 MG Tablet PO (22:14)
[2020-01-13] MEDS: hydrOXYzine PAM 25 MG Capsule 50 MG PO (22:25)
[2020-01-14] VITALS (9 sets, daily range): BP systolic 127–132; BP diastolic 72–86; PULSE 75–117; RESP 14–16; TEMP 36.7–37.5; O2SAT 96–98
[2020-01-14] MEDS: traZODone 100 MG Tablet PO ×2 (01:10→21:48)
[2020-01-14] MEDS: Phenobarbital 32.4 MG Tablet PO ×4 (01:10→17:43)
[2020-01-14] MEDS: cloNIDine HCl 0.1 MG Tablet PO (02:15)
[2020-01-14] MEDS: Cefazolin 2 GM in 0.9% Normal Saline 100 ML IV ×3 (06:40→21:48)
[2020-01-14] MEDS: 0.9% Saline Lock 10 ML Syringe IV (06:45)
[2020-01-14 08:43] LABS: Absolute Lymphocyte Count 1.71 X10^3/uL (0.83-4.51); Absolute Neutrophil Count 2.9 X10^3/uL (2.0-7.7); Basophil# 0.08 X10^3/uL; Basophil% 1.4 % (0-1); Eosinophil# 0.14 X10^3/uL; Eosinophils% 2.5 % (0-5); Hematocrit 33.5 % (40-54); Hemoglobin 11.6 g/dL (13.0-16.5); Lymphocyte # 1.71 X10^3/ul (4.0); Lymphocyte % 30.4 % (19-41); Mean Corp Hgb Conc 34.6 g/dL (32-36); Mean Corpuscular Hgb 33.1 pg (27.0-32.0); Mean Corpuscular Volume 95.7 fL (80-94); Monocyte# 0.69 X10^3/uL; Monocyte% 12.3 % (0-10); NRBC Flagged by Analyzer 1.8 % (0-5); Neutrophil # 2.89 X10^3/uL (2.7-7.7); Neutrophil % 51.3 % (47-70); POSITIVE COUNT YES; Platelet Count 97 K/mm3 (150-450); RBC Distribution Width CV 15.3 % (11.6-14.6); RBC Distribution Width SD 52.7 fl (35.1-43.9); White Blood Count 5.6 K/mm3 (4.4-11.0)
[2020-01-14] MEDS: Multivitamins,Therapeutic Tablet 1 TABLET PO (08:44)
[2020-01-14] MEDS: Folic Acid 1 MG Tablet PO (08:44)
[2020-01-14] MEDS: Thiamine Hydrochloride 100 MG Tablet PO (08:44)
[2020-01-14] MEDS: FLUoxetine 20 MG Capsule 40 MG PO (08:44)
[2020-01-14] MEDS: oxyCODONE 5 MG Tablet PO (08:48)
[2020-01-14] MEDS: hydrOXYzine PAM 25 MG Capsule 50 MG PO ×3 (08:48→21:48)
[2020-01-14 09:21] LABS: ALB/GLOB Ratio 0.8 RATIO (0.9-2.4); AST(SGOT) 284 U/L (15-37); Alanine Aminotransfer ALT/SGPT 118 U/L (16-61); Alkaline Phosphatase 248 U/L (45-117); Anion Gap 5 (5-15); BUN 2 mg/dL (7-18); BUN/Creat Ratio 3.3 RATIO (10-20); Calcium,Total 8.5 mg/dL (8.5-10.1); Chloride 106 mmol/L (98-107); EST Glomerular Filtration Rate 168 mL/min (>60); Est Glom Filt Rate - Afr Amer 204 mL/min (>60); Globulin 3.8 g/dL (2.2-4.2); Glucose 118 mg/dL (74-106); Magnesium 1.7 mg/dL (1.6-2.6); Potassium 3.4 mmol/L (3.5-5.1); Protein, Total 6.8 g/dL (6.4-8.2); Sodium Level 138 mmol/L (136-145)
--- NOTE | 2020-01-14 12:18 | PCM.PN.HOSP ---
Patient Problems: Active and Suspected Problems (Last Reviewed 01/11/20 @ 21:[address] Juan Griffin MD) Desire for detoxification (Acute) Periorbital hematoma of right eye (Acute) Subjective: Patient seen and examined. He had no complaints and had an uneventful night. Review of systems otherwise negative. Labs and vitals reviewed. Potassium today is 3.4. Total bilirubin is trended down to 3.5 and AST and ALT as well as ALP are trending down. Vitals/I&O's: Vital Signs Temp Pulse Resp BP Pulse Ox 98.1 F 75 16 129/81 H 96 01/14/20 08:39 01/14/20 08:39 01/14/20 08:39 01/14/20 08:39 01/14/20 08:39 Oxygen Delivery Method Room Air Weight: 186 lb 1.122 oz Body Mass Index (BMI) 27.4 Intake and Output for Last 24 Hours 01/12/20 01/13/20 01/14/20 23:59 23:59 23:59 Intake Total 3910.00 / 3910.00 3902.50 / 4302.50 1010 / 1010 Output Total 325 / 325 3040 / 3040 Balance 3585.00 / 3585.00 862.50 / 1262.50 1010 / 1010 General: Alert, Oriented x3, Cooperative HEENT: PERRLA, EOMI, Normocephalic, - - significant right periorbital hematoma and swelling. Oral: Dry Mucosa Neck: Supple, No JVD, Negative Carotid Bruits Lungs: Clear to auscultation, Normal air movement, No rhonchi, No wheeze Cardiovascular: Regular Rhythm, Normal S1, Normal S2, No murmurs, Tachycardic Abdomen: Bowel Sounds Present, Soft, Non Tender, Non-Distended, No Hepato-splenomegaly Extremities: No clubbing, No cyanosis, No edema, Capillary Refill Less than 3 Seconds Skin: No rashes, No breakdown Musculoskeletal: No Tenderness to Palpation of Joints or Extremities Lymphatic: No Cervical, Supraclavicular, or Inguinal Adenopathy Neurological: Cranial nerves II-XII grossly intact, Neuro grossly intact, Motor Exam 5/5 strength throughout Psych/Mental Status: Normal Affect, Appropriate, Alert and oriented to time, place, person, mood and affect Laboratory Results 01/14/20 08:20: WBC 5.6, RBC 3.50 L, Hgb 11.6 L, Hct 33.5 L, MCV 95.7 H, MCH 33.1 H, MCHC 34.6, RDW Std Deviation 52.7 H, RDW Coeff of Mango 15.3 H, Plt Count 97 L, MPV 10.0, Immature Gran % (Auto) 2.100 H, Neut % (Auto) 51.3, Lymph % (Auto) 30.4, [place] % (Auto) 12.3 H, Eos % (Auto) 2.5, Baso % (Auto) 1.4 H, Absolute Neuts (auto) 2.9, Absolute Lymphs (auto) 1.71, Nucleated RBC % 1.8 01/14/20 08:20: Sodium 138, Potassium 3.4 L, Chloride 106, Carbon Dioxide 27.0, Anion Gap 5, BUN 2 L, Creatinine 0.60 L, Estim Creat Clear Calc 183.30, Est GFR (MDRD) Af Amer 204, Est GFR (MDRD) Non-Af 168, BUN/Creatinine Ratio 3.3 L, Glucose 118 H, Calcium 8.5, Magnesium 1.7, Total Bilirubin 3.50 H, AST 284 H, ALT 118 H, Alkaline Phosphatase 248 H, Total Protein 6.8, Albumin 3.0 L, Globulin 3.8, Albumin/Globulin Ratio 0.8 L Current Medications Clonidine (Catapres) 0.1 mg PO Q6H PRN PRN PRN Reason: HR > 120 . Hold for SBP < 100. Last Admin: 01/14/20 02:15 Dose: 0.1 mg Documented by: Clonidine HCl (Catapres-Tts1) 0.1 mg TRANSDERM. Q7D PENDING SALE TO [facility] Last Admin: 01/12/20 02:22 Dose: 0.1 mg Documented by: Cyclobenzaprine HCl (Flexeril) 10 mg PO TID PRN PRN PRN Reason: muscle spasms Dicyclomine HCl (Bentyl) 20 mg PO Q6H PRN PRN PRN Reason: abdominal discomfort Last Admin: 01/12/20 10:36 Dose: 20 mg Documented by: Fluoxetine HCl (Prozac) 40 mg PO DAILY PENDING SALE TO [facility] Last Admin: 01/14/20 08:44 Dose: 40 mg Documented by: Folic Acid (Folic Acid) 1 mg PO DAILY@0800 PENDING SALE TO [facility] Last Admin: 01/14/20 08:44 Dose: 1 mg Documented by: Gabapentin (Neurontin) 300 mg PO Q8H PRN PRN PRN Reason: moderate to severe anxiety Last Admin: 01/11/20 22:03 Dose: 300 mg Documented by: Hydroxyzine Pamoate (Vistaril Pamoate Capsule) 50 mg PO Q4H PRN PRN PRN Reason: mild anxiety Last Admin: 01/14/20 08:48 Dose: 50 mg Documented by: Cefazolin Sodium 2 gm/ Sodium (Chloride) 110 mls @ 150 mls/hr IV Q8 PENDING SALE TO [facility] Last Infusion: 01/14/20 07:31 Dose: Infused Documented by: Loperamide HCl (Imodium) 2 mg PO Q4H PRN PRN PRN Reason: LOOSE STOOLS [facility]it[facility]) [facility] Last Admin: 01/14/20 08:44 Dose: 1 tablet Documented by: Nicotine (Nicoderm Cq (Pbkc)) 21 mg TRANSDERM. DAILY PENDING SALE TO [facility] Last Admin: 01/14/20 08:44 Dose: 21 mg Documented by: Nutritional Formula (Lactose Free) (Ensure Enlive) 120 ml PO 4X/DAY PENDING SALE TO [facility] Last Admin: 01/14/20 08:48 Dose: 120 ml Documented by: Ondansetron HCl (Zofran) 8 mg PO Q8H PRN PRN PRN Reason: NAUSEA Ondansetron HCl (Zofran) 4 mg IV Q8H PRN PRN PRN Reason: NAUSEA/VOMITING Last Admin: 01/12/20 07:20 Dose: 4 mg Documented by: Oxycodone HCl (Oxyir) 5 mg PO Q6H PRN PRN PRN Reason: Pain Score 6-10/10 Last Admin: 01/14/20 08:48 Dose: 5 mg Documented by: Phenobarbital (Phenobarbital) 64.8 mg PO Q6H PENDING SALE TO [facility]; Taper Stop: 01/16/20 05:59 Last Admin: 01/14/20 11:39 Dose: 64.8 mg Documented by: Risperidone (Risperdal) 2 mg PO QHS PENDING SALE TO [facility] Last Admin: 01/13/20 22:14 Dose: 2 mg Documented by: Senna/Docusate Sodium (Senokot-S, Salma-Colace) 2 tablet PO BID PRN PRN PRN Reason: Constipation Sodium Chloride () 10 - 40 ml IV UD PRN PRN Reason: SALINE FLUSH Last Admin: 01/14/20 06:45 Dose: 10 ml Documented by: Thiamine HCl (Vitamin B1) [facility] Last Admin: 01/14/20 08:44 Dose: 100 mg Documented by: Trazodone HCl (Desyrel) 100 mg PO QHS PENDING SALE TO [facility] Last Admin: 01/14/20 01:10 Dose: 100 mg Documented by: STROKE Vital Signs/Narrative: Vital Signs Temp Pulse Resp BP Pulse Ox 01/14/20 08:39 98.1 F 75 16 129/81 H 96 Medical Necessity - Tobacco Use Smoking Status: Current every day smoker Tobacco Use: Cigarettes Assessment/Plan All Active Problems (Last Reviewed 01/11/20 @ 21:[address] Juan Griffin MD) Desire for detoxification (Acute) Periorbital hematoma of right eye (Acute) Alcohol withdrawal (Acute) 1. Acute alcohol withdrawal CIWA score today is 8 on alcohol withdrawal protocol phenobarbital monitor CIWA score 2. Acute right periorbital hematoma Due to mechanical fall. CT scan of fairly orbits confirmed right periorbital hematoma. Ophthalmology consulted. To follow-up with patient on outpatient basis on Wednesday after discharge. 3. Chronic liver disease Due to history of fatty liver as well as chronic hepatitis B and C. bilirubin, AST and ALT have trended downwards today. will continue to trend. Will need follow up with a stoker installer or loft worker apprentice upon discharge. 4. Hypokalemia: Potassium is 3.4 today. Will replace and monitor. 5. Sinus tachycardia: Heart rate is down to 75 today. Hold off on metoprolol for now. 6. Acute lung contusion: Stable. Does not require oxygen support. Breathing treatments as needed. 7. Hyponatremia: Resolved. 8. Thrombocytopenia: Platelets up to 97 today. We will continue to monitor. Likely due to chronic alcohol abuse. 9. Nicotine dependence: Nicotine patch on a milligram daily. . DVT prophylaxis: Low risk. Encourage in the ambulation. No anticoagulation on account of thrombocytopenia and periorbital hematoma. Inpatient E&M: 70720 [facility] Hosp L2
[2020-01-14] MEDS: Dicyclomine 10 MG Capsule 20 MG PO (14:31)
[2020-01-14] MEDS: cycloBENZAPRine HCl 10 MG Tablet PO (14:31)
[2020-01-14] MEDS: Gabapentin 300 MG Capsule PO (14:31)
[2020-01-14] MEDS: RisperiDONE 2 MG Tablet PO (21:48)
[2020-01-15] MEDS: Phenobarbital 32.4 MG Tablet PO (00:23)
[2020-01-15 03:17] VITALS: PULSE 89
[2020-01-15 03:40] VITALS: BP 140/88; PULSE 96; RESP 16; TEMP 36.9; O2SAT 96
[2020-01-15] MEDS: hydrOXYzine PAM 25 MG Capsule 50 MG PO (04:00)
[2020-01-15 05:40] LABS: Absolute Lymphocyte Count 1.52 X10^3/uL (0.83-4.51); Absolute Neutrophil Count 2.8 X10^3/uL (2.0-7.7); Basophil# 0.07 X10^3/uL; Basophil% 1.3 % (0-1); Eosinophil# 0.13 X10^3/uL; Eosinophils% 2.4 % (0-5); Hemoglobin 11.6 g/dL (13.0-16.5); Lymphocyte # 1.52 X10^3/ul (4.0); Lymphocyte % 27.6 % (19-41); Mean Corp Hgb Conc 35.2 g/dL (32-36); Mean Corpuscular Hgb 33.5 pg (27.0-32.0); Mean Corpuscular Volume 95.4 fL (80-94); Mean Platelet Vol. 9.7 fl (6.2-12.0); Monocyte# 0.84 X10^3/uL; Monocyte% 15.3 % (0-10); NRBC Flagged by Analyzer 1.3 % (0-5); Neutrophil # 2.79 X10^3/uL (2.7-7.7); Neutrophil % 50.7 % (47-70); Platelet Count 128 K/mm3 (150-450); RBC Distribution Width CV 16.5 % (11.6-14.6); RBC Distribution Width SD 54.5 fl (35.1-43.9); Red Blood Count 3.46 M/mm3 (4.6-6.2); White Blood Count 5.5 K/mm3 (4.4-11.0)
--- NOTE | 2020-01-15 05:55 | NURSING ---
Entered room at 0545 to complete pt's morning medications. Pt was up walking in room, he had taken heart monitor off and his IV out. Pt states that he is done with everything and wants to leave AMA. Pt states that the medications are making him too groggy and he just wants to leave, he will go to his brother's house and wait there. Notifed sprayer operator, and Career Counselor, also notified Dr. Griffin. Pt signed AMA papers and left. HEATHER Garcia
[2020-01-15 05:58] LABS: ALB/GLOB Ratio 0.9 RATIO (0.9-2.4); AST(SGOT) 166 U/L (15-37); Alanine Aminotransfer ALT/SGPT 94 U/L (16-61); Albumin, Serum 3.1 g/dL (3.2-5.0); Alkaline Phosphatase 237 U/L (45-117); Anion Gap 9 (5-15); BUN 5 mg/dL (7-18); BUN/Creat Ratio 9.9 RATIO (10-20); Calcium,Total 8.4 mg/dL (8.5-10.1); Chloride 103 mmol/L (98-107); Creatinine, Serum 0.51 mg/dL (0.70-1.30); EST Glomerular Filtration Rate 206 mL/min (>60); Est Glom Filt Rate - Afr Amer 249 mL/min (>60); Estimated Creatinine Clearance 215.64 ml/min; Globulin 3.4 g/dL (2.2-4.2); Glucose 156 mg/dL (74-106); Potassium 3.2 mmol/L (3.5-5.1); Protein, Total 6.5 g/dL (6.4-8.2); Sodium Level 137 mmol/L (136-145)
--- NOTE | 2020-01-15 05:59 | PCM.PN.BLA ---
Progress Note Discharge summary Was notified the patient was admitted for ethanol dependence and withdrawal left AMA. STROKE Vital Signs/Narrative: Vital Signs Temp Pulse Resp BP Pulse Ox 01/15/20 03:40 98.4 F 96 16 140/88 H 96 01/15/20 03:17 89
--- NOTE | 2020-01-15 14:39 | DS.PCM_ITS ---
Discharge Date and Diagnosis Date of Admission: 01/11/20 Date of Discharge: 01/15/20 - Primary Discharge Diagnosis Acute Problems: acute alcohol withdrawal acute right periorbital hematoma hypokalemia sinus tachycardia thrombocytopenia - Secondary Discharge Diagnosis Chronic Problems: Chronic Problems (Last Reviewed 01/11/20 @ 21:[address] Juan Griffin MD) Alcohol dependence (Chronic) Lumbar radiculopathy, acute (Chronic) Bipolar disorder (Chronic) Tobacco use (Chronic) Chronic pancreatitis due to acute alcohol intoxication (Chronic) Chronic pancreatitis (Chronic) Substance abuse in remission (Chronic) Depression with anxiety (Chronic) Hypertension (Chronic) Hepatitis C (Chronic) Hepatitis B (Chronic) H/O emotional problems (Chronic) Seasonal allergies (Chronic) Alcohol dependence (Chronic) Hospital Course and Treatment Imaging Results: Diagnostic Data Brain CT 01/11/20 17:59 IMPRESSION: 1. No evidence of acute intracranial calvarial abnormality. 2. Basal ganglia calcifications, see above. 3. Marked right frontotemporal, preseptal and facial soft tissue swelling and hematoma. Electronically Signed: Milton Portillo DO at 19:34 EDT Tel [phone], Service support , Cervical Spine CT 01/11/20 18:00 IMPRESSION: No acute fracture nor dislocation. Loss of the normal cervical lordosis as may be secondary to positioning and/or muscle spasm. Electronically Signed: Edilia Elizondo MD at 19:19 EDT Tel , Service support , Abdomen/Pelvis CT 01/11/20 18:01 IMPRESSION: 1. Enlarged fatty infiltrated liver unchanged from previous study. 2. Mild ascites not previously noted. 3. No evidence of acute intra-abdominal process or other major interval change. Electronically Signed: Milton Portillo DO at 19:31 EDT Tel [phone], Service support , CT Orbit Sella Inner 01/11/20 18:01 IMPRESSION: Right periorbital hematoma associated with a subcutaneous hematoma overlying the right frontal calvarium. Electronically Signed: Edilia Elizondo MD at 19:23 EDT Tel , Service support , Chest CT 01/11/20 18:01 IMPRESSION: Minimal right upper lobe infiltrates versus less likely contusions. The chest is otherwise grossly unremarkable. Electronically Signed: Milton Portillo DO at 19:47 EDT Tel [phone], Service support , Operations: None Procedures: None Summary of Care Provided: The patient is a 29 year old M with an extensive past medical history as outlined which includes alcohol dependence, bipolar disorder and chronic pancreatitis as well as nicotine dependence and hepatitis B.. He was admitted through the ED on 01/11/2020 with a complaint of symptoms of alcohol withdrawal requiring detox. Patient had been drinking 1 L of vodka daily and the last time he drank was about 40 minutes prior to presentation. He reported nausea and also complained of tremors but denied any vomiting. Patient also said he had had a fall the day before presentation and had sustained a right periorbital hematoma and could not open his right eye. He was admitted and managed for acute alcohol withdrawal and started on alcohol withdrawal protocol with phenobarbital. He was also managed for right periorbital hematoma due to mechanical fall as well as pulmonary contusion. CT. CT of the facial orbits showed right periorbital edema without orbital fracture and chest CT showed minimal right upper lobe infiltrate versus contusion. Patient was on room air and did not require any oxygen supplementation during admission. He was also hypokalemic and this was replaced. Ophthalmology was consulted and reviewed patient and asked that he follow-up on outpatient basis on 01/15/2020. Of note, patient was also to have elevated liver enzymes which was chronic and thought to be due to hepatitis B and C. Patient was also noted to have sinus tachycardia which required him being transferred to the progressive care unit for closer monitoring. He did have a history of sinus tachycardia and had not been compliant with his medication. Plan was to start him on low-dose metoprolol but tachycardia subsequently improved spontaneously. He was also noted to be thrombocytopenic which was chronic. Patient tolerated detox process and plan was to discharge him on 01/15/2020 to follow-up with an outpatient rehab facility. However patient signed out AGAINST MEDICAL ADVICE in the early hours of 01/15/2020. Since patient signed out AGAINST MEDICAL ADVICE in the early hours, hospitalist could not physically examine patient before he left AMA. [] - Physical Exam Vitals/I&O's: Vital Signs Temp Pulse Resp BP Pulse Ox 98.4 F 96 16 140/88 H 96 01/15/20 03:40 01/15/20 03:40 01/15/20 03:40 01/15/20 03:40 01/15/20 03:40 Oxygen Delivery Method Room Air Weight: 186 lb 1.122 oz Body Mass Index (BMI) 27.4 Intake and Output for Last 24 Hours 01/13/20 01/14/20 01/15/20 23:59 23:59 23:59 Intake Total 3902.50 / 4302.50 3230 / 3880 650 / 650 Output Total 3040 / 3040 Balance 862.50 / 1262.50 3230 / 3880 650 / 650 Laboratory Results 01/15/20 05:24: WBC 5.5, RBC 3.46 L, Hgb 11.6 L, Hct 33.0 L, MCV 95.4 H, MCH 33.5 H, MCHC 35.2, RDW Std Deviation 54.5 H, RDW Coeff of Mango 16.5 H, Plt Count 128 L, MPV 9.7, Immature Gran % (Auto) 2.700 H, Neut % (Auto) 50.7, Lymph % (Auto) 27.6, [place] % (Auto) 15.3 H, Eos % (Auto) 2.4, Baso % (Auto) 1.3 H, Absolute Neuts (auto) 2.8, Absolute Lymphs (auto) 1.52, Nucleated RBC % 1.3 01/15/20 05:24: Sodium 137, Potassium 3.2 L, Chloride 103, Carbon Dioxide 25.0, Anion Gap 9, BUN 5 L, Creatinine 0.51 L, Estim Creat Clear Calc 215.64, Est GFR (MDRD) Af Amer 249, Est GFR (MDRD) Non-Af 206, BUN/Creatinine Ratio 9.9 L, Glucose 156 H, Calcium 8.4 L, Total Bilirubin 3.10 H, AST 166 H, ALT 94 H, Alkaline Phosphatase 237 H, Total Protein 6.5, Albumin 3.1 L, Globulin 3.4, Albumin/Globulin Ratio 0.[address] 01/11/20 17:59 IMPRESSION: 1. No evidence of acute intracranial calvarial abnormality. 2. Basal ganglia calcifications, see above. 3. Marked right frontotemporal, preseptal and facial soft tissue swelling and hematoma. Electronically Signed: Milton Portillo DO at 19:34 EDT Tel [phone], Service support , Cervical Spine CT 01/11/20 18:00 IMPRESSION: No acute fracture nor dislocation. Loss of the normal cervical lordosis as may be secondary to positioning and/or muscle spasm. Electronically Signed: Edilia Elizondo MD at 19:19 EDT Tel , Service support , Abdomen/Pelvis CT 01/11/20 18:01 IMPRESSION: 1. Enlarged fatty infiltrated liver unchanged from previous study. 2. Mild ascites not previously noted. 3. No evidence of acute intra-abdominal process or other major interval change. Electronically Signed: Milton Portillo DO at 19:31 EDT Tel [phone], Service support , CT Orbit Sella Inner 01/11/20 18:01 IMPRESSION: Right periorbital hematoma associated with a subcutaneous hematoma overlying the right frontal calvarium. Electronically Signed: Edilia Elizondo MD at 19:23 EDT Tel , Service support , Chest CT 01/11/20 18:01 IMPRESSION: Minimal right upper lobe infiltrates versus less likely contusions. The chest is otherwise grossly unremarkable. Electronically Signed: Milton Portillo DO at 19:47 EDT Tel [phone], Service support , Discharge Diet: No Restrictions Home Medications: Medications to take at Discharge fluoxetine 40 mg capsule 40 mg PO DAILY #90 cap 07/05/19 risperidone 1 mg tablet 2 mg PO QHS 08/17/19 trazodone 50 mg tablet 50 mg PO QHS PRN #90 tab 08/17/19 multivitamin 1 tab PO DAILY #90 tab 09/01/19 vitamin B complex 1 tab PO DAILY #90 tab 09/01/19 Meloxicam [Mobic] 15 mg PO DAILY 01/11/20 cycloBENZAPRine HCl [Flexeril] 10 mg PO TID PRN PRN 01/11/20 Primary Care Physician: Rita Romero NP-C [NON-STAFF] - Please follow up with your Primary Care Physician in: 1-2 weeks Disposition: Against Medical Advice Minutes spent on discharge:: 35 Patient Condition:: Stable Medical Necessity - Tobacco Use Smoking Status: Current every day smoker Tobacco Use: Cigarettes Meaningful Use Info Meaningful Use Diagnoses (Choose all that apply): None applicable Inpatient E&M: 67734 [facility] Hosp
== END 2020-01-15 05:59 | disposition left against medical advice (07) | DRG 770 ==
LOC: ED 20:42 → MS3 21:13 → PCU 01-12 16:54
PROVIDERS: Internal Medicine; Admitting Provider Hospitalist; Emergency Provider Emergency Medicine; PCP Nurse Practitioner Family; Visit Provider Student in an Organized Health Care Education/Training Program
DX: F10.239 Alcohol dependence with withdrawal, unspecified (principal); S00.11XA Contusion of right eyelid and periocular area, initial encounter; S70.11XA Contusion of right thigh, initial encounter; S30.1XXA Contusion of abdominal wall, initial encounter; S27.321A Contusion of lung, unilateral, initial encounter; R00.0 Tachycardia, unspecified; B18.1 Chronic viral hepatitis B without delta-agent; B18.2 Chronic viral hepatitis C; E87.1 Hypo-osmolality and hyponatremia; K86.0 Alcohol-induced chronic pancreatitis; D69.6 Thrombocytopenia, unspecified; W10.9XXA Fall (on) (from) unspecified stairs and steps, initial encounter; Y93.9 Activity, unspecified; Y92.9 Unspecified place or not applicable; F31.9 Bipolar disorder, unspecified; F41.8 Other specified anxiety disorders; I10 Essential (primary) hypertension; F17.210 Nicotine dependence, cigarettes, uncomplicated; J30.2 Other seasonal allergic rhinitis; Z79.899 Other long term (current) drug therapy; E87.6 Hypokalemia; K76.0 Fatty (change of) liver, not elsewhere classified; D72.825 Bandemia; E83.42 Hypomagnesemia; M54.16 Radiculopathy, lumbar region; Z88.0 Allergy status to penicillin; Z91.14 Patient's other noncompliance with medication regimen
CPT/HCPCS: 36415; 70450; 70480; 71260; 72125; 74177; 80048; 80053; 80076; 80307; 80320; 83735; 85025; 85610; 85730; 90715; 93005; 97161; 97802; 99251; 99283; 99406; J7030; J7050; Q9967; A4216; G0463; G0480; J2405

== ENCOUNTER 2020-04-20 13:45 | Inpatient (IN) | payer MEDICAID, SELFPAY ==
[2020-01-11 21:30] VITALS: BMI 27.4
[2020-04-20] VITALS (10 sets, daily range): BP systolic 103–140; BP diastolic 58–95; PULSE 102–125; RESP 16–18; TEMP 36.2–36.8; O2SAT 93–95; BMI 31.3; BMI 32.1; BMI 32.2
[2020-04-20] MEDS: 0.9% Normal Saline 1,000 ML 999 ML IV (14:17)
[2020-04-20] MEDS: Phenobarbital 32.4 MG Tablet 97.2 MG PO (14:17)
[2020-04-20] MEDS: Ondansetron 4 MG/2 ML Vial IV (14:17)
--- NOTE | 2020-04-20 14:18 | ED.VISSUMM ---
- ER Visit Summary Date of Service: 04/20/20 Chief Complaint: Need detox from alcohol History of Present Illness: The patient is a 30 M who reports that he went through rehab in May and was clean for approximately 6 months. Is been drinking a liter of vodka a day for the past few weeks. She had a few shots today. He denies any drug abuse. Does report he smokes half pack per day. Review of systems: General: No fever, chills, cold sweats. Cardiovascular: No chest pain, palpitations. Respiratory: No cough, shortness of breath, dyspnea on exertion. Gastrointestinal: No abdominal pain, nausea, vomiting, diarrhea, melena, or hematochezia. Genitourinary: No dysuria, frequency, hematuria. Skin: No rash. Neuro: No headache, numbness, weakness. Physical Examination: Vitals: Stable. Afebrile. General: Well-nourished and well-developed. Head: Normocephalic atraumatic. Neck: Supple, no lymphadenopathy. No JVD. Nontender. Cardiovascular: Tachycardic regular rhythm. No murmurs. Respiratory: No respiratory distress. Mild wheezing bilaterally with good air movement. Abdominal: Soft, nontender, nondistended, normal bowel sounds. No guarding, rebound, or peritoneal signs. Back: Nontender. Extremities: Nontender, no edema. Skin: Normal color, no rash. Neurologic: Alert and oriented ?3. Cranial nerves II through XII are intact. Normal strength and sensation. Psych: Normal affect. Test Results: Chem-7 shows a glucose 134. LFTs show an ALT of 171 and AST of 95. Tox screen shows marijuana. The remainder of the labs are pending. Emergency Department Course and Treatment: Patient was given albuterol/Atrovent aerosol. He was given Zofran IV. He is resting comfortably. Treatment Plan: Patient was discussed with Dr. Klein. He will be admitted for further evaluation and treatment. Disposition: Admitted in improved condition. Impression: 1. Alcohol abuse. 2. Wheezing. This note was generated with [employer] software. It may contain incorrect words, spelling, and punctuation that were not noted in review of the chart prior to signing ED Disposition - Plan for ED Patient: Referrals: Rita Romero NP, [employer] [Primary Care Provider] -
[2020-04-20] MEDS: Ipratropium/Albuterol Sulfate 3 ML AMPUL.NEB INHALATION (14:21)
[2020-04-20 14:25] LABS: Amphetamine Urine VISTA NEGATIVE (<1000 ng/mL); Barbiturate Urine VISTA NEGATIVE (< 200 ng/mL); Benzodiazepine Urine VISTA NEGATIVE (< 200 ng/mL); Cocaine Urine VISTA NEGATIVE (< 300 ng/mL); Ecstacy Urine VISTA NEGATIVE (< 500 ng/mL); Methadone Urine VISTA NEGATIVE (< 300 ng/mL); PCP Urine VISTA NEGATIVE (< 25 ng/mL); THC Urine VISTA POSITIVE (< 50 ng/mL); Vista UDS pH Range 6
[2020-04-20 14:31] LABS: AST(SGOT) 95 U/L (15-37); Alanine Aminotransfer ALT/SGPT 171 U/L (16-61); Albumin, Serum 4.4 g/dL (3.2-5.0); Alkaline Phosphatase 107 U/L (45-117); Anion Gap 8 (5-15); BUN 8 mg/dL (7-18); Calcium,Total 8.7 mg/dL (8.5-10.1); Chloride 103 mmol/L (98-107); Creatinine, Serum 0.73 mg/dL (0.70-1.30); EST Glomerular Filtration Rate 135 mL/min (>60); Est Glom Filt Rate - Afr Amer 163 mL/min (>60); Estimated Creatinine Clearance 149.31 ml/min; Globulin 4.4 g/dL (2.2-4.2); Glucose 134 mg/dL (74-106); Potassium 3.8 mmol/L (3.5-5.1); Protein, Total 8.8 g/dL (6.4-8.2); Sodium Level 139 mmol/L (136-145)
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
--- NOTE | 2020-04-20 14:43 | CM.ED ---
Social Work Consult: Substance Abuse Informant: Dr. Mcnally Met with patient in room. Introduced self and case management social worker role. Patient agreeable to speak with this case management social worker. Patient reports a desire to discontinue alcohol use/abuse. Patient seeking admission to the [facility] for management of withdrawal symptoms. Patient reports to have diagnosis of Bi-polar and to be on a mood stabilizer. Patient denies any suicidal thoughts/plans/intents. Patient reports to follow with the [facility] for psychiatric services and has a history of counseling but no active counseling. Patient reports plan to follow up with outpatient substance abuse resources after completing [facility] program. Patient verbally agreeing to [facility] contract. Patient with no further questions. Telephone call to Joslyn Oliva. Joslyn updated on patient admission. Joslyn voices plan to see patient tomorrow. PLAN: Admit to [facility]. JAKE Crocker
--- NOTE | 2020-04-20 14:44 | NURSING ---
MED SURG [facility] ALCOHOL ABUSE
--- NOTE | 2020-04-20 14:53 | EKG12_ITS ---
Test Reason : DYSRHYTHMIA Blood Pressure : / mmHG Vent. Rate : 106 BPM Atrial Rate : 106 BPM P-R Int : 146 ms QRS Dur : 094 ms QT Int : 352 ms P-R-T Axes : 045 036 035 degrees QTc Int : 467 ms Sinus tachycardia Otherwise normal ECG Confirmed by TREE HOANG, MAGDALENO ([id number]), technical writer and editor KAREEM SAUER ([id number]) on 04/23/2020 9:12:55 AM Referred By: MALLORY Confirmed By:MAGDALENO LEAVITT MD
[2020-04-20] MEDS: Phenobarbital 32.4 MG Tablet 64.8 MG PO ×3 (16:05→23:03)
[2020-04-20] MEDS: Metoprolol Tartrate 25 MG Tablet 12.5 MG PO ×2 (16:05→22:58)
[2020-04-20] MEDS: LORazepam 1 MG Tablet 2 MG PO (16:07)
[2020-04-20] MEDS: RisperiDONE 1 MG Tablet 2 MG PO (22:58)
[2020-04-20] MEDS: traZODone 50 MG Tablet 200 MG PO (23:03)
[2020-04-21] VITALS (10 sets, daily range): BP systolic 123–152; BP diastolic 82–101; PULSE 75–111; RESP 16–18; TEMP 36.6–37; O2SAT 92–97
[2020-04-21] MEDS: Phenobarbital 32.4 MG Tablet 64.8 MG PO ×5 (03:34→20:53)
[2020-04-21 06:14] LABS: Absolute Lymphocyte Count 2.68 X10^3/uL (0.83-4.51); Absolute Neutrophil Count 3.7 X10^3/uL (2.0-7.7); Basophil# 0.06 X10^3/uL; Basophil% 0.8 % (0-1); Eosinophil# 0.15 X10^3/uL; Hematocrit 42.9 % (40-54); Hemoglobin 15.4 g/dL (13.0-16.5); Lymphocyte # 2.68 X10^3/ul (4.0); Lymphocyte % 35.1 % (19-41); Mean Corp Hgb Conc 35.9 g/dL (32-36); Mean Corpuscular Volume 92.1 fL (80-94); Monocyte# 1.04 X10^3/uL; Monocyte% 13.6 % (0-10); NRBC Flagged by Analyzer 0 % (0-5); Neutrophil # 3.67 X10^3/uL (2.7-7.7); Platelet Count 278 K/mm3 (150-450); RBC Distribution Width CV 12.2 % (11.6-14.6); RBC Distribution Width SD 40.7 fl (35.1-43.9); Red Blood Count 4.66 M/mm3 (4.6-6.2); White Blood Count 7.6 K/mm3 (4.4-11.0)
[2020-04-21 06:43] LABS: AST(SGOT) 73 U/L (15-37); Alanine Aminotransfer ALT/SGPT 131 U/L (16-61); Albumin, Serum 3.6 g/dL (3.2-5.0); Alkaline Phosphatase 86 U/L (45-117); Anion Gap 5 (5-15); BUN 12 mg/dL (7-18); BUN/Creat Ratio 15.9 RATIO (10-20); Calcium,Total 8.1 mg/dL (8.5-10.1); Chloride 106 mmol/L (98-107); Creatinine, Serum 0.75 mg/dL (0.70-1.30); EST Glomerular Filtration Rate 130 mL/min (>60); Est Glom Filt Rate - Afr Amer 157 mL/min (>60); Globulin 3.6 g/dL (2.2-4.2); Glucose 97 mg/dL (74-106); Potassium 3.7 mmol/L (3.5-5.1); Protein, Total 7.2 g/dL (6.4-8.2); Sodium Level 138 mmol/L (136-145)
--- NOTE | 2020-04-21 07:46 | PN_ITS ---
Subjective: Patient seen and examined. No active events overnight. He still remains tachycardic with heart rate at 111. He has otherwise remained hemodynamically stable. Vitals/I&O's: Vital Signs Temp Pulse Resp BP Pulse Ox 98.1 F 111 H 16 125/95 H 92 04/21/20 03:38 04/21/20 03:59 04/21/20 03:38 04/21/20 03:38 04/21/20 03:38 Oxygen Delivery Method Room Air Weight: 211 lb 10.3 oz Body Mass Index (BMI) 32.1 Intake and Output for Last 24 Hours 04/19/20 04/20/20 04/21/20 23:59 23:59 23:59 Intake Total 2039 Balance 2039 General: Alert, Oriented x3, Cooperative, No apparent distress HEENT: Atraumatic, PERRLA, EOMI, Normocephalic Oral: Dry Mucosa Neck: Supple, No JVD, Negative Carotid Bruits Lungs: Clear to auscultation, Normal air movement, No rhonchi, No wheeze, No rales Cardiovascular: Normal S1, Normal S2, No murmurs, Tachycardic Abdomen: Bowel Sounds Present, Soft, Non Tender Extremities: No edema, Capillary Refill Less than 3 Seconds Skin: No rashes, No breakdown Musculoskeletal: No Tenderness to Palpation of Joints or Extremities Lymphatic: No Cervical, Supraclavicular, or Inguinal Adenopathy Neurological: Cranial nerves II-XII grossly intact, Neuro grossly intact, Motor Exam 5/5 strength throughout Psych/Mental Status: Normal Affect, Appropriate, Alert and oriented to time, place, person, mood and affect Laboratory Results 04/20/20 14:05: Sodium 139, Potassium 3.8, Chloride 103, Carbon Dioxide 28.0, Anion Gap 8, BUN 8, Creatinine 0.73, Estim Creat Clear Calc 149.31, Est GFR (MDRD) Af Amer 163, Est GFR (MDRD) Non-Af 135, BUN/Creatinine Ratio 11.0, Glucose 134 H, Calcium 8.7, Total Bilirubin 0.30, AST 95 H, ALT 171 H, Alkaline Phosphatase 107, Total Protein 8.8 H, Albumin 4.4, Globulin 4.4 H, Albumin/Globulin Ratio 1.0 04/20/20 14:05: Ethyl Alcohol 396.0 H* 04/20/20 14:05: Urine Opiates Screen NEGATIVE, Urine Methadone Screen NEGATIVE, Ur Barbiturates Screen NEGATIVE, Ur Phencyclidine Scrn NEGATIVE, Ur Amphetamines Screen NEGATIVE, U Methamphetamin-MDMA NEGATIVE, U Benzodiazepines Scrn NEGATIVE, Urine Cocaine Screen NEGATIVE, U Cannabinoids Screen POSITIVE H, Ur Drug Screen Comment 04/21/20 05:44: WBC 7.6, RBC 4.66, Hgb 15.4, Hct 42.9, MCV 92.1, MCH 33.0 H, MCHC 35.9, RDW Std Deviation 40.7, RDW Coeff of Mango 12.2, Plt Count 278, MPV 9.0, Immature Gran % (Auto) 0.500, Neut % (Auto) 48.0, Lymph % (Auto) 35.1, Early % (Auto) 13.6 H, Eos % (Auto) 2.0, Baso % (Auto) 0.8, Absolute Neuts (auto) 3.7, Absolute Lymphs (auto) 2.68, Nucleated RBC % 0 04/21/20 05:44: Sodium 138, Potassium 3.7, Chloride 106, Carbon Dioxide 27.0, Anion Gap 5, BUN 12, Creatinine 0.75, Estim Creat Clear Calc 140.60, Est GFR (MDRD) Af Amer 157, Est GFR (MDRD) Non-Af 130, BUN/Creatinine Ratio 15.9, Glucose 97, Calcium 8.1 L, Total Bilirubin 0.60, AST 73 H, ALT 131 H, Alkaline Phosphatase 86, Total Protein 7.2, Albumin 3.6, Globulin 3.6, Albumin/Globulin Ratio 1.0 Current Medications Albuterol Sulfate (Albuterol 2.5 Mg/3 Ml Vial.Neb.) 2.5 mg INHALATION Q2H PRN PRN PRN Reason: sob/wheezing Dicyclomine HCl (Dicyclomine 10 Mg Capsule) 20 mg PO Q6H PRN PRN PRN Reason: abdominal discomfort Fluoxetine HCl (Fluoxetine 20 Mg Capsule) 40 mg PO DAILY SHERYL Folic Acid (Folic Acid 1 Mg Tablet) 1 mg PO DAILY@0800 SHERYL Gabapentin (Gabapentin 300 Mg Capsule) 300 mg PO Q8H PRN PRN PRN Reason: moderate to severe anxiety Hydroxyzine Pamoate (Hydroxyzine Vanna 25 Mg Capsule) 50 mg PO Q4H PRN PRN PRN Reason: mild anxiety Loperamide HCl (Loperamide 2 Mg Capsule) 2 mg PO Q4H PRN PRN PRN Reason: LOOSE STOOLS Lorazepam (Lorazepam 1 Mg Tablet) 2 mg PO Q2H PRN PRN; Protocol PRN Reason: CIWA score > 8 but <15 Last Admin: 04/20/20 16:07 Dose: 2 mg Documented by: Lorazepam (Lorazepam 1 Mg Tablet) 2 mg PO UD PRN; Protocol PRN Reason: CIWA score >/=15. Lorazepam (Lorazepam 2 Mg/Ml Syringe) 2 mg IV Q2H PRN PRN; Protocol PRN Reason: CIWA score > 8 but <15 Lorazepam (Lorazepam 2 Mg/Ml Syringe) 2 mg IV UD PRN; Protocol PRN Reason: CIWA score >/=15. Metoprolol Tartrate (Metoprolol Tartrate 25 Mg Tablet) 12.5 mg PO BID [facility] Last Admin: 04/20/20 22:58 Dose: 12.5 mg Documented by: Multivitamins (Multivitamins,Therapeutic Tablet) 1 tablet PO DAILYCM [facility] Nicotine (Nicotine 21 Mg Patch) 21 mg TD DAILY [facility] Last Admin: 04/20/20 16:34 Dose: 21 mg Documented by: Nitroglycerin (Nitroglycerin (Inpatient Use) 0.4 Mg Tab.Subl) 0.4 mg SUBLINGUAL Q5M PRN PRN Reason: CARDIAC/CHEST PAIN Ondansetron HCl (Ondansetron 8 Mg Tablet) 8 mg PO Q8H PRN PRN PRN Reason: NAUSEA Ondansetron HCl (Ondansetron 4 Mg/2 Ml Vial) 4 mg IV Q8H PRN PRN PRN Reason: NAUSEA/VOMITING Phenobarbital (Phenobarbital 32.4 Mg Tablet) 97.2 mg PO Q4H [facility]; Taper Stop: 04/24/20 23:59 Last Admin: 04/21/20 03:34 Dose: 97.2 mg Documented by: Risperidone (Risperidone 1 Mg Tablet) 2 mg PO QHS [facility] Last Admin: 04/20/20 22:58 Dose: 2 mg Documented by: Sodium Chloride (0.9% Saline Lock 10 Ml Syringe) 10 - 40 ml IV UD PRN PRN Reason: SALINE FLUSH Thiamine HCl (Thiamine Hydrochloride 100 Mg Tablet) 100 mg PO DAILYCM SHERYL Trazodone HCl (Trazodone 50 Mg Tablet) 200 mg PO QHS PRN PRN Reason: sleep Last Admin: 04/20/20 23:03 Dose: 100 mg Documented by: STROKE Vital Signs/Narrative: Vital Signs Pulse 04/21/20 03:59 111 H Medical Necessity - Tobacco Use Smoking Status: Current every day smoker Assessment/Plan All Active Problems (Last Reviewed 01/11/20 @ 21:[address] Juan Griffin MD) Desire for detoxification (Acute) Periorbital hematoma of right eye (Acute) Alcohol withdrawal (Acute) 30-year-old male admitted with a complaint of acute alcohol withdrawal. # Acute alcohol withdrawal * on alcohol withdrawal protocol with phenobarbital * CIWA score this morning is 4 * P.o. Multivite, folic acid and thiamine. * #Elevated liver enzymes: * AST and AL T are mildly elevated. Does have a history of hepatitis C. * Counseled that he will need to remain sober for likely 6-month before he can be considered for treatment of hepatitis C. #Sinus tachycardia: * Heart rate is up in the low 100s and 110s. * This is a chronic problem as patient has had on previous admissions. * started on metoprolol 12.5mg bid. WIll monitor HR. * #Nicotine dependence: Counseled to quit. Nicotine patch 21 mg daily. DVT prophylaxis: Low risk. Encourage ambulation. Inpatient E&M: 76661 Subs Hosp L2
[2020-04-21] MEDS: Thiamine Hydrochloride 100 MG Tablet PO (08:26)
[2020-04-21] MEDS: Folic Acid 1 MG Tablet PO (08:26)
[2020-04-21] MEDS: Multivitamins,Therapeutic Tablet 1 TABLET PO (08:26)
[2020-04-21] MEDS: Metoprolol Tartrate 25 MG Tablet 12.5 MG PO ×2 (08:26→20:56)
[2020-04-21] MEDS: FLUoxetine 20 MG Capsule 40 MG PO (08:28)
[2020-04-21] MEDS: LORazepam 1 MG Tablet 2 MG PO ×2 (08:30→17:34)
[2020-04-21] MEDS: RisperiDONE 1 MG Tablet 2 MG PO (20:55)
[2020-04-21] MEDS: traZODone 50 MG Tablet 200 MG PO (20:55)
[2020-04-22] VITALS (10 sets, daily range): BP systolic 115–124; BP diastolic 77–86; PULSE 64–98; RESP 16; TEMP 36.6–36.9; O2SAT 94–98
[2020-04-22] MEDS: Phenobarbital 32.4 MG Tablet 64.8 MG PO ×5 (00:24→16:24)
--- NOTE | 2020-04-22 07:38 | PN_ITS ---
Subjective: Patient seen and examined. He had no complaints this morning. Review systems otherwise negative. Vitals/I&O's: Vital Signs Temp Pulse Resp BP Pulse Ox 98.5 F 64 16 115/77 94 04/22/20 04:35 04/22/20 04:35 04/22/20 04:35 04/22/20 04:35 04/22/20 04:35 Oxygen Delivery Method Room Air Weight: 211 lb 10.3 oz Body Mass Index (BMI) 32.1 Intake and Output for Last 24 Hours 04/20/20 04/21/20 04/22/20 23:59 23:59 23:59 Intake Total 2039 590 / 740 350 / 350 Balance 2039 590 / 740 350 / 350 General: Alert, Oriented x3, Cooperative, No apparent distress HEENT: Atraumatic, PERRLA, EOMI, Normocephalic Oral: Dry Mucosa Neck: Supple, No JVD, Negative Carotid Bruits Lungs: Clear to auscultation, Normal air movement, No rhonchi, No wheeze, No rales Cardiovascular: Normal S1, Normal S2, No murmurs, Tachycardic Abdomen: Bowel Sounds Present, Soft, Non Tender Extremities: No edema, Capillary Refill Less than 3 Seconds Skin: No rashes, No breakdown Musculoskeletal: No Tenderness to Palpation of Joints or Extremities Lymphatic: No Cervical, Supraclavicular, or Inguinal Adenopathy Neurological: Cranial nerves II-XII grossly intact, Neuro grossly intact, Motor Exam 5/5 strength throughout Psych/Mental Status: Normal Affect, Appropriate, Alert and oriented to time, place, person, mood and affect Current Medications Albuterol Sulfate (Albuterol 2.5 Mg/3 Ml Vial.Neb.) 2.5 mg INHALATION Q2H PRN PRN PRN Reason: sob/wheezing Dicyclomine HCl (Dicyclomine 10 Mg Capsule) 20 mg PO Q6H PRN PRN PRN Reason: abdominal discomfort Fluoxetine HCl (Fluoxetine 20 Mg Capsule) 40 mg PO DAILY [facility] Last Admin: 04/21/20 08:28 Dose: 40 mg Documented by: Folic Acid (Folic Acid 1 Mg Tablet) 1 mg PO DAILY@0800 [facility] Last Admin: 04/21/20 08:26 Dose: 1 mg Documented by: Gabapentin (Gabapentin 300 Mg Capsule) 300 mg PO Q8H PRN PRN PRN Reason: moderate to severe anxiety Hydroxyzine Pamoate (Hydroxyzine Vanna 25 Mg Capsule) 50 mg PO Q4H PRN PRN PRN Reason: mild anxiety Loperamide HCl (Loperamide 2 Mg Capsule) 2 mg PO Q4H PRN PRN PRN Reason: LOOSE STOOLS Lorazepam (Lorazepam 1 Mg Tablet) 2 mg PO Q2H PRN PRN; Protocol PRN Reason: CIWA score > 8 but <15 Last Admin: 04/21/20 17:34 Dose: 2 mg Documented by: Lorazepam (Lorazepam 1 Mg Tablet) 2 mg PO UD PRN; Protocol PRN Reason: CIWA score >/=15. Lorazepam (Lorazepam 2 Mg/Ml Syringe) 2 mg IV Q2H PRN PRN; Protocol PRN Reason: CIWA score > 8 but <15 Lorazepam (Lorazepam 2 Mg/Ml Syringe) 2 mg IV UD PRN; Protocol PRN Reason: CIWA score >/=15. Metoprolol Tartrate (Metoprolol Tartrate 25 Mg Tablet) 12.5 mg PO BID [facility] Last Admin: 04/21/20 20:56 Dose: 12.5 mg Documented by: Multivitamins ([facility]it[facility],Therapeutic Tablet) [facility] Last Admin: 04/21/20 08:26 Dose: 1 tablet Documented by: Nicotine (Nicotine 21 Mg Patch) 21 mg TD DAILY [facility] Last Admin: 04/21/20 08:27 Dose: 21 mg Documented by: Nitroglycerin (Nitroglycerin (Inpatient Use) 0.4 Mg Tab.Subl) 0.4 mg SUBLINGUAL Q5M PRN PRN Reason: CARDIAC/CHEST PAIN Ondansetron HCl (Ondansetron 8 Mg Tablet) 8 mg PO Q8H PRN PRN PRN Reason: NAUSEA Ondansetron HCl (Ondansetron 4 Mg/2 Ml Vial) 4 mg IV Q8H PRN PRN PRN Reason: NAUSEA/VOMITING Phenobarbital (Phenobarbital 32.4 Mg Tablet) 64.8 mg PO Q4H [facility]; Taper Stop: 04/24/20 23:59 Last Admin: 04/22/20 04:40 Dose: 64.8 mg Documented by: Risperidone (Risperidone 1 Mg Tablet) 2 mg PO QHS [facility] Last Admin: 04/21/20 20:55 Dose: 2 mg Documented by: Sodium Chloride (0.9% Saline Lock 10 Ml Syringe) 10 - 40 ml IV UD PRN PRN Reason: SALINE FLUSH Thiamine HCl (Thiamine Hydrochloride 100 Mg Tablet) 100 mg PO DAILYCM [facility] Last Admin: 04/21/20 08:26 Dose: 100 mg Documented by: Trazodone HCl (Trazodone 50 Mg Tablet) 200 mg PO QHS PRN PRN Reason: sleep Last Admin: 04/21/20 20:55 Dose: 100 mg Documented by: STROKE Vital Signs/Narrative: Vital Signs Temp Pulse Resp BP Pulse Ox 04/22/20 04:35 98.5 F 64 16 115/77 94 04/22/20 03:57 86 Medical Necessity - Tobacco Use Smoking Status: Current every day smoker Assessment/Plan All Active Problems (Last Reviewed 01/11/20 @ 21:[address] Juan Griffin MD) Desire for detoxification (Acute) Periorbital hematoma of right eye (Acute) Alcohol withdrawal (Acute) 30-year-old male admitted with a complaint of acute alcohol withdrawal. # Acute alcohol withdrawal * on alcohol withdrawal protocol with phenobarbital * CIWA score this morning is1 * P.o. Multivite, folic acid and thiamine. * #Elevated liver enzymes: * AST and AL T are mildly elevated. Does have a history of hepatitis C. * Counseled that he will need to remain sober for likely 6-month before he can be considered for treatment of hepatitis C. #Sinus tachycardia: * on metoprolol 12.5mg bid. HR is now down in the 60s. * #Nicotine dependence: Counseled to quit. Nicotine patch 21 mg daily. DVT prophylaxis: Low risk. Encourage ambulation. Inpatient E&M: 35694 Subs Hosp L2
[2020-04-22] MEDS: Multivitamins,Therapeutic Tablet 1 TABLET PO (08:02)
[2020-04-22] MEDS: Folic Acid 1 MG Tablet PO (08:02)
[2020-04-22] MEDS: Thiamine Hydrochloride 100 MG Tablet PO (08:04)
[2020-04-22] MEDS: Metoprolol Tartrate 25 MG Tablet 12.5 MG PO (10:25)
[2020-04-22] MEDS: FLUoxetine 20 MG Capsule 40 MG PO (10:26)
--- NOTE | 2020-04-22 11:49 | ADDICTION ---
This contract technical writer met with patient in his room to confirm d/c plans. patient refused clinical coordination but requested to meet with peer support. This contract technical writer has informed peer support of his interest. He did not report a need for transportation following d/c.
--- NOTE | 2020-04-22 17:52 | NURSING ---
CALLED TO ROOM BY PATIENT, REQUESTS AMA PAPERS TO LEAVE THIS EVENING. STATES I KNOW THIS IS A VOLUNTARY PROGRAM & I WANT TO LEAVE. THIS DECISION WAS MADE AFTER A VISIT FROM [employer] VISITOR, PARUL. WHEN ASKED WHO WILL BE TAKING PATIENT HOME, PATIENT ANSWERED, I THOUGHT I SHOULD GO WHILE PARUL FROM [employer] WAS HERE TO GIVE ME A RIDE. STATES BEING WORRIED ABOUT LOSING JOB WHILE BEING IN HOSPITAL. AMA PAPER SIGNED, COPY GIVEN TO PATIENT ALONG WITH WORK RELEASE GIVING DATES OF ADMISSION & D/C FROM [facility].
--- NOTE | 2020-04-25 16:10 | PCM.DC.SUM ---
Discharge Date and Diagnosis Date of Admission: 04/20/20 Date of Discharge: 04/22/20 - Primary Discharge Diagnosis Acute Problems: acute alcohol withdrawal - Secondary Discharge Diagnosis Chronic Problems: Chronic Problems (Last Reviewed 01/11/20 @ 21:[address] Juan Griffin MD) Alcohol dependence (Chronic) Lumbar radiculopathy, acute (Chronic) Bipolar disorder (Chronic) Tobacco use (Chronic) Chronic pancreatitis due to acute alcohol intoxication (Chronic) Chronic pancreatitis (Chronic) Substance abuse in remission (Chronic) Depression with anxiety (Chronic) Hypertension (Chronic) Hepatitis C (Chronic) Hepatitis B (Chronic) H/O emotional problems (Chronic) Seasonal allergies (Chronic) Alcohol dependence (Chronic) Hospital Course and Treatment Operations: None Procedures: None Summary of Care Provided: The patient is a 30 year old M with a past medical history of alcohol dependence as well as nicotine dependence. He was admitted through the ED on 04/20/2020 for acute alcohol withdrawal. Patient was last seen here in December 2019 for similar complaints. He states he last had a drink on the day of admission and states he try to cut down on his drinking. However he still drinks copiously and drinks about a liter of vodka daily. He also smokes half pack daily. He admits to palpitations and nausea and some tremors. However review of systems otherwise negative. ED, vitals were significant for temperature of 98 Fahrenheit with blood pressure of 131/94, pulse rate of 104 and respiratory rate of 16. Serum alcohol level was 396. Urine tox was also positive for cannabinoids. Chemistry showed AST of 95 and ALT of 171 as well as ALP of 107. He does have a history of hepatitis C. He was admitted to be managed for acute alcohol withdrawal. Patient was started on alcohol withdrawal protocol with phenobarbital. He tolerated detox process. However on the evening of 04/22/2020, patient signed out AGAINST MEDICAL ADVICE. Patient was seen on day of discharge and had no complaints. Review of systems was otherwise negative. O/E: Vital Signs Temp Pulse Resp BP Pulse Ox 98.4 F 86 16 124/86 H 98 04/22/20 13:22 04/22/20 17:22 04/22/20 13:22 04/22/20 13:22 04/22/20 13:22 General: Alert, Oriented x3, Cooperative, No apparent distress HEENT: Atraumatic, PERRLA, EOMI, Normocephalic Oral: Dry Mucosa Neck: Supple, No JVD, Negative Carotid Bruits Lungs: Clear to auscultation, Normal air movement, No rhonchi, No wheeze, No rales Cardiovascular: Normal S1, Normal S2, No murmurs, Tachycardic Abdomen: Bowel Sounds Present, Soft, Non Tender Extremities: No edema, Capillary Refill Less than 3 Seconds Skin: No rashes, No breakdown Musculoskeletal: No Tenderness to Palpation of Joints or Extremities Lymphatic: No Cervical, Supraclavicular, or Inguinal Adenopathy Neurological: Cranial nerves II-XII grossly intact, Neuro grossly intact, Motor Exam 5/5 strength throughout Psych/Mental Status: Normal Affect, Appropriate, Alert and oriented to time, place, person, mood and affect Note, during patient's stay, he also has sinus tachycardia which is a longstanding problem he was started on p.o. metoprolol 12.5 mg daily. Patient's fast heart rate subsequently improved. He signed out AGAINST MEDICAL ADVICE on 04/22/2020 - Physical Exam Vitals/I&O's: Vital Signs Temp Pulse Resp BP Pulse Ox 98.4 F 86 16 124/86 H 98 04/22/20 13:22 04/22/20 17:22 04/22/20 13:22 04/22/20 13:22 04/22/20 13:22 Oxygen Delivery Method Room Air Weight: 211 lb 10.3 oz Body Mass Index (BMI) 32.1 Home Medications: Medications to take at Discharge fluoxetine 40 mg capsule 40 mg PO DAILY #90 cap 07/05/19 risperidone 1 mg tablet 2 mg PO QHS 08/17/19 Albuterol Sulfate [Albuterol Sulfate HFA] 2 puff INHALATION Q4H PRN 04/20/20 Lisinopril [Zestril] 10 mg PO DAILY 04/20/20 Multivitamin [Multivitamins] 1 tab PO DAILY 04/20/20 hydrOXYzine pamoate capsule [Vistaril pamoate capsule] 25 mg PO BID 04/20/20 traZODone [Desyrel] 200 mg PO QHS 04/20/20 Primary Care Physician: Rita Romero NP, PERSONAL CARE WORKER-C [Primary Care Provider] - Disposition: Against Medical Advice Minutes spent on discharge:: 40 Patient Condition:: Fair Medical Necessity - Tobacco Use Smoking Status: Current every day smoker Meaningful Use Info Meaningful Use Diagnoses (Choose all that apply): None applicable Inpatient E&M: 34792 Disch Hosp
== END 2020-04-22 18:20 | disposition left against medical advice (07) | DRG 770 ==
LOC: ED 14:16 → MS3 14:50
PROVIDERS: Admitting Provider Student in an Organized Health Care Education/Training Program; Emergency Provider Emergency Medicine; PCP Nurse Practitioner Family; Visit Provider Student in an Organized Health Care Education/Training Program
DX: F10.239 Alcohol dependence with withdrawal, unspecified (principal); Y90.8 Blood alcohol level of 240 mg/100 ml or more; B18.1 Chronic viral hepatitis B without delta-agent; B18.2 Chronic viral hepatitis C; K86.0 Alcohol-induced chronic pancreatitis; R00.0 Tachycardia, unspecified; Z53.21 Procedure and treatment not carried out due to patient leaving prior to being seen by health care provider; F31.9 Bipolar disorder, unspecified; I10 Essential (primary) hypertension; F41.8 Other specified anxiety disorders; Z87.19 Personal history of other diseases of the digestive system; M54.16 Radiculopathy, lumbar region; Z79.899 Other long term (current) drug therapy; F17.200 Nicotine dependence, unspecified, uncomplicated
CPT/HCPCS: 36415; 80053; 80307; 80320; 85025; 93005; 94640; 99283; 99406; J7030; A4216; G0480; J2405

== ENCOUNTER 2020-06-07 19:36 | Inpatient (IN) | payer MEDICAID, SELFPAY ==
[2020-04-20 15:38] VITALS: BMI 32.1
[2020-06-07 19:37] VITALS: BP 140/97; PULSE 132; RESP 18; TEMP 36.4; O2SAT 93; BMI 30.2
[2020-06-07 20:22] LABS: Absolute Lymphocyte Count 5.99 X10^3/uL (0.83-4.51); Absolute Neutrophil Count 3.7 X10^3/uL (2.0-7.7); Basophil# 0.09 X10^3/uL; Basophil% 0.9 % (0-1); Eosinophil# 0.06 X10^3/uL; Eosinophils% 0.6 % (0-5); Hematocrit 52.4 % (40-54); Lymphocyte # 5.99 X10^3/ul (4.0); Lymphocyte % 57.4 % (19-41); Mean Corp Hgb Conc 35.3 g/dL (32-36); Mean Corpuscular Volume 90.7 fL (80-94); Mean Platelet Vol. 8.6 fl (6.2-12.0); Monocyte# 0.54 X10^3/uL; Monocyte% 5.2 % (0-10); NRBC Flagged by Analyzer 0 % (0-5); Neutrophil # 3.69 X10^3/uL (2.7-7.7); Neutrophil % 35.2 % (47-70); POSITIVE DIFFERENTIAL YES; POSITIVE MORPHOLOGY YES; Platelet Count 338 K/mm3 (150-450); RBC Distribution Width CV 12.9 % (11.6-14.6); RBC Distribution Width SD 43.1 fl (35.1-43.9); Red Blood Count 5.78 M/mm3 (4.6-6.2); White Blood Count 10.4 K/mm3 (4.4-11.0)
[2020-06-07 20:24] LABS: Differential Indicated SCAN CRITERIA MET
[2020-06-07 20:25] LABS: Hemoglobin 18.5 g/dL (13.0-16.5)
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
[2020-06-07 20:36] VITALS: BP 139/79; PULSE 99; RESP 19; O2SAT 99
[2020-06-07 20:37] LABS: ALB/GLOB Ratio 0.9 RATIO (0.9-2.4); AST(SGOT) 113 U/L (15-37); Alanine Aminotransfer ALT/SGPT 144 U/L (16-61); Albumin, Serum 4.3 g/dL (3.2-5.0); Alkaline Phosphatase 122 U/L (45-117); Anion Gap 13 (5-15); BUN 11 mg/dL (7-18); BUN/Creat Ratio 12.9 RATIO (10-20); Calcium,Total 8.3 mg/dL (8.5-10.1); Chloride 100 mmol/L (98-107); Creatinine, Serum 0.86 mg/dL (0.70-1.30); EST Glomerular Filtration Rate 112 mL/min (>60); Est Glom Filt Rate - Afr Amer 136 mL/min (>60); Estimated Creatinine Clearance 126.74 ml/min; Globulin 4.8 g/dL (2.2-4.2); Glucose 89 mg/dL (74-106); Protein, Total 9.1 g/dL (6.4-8.2); Sodium Level 135 mmol/L (136-145)
[2020-06-07 20:48] LABS: Differential Comment SCANNED
--- NOTE | 2020-06-07 20:50 | RAD_ITS ---
STUDY: X-RAY CHEST REASON FOR EXAM: Male, 30 years old. substance abuse. drinks 1 bottle of vodka per day. TECHNIQUE: Single AP portable view of the chest. COMPARISON: None. FINDINGS: The lungs are clear and expanded. There is no demonstrated pleural abnormality. Normal size heart. Normal mediastinum and yash. Normal visualized pulmonary arteries. Normal visualized aortic arch and descending thoracic aorta. Normal visualized thoracic spine. Normal visualized ribs, clavicles, and shoulders. There is no demonstrated abnormality of the visualized soft tissue structures of the upper abdomen. RAD/Chest 1 View (Portable) IMPRESSION: Normal x-ray examination of the chest. Electronically Signed: Rene Heredia MD at 21:04 EST , Service support ,
[2020-06-07 21:24] LABS: Amphetamine Urine VISTA NEGATIVE (<1000 ng/mL); Barbiturate Urine VISTA NEGATIVE (< 200 ng/mL); Benzodiazepine Urine VISTA NEGATIVE (< 200 ng/mL); Cocaine Urine VISTA NEGATIVE (< 300 ng/mL); Ecstacy Urine VISTA NEGATIVE (< 500 ng/mL); Methadone Urine VISTA NEGATIVE (< 300 ng/mL); PCP Urine VISTA NEGATIVE (< 25 ng/mL); THC Urine VISTA POSITIVE (< 50 ng/mL); Vista UDS pH Range 5
[2020-06-07 22:00] VITALS: BP 139/87; PULSE 99; RESP 18; O2SAT 98
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
[2020-06-07 23:00] VITALS: PULSE 99
[2020-06-07 23:02] VITALS: BP 139/79; PULSE 99; RESP 18; TEMP 36.9; O2SAT 98
[2020-06-08] VITALS (10 sets, daily range): BP systolic 130–152; BP diastolic 76–103; PULSE 90–131; RESP 16–19; TEMP 36.7–37.1; O2SAT 92–98; BMI 30.2
[2020-06-08] MEDS: Ondansetron 4 MG/2 ML Vial IV (00:08)
--- NOTE | 2020-06-08 02:27 | NURSING ---
Emergency charting as of 06/08/20 at 0145.
[2020-06-08] MEDS: Phenobarbital 32.4 MG Tablet 64.8 MG PO ×5 (06:09→22:26)
--- NOTE | 2020-06-08 07:43 | PCM.PN.HOSP ---
Patient Problems: Active and Suspected Problems (Last Reviewed 06/08/20 @ 07:[address] Juan Griffin MD) Desire for detoxification (Acute) Alcohol intoxication (Acute) Reason for Visit: Acute alcohol withdrawal Subjective: Patient is a 30-year-old gentleman with history of polysubstance abuse including alcohol tobacco admitted for medical stabilization Objective: GENERAL: cooperative HEENT: Atraumatic; EYES; Anicteric, Normal Conjunctiva NECK; supple, normal thyroid, RESPIRATORY: Diminished to auscultation CARDIOVASCULAR: Regular S1 S2, GI: soft, normoactive bowel sounds, : No Renal angle tenderness; EXTREMITIES: No edema, no clubbing, MUSCULOSKELETAL: no muscle waisting NEURO: Awake; no lateralizing signs. SKIN: No Rash PSYCH; Flat affect Vitals/I&O's: Vital Signs Temp Pulse Resp BP Pulse Ox 98.0 F 97 16 152/76 H 95 06/08/20 06:13 06/08/20 06:13 06/08/20 06:13 06/08/20 06:13 06/08/20 06:13 Oxygen Delivery Method Room Air Weight: 92.9 kg Body Mass Index (BMI) 30.2 Microbiology Past 72 Hours 06/07/20 20:40 Mucosa - Nose SARS-CoV-2 Antigen (Rapid) - Final Laboratory Results 06/07/20 20:10: WBC 10.4, RBC 5.78, Hgb 18.5 H*, Hct 52.4, MCV 90.7, MCH 32.0, MCHC 35.3, RDW Std Deviation 43.1, RDW Coeff of Mango 12.9, Plt Count 338, MPV 8.6, Immature Gran % (Auto) 0.700, Neut % (Auto) 35.2 L, Lymph % (Auto) 57.4 H, [place] % (Auto) 5.2, Eos % (Auto) 0.6, Baso % (Auto) 0.9, Absolute Neuts (auto) 3.7, Absolute Lymphs (auto) 5.99 H, Nucleated RBC % 0, Differential Comment SCANNED, Diff Path Review September06/07/20 20:10: Sodium 135 L, Potassium 4.0, Chloride 100, Carbon Dioxide 22.0, Anion Gap 13, BUN 11, Creatinine 0.86, Estim Creat Clear Calc 126.74, Est GFR (MDRD) Af Amer 136, Est GFR (MDRD) Non-Af 112, BUN/Creatinine Ratio 12.9, Glucose 89, Calcium 8.3 L, Total Bilirubin 0.50, AST 113 H, ALT 144 H, Alkaline Phosphatase 122 H, Total Protein 9.1 H, Albumin 4.3, Globulin 4.8 H, Albumin/Globulin Ratio 0.9 06/07/20 20:10: Ethyl Alcohol 473.0 H* 06/07/20 20:35: Urine Opiates Screen NEGATIVE, Urine Methadone Screen NEGATIVE, Ur Barbiturates Screen NEGATIVE, Ur Phencyclidine Scrn NEGATIVE, Ur Amphetamines Screen NEGATIVE, U Methamphetamin-MDMA NEGATIVE, U Benzodiazepines Scrn NEGATIVE, Urine Cocaine Screen NEGATIVE, U Cannabinoids Screen POSITIVE H, Ur Drug Screen Comment Current Medications Albuterol Sulfate (Albuterol 2.5 Mg/3 Ml Vial.Neb.) 2.5 mg INHALATION Q4H PRN PRN PRN Reason: Asthma Dicyclomine HCl (Dicyclomine 10 Mg Capsule) 20 mg PO Q6H PRN PRN PRN Reason: abdominal discomfort Fluoxetine HCl (Fluoxetine 20 Mg Capsule) 40 mg PO DAILY [facility] Folic Acid (Folic Acid 1 Mg Tablet) 1 mg PO DAILY@0800 [facility] Gabapentin (Gabapentin 300 Mg Capsule) 300 mg PO Q8H PRN PRN PRN Reason: moderate to severe anxiety Hydroxyzine Pamoate (Hydroxyzine Vanna 25 Mg Capsule) 25 mg PO BID [facility] Lisinopril (Lisinopril 10 Mg Tablet) 10 mg PO DAILY [facility] Loperamide HCl (Loperamide 2 Mg Capsule) 2 mg PO Q4H PRN PRN PRN Reason: LOOSE STOOLS Multivitamins (Multivitamins,Therapeutic Tablet) 1 tablet PO DAILYCM [facility] Nicotine (Nicotine 21 Mg Patch) 21 mg TD DAILY [facility] Last Admin: 06/08/20 06:09 Dose: 21 mg Documented by: Nutritional Formula (Lactose Free) (Ensure Enlive 120 Ml Liquid) 120 ml PO 4X/DAY [facility] Ondansetron HCl (Ondansetron 8 Mg Tablet) 8 mg PO Q8H PRN PRN PRN Reason: NAUSEA Phenobarbital (Phenobarbital 32.4 Mg Tablet) 97.2 mg PO Q4H [facility]; Taper Stop: 06/12/20 13:59 Last Admin: 06/08/20 06:09 Dose: 97.2 mg Documented by: Risperidone (Risperidone 1 Mg Tablet) 2 mg PO QHS SHERYL Sodium Chloride (0.9% Saline Lock 10 Ml Syringe) 10 - 40 ml IV UD PRN PRN Reason: SALINE FLUSH Thiamine HCl (Thiamine Hydrochloride 100 Mg Tablet) 100 mg PO DAILYCM SHERYL Trazodone HCl (Trazodone 100 Mg Tablet) 100 mg PO QHS SHERYL STROKE Vital Signs/Narrative: Vital Signs Temp Pulse Resp BP Pulse Ox 06/08/20 06:13 98.0 F 97 16 152/76 H 95 Medical Necessity - Tobacco Use Smoking Status: Current every day smoker Tobacco Use: Cigarettes Assessment/Plan All Active Problems (Last Reviewed 06/08/20 @ 07:[address] Juan Griffin MD) Desire for detoxification (Acute) Alcohol intoxication (Acute) Patient is a 30-year-old gentleman with history of polysubstance abuse including alcohol tobacco admitted for medical stabilization 1. Acute alcohol withdrawal ?Patient admitted to [facility] floor currently being managed with phenobarb and adjuvants medications to assist with medical stabilization 2. Bipolar disorder ?did continue with home meds 3. Depression with anxiety ?Did continue with home meds 4.? Polycythemia ?Do suspect dehydration patient was rehydrated follow H&H 5. Elevated liver enzymes ?Secondary to chronic alcohol use 6. Chronic alcohol dependence ?Patient was counseled on cessation 7. DVT prophylaxis ?Low risk did encourage early ambulation 8. Hypertension - Blood pressure controlled, home medications continued with dose adjustment as needed Inpatient E&M: 77718 [facility] [[email or web address]] Hosp L3
[2020-06-08 08:46] LABS: Hematocrit 47.6 % (40-54); Hemoglobin 16.8 g/dL (13.0-16.5); Mean Corp Hgb Conc 35.3 g/dL (32-36); Mean Corpuscular Hgb 32.1 pg (27.0-32.0); Mean Corpuscular Volume 90.8 fL (80-94); Mean Platelet Vol. 8.9 fl (6.2-12.0); Platelet Count 309 K/mm3 (150-450); RBC Distribution Width CV 12.8 % (11.6-14.6); RBC Distribution Width SD 42.6 fl (35.1-43.9); Red Blood Count 5.24 M/mm3 (4.6-6.2); White Blood Count 9.1 K/mm3 (4.4-11.0)
[2020-06-08 08:55] LABS: Magnesium 1.6 mg/dL (1.6-2.6)
[2020-06-08] MEDS: Ondansetron 8 MG Tablet PO ×2 (09:24→18:34)
[2020-06-08] MEDS: hydrOXYzine PAM 25 MG Capsule PO ×2 (09:24→22:32)
[2020-06-08] MEDS: Multivitamins,Therapeutic Tablet 1 TABLET PO (09:33)
[2020-06-08] MEDS: Thiamine Hydrochloride 100 MG Tablet PO (09:33)
[2020-06-08] MEDS: Folic Acid 1 MG Tablet PO (09:33)
[2020-06-08] MEDS: FLUoxetine 20 MG Capsule 40 MG PO (09:33)
[2020-06-08] MEDS: Lisinopril 10 MG Tablet PO (09:33)
--- NOTE | 2020-06-08 10:25 | CASEMGMT ---
SOCIAL WORK Patient admitted to [facility] last evening. Call to [facility] Treatment Navigator, Cierra to update on patient's admission. Cierra to be in today to complete assessment. Nancy Kilpatrick, HELP DESK REP, CENTRAL SUPPLY TECH
[2020-06-08] MEDS: Gabapentin 300 MG Capsule PO ×2 (14:14→22:54)
[2020-06-08] MEDS: Dicyclomine 10 MG Capsule 20 MG PO (18:34)
[2020-06-08] MEDS: 0.9% Saline Lock 10 ML Syringe IV (22:28)
[2020-06-08] MEDS: RisperiDONE 1 MG Tablet 2 MG PO (22:32)
[2020-06-08] MEDS: traZODone 100 MG Tablet PO (22:54)
--- NOTE | 2020-06-08 22:57 | NURSING ---
pt states he may be leaving tomorrow. pt states that he only needed to be here for the first 24 hours of detox and that he will decide tomorrow.
[2020-06-09] VITALS (7 sets, daily range): BP systolic 98–123; BP diastolic 53–73; PULSE 107–140; RESP 16–18; TEMP 36.8–37.3; O2SAT 94–98
[2020-06-09] MEDS: Phenobarbital 32.4 MG Tablet 64.8 MG PO ×6 (02:32→21:48)
[2020-06-09] MEDS: Gabapentin 300 MG Capsule PO (06:52)
--- NOTE | 2020-06-09 07:37 | PN_ITS ---
Patient Problems: Active and Suspected Problems (Last Reviewed 06/08/20 @ 07:[address] Juan Griffin MD) Desire for detoxification (Acute) Alcohol intoxication (Acute) Reason for Visit: Acute alcohol withdrawal Subjective: Patient is a 30-year-old gentleman with history of polysubstance abuse including alcohol tobacco admitted for medical stabilization 06/09/2020; patient did experience bouts of emesis the day prior. Did receive Zofran. Was also advised to avoid excessive drinking of water Objective: GENERAL: cooperative HEENT: Atraumatic; EYES; Anicteric, Normal Conjunctiva NECK; supple, normal thyroid, RESPIRATORY: Diminished to auscultation CARDIOVASCULAR: Regular S1 S2, GI: soft, normoactive bowel sounds, : No Renal angle tenderness; EXTREMITIES: No edema, no clubbing, MUSCULOSKELETAL: no muscle waisting NEURO: Awake; no lateralizing signs. SKIN: No Rash PSYCH; Flat affect Vitals/I&O's: Vital Signs Temp Pulse Resp BP Pulse Ox 98.5 F 126 H 18 123/73 H 98 06/09/20 06:38 06/09/20 06:38 06/09/20 06:38 06/09/20 06:38 06/09/20 06:38 Oxygen Delivery Method Room Air Weight: 92.9 kg Body Mass Index (BMI) 30.2 Intake and Output for Last 24 Hours 06/07/20 06/08/20 06/09/20 23:59 23:59 23:59 Intake Total 2160 / 2160 200 / 200 Output Total 800 / 800 Balance 1360 / 1360 200 / 200 Microbiology Past 72 Hours 06/07/20 20:40 Mucosa - Nose SARS-CoV-2 Antigen (Rapid) - Final Laboratory Results 06/08/20 08:22: WBC 9.1, RBC 5.24, Hgb 16.8 H, Hct 47.6, MCV 90.8, MCH 32.1 H, MCHC 35.3, RDW Std Deviation 42.6, RDW Coeff of Mango 12.8, Plt Count 309, MPV 8.9 06/08/20 08:22: Magnesium 1.6 Current Medications Albuterol Sulfate (Albuterol 2.5 Mg/3 Ml Vial.Neb.) 2.5 mg INHALATION Q4H PRN PRN PRN Reason: Asthma Dicyclomine HCl (Dicyclomine 10 Mg Capsule) 20 mg PO Q6H PRN PRN PRN Reason: abdominal discomfort Last Admin: 06/08/20 18:34 Dose: 20 mg Documented by: Fluoxetine HCl (Fluoxetine 20 Mg Capsule) 40 mg PO DAILY [facility] Last Admin: 06/08/20 09:33 Dose: 40 mg Documented by: Folic Acid (Folic Acid 1 Mg Tablet) 1 mg PO DAILY@0800 [facility] Last Admin: 06/08/20 09:33 Dose: 1 mg Documented by: Gabapentin (Gabapentin 300 Mg Capsule) 300 mg PO Q8H PRN PRN PRN Reason: moderate to severe anxiety Last Admin: 06/09/20 06:52 Dose: 300 mg Documented by: Hydroxyzine Pamoate (Hydroxyzine Vanna 25 Mg Capsule) 25 mg PO BID [facility] Last Admin: 06/08/20 22:32 Dose: 25 mg Documented by: Lisinopril (Lisinopril 10 Mg Tablet) 10 mg PO DAILY [facility] Last Admin: 06/08/20 09:33 Dose: 10 mg Documented by: Loperamide HCl (Loperamide 2 Mg Capsule) 2 mg PO Q4H PRN PRN PRN Reason: LOOSE STOOLS Multivitamins ([facility],Therapeutic Tablet) [facility] Last Admin: 06/08/20 09:33 Dose: 1 tablet Documented by: Nicotine (Nicotine 21 Mg Patch) 21 mg TD DAILY [facility] Last Admin: 06/08/20 06:09 Dose: 21 mg Documented by: Nutritional Formula (Lactose Free) (Ensure Enlive 120 Ml Liquid) 120 ml PO 4X/DAY [facility] Last Admin: 06/08/20 22:30 Dose: Not Given Documented by: Ondansetron HCl (Ondansetron 8 Mg Tablet) 8 mg PO Q8H PRN PRN PRN Reason: NAUSEA Last Admin: 06/08/20 18:34 Dose: 8 mg Documented by: Phenobarbital (Phenobarbital 32.4 Mg Tablet) 97.2 mg PO Q4H [facility]; Taper Stop: 06/12/20 13:59 Last Admin: 06/09/20 06:40 Dose: 97.2 mg Documented by: Risperidone (Risperidone 1 Mg Tablet) 2 mg PO QHS [facility] Last Admin: 06/08/20 22:32 Dose: 2 mg Documented by: Sodium Chloride (0.9% Saline Lock 10 Ml Syringe) 10 - 40 ml IV UD PRN PRN Reason: SALINE FLUSH Last Admin: 06/08/20 22:28 Dose: 10 ml Documented by: Thiamine HCl ([facility]iamine Hydrochloride 100 Mg Tablet) [facility] Last Admin: 06/08/20 09:33 Dose: 100 mg Documented by: Trazodone HCl (Trazodone 100 Mg Tablet) 100 mg PO QHS [facility] Last Admin: 06/08/20 22:54 Dose: 100 mg Documented by: STROKE Vital Signs/Narrative: Vital Signs Temp Pulse Resp BP Pulse Ox 06/09/20 06:38 98.5 F 126 H 18 123/73 H 98 Medical Necessity - Tobacco Use Smoking Status: Current every day smoker Tobacco Use: Cigarettes Assessment/Plan All Active Problems (Last Reviewed 06/08/20 @ 07:[address] Juan Griffin MD) Desire for detoxification (Acute) Alcohol intoxication (Acute) Patient is a 30-year-old gentleman with history of polysubstance abuse including alcohol tobacco admitted for medical stabilization 1. Acute alcohol withdrawal ?[facility] currently being managed with phenobarb and adjuvants medications to assist with medical stabilization ?06/09/2020. Has so far tolerated the protocol. Do anticipate discharge on 06/10/2020 to follow-up with 180 2. Bipolar disorder ?did continue with home meds 3. Depression with anxiety ?Did continue with home meds 4.? Polycythemia ?Do suspect dehydration patient was rehydrated follow H&H 5. Elevated liver enzymes ?Secondary to chronic alcohol use 6. Chronic alcohol dependence ?Patient was counseled on cessation 7. DVT prophylaxis ?Low risk did encourage early ambulation 8. Hypertension - Blood pressure controlled, home medications continued with dose adjustment as needed Inpatient E&M: 43226 Subs Hosp L2
[2020-06-09] MEDS: Thiamine Hydrochloride 100 MG Tablet PO (09:48)
[2020-06-09] MEDS: Multivitamins,Therapeutic Tablet 1 TABLET PO (09:48)
[2020-06-09] MEDS: hydrOXYzine PAM 25 MG Capsule PO ×2 (09:48→21:58)
[2020-06-09] MEDS: Folic Acid 1 MG Tablet PO (09:48)
[2020-06-09] MEDS: FLUoxetine 20 MG Capsule 40 MG PO (09:49)
[2020-06-09] MEDS: Lisinopril 10 MG Tablet PO (09:49)
[2020-06-09] MEDS: Ondansetron 8 MG Tablet PO (12:07)
--- NOTE | 2020-06-09 13:53 | EKG12_ITS ---
Test Reason : TACHYCARDIA Blood Pressure : / mmHG Vent. Rate : 122 BPM Atrial Rate : 122 BPM P-R Int : 132 ms QRS Dur : 084 ms QT Int : 332 ms P-R-T Axes : 045 049 035 degrees QTc Int : 473 ms Sinus tachycardia Otherwise normal ECG Confirmed by MARYLOU HOANG, JESS ([id number]), art editor PARUL POON ([id number]) on 06/14/2020 9:53:51 AM Referred By: SERINA Confirmed By:JESS HICKMAN MD
[2020-06-09] MEDS: 0.9% Saline Lock 10 ML Syringe IV (21:48)
[2020-06-09] MEDS: RisperiDONE 1 MG Tablet 2 MG PO (21:57)
[2020-06-09] MEDS: traZODone 100 MG Tablet PO (21:57)
[2020-06-10 02:26] VITALS: BP 106/68; PULSE 106; RESP 16; TEMP 36.9; O2SAT 97
[2020-06-10] MEDS: Phenobarbital 32.4 MG Tablet 64.8 MG PO ×4 (02:29→14:54)
[2020-06-10 08:25] VITALS: BP 102/51; PULSE 102; RESP 16; TEMP 36.7; O2SAT 96
[2020-06-10] MEDS: Lisinopril 10 MG Tablet PO (09:18)
[2020-06-10] MEDS: hydrOXYzine PAM 25 MG Capsule PO (09:18)
[2020-06-10] MEDS: Multivitamins,Therapeutic Tablet 1 TABLET PO (09:18)
[2020-06-10] MEDS: FLUoxetine 20 MG Capsule 40 MG PO (09:19)
[2020-06-10] MEDS: Folic Acid 1 MG Tablet PO (09:20)
[2020-06-10] MEDS: Thiamine Hydrochloride 100 MG Tablet PO (09:20)
[2020-06-10 09:33] VITALS: PULSE 102
--- NOTE | 2020-06-10 09:54 | ADDICTION ---
This movie writer met with PT in his room to discuss options as he refused d/c planning over the weekend. This movie writer provided PT with options for tx after d/c. PT reports that he plans to follow-up with [facility]. This movie writer gave PT a direct [facility].
--- NOTE | 2020-06-10 10:10 | PCM.DC ---
- Discharge Diagnoses Current Active Problems: Current Active and Chronic Problems (Last Reviewed 06/08/20 @ 07:[address] Juan Griffin MD) Alcohol dependence (Chronic) Lumbar radiculopathy, acute (Chronic) Bipolar disorder (Chronic) Desire for detoxification (Acute) Alcohol intoxication (Acute) Transaminitis (Chronic) Tobacco use (Chronic) Chronic pancreatitis due to acute alcohol intoxication (Chronic) Chronic pancreatitis (Chronic) Depression with anxiety (Chronic) Hypertension (Chronic) Hepatitis C (Chronic) Hepatitis B (Chronic) H/O emotional problems (Chronic) Seasonal allergies (Chronic) Alcohol dependence (Chronic) You will use the following diet at home:: Regular Your food should be the consistency of: Regular Your liquids should be the consistency of: Regular/Thin Discharge Activity: Return to Normal Activity Call your doctor if you observe: Fever of 101 or Higher, Shortness of breath, Dizziness, Fainting spells, Swelling in the ankles, Chest pain, Increased palpitations (irregular heartbeat) Allergies/Adverse Reactions: Allergies adhesive tape Allergy (Mild, Verified 06/07/20 19:39) Hives Penicillins Allergy (Verified 06/07/20 19:39) Hives Medications to take at Discharge fluoxetine 40 mg capsule 40 mg PO DAILY #90 cap 07/05/19 risperidone 1 mg tablet 2 mg PO QHS 08/17/19 Albuterol Sulfate [Albuterol Sulfate HFA] 2 puff INHALATION Q4H PRN 04/20/20 Lisinopril [Zestril] 10 mg PO DAILY 04/20/20 Multivitamin [Multivitamins] 1 tab PO DAILY 04/20/20 hydrOXYzine pamoate capsule [Vistaril pamoate capsule] 25 mg PO BID 04/20/20 traZODone [Desyrel] 100 mg PO QHS 04/20/20 Thiamine HCl [Vitamin B-1] 100 mg PO DAILY 06/07/20 Primary Care Physician: Rita Romero NP, [employer] [Primary Care Provider] - Please follow up with your Primary Care Physician in: 3-5 days Test Results: Test results from this visit will be discussed in further detail at your follow-up appointment, if applicable. Please Follow Up With: Rehab
--- NOTE | 2020-06-10 11:52 | PHA.DC.MR ---
Pharmacy Service has performed discharge medication reconciliation for this patient. No new medications at time of discharge. Medications reviewed are from previously reported home medications. Home Medications fluoxetine 40 mg capsule 40 mg PO DAILY #90 cap 07/05/19 risperidone 1 mg tablet 2 mg PO QHS 08/17/19 Albuterol Sulfate [Albuterol Sulfate HFA] 2 puff INHALATION Q4H PRN 04/20/20 Lisinopril [Zestril] 10 mg PO DAILY 04/20/20 Multivitamin [Multivitamins] 1 tab PO DAILY 04/20/20 hydrOXYzine pamoate capsule [Vistaril pamoate capsule] 25 mg PO BID 04/20/20 traZODone [Desyrel] 100 mg PO QHS 04/20/20 Thiamine HCl [Vitamin B-1] 100 mg PO DAILY 06/07/20 The patient's discharge medication list was reviewed for discrepancies and discrepancies were resolved.
[2020-06-10 13:22] LABS: Pathologist Review Reviewed
[2020-06-10 14:25] VITALS: BP 114/77; PULSE 117; RESP 16; TEMP 36.8; O2SAT 96
[2020-06-10 15:27] VITALS: PULSE 117
--- NOTE | 2020-06-10 17:17 | DS.PCM_ITS ---
Discharge Date and Diagnosis - Problem List Patient Problems: Active and Suspected Problems (Last Reviewed 06/08/20 @ 07:[address] Juan Griffin MD) Desire for detoxification (Acute) Alcohol intoxication (Acute) Date of Admission: 06/07/20 Date of Discharge: 06/10/20 - Primary Discharge Diagnosis Acute Problems: Active Problems (Last Reviewed 06/08/20 @ 07:[address] Juan Griffin MD) Desire for detoxification (Acute) Alcohol intoxication (Acute) - Secondary Discharge Diagnosis Chronic Problems: Chronic Problems (Last Reviewed 06/08/20 @ 07:[address] Juan Griffin MD) Alcohol dependence (Chronic) Lumbar radiculopathy, acute (Chronic) Bipolar disorder (Chronic) Transaminitis (Chronic) Tobacco use (Chronic) Chronic pancreatitis due to acute alcohol intoxication (Chronic) Chronic pancreatitis (Chronic) Depression with anxiety (Chronic) Hypertension (Chronic) Hepatitis C (Chronic) Hepatitis B (Chronic) H/O emotional problems (Chronic) Seasonal allergies (Chronic) Alcohol dependence (Chronic) Hospital Course and Treatment Imaging Results: Clinical Impression(s) from Imaging Studies Chest X-Ray 06/07/20 20:50 IMPRESSION: Normal x-ray examination of the chest. Electronically Signed: Rene Heredia MD at 21:04 EST , Service support , Operations: None Procedures: None Summary of Care Provided: Per HPI: The patient is a 30 year old M with a significant history of alcohol dependence; tobacco abuse; depression and anxiety; and bipolar disorder who presents to the emergency department with a desire to detoxify from alcohol. Patient has been drinking since he was 19 years. He quit drinking but restarted recently. He report that he has been on a 5-day stretch of drinking. He drinks 1 L of vodka daily. Last time he drank was few hours before presentation. He has been to rehab two times for alcohol intoxication. And he has been at our hospital ([facility]) multiple times for alcohol detoxification. At the Emergent department his alcohol level was 473. Emergency Department doctor reported that at the time of examination patient was intoxicated. Hospital Course: 1. Acute alcohol withdrawal with elevated LFTs/depression/anxiety/bipolar disorder/polycythemia secondary to [id number]-old male presented to the hospital with alcohol dependence willing to seek detox. He says that he has been to rehab twice previously for detox. He has done well on the alcohol withdrawal protocol and is going to follow-up with his own outpatient rehab. LFTs have been chronically elevated and this is likely secondary to his alcohol use. Polycythemia also improved with some IV fluid administration secondary to dehydration in the meantime would recommend following up with psychiatry as well for his mental health disorders and to continue his home medications. Discussed with him the plan for discharge today and he expressed understanding of the risk benefits of going home and would like to go home today. He understands he does need to follow-up with rehab as an outpatient, instead of 180 he is going to go with [facility]. 2. Hypertension is a chronic medical condition which complicates his care. His home medications were continued where appropriate Patient Problems: Active and Suspected Problems (Last Reviewed 06/08/20 @ 07:[address] Juan carroll MD) Desire for detoxification (Acute) Alcohol intoxication (Acute) - Physical Exam Vitals/I&O's: Vital Signs Temp Pulse Resp BP Pulse Ox 98.2 F 117 H 16 114/77 96 06/10/20 14:25 06/10/20 15:27 06/10/20 14:25 06/10/20 14:25 06/10/20 14:25 Oxygen Delivery Method Room Air Weight: 204 lb 12.951 oz Body Mass Index (BMI) 30.2 Intake and Output for Last 24 Hours 06/08/20 06/09/20 06/10/20 23:59 23:59 23:59 Intake Total 2160 / 2160 200 / 200 Output Total 800 / 800 Balance 1360 / 1360 200 / 200 General: Alert, Oriented x3, Cooperative, No apparent distress HEENT: Atraumatic, PERRLA, EOMI, Normocephalic Oral: Moist Mucosa Neck: Supple, No JVD Lungs: Clear to auscultation, Normal air movement, No rhonchi, No wheeze, No rales Cardiovascular: Regular rate, Regular Rhythm, Normal S1, Normal S2, No murmurs Abdomen: Soft, Non Tender, Non-Distended, No Hepato-splenomegaly Extremities: No edema, Capillary Refill Less than 3 Seconds Skin: No rashes, No breakdown Neurological: Neuro grossly intact, Sensory exam intact to light touch and pain Psych/Mental Status: Normal Affect, Appropriate Microbiology Past 72 Hours 06/07/20 20:40 Mucosa - Nose SARS-CoV-2 Antigen (Rapid) - Final Laboratory Results 06/07/20 20:10: Diff Path Review Reviewed Current Medications Albuterol Sulfate (Albuterol 2.5 Mg/3 Ml Vial.Neb.) 2.5 mg INHALATION Q4H PRN PRN PRN Reason: Asthma Dicyclomine HCl (Dicyclomine 10 Mg Capsule) 20 mg PO Q6H PRN PRN PRN Reason: abdominal discomfort Last Admin: 06/08/20 18:34 Dose: 20 mg Documented by: Fluoxetine HCl (Fluoxetine 20 Mg Capsule) 40 mg PO DAILY [facility] Last Admin: 06/10/20 09:19 Dose: 40 mg Documented by: Folic Acid (Folic Acid 1 Mg Tablet) 1 mg PO DAILY@0800 [facility] Last Admin: 06/10/20 09:20 Dose: 1 mg Documented by: Gabapentin (Gabapentin 300 Mg Capsule) 300 mg PO Q8H PRN PRN PRN Reason: moderate to severe anxiety Last Admin: 06/09/20 06:52 Dose: 300 mg Documented by: Hydroxyzine Pamoate (Hydroxyzine Vanna 25 Mg Capsule) 25 mg PO BID [facility] Last Admin: 06/10/20 09:18 Dose: 25 mg Documented by: Lisinopril (Lisinopril 10 Mg Tablet) 10 mg PO DAILY [facility] Last Admin: 06/10/20 09:18 Dose: 10 mg Documented by: Loperamide HCl (Loperamide 2 Mg Capsule) 2 mg PO Q4H PRN PRN PRN Reason: LOOSE STOOLS Multivitamins (Multivitamins,Therapeutic Tablet) [facility] Last Admin: 06/10/20 09:18 Dose: 1 tablet Documented by: Nicotine (Nicotine 21 Mg Patch) 21 mg TD DAILY [facility] Last Admin: 06/10/20 09:21 Dose: 21 mg Documented by: Nutritional Formula (Lactose Free) (Ensure Enlive 120 Ml Liquid) 120 ml PO 4X/DAY [facility] Last Admin: 06/10/20 15:33 Dose: 120 ml Documented by: Ondansetron HCl (Ondansetron 8 Mg Tablet) 8 mg PO Q8H PRN PRN PRN Reason: NAUSEA Last Admin: 06/09/20 12:07 Dose: 8 mg Documented by: Phenobarbital (Phenobarbital 32.4 Mg Tablet) 64.8 mg PO Q6H [facility]; Taper Stop: 06/12/20 13:59 Last Admin: 06/10/20 14:54 Dose: 64.8 mg Documented by: Risperidone (Risperidone 1 Mg Tablet) 2 mg PO QHS [facility] Last Admin: 06/09/20 21:57 Dose: 2 mg Documented by: Sodium Chloride (0.9% Saline Lock 10 Ml Syringe) 10 - 40 ml IV UD PRN PRN Reason: SALINE FLUSH Last Admin: 06/09/20 21:48 Dose: 10 ml Documented by: Thiamine HCl (Thiamine Hydrochloride 100 Mg Tablet) [facility] Last Admin: 06/10/20 09:20 Dose: 100 mg Documented by: Trazodone HCl (Trazodone 100 Mg Tablet) 100 mg PO QHS [facility] Last Admin: 06/09/20 21:57 Dose: 100 mg Documented by: Discharge Activity: Return to Normal Activity Call your doctor if you observe: Fever of 101 or Higher, Shortness of breath, Dizziness, Fainting spells, Swelling in the ankles, Chest pain, Increased palpitations (irregular heartbeat) Home Medications: Medications to take at Discharge fluoxetine 40 mg capsule 40 mg PO DAILY #90 cap 07/05/19 risperidone 1 mg tablet 2 mg PO QHS 08/17/19 Albuterol Sulfate [Albuterol Sulfate HFA] 2 puff INHALATION Q4H PRN 04/20/20 Lisinopril [Zestril] 10 mg PO DAILY 04/20/20 Multivitamin [Multivitamins] 1 tab PO DAILY 04/20/20 hydrOXYzine pamoate capsule [Vistaril pamoate capsule] 25 mg PO BID 04/20/20 traZODone [Desyrel] 100 mg PO QHS 04/20/20 Thiamine HCl [Vitamin B-1] 100 mg PO DAILY 06/07/20 Primary Care Physician: Rita oRmero PROMOTIONAL ADVERTISING ASSISTANT, PROMOTIONAL ADVERTISING ASSISTANT-C [Primary Care Provider] - Please follow up with your Primary Care Physician in: 3-5 days Please Follow Up With: Rehab Disposition: Home Minutes spent on discharge:: 35 Patient Condition:: Stable Medical Necessity - Tobacco Use Smoking Status: Current every day smoker Tobacco Use: Cigarettes Meaningful Use Info Meaningful Use Diagnoses (Choose all that apply): None applicable Inpatient E&M: 57295 Disch Hosp
== END 2020-06-10 17:38 | disposition home or self-care (01) | DRG 775 ==
LOC: ED 20:50 → MS3 23:12
PROVIDERS: Internal Medicine; Admitting Provider Hospitalist; Emergency Provider Emergency Medicine; PCP Nurse Practitioner Family; Visit Provider Family Medicine
DX: F10.239 Alcohol dependence with withdrawal, unspecified (principal); Y90.8 Blood alcohol level of 240 mg/100 ml or more; B18.1 Chronic viral hepatitis B without delta-agent; B18.2 Chronic viral hepatitis C; E86.0 Dehydration; D75.1 Secondary polycythemia; K86.0 Alcohol-induced chronic pancreatitis; F31.9 Bipolar disorder, unspecified; F41.8 Other specified anxiety disorders; I10 Essential (primary) hypertension; J30.2 Other seasonal allergic rhinitis; M54.16 Radiculopathy, lumbar region; Z79.899 Other long term (current) drug therapy; F17.210 Nicotine dependence, cigarettes, uncomplicated
CPT/HCPCS: 36415; 71045; 80053; 80307; 82077; 83735; 85025; 85027; 87426; 93005; 97802; 99251; 99283; A4216; G0463; J2405

== ENCOUNTER → 2020-07-11 11:06 | Outpatient (CLI) | payer MEDICAID, SELFPAY ==
[2020-06-08 02:03] VITALS: BMI 30.2
[2020-07-11 11:29] LABS: Hematocrit 46.2 % (40-54); Hemoglobin 16.3 g/dL (13.0-16.5); Mean Corp Hgb Conc 35.3 g/dL (32-36); Mean Corpuscular Hgb 32.3 pg (27.0-32.0); Mean Corpuscular Volume 91.5 fL (80-94); Platelet Count 254 K/mm3 (150-450); RBC Distribution Width CV 12.7 % (11.6-14.6); RBC Distribution Width SD 41.6 fl (35.1-43.9); Red Blood Count 5.05 M/mm3 (4.6-6.2); White Blood Count 14.9 K/mm3 (4.4-11.0)
[2020-07-11 12:05] LABS: AST(SGOT) 53 U/L (15-37); Alanine Aminotransfer ALT/SGPT 87 U/L (16-61); Albumin, Serum 3.8 g/dL (3.2-5.0); Alkaline Phosphatase 103 U/L (45-117); Anion Gap 6 (5-15); BUN 12 mg/dL (7-18); BUN/Creat Ratio 15.5 RATIO (10-20); Calcium,Total 8.9 mg/dL (8.5-10.1); Chloride 104 mmol/L (98-107); Creatinine, Serum 0.77 mg/dL (0.70-1.30); EST Glomerular Filtration Rate 126 mL/min (>60); Est Glom Filt Rate - Afr Amer 152 mL/min (>60); Glucose 109 mg/dL (74-106); Potassium 4.1 mmol/L (3.5-5.1); Protein, Total 7.8 g/dL (6.4-8.2); Sodium Level 136 mmol/L (136-145)
== END ==
PROVIDERS: PCP Nurse Practitioner Family; Referring Provider Family Medicine; Visit Provider Family Medicine
DX: F10.20 Alcohol dependence, uncomplicated (principal)
CPT/HCPCS: 36415; 80053; 85027

== ENCOUNTER → 2020-12-18 15:11 | Outpatient (CLI) | payer MEDICAID, SELFPAY ==
[2020-12-18 14:50] VITALS: BMI 36.8
[2020-12-18 16:53] LABS: Absolute Lymphocyte Count 3.39 X10^3/uL (0.83-4.51); Absolute Neutrophil Count 5.7 X10^3/uL (2.0-7.7); Basophil# 0.07 X10^3/uL; Basophil% 0.7 % (0-1); Eosinophil# 0.31 X10^3/uL; Eosinophils% 2.9 % (0-5); Hematocrit 48.3 % (40-54); Hemoglobin 16.9 g/dL (13.0-16.5); Lymphocyte # 3.39 X10^3/ul (0.83-4.51); Mean Corpuscular Hgb 29.9 pg (27.0-32.0); Mean Corpuscular Volume 85.3 fL (80-94); Mean Platelet Vol. 9.4 fl (6.2-12.0); Monocyte# 0.95 X10^3/uL; NRBC Flagged by Analyzer 0 % (0-5); Neutrophil # 5.74 X10^3/uL (2.7-7.7); Neutrophil % 54.3 % (47-70); Platelet Count 319 K/mm3 (150-450); RBC Distribution Width CV 12.6 % (11.6-14.6); RBC Distribution Width SD 39.1 fl (35.1-43.9); Red Blood Count 5.66 M/mm3 (4.6-6.2); White Blood Count 10.6 K/mm3 (4.4-11.0)
[2020-12-18 17:04] LABS: Vitamin D,25 Hydroxy 30.4 ng/mL
[2020-12-18 17:14] LABS: ALB/GLOB Ratio 0.9 RATIO (0.9-2.4); AST(SGOT) 27 U/L (15-37); Alanine Aminotransfer ALT/SGPT 62 U/L (16-61); Albumin, Serum 3.8 g/dL (3.2-5.0); Alkaline Phosphatase 106 U/L (45-117); Anion Gap 6 (5-15); BUN 14 mg/dL (7-18); BUN/Creat Ratio 18.4 RATIO (10-20); Calcium,Total 8.6 mg/dL (8.5-10.1); Chloride 106 mmol/L (98-107); Cholesterol 155 mg/dL (200); Creatinine, Serum 0.76 mg/dL (0.70-1.30); EST Glomerular Filtration Rate 128 mL/min (>60); Est Glom Filt Rate - Afr Amer 155 mL/min (>60); Globulin 4.1 g/dL (2.2-4.2); Glucose 109 mg/dL (74-106); High Density Lipoprotein 23 mg/dL; Potassium 4.4 mmol/L (3.5-5.1); Protein, Total 7.9 g/dL (6.4-8.2); Sodium Level 139 mmol/L (136-145); Thyroid Stim Hormone (TSH) 1.58 uIU/mL (0.358-3.74); Triglycerides 257 mg/dL; Very Low Density Lipoprotein 51 mg/dL (5-40)
[2020-12-21 20:07] LABS: HCV Quant. RNA PCR 9660000 IU/mL (.)
[2020-12-21 20:53] LABS: HCV log 10 6.985 (.)
== END ==
PROVIDERS: PCP Internal Medicine; Referring Provider Nurse Practitioner Family; Visit Provider Nurse Practitioner Family
DX: B19.20 Unspecified viral hepatitis C without hepatic coma (principal); F10.20 Alcohol dependence, uncomplicated; F31.9 Bipolar disorder, unspecified; F41.8 Other specified anxiety disorders
CPT/HCPCS: 36415; 80053; 80061; 82306; 84443; 85025; 87521; 87522

== ENCOUNTER 2021-06-17 06:36 | Emergency (ER) | payer MEDICAID, SELFPAY ==
[2021-06-17 06:36] VITALS: BP 123/78; PULSE 101; RESP 16; TEMP 36; O2SAT 97; BMI 33.5
--- NOTE | 2021-06-17 06:54 | EDS_ITS ---
HPI HPI - URI History of Present Illness Chief Complaint: Ear Problem Informant: patient Onset/Context/Timing Onset: Days Context: Gradual Onset Timing: Continuous Current Severity: Mild Maximum Severity: Mild Associated Symptoms Associated Symptoms: Negative for Myalgias, Vomiting, Diarrhea, Shortness of Breath, Chest Pain, Nonproductive cough, Hemoptysis and Productive Cough Narrative Narrative: 31-year-old male history of anxiety and depression. Prior substance abuse. States that he thinks last week he might have an ear infection. He said Wednesday he felt a pop. He said the pain actually felt better last several days and is resolved. But yesterday he feels that he had drainage from his right ear and has had decreased hearing. Denies any sore throat or fever. Denies any vomiting or diarrhea. Has never had any type of ear surgery. Denies any trauma. Prior similar symptoms: No Recent Illness/Hospitalization: No ROS ROS ED ROS Narrative Right earache and drainage. Review of Systems ROS Unobtainable: Denies due to encephalopathy Constitutional Constitutional ED: Denies fever(s) or subjective Eyes Eyes: Denies change in vision ENT ENT ED: Reports ear pain; Denies rhinorrhea or sore throat Cardiovascular Cardiovascular: Denies chest pain or palpitations Respiratory/Chest Respiratory/Chest: Denies cough or dyspnea Gastrointestinal Gastrointestinal: Denies abdominal pain, diarrhea or vomiting Genitourinary Genitourinary ED: Denies dysuria Musculoskeletal Musculoskeletal: Denies myalgias Integumentary Denies rash Neurologic Neurologic: Denies headache(s) Psychiatric Psychiatric: Denies depression Endocrine Endocrinology: Denies polyuria Hematologic/Lymphatic Hematologic/Lymphatic: Denies easy bruising Allergic/Immunologic Allergic/Immunologic ED: Denies urticaria [facility] Medical History Admitted to substance misuse detoxification center Anxiety and depression Bipolar 1 disorder Bone fracture Drug abuse Foot fracture, left H/O emotional problems Hepatitis B Hepatitis C Hypertension Influenza vaccine needed Recovering alcoholic Seasonal allergies SOB (shortness of breath) Home Medications fluoxetine 40 mg capsule 40 mg PO DAILY #90 cap 07/05/19 [Rx Last Taken 06/07/20 08:00] trazodone 100 mg PO QHS 04/20/20 [History Last Taken 06/06/20 22:00] hydroxyzine pamoate 50 mg capsule 50 mg PO BID 12/18/20 [History Last Taken Unknown] cholecalciferol (vitamin D3) 50 mcg (2,000 unit) capsule 50 mcg PO DAILY #90 cap 12/24/20 [Rx Last Taken Unknown] buspirone 10 mg tablet 10 mg PO TID tab 03/19/21 [History Last Taken Unknown] cariprazine 3 mg capsule 3 mg PO DAILY 03/19/21 [History Last Taken Unknown] meloxicam 15 mg tablet 15 mg PO DAILY PRN 03/19/21 [History Last Taken Unknown] multivitamin 1 tab PO DAILY #90 tab 03/19/21 [Rx Last Taken Unknown] vitamin B complex 1 tab PO DAILY #90 tab 03/19/21 [Rx Last Taken Unknown] amoxicillin 500 mg PO TID #30 cap 06/17/21 [Rx Last Taken Unknown] ciprofloxacin-dexamethasone [Ciprodex] 4 drp RIGHT EAR BID 7 Days ml 06/17/21 [Rx Last Taken Unknown] Allergy/AdvReac Type Severity Reaction Status Date / Time adhesive tape Allergy Mild Hives Verified 06/17/21 06:36 latex Allergy unknown Verified 06/17/21 06:36 Penicillins Allergy Hives Verified 06/17/21 06:36 Family History Grandfather Hypertension Grandmother Hypertension Breast cancer Mother Breast cancer Hypertension Alcohol abuse Anxiety Asthma Respiratory disease Cancer uterine, skin Father Alcohol abuse Surgical History History of facial surgery Status post left foot surgery Social History Smoking Status: Current every day smoker tobacco type: cigarettes alcohol intake: former year quit: 2019 substance use type: former substance user what type of physical activity do you participate in: none EXAM Physical Exam Narrative Exam Narrative: Well 31-year-old male. Vital signs stable afebrile. Pulse ox 97% on room air no signs hypoxia. He is in no distress. H EENT exam posterior pharynx normal. No erythema. No exudate. No trouble swallowing or breathing. Moist with membranes. Left TM chronic scarring but no acute process. Canal unremarkable. Right ear canal swollen there is drainage I cannot see the eardrum very well in the right. Currently there is no obvious blood. This is concerning for otitis externa and/or media possible eardrum perforation. Neck nontender no lymphadenopathy. Lungs are clear. Heart regular rhythm. No murmur. Abdomen soft. Otherwise exam unremarkable. Const Vital Signs: 06/17/21 06:36 Temperature 96.8 F L Temperature Source Temporal Pulse Rate 101 H Respiratory Rate 16 Blood Pressure 123/78 H Blood Pressure Mean 93 Pulse Ox 97 Oxygen Delivery Method Room Air Positive well nourished, well developed and obese; Negative for cachectic or contractures General Appearance ED: well developed and NAD; Negative for cachectic, contractures, cyanotic, diaphoretic or pallor Nutritional Appearance: obese; Negative for cachectic HEENT normocephalic and atraumatic Tympanic Membrane ED: Yes other Right ear canal swollen. Drainage. Limited visualization of the right TM. Fluid in the canal. Exam consistent with otitis externa cannot rule out otitis media also and/or tympanic membrane perforation. Eyes PERRL and EOMs intact bilaterally General Eye ED: Negative for pale conjunctiva or scleral icterus Neck no lymphadenopathy, supple, no meningeal signs and no JVD General: Negative for anterior neck swelling or lymphadenopathy Resp normal respiratory effort and clear to auscultation bilaterally Auscultation: Negative for rales, rhonchi or wheezes Cardio S1 normal heart sound, S2 normal heart sound and no murmurs Rate: regular rate Rhythm: regular rhythm GI non-tender, non-distended and no masses Inspection: Negative for abdominal distention Auscultation: normoactive bowel sounds; Negative for hyperactive bowel sounds or hypoactive bowel sounds Palpation: soft; Negative for tender or guarding Back/Spine no CVA tenderness and normal ROM General Back: Negative for CVA tenderness Cervical Spine: Negative for cervical spine tenderness Thoracic Spine / Upper Back: Negative for thoracic spinal tenderness Extremity normal to inspection and full ROM General Extremety ED: Negative for cyanosis or tenderness General Extremity: Negative for cyanosis Neuro oriented x3 Sensorium / Orientation: alert, oriented to person, oriented to place and oriented to time; Negative for orientation impaired or lethargic Motor Exam: strength 5/5 throughout Psych mental status grossly normal Mood & Affect: Negative for depressed or tearful Skin General Skin Exam: Negative for jaundice or pallor Lesions: no lesions Rashes: no rashes MDM MDM MDM Narrative Medical decision making narrative: 31-year-old male with right ear pain and drainage he has otitis externa may or may not have meeting and/or tympanic membrane perforation. He will be placed on amoxicillin 500 3 times daily for 10 days. Motrin and Tylenol for pain. Eardrops and follow-up with ENT if not improving. Patient has penicillin listed as an allergy he does not have an allergy to it he said 1 time it did not work when he had MRSA. Discharge Plan Triage Chief Complaint: Ear Problem ED Provider: Adriano Acevedo Dx/Rx/DC Orders Clinical Impression: Otitis externa, Depression with anxiety Instructions: ED External Ear Infection (Adult) Prescriptions: New amoxicillin 500 mg capsule 500 mg PO TID Qty: 30 RF: 0 ciprofloxacin-dexamethasone [Ciprodex] 0.3-0.1 % drops,suspension 4 drp RIGHT EAR BID 7 Days RF: 0 No Action hydroxyzine pamoate [Vistaril] 50 mg capsule 50 mg PO BID RF: 0 buspirone 10 mg tablet 10 mg PO TID RF: 0 meloxicam 15 mg tablet 15 mg PO DAILY PRN (Reason: Pain) RF: 0 cariprazine 3 mg capsule 3 mg PO DAILY RF: 0 vitamin B complex Tablet 1 tab PO DAILY Qty: 90 RF: 2 multivitamin Tablet 1 tab PO DAILY Qty: 90 RF: 3 trazodone 50 MG tablet 100 mg PO QHS RF: 0 fluoxetine 40 mg capsule 40 mg PO DAILY Qty: 90 RF: 3 cholecalciferol (vitamin D3) 50 mcg (2,000 unit) capsule 50 mcg PO DAILY Qty: 90 RF: 3 Primary Care Provider: Fady Dang Referrals: Thomas Herring MD [STAFF PHYSICIAN] - 3-5 Days if not improving NOT,DEFINED [NON-STAFF] - Activity Restrictions/Additional Instructions: You have a right ear canal infection. You may or may not also have an eardrum infection or perforation is difficult to see the eardrum at this time to the fluid and swelling in your canal. Motrin and Tylenol for pain. 4 drops to your right ear 2-3 times a day till gone. Amoxicillin 3 times a day. Follow-up with ear nose and throat doctor if not improving. In the shower put a cotton ball in your ear to prevent fluid from getting in your ear. Disposition Disposition: Home, Self Care
[2021-06-17] MEDS: AMOXICILLIN 500 MG CAPSULE PO (06:58)
== END 2021-06-17 07:14 | disposition home or self-care (01) ==
PROVIDERS: Emergency Provider Emergency Medicine; PCP Internal Medicine; Visit Provider Emergency Medicine
DX: H60.91 Unspecified otitis externa, right ear (principal); F31.9 Bipolar disorder, unspecified; F41.8 Other specified anxiety disorders; F17.210 Nicotine dependence, cigarettes, uncomplicated; Z79.899 Other long term (current) drug therapy; E66.9 Obesity, unspecified; Z68.33 Body mass index [BMI] 33.0-33.9, adult
CPT/HCPCS: 99283

== ENCOUNTER 2021-07-03 09:16 | Inpatient (IN) | payer MEDICAID, SELFPAY ==
[2021-07-03] VITALS (8 sets, daily range): BP systolic 133–152; BP diastolic 94–106; PULSE 75–110; RESP 16–20; TEMP 36–37.7; O2SAT 95–99; BMI 32.8; BMI 32.5
--- NOTE | 2021-07-03 09:27 | ED.RN ---
WHEN ASKED IF PT HAS ANY THOUGHT OF HARMING SELF HE STATES I JUST DON'T REALLY FUCKING CARE WHAT HAPPENS. PT DENIES PLAN, SCORS LOW RISK ON SUICIDE ASSESSMENT.
[2021-07-03 10:23] LABS: Bacteria 0 SEEN /hpf (None Seen); Mucous, Urine 0 SEEN /hpf (<or=2+); Red Blood Cells-Urine 0 SEEN /hpf (0-5); Squamous Epithelial Cells - UA 0 SEEN /hpf (0-5); White Blood Cells 0 SEEN /hpf (0-5)
--- NOTE | 2021-07-03 10:24 | CM.ED ---
KARY Note Referral Source: Case Find Referral Reason: Rei PRESTON met with patient. He reports he is at [facility] for detox from alcohol. Last use 2 hours ago. Reports drinking 2 pints a day. No current AOD linkage but wants linkage with [facility] for AOD treatment. Patient is familiar with [facility] program and rules and has no questions or concerns. KARY remains available. KARY called and left confidential voice mail message for Norberto Carlos regarding patient's admission to [facility] Anitha MARINELLI
[2021-07-03 10:30] LABS: Color, Urine Yellow (Yellow); Glucose, Dipstick Normal (Normal); Ketone-Dipstick 5 mg/dl (Negative); Leukocyte Esterase-Dipstick Negative /ul (Negative); Nitrite-Dipstick Negative (Negative); Occult Blood-Urine Negative /ul (Negative); Protein-Dipstick 30 mg/dl (Negative); Urine Bilirubin Dipstick Negative (Negative); Urine Clarity Clear (Clear); Urine Urobilinogen Normal (Normal); Urine pH 6.5 (5.0 - 8.0)
[2021-07-03 10:31] LABS: Absolute Lymphocyte Count 4.62 X10^3/uL (0.83-4.51); Absolute Neutrophil Count 7.4 X10^3/uL (2.0-7.7); Basophil% 0.8 % (0-1); Eosinophil# 0.06 X10^3/uL; Eosinophils% 0.5 % (0-5); Hematocrit 53.9 % (40-54); Lymphocyte # 4.62 X10^3/ul (0.83-4.51); Lymphocyte % 35.3 % (19-41); Mean Corp Hgb Conc 34.5 g/dL (32-36); Mean Corpuscular Hgb 29.7 pg (27.0-32.0); Mean Corpuscular Volume 86.1 fL (80-94); Mean Platelet Vol. 8.9 fl (6.2-12.0); Monocyte# 0.84 X10^3/uL; Monocyte% 6.4 % (0-10); NRBC Flagged by Analyzer 0 % (0-5); Neutrophil # 7.37 X10^3/uL (2.7-7.7); Neutrophil % 56.4 % (47-70); Platelet Count 378 K/mm3 (150-450); RBC Distribution Width CV 13.4 % (11.6-14.6); Red Blood Count 6.26 M/mm3 (4.6-6.2); White Blood Count 13.1 K/mm3 (4.4-11.0)
--- NOTE | 2021-07-03 10:37 | PCM.HP.STD ---
HPI - General General Date of Admission: 07/03/21 Date of Service: 07/03/21 Chief Complaint: Alcohol dependence with desire for detoxification HPI Narrative NIRMALA COPELAND, is a 31 M with past medical history significant for chronic alcohol dependence who presented with desire for detoxification. Patient reports drinking 2 pints of vodka on a daily basis. Patient underwent medical stabilization for chronic alcohol dependence almost a year ago. Patient also admits to recreational use of heroin. An assessment of acute alcohol withdrawal from chronic alcohol dependence made admitted to the regular nursing floor for further management [facility] Medical History Admitted to substance misuse detoxification center Anxiety and depression Bipolar 1 disorder Bone fracture Drug abuse Foot fracture, left H/O emotional problems Hepatitis B Hepatitis C Hypertension Influenza vaccine needed Recovering alcoholic Seasonal allergies SOB (shortness of breath) Home Medications fluoxetine 40 mg capsule 40 mg PO DAILY #90 cap 07/05/19 [Rx Last Taken 06/07/20 08:00] trazodone 100 mg PO QHS 04/20/20 [History Last Taken 06/06/20 22:00] hydroxyzine pamoate 50 mg capsule 50 mg PO BID 12/18/20 [History Last Taken Unknown] cholecalciferol (vitamin D3) 50 mcg (2,000 unit) capsule 50 mcg PO DAILY #90 cap 12/24/20 [Rx Last Taken Unknown] buspirone 10 mg tablet 10 mg PO TID tab 03/19/21 [History Last Taken Unknown] cariprazine 3 mg capsule 3 mg PO DAILY 03/19/21 [History Last Taken Unknown] meloxicam 15 mg tablet 15 mg PO DAILY PRN 03/19/21 [History Last Taken Unknown] multivitamin 1 tab PO DAILY #90 tab 03/19/21 [Rx Last Taken Unknown] vitamin B complex 1 tab PO DAILY #90 tab 03/19/21 [Rx Last Taken Unknown] amoxicillin 500 mg PO TID #30 cap 06/17/21 [Rx Last Taken Unknown] ciprofloxacin-dexamethasone [Ciprodex] 4 drp RIGHT EAR BID 7 Days ml 06/17/21 [Rx Last Taken Unknown] Allergy/AdvReac Type Severity Reaction Status Date / Time adhesive tape Allergy Mild Hives Verified 07/03/21 09:20 Penicillins Allergy Hives Verified 07/03/21 09:20 Family History Grandfather Hypertension Grandmother Hypertension Breast cancer Mother Breast cancer Hypertension Alcohol abuse Anxiety Asthma Respiratory disease Cancer uterine, skin Father Alcohol abuse Surgical History History of facial surgery Status post left foot surgery Social History Smoking Status: Current every day smoker tobacco type: cigarettes alcohol intake: former year quit: 2019 substance use type: former substance user what type of physical activity do you participate in: none ROS ROS Narrative GENERAL: denies fever, chills, night sweats, HEENT: denies headache, sinus congestion, or drainage, dysphagia RESPIRATORY: denies cough, sputum production, shortness of breath, CARDIAC: denies chest pain, palpitations, GASTROINTESTINAL: d nausea, vomiting, GENITOURINARY: denies dysuria, urgency, frequency, EXTREMITY: denies swelling MUSCULOSKELETAL: denies current joint pain or tenderness NEUROLOGIC: denies focal numbness, weakness, tingling HEMATOLOGIC: denies easy bruising and/or hemorrhage INTEGUMENT: denies rashes PSYCHIATRIC: denies suicidal or homicidal ideation Vital Signs Vital Signs Vital Signs: 07/03/21 09:17 Temperature 97.2 F L Temperature Source Temporal Pulse Rate 109 H Respiratory Rate 16 Blood Pressure 152/106 H Blood Pressure Mean 121 Pulse Ox 97 Oxygen Delivery Method Room Air Weight Weight: 95.254 kg Body Mass Index (BMI) 32.8 Physical Exam Narrative GENERAL: cooperative HEENT: Atraumatic; EYES; Anicteric, Normal Conjunctiva NECK; supple, normal thyroid, RESPIRATORY: Diminished to auscultation CARDIOVASCULAR: Regular S1 S2, GI: soft, normoactive bowel sounds, : No Renal angle tenderness; EXTREMITIES: No edema, no clubbing, MUSCULOSKELETAL: no muscle waisting NEURO: Awake; no lateralizing signs. SKIN: No Rash PSYCH; Flat affect Results Lab / Micro Data Result Diagrams: 07/03/21 09:52 07/03/21 09:52 Labs: Laboratory Results - last 24 hr 07/03/21 09:36: Urine Color Yellow, Urine Clarity Clear, Urine pH 6.5, Ur Specific Ethel 1.010, Urine Protein 30 H, Urine Glucose (UA) Normal, Urine Ketones 5 H, Urine Occult Blood Negative, Urine Nitrite Negative, Urine Bilirubin Negative, Urine Urobilinogen Normal, Ur Leukocyte Esterase Negative 07/03/21 09:36: Ur Drug Screen Comment Assessment & Plan Assessment/Plan (1) Alcohol withdrawal: PLAN: Patient is a 30-year-old gentleman with history of polysubstance abuse including alcohol tobacco admitted for medical stabilization 1. Acute alcohol withdrawal ?Patient admitted to [facility] floor currently being managed with phenobarb and adjuvants medications to assist with medical stabilization 2. Bipolar disorder ?did continue with home meds 3. Depression with anxiety ?Did continue with home meds 4.? Polycythemia ?Do suspect dehydration patient was rehydrated with serial H&H ordered for subsequent monitoring 5. Elevated liver enzymes ?Secondary to chronic alcohol use 6. Chronic alcohol dependence ?Patient was counseled on cessation 7. Hypertension - Blood pressure controlled, home medications continued with dose adjustment as needed 8. Class I obesity with BMI of 32.9 ?Weight loss advised 9. Tobacco dependence - Counseled on cessation, offered nicotine gum for tobacco cravings 10. Polysubstance abuse including use of recreational heroin as well as marijuana, counseled on cessation 11. DVT prophylaxis ?Low risk did encourage early ambulation Charges/Coding Visit Charges Inpatient E&M: 34747 Init Hosp L3
[2021-07-03 10:39] LABS: Differential Indicated SCAN CRITERIA MET; Hemoglobin 18.6 g/dL (13.0-16.5)
[2021-07-03 10:41] LABS: Amphetamine Urine VISTA NEGATIVE (<1000 ng/mL); Barbiturate Urine VISTA NEGATIVE (< 200 ng/mL); Benzodiazepine Urine VISTA NEGATIVE (< 200 ng/mL); Cocaine Urine VISTA NEGATIVE (< 300 ng/mL); Ecstacy Urine VISTA NEGATIVE (< 500 ng/mL); Methadone Urine VISTA NEGATIVE (< 300 ng/mL); PCP Urine VISTA NEGATIVE (< 25 ng/mL); THC Urine VISTA POSITIVE (< 50 ng/mL); Vista UDS pH Range 6
[2021-07-03 10:45] LABS: AST(SGOT) 71 U/L (15-37); Alanine Aminotransfer ALT/SGPT 104 U/L (16-61); Albumin, Serum 4.1 g/dL (3.2-5.0); Alkaline Phosphatase 118 U/L (45-117); Anion Gap 9 (5-15); BUN 9 mg/dL (7-18); BUN/Creat Ratio 11.7 RATIO (10-20); Calcium,Total 8.9 mg/dL (8.5-10.1); Chloride 104 mmol/L (98-107); Creatinine, Serum 0.77 mg/dL (0.70-1.30); EST Glomerular Filtration Rate 127 mL/min (>60); Est Glom Filt Rate - Afr Amer 153 mL/min (>60); Estimated Creatinine Clearance 131.15 ml/min; Globulin 4.1 g/dL (2.2-4.2); Glucose 115 mg/dL (74-106); Potassium 3.6 mmol/L (3.5-5.1); Protein, Total 8.2 g/dL (6.4-8.2); Sodium Level 141 mmol/L (136-145)
--- NOTE | 2021-07-03 10:46 | EX.ED.SAOD ---
HPI History of Present Illness Chief Complaint: Substance Abuse Informant: patient Onset/Context/Timing Onset: Month(s) (4) Context: Gradual Onset Timing: Continuous Worsened by: Nothing Relieved by: Nothing Associated Symptoms Associated Symptoms: Positive for vomiting*; Negative for diarrhea*, fever*, rash*, seizure, tremor, palpatations, suicidal ideation and homicidal ideation Narrative Narrative: Patient presents requesting detox from alcohol and heroin. Patient states he has been drinking for the past 4 months. Patient went through detox here approximately 1 year ago but started drinking again approximately 4 months ago. Patient states he drinks approximately 2 pints of vodka per day. Patient states his last drink was approximately 2 hours prior to arrival. Patient also admits to occasional heroin use. Patient states his last heroin use was 4 days ago. Patient admits to some nausea and vomiting. Patient denies any fevers or chills. Patient denies any abdominal pain. [facility] Medical History Admitted to substance misuse detoxification center Anxiety and depression Bipolar 1 disorder Bone fracture Drug abuse Foot fracture, left H/O emotional problems Hepatitis B Hepatitis C Hypertension Influenza vaccine needed Recovering alcoholic Seasonal allergies SOB (shortness of breath) Home Medications fluoxetine 40 mg capsule 40 mg PO DAILY #90 cap 07/05/19 [Rx Last Taken 06/07/20 08:00] trazodone 100 mg PO QHS 04/20/20 [History Last Taken 06/06/20 22:00] hydroxyzine pamoate 50 mg capsule 50 mg PO BID 12/18/20 [History Last Taken Unknown] cholecalciferol (vitamin D3) 50 mcg (2,000 unit) capsule 50 mcg PO DAILY #90 cap 12/24/20 [Rx Last Taken Unknown] buspirone 10 mg tablet 10 mg PO TID tab 03/19/21 [History Last Taken Unknown] cariprazine 3 mg capsule 3 mg PO DAILY 03/19/21 [History Last Taken Unknown] meloxicam 15 mg tablet 15 mg PO DAILY PRN 03/19/21 [History Last Taken Unknown] multivitamin 1 tab PO DAILY #90 tab 03/19/21 [Rx Last Taken Unknown] vitamin B complex 1 tab PO DAILY #90 tab 03/19/21 [Rx Last Taken Unknown] amoxicillin 500 mg PO TID #30 cap 06/17/21 [Rx Last Taken Unknown] ciprofloxacin-dexamethasone [Ciprodex] 4 drp RIGHT EAR BID 7 Days ml 06/17/21 [Rx Last Taken Unknown] Allergy/AdvReac Type Severity Reaction Status Date / Time adhesive tape Allergy Mild Hives Verified 07/03/21 09:20 Penicillins Allergy Hives Verified 07/03/21 09:20 Family History Grandfather Hypertension Grandmother Hypertension Breast cancer Mother Breast cancer Hypertension Alcohol abuse Anxiety Asthma Respiratory disease Cancer uterine, skin Father Alcohol abuse Surgical History History of facial surgery Status post left foot surgery Social History Smoking Status: Current every day smoker tobacco type: cigarettes alcohol intake: former year quit: 2019 substance use type: former substance user what type of physical activity do you participate in: none ROS ROS ED Constitutional Constitutional ED: Denies chills or fever(s) Eyes Eyes: Denies blurry vision or change in vision ENT ENT ED: Denies rhinorrhea or sore throat Cardiovascular Cardiovascular: Denies chest pain or palpitations Respiratory/Chest Respiratory/Chest: Denies cough or dyspnea Gastrointestinal Gastrointestinal: Reports nausea and vomiting Genitourinary Genitourinary ED: Denies dysuria or hematuria Musculoskeletal Musculoskeletal: Denies back pain or neck pain Integumentary Denies abscess or rash Neurologic Neurologic: Denies headache(s) or weakness Allergic/Immunologic Allergic/Immunologic ED: Denies mouth swelling or urticaria EXAM Physical Exam Const Vital Signs: 07/03/21 09:17 Temperature 97.2 F L Temperature Source Temporal Pulse Rate 109 H Respiratory Rate 16 Blood Pressure 152/106 H Blood Pressure Mean 121 Pulse Ox 97 Oxygen Delivery Method Room Air Positive well nourished and well developed General Appearance ED: well developed and NAD HEENT Reports moist mucous membranes Neck supple and no JVD Resp normal respiratory effort and clear to auscultation bilaterally Cardio regular rate, regular rhythm and no murmurs GI normal to inspection, nondistended, normoactive bowel sounds, soft to palpation and non-tender Palpation: soft Extremity normal to inspection General Extremety ED: Negative for edema or tenderness General Extremity: Negative for edema Neuro oriented x3, CN's II-XII intact bilaterally and no sensory deficits noted Sensorium / Orientation: alert Motor Exam: strength 5/5 throughout Psych mental status grossly normal Skin no rashes or lesions noted MDM MDM MDM Narrative Medical decision making narrative: CBC shows a mild leukocytosis of 13.1. Hemoglobin was 18.6. Urinalysis does not show any evidence of urinary tract infection. Urine tox screen was positive for cannabinoids. Comprehensive metabolic profile was within normal limits. Serum alcohol level was elevated at 301. Case was discussed with the hospitalist, Dr. Hedrick. He will admit the patient to his service. Patient understood and was agreeable with the plan. All questions were answered. Lab Data Attestation: I reviewed the patient's lab results. Labs: Laboratory Results - last 24 hr 07/03/21 07/03/21 07/03/21 09:36 09:36 09:52 WBC 13.1 H RBC 6.26 H Hgb 18.6 H* Hct 53.9 MCV 86.1 MCH 29.7 MCHC 34.5 RDW Std Deviation 42.0 RDW Coeff of Mango 13.4 Plt Count 378 MPV 8.9 Immature Gran % (Auto) 0.600 Neut % (Auto) 56.4 Lymph % (Auto) 35.3 Millard % (Auto) 6.4 Eos % (Auto) 0.5 Baso % (Auto) 0.8 Absolute Neuts (auto) 7.4 Absolute Lymphs (auto) 4.62 H Nucleated RBC % 0 Sodium Potassium Chloride Carbon Dioxide Anion Gap BUN Creatinine Estim Creat Clear Calc Est GFR (MDRD) Af Amer Est GFR (MDRD) Non-Af BUN/Creatinine Ratio Glucose Calcium Total Bilirubin AST ALT Alkaline Phosphatase Total Protein Albumin Globulin Albumin/Globulin Ratio Urine Color Yellow Urine Clarity Clear Urine pH 6.5 Ur Specific [place] 1.010 Urine Protein 30 H Urine Glucose (UA) Normal Urine Ketones 5 H Urine Occult Blood Negative Urine Nitrite Negative Urine Bilirubin Negative Urine Urobilinogen Normal Ur Leukocyte Esterase Negative Urine RBC 0 SEEN Urine WBC 0 SEEN Ur Squamous Epith Cells 0 SEEN Urine Bacteria 0 SEEN Urine Mucus 0 SEEN Urine Opiates Screen NEGATIVE Urine Methadone Screen NEGATIVE Ur Barbiturates Screen NEGATIVE Ur Phencyclidine Scrn NEGATIVE Ur Amphetamines Screen NEGATIVE U Methamphetamin-MDMA NEGATIVE U Benzodiazepines Scrn NEGATIVE Urine Cocaine Screen NEGATIVE U Cannabinoids Screen POSITIVE H Ur Drug Screen Comment Ethyl Alcohol 07/03/21 07/03/21 09:52 09:52 WBC RBC Hgb Hct MCV MCH MCHC RDW Std Deviation RDW Coeff of Mango Plt Count MPV Immature Gran % (Auto) Neut % (Auto) Lymph % (Auto) Millard % (Auto) Eos % (Auto) Baso % (Auto) Absolute Neuts (auto) Absolute Lymphs (auto) Nucleated RBC % Sodium 141 Potassium 3.6 Chloride 104 Carbon Dioxide 28.0 Anion Gap 9 BUN 9 Creatinine 0.77 Estim Creat Clear Calc 131.15 Est GFR (MDRD) Af Amer 153 Est GFR (MDRD) Non-Af 127 BUN/Creatinine Ratio 11.7 Glucose 115 H Calcium 8.9 Total Bilirubin 0.40 AST 71 H ALT 104 H Alkaline Phosphatase 118 H Total Protein 8.2 Albumin 4.1 Globulin 4.1 Albumin/Globulin Ratio 1.0 Urine Color Urine Clarity Urine pH Ur Specific [place] Urine Protein Urine Glucose (UA) Urine Ketones Urine Occult Blood Urine Nitrite Urine Bilirubin Urine Urobilinogen Ur Leukocyte Esterase Urine RBC Urine WBC Ur Squamous Epith Cells Urine Bacteria Urine Mucus Urine Opiates Screen Urine Methadone Screen Ur Barbiturates Screen Ur Phencyclidine Scrn Ur Amphetamines Screen U Methamphetamin-MDMA U Benzodiazepines Scrn Urine Cocaine Screen U Cannabinoids Screen Ur Drug Screen Comment Ethyl Alcohol 301.0 H* Treatment and Re-Evaluation Vital Sign Attestation:: Vital signs are reviewed prior to admission. There is a mild tachycardia of 109 and a mild hypertension of 152/106. They are otherwise stable. Discharge Plan Dx/Rx/DC Orders Clinical Impression: Alcohol withdrawal Disposition Disposition: Acute Care Hospital [facility]
[2021-07-03] MEDS: Phenobarbital 32.4 MG Tablet 64.8 MG PO ×4 (12:43→22:52)
[2021-07-03] MEDS: Ondansetron 8 MG Tablet PO ×2 (12:43→20:55)
[2021-07-03] MEDS: Lactated Ringers 1,000 ML 125 ML IV (12:44)
[2021-07-03] MEDS: 0.9% Saline Lock 10 ML Syringe IV (12:47)
--- NOTE | 2021-07-03 14:26 | NURSING ---
Home med cariprazine not available in pharmacy d/t non-formulary. This RN spoke with pt and offered to call family to have brought. Pt states he doesn't have anyone who can bring medication and that I'll be fine not taking it for a few days.
[2021-07-03 15:29] LABS: Pathologist Review Reviewed
[2021-07-03] MEDS: FLUoxetine 20 MG Capsule 40 MG PO (15:30)
[2021-07-03] MEDS: hydrOXYzine PAM 25 MG Capsule 50 MG PO (18:47)
[2021-07-03] MEDS: Gabapentin 300 MG Capsule PO (20:55)
[2021-07-03] MEDS: traZODone 100 MG Tablet PO (22:52)
[2021-07-04] MEDS: Phenobarbital 32.4 MG Tablet 64.8 MG PO ×5 (02:59→20:03)
[2021-07-04 03:05] VITALS: BP 134/91; PULSE 96; RESP 18; TEMP 36.6; O2SAT 95
[2021-07-04 06:48] VITALS: BP 140/93; PULSE 91; RESP 19; TEMP 36.4; O2SAT 95
--- NOTE | 2021-07-04 07:51 | PN.HOSP_ITS ---
Subjective Subjective Seen complains of tremors Objective Data Objective Data Vital Signs: Vital Signs Temp Pulse Resp BP Pulse Ox 97.5 F L 91 19 H 140/93 H 95 07/04/21 06:48 07/04/21 06:48 07/04/21 06:48 07/04/21 06:48 07/04/21 06:48 Oxygen Delivery Method Room Air Weight: 94.2 kg Body Mass Index (BMI) 32.5 Intake & Output: Intake and Output for Last 24 Hours 07/02/21 07/03/21 07/04/21 23:59 23:59 23:59 Intake Total 2009 320 / 320 Balance 2009 320 / 320 Lab / Micro Data Result Diagrams: 07/04/21 08:04 07/03/21 09:52 Labs: Laboratory Results - last 24 hr 07/03/21 09:36: Urine Color Yellow, Urine Clarity Clear, Urine pH 6.5, Ur Specific [place] 1.010, Urine Protein 30 H, Urine Glucose (UA) Normal, Urine Ketones 5 H, Urine Occult Blood Negative, Urine Nitrite Negative, Urine Bilirubin Negative, Urine Urobilinogen Normal, Ur Leukocyte Esterase Negative, Urine RBC 0 SEEN, Urine WBC 0 SEEN, Ur Squamous Epith Cells 0 SEEN, Urine Bacteria 0 SEEN, Urine Mucus 0 SEEN 07/03/21 09:36: Urine Opiates Screen NEGATIVE, Urine Methadone Screen NEGATIVE, Ur Barbiturates Screen NEGATIVE, Ur Phencyclidine Scrn NEGATIVE, Ur Amphetamines Screen NEGATIVE, U Methamphetamin-MDMA NEGATIVE, U Benzodiazepines Scrn NEGATIVE, Urine Cocaine Screen NEGATIVE, U Cannabinoids Screen POSITIVE H, Ur Drug Screen Comment 07/03/21 09:52: WBC 13.1 H, RBC 6.26 H, Hgb 18.6 H*, Hct 53.9, MCV 86.1, MCH 29.7, MCHC 34.5, RDW Std Deviation 42.0, RDW Coeff of Mango 13.4, Plt Count 378, MPV 8.9, Immature Gran % (Auto) 0.600, Neut % (Auto) 56.4, Lymph % (Auto) 35.3, [place] % (Auto) 6.4, Eos % (Auto) 0.5, Baso % (Auto) 0.8, Absolute Neuts (auto) 7.4, Absolute Lymphs (auto) 4.62 H, Nucleated RBC % 0, Differential Comment COMMENT, Diff Path Review Reviewed 07/03/21 09:52: Sodium 141, Potassium 3.6, Chloride 104, Carbon Dioxide 28.0, Anion Gap 9, BUN 9, Creatinine 0.77, Estim Creat Clear Calc 131.15, Est GFR (MDRD) Af Amer 153, Est GFR (MDRD) Non-Af 127, BUN/Creatinine Ratio 11.7, Glucose 115 H, Calcium 8.9, Total Bilirubin 0.40, AST 71 H, ALT 104 H, Alkaline Phosphatase 118 H, Total Protein 8.2, Albumin 4.1, Globulin 4.1, Albumin/Globulin Ratio 1.0 07/03/21 09:52: Ethyl Alcohol 301.0 H* Physical Exam Narrative GENERAL: cooperative HEENT: Atraumatic; EYES; Anicteric, Normal Conjunctiva NECK; supple, normal thyroid, RESPIRATORY: Diminished to auscultation CARDIOVASCULAR: Regular S1 S2, GI: soft, normoactive bowel sounds, : No Renal angle tenderness; EXTREMITIES: No edema, no clubbing, MUSCULOSKELETAL: no muscle waisting NEURO: Awake; no lateralizing signs. SKIN: No Rash PSYCH; Flat affect Assessment & Plan Assessment/Plan (1) Alcohol withdrawal: PLAN: Patient is a 30-year-old gentleman with history of polysubstance abuse including alcohol tobacco admitted for medical stabilization 1. Acute alcohol withdrawal ?Patient admitted to [facility] floor currently being managed with phenobarb and adjuvants medications to assist with medical stabilization ?07/04/2021. Patient remains significantly symptomatic with a lot of tremors. Patient is on phenobarb taper; plan to continue 2. Bipolar disorder ?did continue with home meds 3. Depression with anxiety ?Did continue with home meds 4.? Polycythemia ?Do suspect dehydration patient was rehydrated with serial H&H ordered for subse quent monitoring 5. Elevated liver enzymes ?Secondary to chronic alcohol use 6. Chronic alcohol dependence ?Patient was counseled on cessation 7. Hypertension - Blood pressure controlled, home medications continued with dose adjustment as needed 8. Class I obesity with BMI of 32.9 ?Weight loss advised 9. Tobacco dependence - Counseled on cessation, offered nicotine gum for tobacco cravings 10. Polysubstance abuse including use of recreational heroin as well as marijuana, counseled on cessation 11. DVT prophylaxis ?Low risk did encourage early ambulation Charges/Coding Visit Charges Inpatient E&M: 32148 Subs Hosp L2
[2021-07-04 08:23] LABS: Absolute Neutrophil Count 3.1 X10^3/uL (2.0-7.7); Basophil# 0.04 X10^3/uL; Basophil% 0.6 % (0-1); Eosinophil# 0.18 X10^3/uL; Eosinophils% 2.8 % (0-5); Hematocrit 46.8 % (40-54); Hemoglobin 16.4 g/dL (13.0-16.5); Lymphocyte % 36.1 % (19-41); Mean Corpuscular Hgb 29.8 pg (27.0-32.0); Mean Corpuscular Volume 84.9 fL (80-94); Mean Platelet Vol. 9.2 fl (6.2-12.0); Monocyte# 0.71 X10^3/uL; Monocyte% 11.1 % (0-10); NRBC Flagged by Analyzer 0 % (0-5); Neutrophil # 3.13 X10^3/uL (2.7-7.7); Neutrophil % 49.1 % (47-70); Platelet Count 244 K/mm3 (150-450); RBC Distribution Width CV 13.2 % (11.6-14.6); RBC Distribution Width SD 40.7 fl (35.1-43.9); Red Blood Count 5.51 M/mm3 (4.6-6.2); White Blood Count 6.4 K/mm3 (4.4-11.0)
[2021-07-04 10:30] VITALS: BP 133/93; PULSE 87; RESP 18; TEMP 36.6; O2SAT 97
[2021-07-04] MEDS: FLUoxetine 20 MG Capsule 40 MG PO (10:37)
[2021-07-04] MEDS: Thiamine Hydrochloride 100 MG Tablet PO (10:37)
[2021-07-04] MEDS: hydrOXYzine PAM 25 MG Capsule 50 MG PO ×2 (10:37→23:05)
[2021-07-04] MEDS: Folic Acid 1 MG Tablet PO (10:37)
--- NOTE | 2021-07-04 10:59 | ADDICTION ---
This magazine writer met with PT to conduct ASAM, MSE, AUDIT, DUDITassessments and to plan for d/c. PT A+Ox4 and participated actively. All assessments completed and placed in PT's chart. PT plans to f/u with [facility] for follow-up treatment services. PT did not indicate a need for transportation post d/c from [facility].
--- NOTE | 2021-07-04 11:13 | NURSING ---
nicotine patch and buspar not stocked in [facility] on this unit note sent to Rx to please send
[2021-07-04] MEDS: busPIRone 5 MG Tablet 10 MG PO ×3 (11:59→23:00)
--- NOTE | 2021-07-04 12:22 | CASEMGMT ---
Norberto from Addiction medicine was able to get an earlier appt for patient at [facility]. The appt is Jul 15 at 10a. SW wrote this down and gave it to patient. He was appreciative. Gloria Landa [employer] WANG
[2021-07-04 15:37] VITALS: BP 134/100; PULSE 86; RESP 18; TEMP 36.7; O2SAT 96
[2021-07-04 18:00] VITALS: BP 144/99; PULSE 88; RESP 18; TEMP 36.6; O2SAT 96
[2021-07-04] MEDS: traZODone 100 MG Tablet PO (23:05)
[2021-07-04 23:50] VITALS: BP 138/85; PULSE 87; RESP 18; TEMP 36.7; O2SAT 95
[2021-07-05] MEDS: Phenobarbital 32.4 MG Tablet 64.8 MG PO ×6 (00:42→18:45)
[2021-07-05 04:40] VITALS: BP 136/87; PULSE 84; RESP 17; TEMP 36.6; O2SAT 97
[2021-07-05] MEDS: busPIRone 5 MG Tablet 10 MG PO ×3 (06:47→21:44)
--- NOTE | 2021-07-05 07:27 | PCM.PN.HOSP ---
Subjective Subjective Patient seen admit to having a more restful night compared to the previous night. Symptoms well controlled at this point Objective Data Objective Data Vital Signs: Vital Signs Temp Pulse Resp BP Pulse Ox 97.9 F 84 17 136/87 H 97 07/05/21 04:40 07/05/21 04:40 07/05/21 04:40 07/05/21 04:40 07/05/21 04:40 Oxygen Delivery Method Room Air Weight: 94.2 kg Body Mass Index (BMI) 32.5 Intake & Output: Intake and Output for Last 24 Hours 07/03/21 07/04/21 07/05/21 23:59 23:59 23:59 Intake Total 2009 320 / 320 Balance 2009 320 / 320 Lab / Micro Data Result Diagrams: 07/05/21 08:00 07/03/21 09:52 Labs: Laboratory Results - last 24 hr 07/04/21 08:04: WBC 6.4, RBC 5.51, Hgb 16.4, Hct 46.8, MCV 84.9, MCH 29.8, MCHC 35.0, RDW Std Deviation 40.7, RDW Coeff of Mango 13.2, Plt Count 244, MPV 9.2, Immature Gran % (Auto) 0.300, Neut % (Auto) 49.1, Lymph % (Auto) 36.1, [place] % (Auto) 11.1 H, Eos % (Auto) 2.8, Baso % (Auto) 0.6, Absolute Neuts (auto) 3.1, Absolute Lymphs (auto) 2.30, Nucleated RBC % 0 Physical Exam Narrative GENERAL: cooperative HEENT: Atraumatic; EYES; Anicteric, Normal Conjunctiva NECK; supple, normal thyroid, RESPIRATORY: Diminished to auscultation CARDIOVASCULAR: Regular S1 S2, GI: soft, normoactive bowel sounds, : No Renal angle tenderness; EXTREMITIES: No edema, no clubbing, MUSCULOSKELETAL: no muscle waisting NEURO: Awake; no lateralizing signs. SKIN: No Rash PSYCH; Flat affect Assessment & Plan Assessment/Plan (1) Alcohol withdrawal: PLAN: Patient is a 30-year-old gentleman with history of polysubstance abuse including alcohol tobacco admitted for medical stabilization 1. Acute alcohol withdrawal ?Patient admitted to [facility] floor currently being managed with phenobarb and adjuvants medications to assist with medical stabilization ?07/04/2021. Patient remains significantly symptomatic with a lot of tremors. Patient is on phenobarb taper; plan to continue ?07/05/2021; atient seen admit to having a more restful night compared to the previous night. Symptoms well controlled at this point 2. Bipolar disorder ?did continue with home meds 3. Depression with anxiety ?Did continue with home meds 4.? Polycythemia ?Do suspect dehydration patient was rehydrated with serial H&H ordered for subsequent monitoring 5. Elevated liver enzymes ?Secondary to chronic alcohol use 6. Chronic alcohol dependence ?Patient was counseled on cessation 7. Hypertension - Blood pressure controlled, home medications continued with dose adjustment as needed 8. Class I obesity with BMI of 32.9 ?Weight loss advised 9. Tobacco dependence - Counseled on cessation, offered nicotine gum for tobacco cravings 10. Polysubstance abuse including use of recreational heroin as well as marijuana, counseled on cessation 11. DVT prophylaxis ?Low risk did encourage early ambulation Charges/Coding Visit Charges Inpatient E&M: 33395 Subs Hosp L2
[2021-07-05] MEDS: hydrOXYzine PAM 25 MG Capsule 50 MG PO ×3 (08:06→18:44)
[2021-07-05] MEDS: Thiamine Hydrochloride 100 MG Tablet PO (08:07)
[2021-07-05] MEDS: Folic Acid 1 MG Tablet PO (08:07)
[2021-07-05] MEDS: FLUoxetine 20 MG Capsule 40 MG PO (08:08)
[2021-07-05 08:37] LABS: Absolute Lymphocyte Count 1.85 X10^3/uL (0.83-4.51); Absolute Neutrophil Count 3.3 X10^3/uL (2.0-7.7); Basophil# 0.04 X10^3/uL; Basophil% 0.7 % (0-1); Eosinophil# 0.15 X10^3/uL; Eosinophils% 2.5 % (0-5); Hematocrit 47.4 % (40-54); Hemoglobin 16.4 g/dL (13.0-16.5); Lymphocyte # 1.85 X10^3/ul (0.83-4.51); Lymphocyte % 30.6 % (19-41); Mean Corp Hgb Conc 34.6 g/dL (32-36); Mean Corpuscular Hgb 30.7 pg (27.0-32.0); Mean Corpuscular Volume 88.8 fL (80-94); Monocyte# 0.68 X10^3/uL; Monocyte% 11.3 % (0-10); NRBC Flagged by Analyzer 0 % (0-5); Neutrophil % 54.6 % (47-70); Platelet Count 250 K/mm3 (150-450); RBC Distribution Width CV 13.7 % (11.6-14.6); RBC Distribution Width SD 43.4 fl (35.1-43.9); Red Blood Count 5.34 M/mm3 (4.6-6.2)
[2021-07-05 10:00] VITALS: BP 137/86; PULSE 82; RESP 16; TEMP 36.6; O2SAT 95
[2021-07-05 16:10] VITALS: BP 131/93; PULSE 88; RESP 16; TEMP 36.7; O2SAT 98
[2021-07-05 21:49] VITALS: BP 131/96; PULSE 82; RESP 18; TEMP 36.9; O2SAT 96
[2021-07-06] MEDS: hydrOXYzine PAM 25 MG Capsule 50 MG PO ×2 (02:41→08:35)
[2021-07-06] MEDS: Phenobarbital 32.4 MG Tablet 64.8 MG PO ×2 (02:41→06:34)
[2021-07-06 02:55] VITALS: BP 126/90; PULSE 72; RESP 18; TEMP 36.7; O2SAT 100
[2021-07-06] MEDS: busPIRone 5 MG Tablet 10 MG PO (06:34)
[2021-07-06 06:51] LABS: Absolute Lymphocyte Count 2.47 X10^3/uL (0.83-4.51); Absolute Neutrophil Count 5.2 X10^3/uL (2.0-7.7); Basophil# 0.05 X10^3/uL; Basophil% 0.6 % (0-1); Eosinophil# 0.28 X10^3/uL; Eosinophils% 3.3 % (0-5); Hematocrit 49.3 % (40-54); Lymphocyte # 2.47 X10^3/ul (0.83-4.51); Lymphocyte % 28.9 % (19-41); Mean Corp Hgb Conc 34.5 g/dL (32-36); Mean Corpuscular Hgb 29.4 pg (27.0-32.0); Mean Corpuscular Volume 85.1 fL (80-94); Mean Platelet Vol. 9.4 fl (6.2-12.0); Monocyte# 0.51 X10^3/uL; NRBC Flagged by Analyzer 0 % (0-5); Neutrophil # 5.22 X10^3/uL (2.7-7.7); Platelet Count 222 K/mm3 (150-450); RBC Distribution Width CV 13.1 % (11.6-14.6); RBC Distribution Width SD 40.2 fl (35.1-43.9); Red Blood Count 5.79 M/mm3 (4.6-6.2); White Blood Count 8.6 K/mm3 (4.4-11.0)
--- NOTE | 2021-07-06 07:57 | PCM.DC.SUM ---
Providers Date of Admission: 07/03/21 Primary Care Physician: Dr. Fady Dang MD Reason For Visit: ALCOHOL DEPENDENCE WITH ACUTE WITHDRAWAL Diagnosis Discharge Diagnosis (1) Alcohol withdrawal: Status: Acute Code(s): F10.239 - Alcohol dependence with withdrawal, unspecified Medications at Discharge Home Medications fluoxetine 40 mg capsule 40 mg PO DAILY #90 cap 07/05/19 trazodone 100 mg PO QHS 04/20/20 hydroxyzine pamoate 50 mg capsule 50 mg PO BID 12/18/20 buspirone 10 mg tablet 10 mg PO TID tab 03/19/21 cariprazine 3 mg capsule 3 mg PO DAILY 03/19/21 cholecalciferol (vitamin D3) 50 mcg PO DAILY 07/03/21 multivitamin 1 tab PO DAILY 07/03/21 vitamin B complex 1 tab PO DAILY 07/03/21 Hospital Course Summary of Care Provided Minutes Spent on Discharge: 35 Hospital Course: Patient is a 30-year-old gentleman with history of polysubstance abuse including alcohol tobacco admitted for medical stabilization 1. Acute alcohol withdrawal ?[facility] currently being managed with phenobarb and adjuvants medications to assist with medical stabilization ?07/04/2021. Patient remains significantly symptomatic with a lot of tremors. Patient is on phenobarb taper; plan to continue ?07/05/2021; atient seen admit to having a more restful night compared to the previous night. Symptoms well controlled at this point ?07/06/2021. Patient was discharged with plans for patient to follow-up with [facility] 2. Bipolar disorder ?did continue with home meds 3. Depression with anxiety ?Did continue with home meds 4.? Polycythemia ?Do suspect dehydration patient was rehydrated with serial H&H ordered for subsequent monitoring 5. Elevated liver enzymes ?Secondary to chronic alcohol use 6. Chronic alcohol dependence ?Patient was counseled on cessation 7. Hypertension - Blood pressure controlled, home medications continued with dose adjustment as needed 8. Class I obesity with BMI of 32.9 ?Weight loss advised 9. Tobacco dependence - Counseled on cessation, offered nicotine gum for tobacco cravings 10. Polysubstance abuse including use of recreational heroin as well as marijuana, counseled on cessation 11. DVT prophylaxis ?Low risk did encourage early ambulation Physical Exam Narrative GENERAL: cooperative HEENT: Atraumatic; EYES; Anicteric, Normal Conjunctiva NECK; supple, normal thyroid, RESPIRATORY: Diminished to auscultation CARDIOVASCULAR: Regular S1 S2, GI: soft, normoactive bowel sounds, : No Renal angle tenderness; EXTREMITIES: No edema, no clubbing, MUSCULOSKELETAL: no muscle waisting NEURO: Awake; no lateralizing signs. SKIN: No Rash PSYCH; Flat affect Weight / BMI Weight Weight: 94.2 kg Body Mass Index (BMI) 32.5 ABG / Lab / Microbiology Data Result Diagrams: 07/06/21 06:40 07/03/21 09:52 Laboratory: Laboratory Results - last 24 hr 07/05/21 08:00: WBC 6.0, RBC 5.34, Hgb 16.4, Hct 47.4, MCV 88.8, MCH 30.7, MCHC 34.6, RDW Std Deviation 43.4, RDW Coeff of [place] 13.7, Plt Count 250, MPV 10.0, Immature Gran % (Auto) 0.300, Neut % (Auto) 54.6, Lymph % (Auto) 30.6, [place] % (Auto) 11.3 H, Eos % (Auto) 2.5, Baso % (Auto) 0.7, Absolute Neuts (auto) 3.3, Absolute Lymphs (auto) 1.85, Nucleated RBC % 0 07/06/21 06:40: WBC 8.6, RBC 5.79, Hgb 17.0 H, Hct 49.3, MCV 85.1, MCH 29.4, MCHC 34.5, RDW Std Deviation 40.2, RDW Coeff of [place]ango 13.1, Plt Count 222, MPV 9.4, Immature Gran % (Auto) 0.200, Neut % (Auto) 61.0, Lymph % (Auto) 28.9, [place] % (Auto) 6.0, Eos % (Auto) 3.3, Baso % (Auto) 0.6, Absolute Neuts (auto) 5.2, Absolute Lymphs (auto) 2.47, Nucleated RBC % 0 D/C Instructions Discharge Diet: No restrictions Discharge Activity: Return to Normal Activity Call your doctor if you observe: Fever of 101 or Higher, Shortness of breath, Fainting spells and Chest pain Meaningful Use Info Meaningful Use Diagnoses (Choose all that apply): None applicable Discharge Plan Admission Admit Date/Time: 07/03/21 10:36 Attending Provider: Tello Hedrick Primary Care Provider: Fady Dang Discharge Orders/Prescriptions Prescriptions: Continued hydroxyzine pamoate [Vistaril] 50 mg capsule 50 mg PO BID RF: 0 buspirone 10 mg tablet 10 mg PO TID RF: 0 cariprazine 3 mg capsule 3 mg PO DAILY RF: 0 trazodone 50 MG tablet 100 mg PO QHS RF: 0 multivitamin Tablet 1 tab PO DAILY RF: 0 vitamin B complex Tablet 1 tab PO DAILY RF: 0 cholecalciferol (vitamin D3) 50 mcg (2,000 unit) capsule 50 mcg PO DAILY RF: 0 fluoxetine 40 mg capsule 40 mg PO DAILY Qty: 90 RF: 3 Referrals / Follow Up: Fady Dang MD [Primary Care Provider] - Within 2 Weeks Disposition Disposition (needs filled in before D/C Order can be placed): Home, Self Care Charges/Coding Visit Charges Inpatient E&M: 15875 Disch Hosp
[2021-07-06] MEDS: Thiamine Hydrochloride 100 MG Tablet PO (08:35)
[2021-07-06] MEDS: FLUoxetine 20 MG Capsule 40 MG PO (08:35)
[2021-07-06] MEDS: Folic Acid 1 MG Tablet PO (08:35)
[2021-07-06 09:00] VITALS: BP 129/99; PULSE 89; RESP 18; TEMP 36.6; O2SAT 99
[2021-07-07 20:44] LABS: Erythropoietin 7.9 mIU/mL (2.6-18.5)
== END 2021-07-06 11:19 | disposition home or self-care (01) | DRG 773 ==
LOC: ED 10:51 → PCU 11:15
PROVIDERS: Admitting Provider Internal Medicine; Emergency Provider Emergency Medicine; PCP Internal Medicine; Visit Provider Internal Medicine
DX: F10.239 Alcohol dependence with withdrawal, unspecified (principal); F11.99 Opioid use, unspecified with unspecified opioid-induced disorder; D75.1 Secondary polycythemia; F31.9 Bipolar disorder, unspecified; F19.19 Other psychoactive substance abuse with unspecified psychoactive substance-induced disorder; F41.8 Other specified anxiety disorders; I10 Essential (primary) hypertension; F17.210 Nicotine dependence, cigarettes, uncomplicated; Z79.899 Other long term (current) drug therapy; E66.9 Obesity, unspecified; Z68.32 Body mass index [BMI] 32.0-32.9, adult
CPT/HCPCS: 36415; 80053; 80307; 81001; 82077; 82668; 85025; 97802; 99283; 99406; J7120; A4216

== ENCOUNTER → 2021-07-09 18:17 | Emergency (ER) | payer MEDICAID, SELFPAY ==
[2021-07-09 18:19] VITALS: BP 166/104; PULSE 119; RESP 20; TEMP 36.1; O2SAT 95; BMI 36.0
== END ==
PROVIDERS: PCP Internal Medicine
DX: Z53.21 Procedure and treatment not carried out due to patient leaving prior to being seen by health care provider (principal)

== ENCOUNTER 2021-07-13 10:00 | Emergency (ER) | payer MEDICAID, SELFPAY ==
[2021-07-13 10:01] VITALS: BP 147/105; PULSE 119; RESP 16; TEMP 36.3; O2SAT 95; BMI 32.8
[2021-07-13] MEDS: LORazepam 2 MG/ML Syringe IV (10:53)
[2021-07-13 10:56] LABS: Absolute Lymphocyte Count 4.86 X10^3/uL (0.83-4.51); Absolute Neutrophil Count 3.9 X10^3/uL (2.0-7.7); Basophil# 0.09 X10^3/uL; Basophil% 0.9 % (0-1); Eosinophil# 0.14 X10^3/uL; Eosinophils% 1.4 % (0-5); Hematocrit 54.2 % (40-54); Lymphocyte # 4.86 X10^3/ul (0.83-4.51); Lymphocyte % 49.1 % (19-41); Mean Corp Hgb Conc 35.1 g/dL (32-36); Mean Corpuscular Hgb 29.8 pg (27.0-32.0); Mean Platelet Vol. 9.1 fl (6.2-12.0); Monocyte# 0.82 X10^3/uL; Monocyte% 8.3 % (0-10); NRBC Flagged by Analyzer 0 % (0-5); Neutrophil # 3.92 X10^3/uL (2.7-7.7); Neutrophil % 39.7 % (47-70); Platelet Count 310 K/mm3 (150-450); RBC Distribution Width CV 14.3 % (11.6-14.6); RBC Distribution Width SD 43.3 fl (35.1-43.9); Red Blood Count 6.38 M/mm3 (4.6-6.2); White Blood Count 9.9 K/mm3 (4.4-11.0)
[2021-07-13 11:16] LABS: Anion Gap 12 (5-15); BUN 8 mg/dL (7-18); BUN/Creat Ratio 10.2 RATIO (10-20); Calcium,Total 8.5 mg/dL (8.5-10.1); Chloride 100 mmol/L (98-107); Creatinine, Serum 0.78 mg/dL (0.70-1.30); EST Glomerular Filtration Rate 123 mL/min (>60); Est Glom Filt Rate - Afr Amer 149 mL/min (>60); Estimated Creatinine Clearance 129.47 ml/min; Glucose 95 mg/dL (74-106); Potassium 3.9 mmol/L (3.5-5.1); Sodium Level 138 mmol/L (136-145)
--- NOTE | 2021-07-13 11:21 | ED.RN ---
pt put his clothes on and stated he is not going to stay. this is his 3rd time just in this visit saying he is leaving. iv dc'ed and pt states he is leaving
[2021-07-13 11:52] LABS: Amphetamine Urine VISTA NEGATIVE (<1000 ng/mL); Barbiturate Urine VISTA POSITIVE (< 200 ng/mL); Benzodiazepine Urine VISTA NEGATIVE (< 200 ng/mL); Cocaine Urine VISTA NEGATIVE (< 300 ng/mL); Ecstacy Urine VISTA NEGATIVE (< 500 ng/mL); Methadone Urine VISTA NEGATIVE (< 300 ng/mL); PCP Urine VISTA NEGATIVE (< 25 ng/mL); THC Urine VISTA POSITIVE (< 50 ng/mL); Vista UDS pH Range 5
--- NOTE | 2021-07-13 12:20 | EDS_ITS ---
HPI History of Present Illness Chief Complaint: Substance Abuse Narrative Narrative: 31-year-old male presenting with desire to detox from alcohol. He said he recently did this at [facility]. He was admitted a couple of days and then relapsed started drinking alcohol again. He states he typically drinks about 2 pints a day. Does not admit to other drugs. Patient states he does not have withdrawal seizures. He does get very symptomatic with this alcohol withdrawal. He states he feels like he is starting to withdrawal currently. Last drink was 3 hours ago. [facility] Medical History Admitted to substance misuse detoxification center Anxiety and depression Bipolar 1 disorder Bone fracture Drug abuse Foot fracture, left H/O emotional problems Hepatitis B Hepatitis C Hypertension Influenza vaccine needed Recovering alcoholic Seasonal allergies SOB (shortness of breath) Home Medications fluoxetine 40 mg capsule 40 mg PO DAILY #90 cap 07/05/19 [Rx Last Taken 07/02/21] trazodone 100 mg PO QHS 04/20/20 [History Last Taken 07/02/21] hydroxyzine pamoate 50 mg capsule 50 mg PO BID 12/18/20 [History Last Taken 07/02/21] buspirone 10 mg tablet 10 mg PO TID tab 03/19/21 [History Last Taken 07/02/21] cariprazine 3 mg capsule 3 mg PO DAILY 03/19/21 [History Last Taken 07/02/21] cholecalciferol (vitamin D3) 50 mcg PO DAILY 07/03/21 [History Last Taken 07/02/21] multivitamin 1 tab PO DAILY 07/03/21 [History Last Taken 07/02/21] vitamin B complex 1 tab PO DAILY 07/03/21 [History Last Taken 07/02/21] Allergy/AdvReac Type Severity Reaction Status Date / Time adhesive tape Allergy Mild Hives Verified 07/13/21 10:03 Penicillins Allergy Hives Verified 07/13/21 10:03 Family History Grandfather Hypertension Grandmother Hypertension Breast cancer Mother Breast cancer Hypertension Alcohol abuse Anxiety Asthma Respiratory disease Cancer uterine, skin Father Alcohol abuse Surgical History History of facial surgery Status post left foot surgery Social History household members: significant other housing: house pets and animals: Yes Smoking Status: Current every day smoker tobacco type: cigarettes alcohol intake: former year quit: 2019 substance use type: former substance user what type of physical activity do you participate in: none ROS ROS ED Constitutional Constitutional ED: Denies chills, fever(s) or sweats Eyes Eyes: Denies blurry vision or diplopia ENT ENT ED: Denies rhinorrhea or sore throat Cardiovascular Cardiovascular: Denies chest pain or palpitations Respiratory/Chest Respiratory/Chest: Denies cough, dyspnea or sputum Gastrointestinal Gastrointestinal: Reports nausea; Denies abdominal pain or vomiting Genitourinary Genitourinary ED: Denies dysuria or urinary frequency Musculoskeletal Musculoskeletal: Denies arthralgias or myalgias Integumentary Denies rash Neurologic Neurologic: Denies headache(s) or weakness EXAM Physical Exam Const Vital Signs: 07/13/21 10:01 Temperature 97.4 F L Temperature Source Temporal Pulse Rate 119 H Respiratory Rate 16 Blood Pressure 147/105 H Blood Pressure Mean 119 Pulse Ox 95 Oxygen Delivery Method Room Air Positive well nourished General Appearance ED: NAD; Negative for pallor HEENT Reports moist mucous membranes atraumatic Eyes PERRL and EOMs intact bilaterally General Eye ED: Negative for pale conjunctiva or scleral icterus Resp normal respiratory effort and clear to auscultation bilaterally Cardio regular rhythm Rate: tachycardic GI soft to palpation and non-tender Neuro oriented x3 Sensorium / Orientation: alert Psych mental status grossly normal Skin General Skin Exam: Negative for jaundice or pallor MDM MDM MDM Narrative Medical decision making narrative: Patient presenting for detox. After initial evaluation I did give him 2 mg of Ativan. Blood work was obtained and his CBC shows no leukocytosis. His hemoglobin is concentrated at 19. Platelets are normal at 310. Renal function and electrolytes are normal. EtOH 294. Urine drug screen positive for barbiturates and the patient was just recently seen for detox. On reevaluation the patient had eloped from the room. Impression: 1. EtOH abuse Lab Data Labs: Laboratory Results - last 24 hr 07/13/21 07/13/21 07/13/21 10:45 10:45 10:45 WBC 9.9 RBC 6.38 H Hgb 19.0 H* Hct 54.2 H MCV 85.0 MCH 29.8 MCHC 35.1 RDW Std Deviation 43.3 RDW Coeff of [place]ango 14.3 Plt Count 310 MPV 9.1 Immature Gran % (Auto) 0.600 Neut % (Auto) 39.7 L Lymph % (Auto) 49.1 H [place] % (Auto) 8.3 Eos % (Auto) 1.4 Baso % (Auto) 0.9 Absolute Neuts (auto) 3.9 Absolute Lymphs (auto) 4.86 H Nucleated RBC % 0 Diff Path Review May foll Sodium 138 Potassium 3.9 Chloride 100 Carbon Dioxide 26.0 Anion Gap 12 BUN 8 Creatinine 0.78 Estim Creat Clear Calc 129.47 Est GFR (MDRD) Af Amer 149 Est GFR (MDRD) Non-Af 123 BUN/Creatinine Ratio 10.2 Glucose 95 Calcium 8.5 Urine Opiates Screen Urine Methadone Screen Ur Barbiturates Screen Ur Phencyclidine Scrn Ur Amphetamines Screen U Methamphetamin-MDMA U Benzodiazepines Scrn Urine Cocaine Screen U Cannabinoids Screen Ur Drug Screen Comment Ethyl Alcohol 294.0 07/13/21 11:17 WBC RBC Hgb Hct MCV MCH MCHC RDW Std Deviation RDW Coeff of Mango Plt Count MPV Immature Gran % (Auto) Neut % (Auto) Lymph % (Auto) [place] % (Auto) Eos % (Auto) Baso % (Auto) Absolute Neuts (auto) Absolute Lymphs (auto) Nucleated RBC % Diff Path Review Sodium Potassium Chloride Carbon Dioxide Anion Gap BUN Creatinine Estim Creat Clear Calc Est GFR (MDRD) Af Amer Est GFR (MDRD) Non-Af BUN/Creatinine Ratio Glucose Calcium Urine Opiates Screen NEGATIVE Urine Methadone Screen NEGATIVE Ur Barbiturates Screen POSITIVE H Ur Phencyclidine Scrn NEGATIVE Ur Amphetamines Screen NEGATIVE U Methamphetamin-MDMA NEGATIVE U Benzodiazepines Scrn NEGATIVE Urine Cocaine Screen NEGATIVE U Cannabinoids Screen POSITIVE H Ur Drug Screen Comment Ethyl Alcohol Discharge Plan Triage Chief Complaint: Substance Abuse ED Provider: Jeremy Dior Dx/Rx/DC Orders Prescriptions: No Action hydroxyzine pamoate [Vistaril] 50 mg capsule 50 mg PO BID RF: 0 buspirone 10 mg tablet 10 mg PO TID RF: 0 cariprazine 3 mg capsule 3 mg PO DAILY RF: 0 trazodone 50 MG tablet 100 mg PO QHS RF: 0 multivitamin Tablet 1 tab PO DAILY RF: 0 vitamin B complex Tablet 1 tab PO DAILY RF: 0 cholecalciferol (vitamin D3) 50 mcg (2,000 unit) capsule 50 mcg PO DAILY RF: 0 fluoxetine 40 mg capsule 40 mg PO DAILY Qty: 90 RF: 3 Primary Care Provider: Fady Dang Referrals: Fady Dang MD [Primary Care Provider] - Disposition Disposition: Elop[place] Discharge Date/Time: 07/13/21 11:26
[2021-07-14 14:16] LABS: Pathologist Review Reviewed
== END 2021-07-13 11:26 | disposition left against medical advice (07) ==
LOC: ED 11:25
PROVIDERS: Emergency Provider Student in an Organized Health Care Education/Training Program; PCP Internal Medicine; Visit Provider Student in an Organized Health Care Education/Training Program
DX: F10.10 Alcohol abuse, uncomplicated (principal); F31.9 Bipolar disorder, unspecified; F17.210 Nicotine dependence, cigarettes, uncomplicated; Z79.899 Other long term (current) drug therapy; F41.9 Anxiety disorder, unspecified
CPT/HCPCS: 80048; 80307; 82077; 85025; 96374; 99281; 99283; A4216

== ENCOUNTER 2021-07-18 15:06 | Emergency (ER) | payer MEDICAID, SELFPAY ==
[2021-07-18 15:06] VITALS: BP 165/115; PULSE 126; RESP 16; TEMP 36; O2SAT 97; BMI 32.8
== END 2021-07-18 15:45 | disposition left against medical advice (07) ==
LOC: ED 15:44
PROVIDERS: PCP Internal Medicine
DX: Z53.21 Procedure and treatment not carried out due to patient leaving prior to being seen by health care provider (principal)

== ENCOUNTER 2021-07-20 12:36 | Inpatient (IN) | payer MEDICAID, SELFPAY ==
[2021-07-20] VITALS (7 sets, daily range): BP systolic 126–164; BP diastolic 74–108; PULSE 119–137; RESP 16–24; TEMP 36.6–37.3; O2SAT 96–98; BMI 32.4; BMI 32.1
--- NOTE | 2021-07-20 12:59 | EX.ED.SAOD ---
HPI History of Present Illness Chief Complaint: Substance Abuse Detail of Chief Complaint: Requesting detox from alcohol Informant: patient Narrative Narrative: Patient presents to the emergency department with request of detox from alcohol abuse. Patient states that he drinks about 2 pints of vodka daily. His last drink was about an hour ago. Patient's last admission for detox was 2 weeks ago. Patient states that he has been vomiting. He denies seizures related to alcohol withdrawal. Patient has history of hypertension. Patient denies abdominal pain or chest pain or shortness of breath. Denies recent illness. Prior similar symptoms: Yes PFSH [facility] Medical History Admitted to substance misuse detoxification center Anxiety and depression Bipolar 1 disorder Bone fracture Drug abuse Foot fracture, left H/O emotional problems Hepatitis B Hepatitis C Hypertension Influenza vaccine needed Recovering alcoholic Seasonal allergies SOB (shortness of breath) Home Medications fluoxetine 40 mg capsule 40 mg PO DAILY #90 cap 07/05/19 [Rx Last Taken 07/02/21] trazodone 100 mg PO QHS 04/20/20 [History Last Taken 07/02/21] hydroxyzine pamoate 50 mg capsule 50 mg PO BID 12/18/20 [History Last Taken 07/02/21] buspirone 10 mg tablet 10 mg PO TID tab 03/19/21 [History Last Taken 07/02/21] cariprazine 3 mg capsule 3 mg PO DAILY 03/19/21 [History Last Taken 07/02/21] cholecalciferol (vitamin D3) 50 mcg PO DAILY 07/03/21 [History Last Taken 07/02/21] multivitamin 1 tab PO DAILY 07/03/21 [History Last Taken 07/02/21] vitamin B complex 1 tab PO DAILY 07/03/21 [History Last Taken 07/02/21] Allergy/AdvReac Type Severity Reaction Status Date / Time adhesive tape Allergy Mild Hives Verified 07/20/21 12:39 Penicillins Allergy Hives Verified 07/20/21 12:39 Family History Grandfather Hypertension Grandmother Hypertension Breast cancer Mother Breast cancer Hypertension Alcohol abuse Anxiety Asthma Respiratory disease Cancer uterine, skin Father Alcohol abuse Surgical History History of facial surgery Status post left foot surgery Social History household members: significant other housing: house pets and animals: Yes Smoking Status: Current every day smoker tobacco type: cigarettes alcohol intake: former year quit: 2019 substance use type: former substance user what type of physical activity do you participate in: none ROS ROS ED Constitutional Constitutional ED: Reports systems reviewed and no addt'l complaints, except as documented; Denies body ache(s), change in weight or chills Eyes Eyes: Denies acute decrease in peripheral vision, change in vision, double vision or loss of vision ENT ENT ED: Reports none; Denies ear pain, lip swelling, loss taste/smell, neck pain, otalgia or sore throat Cardiovascular Cardiovascular: Reports none; Denies abdominal pain, chest pain with activity, leg edema, lightheadedness, palpitations, rapid heart rate or syncope Respiratory/Chest Respiratory/Chest: Reports none; Denies change in mental status, dry cough, dyspnea, hemoptysis, shortness of breath at rest or shortness of breath with exertion Gastrointestinal Gastrointestinal: Reports none, nausea and vomiting; Denies abdominal pain, change in stool character, diarrhea, hematemesis, hematochezia, melena or rectal bleeding Genitourinary Genitourinary ED: Reports none; Denies abdominal discomfort, anuria, dysuria, genital pain or polyuria Musculoskeletal Musculoskeletal: Reports none; Denies arthralgias, back pain, difficulty walking, extremity pain, muscle weakness or myalgias Integumentary Reports none; Denies abscess or rash Neurologic Neurologic: Reports none; Denies abnormal gait, confusion, focal weakness, frequent falls, headache(s), loss of vision, numbness, paresthesias, radicular pain, vertigo or weakness Psychiatric Psychiatric: Reports systems reviewed and no addt'l complaints, except as documented and none; Denies behavioral changes, confusion, difficulty concentrating, hallucinations, suicidal ideation, tactile hallucinations or visual hallucinations Endocrine Endocrinology: Denies none, cold intolerance, excessive sweating, fatigue or heat intolerance Hematologic/Lymphatic Hematologic/Lymphatic: Reports none; Denies anemia, easy bleeding or easy bruising Allergic/Immunologic Allergic/Immunologic ED: Denies as per HPI, none, lip swelling, mouth swelling, throat swelling, tongue swelling or hives EXAM Physical Exam Const Vital Signs: 07/20/21 12:37 07/20/21 14:12 Temperature 98.1 F Temperature Source Temporal Pulse Rate 128 H Respiratory Rate 24 H 22 H Blood Pressure 161/108 H Blood Pressure Mean 125 Pulse Ox 97 Oxygen Delivery Method Room Air Positive well nourished and well developed General Appearance ED: well developed and NAD HEENT Reports TM's clear and dry mucous membranes normocephalic and atraumatic; Negative for trauma or tenderness Tympanic Membrane ED: Yes TM's clear Mouth ED: Yes dry mucous membranes Mouth: dry mucous membranes Eyes PERRL and EOMs intact bilaterally General Eye ED: Negative for pale conjunctiva or scleral icterus Neck no lymphadenopathy, supple and no JVD General: Negative for tenderness Chest Wall inspection of chest normal and palpation of chest normal Chest: Negative for tenderness Resp normal respiratory effort and clear to auscultation bilaterally Effort and Inspection: Negative for respiratory distress or pain with movement Auscultation: Negative for rhonchi, wheezes or diminished lung sounds Cardio regular rate, regular rhythm, S1 normal heart sound, S2 normal heart sound and no murmurs Peripheral Pulses: pulses 2+ throughout GI normal to inspection, nondistended, normoactive bowel sounds, soft to palpation, non-tender, non-distended and no masses Back/Spine no CVA tenderness and no thoracic nor lumbar tenderness Extremity normal to inspection General Extremety ED: Negative for edema General Extremity: Negative for edema Neuro oriented x3, CN's II-XII intact bilaterally, no sensory deficits noted and gait normal Sensorium / Orientation: awake, alert, oriented to person, oriented to place and oriented to time Motor Exam: strength 5/5 throughout and strength abnormal Psych mental status grossly normal Skin no rashes or lesions noted and no wounds MDM MDM MDM Narrative Medical decision making narrative: IV line established on arrival. Patient was given Zofran 4 mg IV and 1 mg of Ativan. Case will be discussed with hospitalist evaluate for admission for alcohol detox. Lab Data Attestation: I reviewed the patient's lab results. Labs: Laboratory Results - last 24 hr 07/20/21 07/20/21 13:40 14:00 WBC 9.2 RBC 5.70 Hgb 17.2 H Hct 47.3 MCV 83.0 MCH 30.2 MCHC 36.4 H RDW Std Deviation 42.1 RDW Coeff of Mango 14.2 Plt Count 124 L MPV 9.8 Immature Gran % (Auto) 0.700 Neut % (Auto) 66.7 Lymph % (Auto) 23.9 [place] % (Auto) 8.1 Eos % (Auto) 0.2 Baso % (Auto) 0.4 Absolute Neuts (auto) 6.1 Absolute Lymphs (auto) 2.20 Nucleated RBC % 0 Ur Drug Screen Comment Discharge Plan Triage Chief Complaint: Substance Abuse ED Provider: Juan Valera Dx/Rx/DC Orders Clinical Impression: Alcohol intoxication, Withdrawn from alcohol detoxification program Prescriptions: No Action hydroxyzine pamoate [Vistaril] 50 mg capsule 50 mg PO BID RF: 0 buspirone 10 mg tablet 10 mg PO TID RF: 0 cariprazine 3 mg capsule 3 mg PO DAILY RF: 0 trazodone 50 MG tablet 100 mg PO QHS RF: 0 multivitamin Tablet 1 tab PO DAILY RF: 0 vitamin B complex Tablet 1 tab PO DAILY RF: 0 cholecalciferol (vitamin D3) 50 mcg (2,000 unit) capsule 50 mcg PO DAILY RF: 0 fluoxetine 40 mg capsule 40 mg PO DAILY Qty: 90 RF: 3 Primary Care Provider: Fady Dang Referrals: Fady Dang MD [Primary Care Provider] - Disposition Disposition: Acute Care Hospital [facility]
[2021-07-20] MEDS: Ondansetron 4 MG/2 ML Vial IV (13:59)
[2021-07-20] MEDS: LORazepam 2 MG/ML Syringe 1 MG IV (13:59)
[2021-07-20] MEDS: 0.9% Normal Saline 1,000 ML 1000 ML IV (14:00)
[2021-07-20 14:11] LABS: Absolute Neutrophil Count 6.1 X10^3/uL (2.0-7.7); Basophil# 0.04 X10^3/uL; Basophil% 0.4 % (0-1); Eosinophil# 0.02 X10^3/uL; Eosinophils% 0.2 % (0-5); Hematocrit 47.3 % (40-54); Hemoglobin 17.2 g/dL (13.0-16.5); Lymphocyte % 23.9 % (19-41); Mean Corp Hgb Conc 36.4 g/dL (32-36); Mean Corpuscular Hgb 30.2 pg (27.0-32.0); Mean Platelet Vol. 9.8 fl (6.2-12.0); Monocyte# 0.74 X10^3/uL; Monocyte% 8.1 % (0-10); NRBC Flagged by Analyzer 0 % (0-5); Neutrophil # 6.13 X10^3/uL (2.7-7.7); Neutrophil % 66.7 % (47-70); Platelet Count 124 K/mm3 (150-450); RBC Distribution Width CV 14.2 % (11.6-14.6); RBC Distribution Width SD 42.1 fl (35.1-43.9); White Blood Count 9.2 K/mm3 (4.4-11.0)
[2021-07-20 14:23] LABS: Amphetamine Urine VISTA NEGATIVE (<1000 ng/mL); Barbiturate Urine VISTA POSITIVE (< 200 ng/mL); Benzodiazepine Urine VISTA NEGATIVE (< 200 ng/mL); Cocaine Urine VISTA NEGATIVE (< 300 ng/mL); Ecstacy Urine VISTA NEGATIVE (< 500 ng/mL); Methadone Urine VISTA NEGATIVE (< 300 ng/mL); PCP Urine VISTA NEGATIVE (< 25 ng/mL); THC Urine VISTA POSITIVE (< 50 ng/mL); Vista UDS pH Range 6
[2021-07-20 14:25] LABS: ALB/GLOB Ratio 0.9 RATIO (0.9-2.4); AST(SGOT) 142 U/L (15-37); Alanine Aminotransfer ALT/SGPT 98 U/L (16-61); Alkaline Phosphatase 137 U/L (45-117); Anion Gap 14 (5-15); BUN 6 mg/dL (7-18); BUN/Creat Ratio 7.7 RATIO (10-20); Calcium,Total 9.1 mg/dL (8.5-10.1); Chloride 91 mmol/L (98-107); Creatinine, Serum 0.78 mg/dL (0.70-1.30); EST Glomerular Filtration Rate 125 mL/min (>60); Est Glom Filt Rate - Afr Amer 151 mL/min (>60); Estimated Creatinine Clearance 129.47 ml/min; Globulin 4.3 g/dL (2.2-4.2); Glucose 115 mg/dL (74-106); Lipase 388 U/L (73-393); Potassium 3.1 mmol/L (3.5-5.1); Protein, Total 8.3 g/dL (6.4-8.2); Sodium Level 128 mmol/L (136-145)
--- NOTE | 2021-07-20 14:27 | HP.PCM.HOS_ITS ---
HPI - General General Date of Admission: 07/20/21 Date of Service: 07/20/21 Chief Complaint: Alcohol intoxication with desire for detoxification HPI Narrative NIRMALA COPELAND, is a 31 M who presents presents with alcohol intoxication. Damian arora was apparently seen in the hospital 2 weeks prior to his current admission he was discharged and instructed to follow-up with [facility]. Patient apparently did not keep his appointment and resulted to drinking again. Presented to the emergency department this time expressing the desire to go for long-term residential detoxification following his medical stabilization. He continues to drink vodka. [facility] Medical History Admitted to substance misuse detoxification center Anxiety and depression Bipolar 1 disorder Bone fracture Drug abuse Foot fracture, left H/O emotional problems Hepatitis B Hepatitis C Hypertension Influenza vaccine needed Recovering alcoholic Seasonal allergies SOB (shortness of breath) Home Medications fluoxetine 40 mg capsule 40 mg PO DAILY #90 cap 07/05/19 [Rx Last Taken 07/02/21] trazodone 100 mg PO QHS 04/20/20 [History Last Taken 07/02/21] hydroxyzine pamoate 50 mg capsule 50 mg PO BID 12/18/20 [History Last Taken 07/02/21] buspirone 10 mg tablet 10 mg PO TID tab 03/19/21 [History Last Taken 07/02/21] cariprazine 3 mg capsule 3 mg PO DAILY 03/19/21 [History Last Taken 07/02/21] cholecalciferol (vitamin D3) 50 mcg PO DAILY 07/03/21 [History Last Taken 07/02/21] multivitamin 1 tab PO DAILY 07/03/21 [History Last Taken 07/02/21] vitamin B complex 1 tab PO DAILY 07/03/21 [History Last Taken 07/02/21] Allergy/AdvReac Type Severity Reaction Status Date / Time adhesive tape Allergy Mild Hives Verified 07/20/21 12:39 Penicillins Allergy Hives Verified 07/20/21 12:39 Family History Grandfather Hypertension Grandmother Hypertension Breast cancer Mother Breast cancer Hypertension Alcohol abuse Anxiety Asthma Respiratory disease Cancer uterine, skin Father Alcohol abuse Surgical History History of facial surgery Status post left foot surgery Social History household members: significant other housing: house pets and animals: Yes Smoking Status: Current every day smoker tobacco type: cigarettes alcohol intake: former year quit: 2019 substance use type: former substance user what type of physical activity do you participate in: none ROS ROS Narrative GENERAL: denies fever, chills, night sweats, HEENT: denies headache, sinus congestion, or drainage, dysphagia RESPIRATORY: denies cough, sputum production, shortness of breath, CARDIAC: denies chest pain, palpitations, GASTROINTESTINAL: d nausea, vomiting, GENITOURINARY: denies dysuria, urgency, frequency, EXTREMITY: denies swelling MUSCULOSKELETAL: denies current joint pain or tenderness NEUROLOGIC: denies focal numbness, weakness, tingling HEMATOLOGIC: denies easy bruising and/or hemorrhage INTEGUMENT: denies rashes PSYCHIATRIC: denies suicidal or homicidal ideation Vital Signs Vital Signs Vital Signs: 07/20/21 12:37 07/20/21 14:12 Temperature 98.1 F Temperature Source Temporal Pulse Rate 128 H Respiratory Rate 24 H 22 H Blood Pressure 161/108 H Blood Pressure Mean 125 Pulse Ox 97 Oxygen Delivery Method Room Air Weight Weight: 94 kg Body Mass Index (BMI) 32.4 Physical Exam Narrative GENERAL: cooperative HEENT: Atraumatic; EYES; Anicteric, Normal Conjunctiva NECK; supple, normal thyroid, RESPIRATORY: Diminished to auscultation CARDIOVASCULAR: Regular S1 S2, GI: soft, normoactive bowel sounds, : No Renal angle tenderness; EXTREMITIES: No edema, no clubbing, MUSCULOSKELETAL: no muscle waisting NEURO: Awake; no lateralizing signs. SKIN: No Rash PSYCH; tearful Results Lab / Micro Data Result Diagrams: 07/20/21 14:00 07/20/21 14:00 Labs: Laboratory Results - last 24 hr 07/20/21 13:40: Urine Opiates Screen NEGATIVE, Urine Methadone Screen NEGATIVE, Ur Barbiturates Screen POSITIVE H, Ur Phencyclidine Scrn NEGATIVE, Ur Amphetamines Screen NEGATIVE, U Methamphetamin-MDMA NEGATIVE, U Benzodiazepines Scrn NEGATIVE, Urine Cocaine Screen NEGATIVE, U Cannabinoids Screen POSITIVE H, Ur Drug Screen Comment 07/20/21 14:00: WBC 9.2, RBC 5.70, Hgb 17.2 H, Hct 47.3, MCV 83.0, MCH 30.2, MCHC 36.4 H, RDW Std Deviation 42.1, RDW Coeff of Mango 14.2, Plt Count 124 L, MPV 9.8, Immature Gran % (Auto) 0.700, Neut % (Auto) 66.7, Lymph % (Auto) 23.9, [place] % (Auto) 8.1, Eos % (Auto) 0.2, Baso % (Auto) 0.4, Absolute Neuts (auto) 6.1, Absolute Lymphs (auto) 2.20, Nucleated RBC % 0 07/20/21 14:00: Sodium 128 L, Potassium 3.1 L, Chloride 91 L, Carbon Dioxide 23.0, Anion Gap 14, BUN 6 L, Creatinine 0.78, Estim Creat Clear Calc 129.47, Est GFR (MDRD) Af Amer 151, Est GFR (MDRD) Non-Af 125, BUN/Creatinine Ratio 7.7 L, Glucose 115 H, Calcium 9.1, Total Bilirubin 1.50 H, AST 142 H, ALT 98 H, Alkaline Phosphatase 137 H, Total Protein 8.3 H, Albumin 4.0, Globulin 4.3 H, Albumin/Globulin Ratio 0.9, Lipase 388 07/20/21 14:00: Ethyl Alcohol 316.0 H* Assessment & Plan Assessment/Plan (1) Alcohol intoxication: (2) Alcohol dependence: PLAN: Patient is a 31-year-old gentleman with history of polysubstance abuse including alcohol tobacco admitted for medical stabilization 1. Acute alcohol withdrawal ?[facility] currently being managed with phenobarb and adjuvants medications to assist with medical stabilization 2. Bipolar disorder ?did continue with home meds 3. Depression with anxiety ?Did continue with home meds 4. Chronic alcohol dependence ?Patient was counseled on cessation 5. Hypertension - Blood pressure controlled, home medications continued with dose adjustment as needed 6. Class I obesity with BMI of 32.5 ?Weight loss advised 6. Tobacco dependence - Counseled on cessation, offered nicotine gum for tobacco cravings 7. Polysubstance abuse including use of recreational heroin as well as marijuana, counseled on cessation 8. DVT prophylaxis ?Low risk did encourage early ambulation Charges/Coding Visit Charges Inpatient E&M: 33048 Init Hosp L2
[2021-07-20] MEDS: Lactated Ringers 1,000 ML 125 ML IV (16:24)
[2021-07-20] MEDS: Phenobarbital 32.4 MG Tablet PO ×3 (16:24→22:46)
[2021-07-20] MEDS: hydrOXYzine PAM 25 MG Capsule 50 MG PO (18:07)
[2021-07-20] MEDS: Ondansetron 8 MG Tablet PO (18:49)
[2021-07-20] MEDS: Gabapentin 300 MG Capsule PO (20:27)
[2021-07-20] MEDS: traZODone 100 MG Tablet PO (22:46)
[2021-07-20] MEDS: busPIRone 5 MG Tablet 10 MG PO (22:46)
[2021-07-21 02:46] VITALS: BP 134/64; PULSE 133; RESP 18; TEMP 37.2; O2SAT 96
[2021-07-21] MEDS: Phenobarbital 32.4 MG Tablet PO ×6 (02:48→22:07)
[2021-07-21] MEDS: hydrOXYzine PAM 25 MG Capsule 50 MG PO ×2 (02:52→15:03)
[2021-07-21] MEDS: Ibuprofen 600 MG Tablet PO (02:53)
[2021-07-21] MEDS: cloNIDine HCl 0.1 MG Tablet PO ×2 (03:24→18:42)
[2021-07-21] MEDS: busPIRone 5 MG Tablet 10 MG PO ×3 (06:31→22:06)
[2021-07-21 06:32] VITALS: BP 126/91; PULSE 115; RESP 18; TEMP 36.6; O2SAT 96
[2021-07-21 10:00] VITALS: BP 135/86; PULSE 105; RESP 18; TEMP 36.8; O2SAT 97
--- NOTE | 2021-07-21 10:09 | ADDICTION ---
TW met with pt to complete the ASAM, AUDIT, DUDIT, MSE, and fill out necessary ROIs. Pt requested residential treatment and wants to go to [facility]. TW had pt fill out a YUM[facility]KO for [facility] and submitted a referral for admission to [facility]. TW will keep pt informed of status of referral request. Pt was appropriate and answered all questions asked.
[2021-07-21] MEDS: FLUoxetine 20 MG Capsule 40 MG PO (10:31)
[2021-07-21] MEDS: Folic Acid 1 MG Tablet PO (10:31)
[2021-07-21] MEDS: Thiamine Hydrochloride 100 MG Tablet PO (10:31)
[2021-07-21] MEDS: Dicyclomine 10 MG Capsule 20 MG PO ×2 (10:34→18:42)
[2021-07-21] MEDS: Gabapentin 300 MG Capsule PO ×2 (10:34→18:42)
[2021-07-21 15:00] VITALS: BP 141/97; PULSE 101; RESP 16; TEMP 37.1; O2SAT 99
--- NOTE | 2021-07-21 18:09 | PN.HOSP_ITS ---
Subjective Subjective Patient was seen and examined today, he does not complain of any nervousness at this time, he has no complaints of any muscle pain, nausea, or vomiting. Patient has an area that is abnormal on his hard palate, he states that this area is only been there for a few days. Objective Data Objective Data Vital Signs: Vital Signs Temp Pulse Resp BP Pulse Ox 98.8 F 101 H 16 141/97 H 99 07/21/21 15:00 07/21/21 15:00 07/21/21 15:00 07/21/21 15:00 07/21/21 15:00 Oxygen Delivery Method Room Air Weight: 92.986 kg Body Mass Index (BMI) 32.1 Intake & Output: Intake and Output for Last 24 Hours 07/19/21 07/20/21 07/21/21 23:59 23:59 23:59 Intake Total 1100 / 1500 2200 / 2200 Balance 1100 / 1500 2200 / 2200 Lab / Micro Data Result Diagrams: 07/20/21 14:00 07/20/21 14:00 Physical Exam Const alert, oriented x3, no apparent distress and healthy appearing General Appearance: cooperative, well kempt and well developed Orientation / Consciousness: awake, oriented to person, oriented to place and oriented to time HEENT normocephalic HEENT Narrative: There is a raised area over the patient's anterior hard palate, this does not appear to be tender when it is touched with a plastic spoon during the time of my examination. This area appears to be firm, it is nonreddened. Eyes PERRL, EOMs intact bilaterally and conjunctivae normal Neck nuchal rigidity, supple, no JVD, thyroid normal and no carotid bruits General: trachea midline Resp normal respiratory effort and clear to auscultation bilaterally Auscultation: Negative for rales, rhonchi or wheezes Cardio regular rate, regular rhythm, S1 normal heart sound, S2 normal heart sound, no murmurs, no rub, no gallops and no clicks GI normal to inspection, nondistended, normoactive bowel sounds, soft to palpation, non-tender and non-distended Extremity no clubbing, cyanosis or edema Skin no rashes or lesions noted General Skin Exam: no breakdown Neuro oriented x3, CN's II-XII intact bilaterally, no focal motor deficits and no sensory deficits noted Sensorium / Orientation: awake and alert Speech: speech normal Psych affect normal Assessment & Plan Assessment/Plan (1) Alcohol intoxication: PLAN: 1. Alcohol withdrawal-patient is minimally symptomatic at this time, continue present ordered medications #2 chronic alcoholism-patient states that he is going to an inpatient program when he is discharged from the hospital this week #3 bipolar disorder-patient will continue on his home medications #4 lesion of the hard palate-etiology unclear, patient will not be able to be seen by ENT until Wednesday as they are not doing consultations till that date. I will contact him on Wednesday concerning the patient #5 polysubstance abuse-patient will need counseling concerning this after his discharge from the hospital when he goes to inpatient detox services. #6 chronic hepatitis C-patient follows up with his family physician concerning referral for treatment, according to his PCPs last note in February 2021, patient did not want to drive to [place] to follow-up with infectious diseases concerning this. Charges/Coding Visit Charges Inpatient E&M: 25640 Subs Hosp L2
[2021-07-21 18:30] VITALS: BP 146/92; PULSE 113; RESP 16; TEMP 37.4; O2SAT 100
[2021-07-21 22:00] VITALS: BP 136/90; PULSE 101; RESP 16; TEMP 36.7; O2SAT 95
[2021-07-21] MEDS: NYSTATIN 500,000 UNIT/5 ML UDC 500000 UNIT PO (22:07)
[2021-07-21] MEDS: traZODone 100 MG Tablet PO (22:07)
[2021-07-22 03:00] VITALS: BP 132/89; PULSE 105; RESP 18; TEMP 36.8; O2SAT 95
[2021-07-22] MEDS: Phenobarbital 32.4 MG Tablet PO ×6 (03:11→22:12)
[2021-07-22] MEDS: busPIRone 5 MG Tablet 10 MG PO ×3 (06:28→22:12)
[2021-07-22] MEDS: NYSTATIN 500,000 UNIT/5 ML UDC 500000 UNIT PO (10:28)
[2021-07-22] MEDS: Folic Acid 1 MG Tablet PO (10:28)
[2021-07-22] MEDS: FLUoxetine 20 MG Capsule 40 MG PO (10:28)
[2021-07-22] MEDS: Thiamine Hydrochloride 100 MG Tablet PO (10:28)
[2021-07-22 10:30] VITALS: BP 143/113; PULSE 108; RESP 18; TEMP 36.7; O2SAT 99
[2021-07-22] MEDS: Gabapentin 300 MG Capsule PO ×2 (10:31→22:14)
--- NOTE | 2021-07-22 10:42 | ADDICTION ---
TW met with pt to inform him of his acceptance to [facility], residential treatment. Pt was agreeable to being here until . TW informed him that she was unsure of transportation time yet, but he would be transported and admitted to [facility] on 07/24/2021.
--- NOTE | 2021-07-22 10:59 | ADDICTION ---
TW arranged transportation for pt to [facility] for 9:30AM on 07/24/2021.
[2021-07-22 14:50] VITALS: BP 136/92; PULSE 89; RESP 18; TEMP 36.9; O2SAT 99
--- NOTE | 2021-07-22 18:17 | PN.HOSP_ITS ---
Subjective Subjective Patient was seen and examined today, he states he feels better today, he feels less nervous. He is awaiting placement in an inpatient detox facility this . Objective Data Objective Data Vital Signs: Vital Signs Temp Pulse Resp BP Pulse Ox 98.4 F 89 18 136/92 H 99 07/22/21 14:50 07/22/21 14:50 07/22/21 14:50 07/22/21 14:50 07/22/21 14:50 Oxygen Delivery Method Room Air Weight: 92.986 kg Body Mass Index (BMI) 32.1 Intake & Output: Intake and Output for Last 24 Hours 07/20/21 07/21/21 07/22/21 23:59 23:59 23:59 Intake Total 1100 / 1500 3000 / 3300 1100 / 1100 Balance 1100 / 1500 3000 / 3300 1100 / 1100 Lab / Micro Data Result Diagrams: 07/20/21 14:00 07/20/21 14:00 Physical Exam Narrative Const alert, oriented x3, no apparent distress and healthy appearing General Appearance: cooperative, well kempt and well developed Orientation / Consciousness: awake, oriented to person, oriented to place and oriented to time HEENT normocephalic HEENT Narrative: There is a raised area noted over the patient's anterior hard palate Eyes PERRL, EOMs intact bilaterally and conjunctivae normal Neck nuchal rigidity, supple, no JVD, thyroid normal and no carotid bruits General: trachea midline Resp normal respiratory effort and clear to auscultation bilaterally Auscultation: Negative for rales, rhonchi or wheezes Cardio regular rate, regular rhythm, S1 normal heart sound, S2 normal heart sound, no murmurs, no rub, no gallops and no clicks GI normal to inspection, nondistended, normoactive bowel sounds, soft to palpation, non-tender and non-distended Extremity no clubbing, cyanosis or edema Skin no rashes or lesions noted General Skin Exam: no breakdown Neuro oriented x3, CN's II-XII intact bilaterally, no focal motor deficits and no sensory deficits noted Sensorium / Orientation: awake and alert Speech: speech normal Psych affect normal Assessment & Plan Assessment/Plan (1) Withdrawn from alcohol detoxification program: (2) Alcohol intoxication: PLAN: 1. Alcohol withdrawal-patient is minimally symptomatic at this time, continue present ordered medications #2 chronic alcoholism-patient states that he is going to an inpatient program when he is discharged from the hospital this week #3 bipolar disorder-patient will continue on his home medications #4 lesion of the hard palate-etiology unclear, I will write for an ENT consult- hopefully they will be able to see the patient tomorrow #5 polysubstance abuse-patient will need counseling concerning this after his discharge from the hospital when he goes to inpatient detox services. #6 chronic hepatitis C-patient follows up with his family physician concerning referral for treatment, according to his PCPs last note in February 2021, patient did not want to drive to [place] to follow-up with infectious diseases concerning this. Charges/Coding Visit Charges Inpatient E&M: 79346 Subs Hosp L2
[2021-07-22 18:40] VITALS: BP 141/108; PULSE 103; RESP 16; TEMP 37.4; O2SAT 99
[2021-07-22] MEDS: hydrOXYzine PAM 25 MG Capsule 50 MG PO (18:41)
[2021-07-22] MEDS: Dicyclomine 10 MG Capsule 20 MG PO (18:41)
[2021-07-22 22:07] VITALS: BP 146/91; PULSE 94; RESP 18; TEMP 36.9; O2SAT 99
[2021-07-22] MEDS: traZODone 100 MG Tablet PO (22:12)
[2021-07-23] MEDS: busPIRone 5 MG Tablet 10 MG PO ×3 (05:07→23:41)
[2021-07-23] MEDS: Phenobarbital 32.4 MG Tablet PO ×4 (05:07→23:41)
[2021-07-23 05:09] VITALS: BP 121/89; PULSE 93; RESP 18; TEMP 36.9; O2SAT 95
[2021-07-23 09:28] VITALS: BP 133/93; PULSE 92; RESP 14; TEMP 36.8; O2SAT 97
[2021-07-23] MEDS: Thiamine Hydrochloride 100 MG Tablet PO (09:33)
[2021-07-23] MEDS: Folic Acid 1 MG Tablet PO (09:33)
[2021-07-23] MEDS: FLUoxetine 20 MG Capsule 40 MG PO (09:33)
[2021-07-23] MEDS: cloNIDine HCl 0.1 MG Tablet PO (09:36)
--- NOTE | 2021-07-23 11:19 | CASEMGMT ---
Social Work Note SW received message from Arlyn at [facility] requesting update on pt. SW placed a call to Arlyn ([phone]) and left message providing update. Brenda Ayala EMBRYOLOGY PROFESSOR, PODIATRIC TECHNICIAN
[2021-07-23 13:33] VITALS: BP 127/91; PULSE 97; RESP 14; TEMP 36.6; O2SAT 97
--- NOTE | 2021-07-23 15:11 | CON.PCM_ITS ---
Assessment & Plan Assessment/Plan (1) Hard palate ulcer: PLAN: 31 year old with hard palate lesion -2cm right of midline hard palate lesion, soft. 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 if this is clear, we can biopsy this mass in the office in a few weeks when he gets out of alcohol rehab. HPI Consult Data Date of Consult: 07/23/21 HPI Narrative HPI Narrative: NIRMALA COPELAND, is a 31 M who presents with a hard palate papilloma. states this has presented in the past, but has 'popped'. denies pain, no bleeding of the area. not frankly immunocompromised. denies any other symptoms. does have history of unknown facial fractures. admitted for alcohol detox. [facility] Medical History Admitted to substance misuse detoxification center Anxiety and depression Bipolar 1 disorder Bone fracture Drug abuse Foot fracture, left H/O emotional problems Hepatitis B Hepatitis C Hypertension Influenza vaccine needed Recovering alcoholic Seasonal allergies SOB (shortness of breath) Home Medications fluoxetine 40 mg capsule 40 mg PO DAILY #90 cap 07/05/19 [Rx Last Taken 07/02/21] trazodone 100 mg PO QHS 04/20/20 [History Last Taken 07/19/21] hydroxyzine pamoate 50 mg capsule 50 mg PO BID 12/18/20 [History Last Taken 07/02/21] buspirone 10 mg tablet 10 mg PO TID tab 03/19/21 [History Last Taken 07/02/21] cariprazine 3 mg capsule 3 mg PO DAILY 03/19/21 [History Last Taken 07/02/21] cholecalciferol (vitamin D3) 50 mcg PO DAILY 07/03/21 [History Last Taken 07/02/21] multivitamin 1 tab PO DAILY 07/03/21 [History Last Taken 07/02/21] vitamin B complex 1 tab PO DAILY 07/03/21 [History Last Taken 07/02/21] Allergy/AdvReac Type Severity Reaction Status Date / Time adhesive tape Allergy Mild Hives Verified 07/20/21 12:39 Penicillins Allergy Hives Verified 07/20/21 12:39 Family History Grandfather Hypertension Grandmother Hypertension Breast cancer Mother Breast cancer Hypertension Alcohol abuse Anxiety Asthma Respiratory disease Cancer uterine, skin Father Alcohol abuse Surgical History History of facial surgery Status post left foot surgery Social History household members: significant other housing: house pets and animals: Yes Smoking Status: Current every day smoker tobacco type: cigarettes alcohol intake: former year quit: 2019 substance use type: former substance user what type of physical activity do you participate in: none Physical Exam Const alert and oriented x3 General Appearance: cooperative HEENT normocephalic and oropharynx normal HEENT Narrative: 2cm right of midline hard palate lesion, soft. papillomatous. Head and Scalp: normal to inspection Face and Sinus: normal facial exam and sinuses nontender Nose: external nose normal and nares normal External Ear: external ears normal Lab / Micro Data Result Diagrams: 07/20/21 14:00 07/20/21 14:00
--- NOTE | 2021-07-23 16:15 | CT_ITS ---
STUDY: CT FACIAL BONES WITHOUT CONTRAST REASON FOR EXAM: Male, 31 years old. Abnormal growth on the hard palate. RADIATION DOSAGE (If Supplied By Facility): CTDIvol = ( 29.38 ) mGy, DLP = ( 562.15 ) mGycm TECHNIQUE: The patient was scanned in a multi detector CT scanner. Sagittal and coronal images were reconstructed. Individualized dose optimization techniques were used for this CT. COMPARISON: None. FINDINGS: Normal soft tissue structures. There is no visualized soft tissue or bony abnormality of the hard palate. Normal orbital grant and orbital contents. Normal nasal bones and anterior nasal spine. Normal facial bones. There is no demonstrated fracture. Mucoperiosteal reaction in the right maxillary sinus. CT/Sinus/Facial Bone IMPRESSION: 1. No evidence of abnormality of the osseous palate or overlying soft tissues. The study is limited due to lack of contrast. 2. No other evidence of soft tissue abnormality of the visualized head and neck. 3. No fracture or bony abnormality. Electronically Signed: Milton Portillo DO at 17:07 EST ,
--- NOTE | 2021-07-23 17:04 | PN.HOSP_ITS ---
Subjective Subjective Patient was seen and examined today, I talked briefly with ENT about his care, they examined the patient and felt he could have a papilloma of his hard palate, they recommended a CT of the sinuses to rule out any bone erosion, they talk with the patient about following up with them as an outpatient and the patient confirmed that he would do this. He will probably need an outpatient biopsy of the area. Objective Data Objective Data Vital Signs: Vital Signs Temp Pulse Resp BP Pulse Ox 97.9 F 97 14 127/91 H 97 07/23/21 13:33 07/23/21 13:33 07/23/21 13:33 07/23/21 13:33 07/23/21 13:33 Oxygen Delivery Method Room Air Weight: 92.986 kg Body Mass Index (BMI) 32.1 Intake & Output: Intake and Output for Last 24 Hours 07/21/21 07/22/21 07/23/21 23:59 23:59 23:59 Intake Total 3000 / 3300 1700 / 2300 600 / 600 Balance 3000 / 3300 1700 / 2300 600 / 600 Lab / Micro Data Result Diagrams: 07/20/21 14:00 07/20/21 14:00 Physical Exam Narrative Const alert, oriented x3, no apparent distress and healthy appearing General Appearance: cooperative, well kempt and well developed Orientation / Consciousness: awake, oriented to person, oriented to place and oriented to time HEENT normocephalic HEENT Narrative: There is a raised area noted over the patient's anterior hard palate Eyes PERRL, EOMs intact bilaterally and conjunctivae normal Neck nuchal rigidity, supple, no JVD, thyroid normal and no carotid bruits General: trachea midline Resp normal respiratory effort and clear to auscultation bilaterally Auscultation: Negative for rales, rhonchi or wheezes Cardio regular rate, regular rhythm, S1 normal heart sound, S2 normal heart sound, no murmurs, no rub, no gallops and no clicks GI normal to inspection, nondistended, normoactive bowel sounds, soft to palpation, non-tender and non-distended Extremity no clubbing, cyanosis or edema Skin no rashes or lesions noted General Skin Exam: no breakdown Neuro oriented x3, CN's II-XII intact bilaterally, no focal motor deficits and no sensory deficits noted Sensorium / Orientation: awake and alert Speech: speech normal Psych affect normal Assessment & Plan Assessment/Plan (1) Alcohol intoxication: (2) Withdrawn from alcohol detoxification program: PLAN: 1. Alcohol withdrawal-patient is minimally symptomatic at this time, continue present ordered medications #2 chronic alcoholism-patient states that he is going to an inpatient program when he is discharged from the hospital this week #3 bipolar disorder-patient will continue on his home medications #4 lesion of the hard palate-etiology unclear, patient will have a CT of his sinuses performed, he will follow up with ENT as an outpatient #5 polysubstance abuse-patient will need counseling concerning this after his discharge from the hospital when he goes to inpatient detox services. #6 chronic hepatitis C-patient follows up with his family physician concerning referral for treatment, according to his PCPs last note in February 2021, patient did not want to drive to [place] to follow-up with infectious diseases concerning this. Charges/Coding Visit Charges Inpatient E&M: 49326 Subs Hosp L2
[2021-07-23] MEDS: hydrOXYzine PAM 25 MG Capsule 50 MG PO (17:06)
[2021-07-23 23:36] VITALS: BP 129/94; PULSE 88; RESP 18; TEMP 37.1; O2SAT 97
[2021-07-23] MEDS: traZODone 100 MG Tablet PO (23:45)
[2021-07-24] MEDS: Phenobarbital 32.4 MG Tablet PO (05:05)
[2021-07-24] MEDS: Gabapentin 300 MG Capsule PO (05:08)
[2021-07-24 05:10] VITALS: BP 137/91; PULSE 93; RESP 18; TEMP 36.9; O2SAT 95
[2021-07-24] MEDS: busPIRone 5 MG Tablet 10 MG PO (06:49)
[2021-07-24 07:20] VITALS: BP 128/88; PULSE 81; RESP 14; TEMP 36.8; O2SAT 96
[2021-07-24] MEDS: FLUoxetine 20 MG Capsule 40 MG PO (07:26)
[2021-07-24] MEDS: Thiamine Hydrochloride 100 MG Tablet PO (07:26)
[2021-07-24] MEDS: Folic Acid 1 MG Tablet PO (07:26)
[2021-07-24] MEDS: hydrOXYzine PAM 25 MG Capsule 50 MG PO (07:29)
--- NOTE | 2021-07-24 09:16 | PCM.DC ---
Discharge Instructions Diet Discharge Diet: No restrictions Activity Discharge Activity: Return to Normal Activity Weight Bearing Status: Full weight bearing Follow Up Care Test Results: Test results from this visit will be discussed in further detail at your follow-up appointment, if applicable. Discharge Plan Admission Admit Date/Time: 07/20/21 14:28 Primary Reason for Your Visit: alcohol detox Attending Provider: Ede Flores Primary Care Provider: Fady Dang Consulting Providers: Jered Cabrera Discharge Orders/Prescriptions Prescriptions: Continued hydroxyzine pamoate [Vistaril] 50 mg capsule 50 mg PO BID RF: 0 buspirone 10 mg tablet 10 mg PO TID RF: 0 cariprazine 3 mg capsule 3 mg PO DAILY RF: 0 trazodone 50 MG tablet 100 mg PO QHS RF: 0 multivitamin Tablet 1 tab PO DAILY RF: 0 vitamin B complex Tablet 1 tab PO DAILY RF: 0 cholecalciferol (vitamin D3) 50 mcg (2,000 unit) capsule 50 mcg PO DAILY RF: 0 fluoxetine 40 mg capsule 40 mg PO DAILY Qty: 90 RF: 3 Referrals / Follow Up: Jered Cabrera MD [STAFF PHYSICIAN] - See Referral Note (call to make appointment-within 6 weeks) Fady Dang MD [Primary Care Provider] - Disposition Disposition (needs filled in before D/C Order can be placed): Home, Self Care
--- NOTE | 2021-07-24 09:20 | PCM.DC.SUM ---
Providers Date of Admission: 07/20/21 Date of Discharge: 07/24/21 Primary Care Physician: Dr. Fady Dang MD Consultations 07/22/21 21:31 Consult: ENT Routine Consulting Provider: Jered Cabrera Reason for Consult: Hard palate lesion EMERGENT Consult: No MD Notified: Yes Date Notified: 07/23/21 Time Notified: 13:31 Method of Notification: Verbal Comments:: Call in am Reason For Visit: ALCOHOL DEPENDENCE Diagnosis Discharge Diagnosis (1) Alcohol intoxication: Code(s): F10.929 - Alcohol use, unspecified with intoxication, unspecified (2) Withdrawn from alcohol detoxification program: Code(s): Z78.9 - Other specified health status Plan: 1. Acute alcohol withdrawal #2 chronic alcoholism #3 bipolar disorder #4 lesion of the hard palate-etiology unclear, possible papilloma #5 polysubstance abuse #6 chronic hepatitis C #7 alcohol intoxication #8 hypokalemia Medications at Discharge Home Medications fluoxetine 40 mg capsule 40 mg PO DAILY #90 cap 07/05/19 trazodone 100 mg PO QHS 04/20/20 hydroxyzine pamoate 50 mg capsule 50 mg PO BID 12/18/20 buspirone 10 mg tablet 10 mg PO TID tab 03/19/21 cariprazine 3 mg capsule 3 mg PO DAILY 03/19/21 cholecalciferol (vitamin D3) 50 mcg PO DAILY 07/03/21 multivitamin 1 tab PO DAILY 07/03/21 vitamin B complex 1 tab PO DAILY 07/03/21 Hospital Course Operations None Procedures None Summary of Care Provided Minutes Spent on Discharge: 32 Hospital Course: This 31-year-old white male was seen in the emergency room at [facility] requesting services for alcohol detox. Labs performed on the patient in the emergency room showed him to be positive for barbiturates and positive for cannabinoids his blood alcohol level was 316. Chemistry showed a low potassium at 3.1, CBC was unremarkable. Patient was admitted to [place] [id number], orders were entered using the alcohol detox order set, patient was seen by addiction social worker psychiatric and agreed to inpatient detox placement at the time of discharge from the hospital. Patient had an oral lesion located on his hard palate, patient maintained that he had only had this for several days. ENT was consulted and saw the patient in the hospital-they felt it might possibly be a papilloma, they requested sinus x-rays to be obtained, CT of the sinuses showed no evidence of erosion of the hard palate. Patient told ENT that he would follow-up with them as an outpatient. On 07/24/2021, patient was seen and examined: On examination he appeared in good health and spirits. Vital signs as documented. Skin warm and dry and without overt rashes. Neck without JVD, neck was supple, trachea midline, thyroid was normal. There was a raised area noted over the patient's hard palate that was approximately 3 to 4 cm in diameter and oval-shaped. Lungs clear bilaterally, normal air movement was noted. Heart exam notable for regular rhythm, normal sounds and absence of murmurs, rubs or gallops. Abdomen unremarkable and without evidence of organomegaly, masses, or abdominal aortic enlargement. Bowel sounds are present, abdomen is not distended. Extremities nonedematous, no cyanosis was noted, no clubbing was noted. Neuro: Cranial nerves II through XII are grossly intact, no focal motor deficits were noted, sensation to light touch and pinprick intact, motor exam 5/5 throughout. Psych: Patient is alert and oriented x3, he does not appear anxious or depressed, he does not appear agitated. Patient was discharged on 07/24/2021 to an inpatient detox center for alcohol detox services. Weight / BMI Weight Weight: 92.986 kg Body Mass Index (BMI) 32.1 ABG / Lab / Microbiology Data Result Diagrams: 07/20/21 14:00 07/20/21 14:00 Radiography Diagnostic Testing: Radiology Impression Facial/Sinus 07/23/21 16:15 IMPRESSION: 1. No evidence of abnormality of the osseous palate or overlying soft tissues. The study is limited due to lack of contrast. 2. No other evidence of soft tissue abnormality of the visualized head and neck. 3. No fracture or bony abnormality. Electronically Signed: Milton Portillo DO at 17:07 EST Reading Location ID and State: [facility] / [place] Tel [phone], Service support , D/C Instructions Discharge Diet: No restrictions Weight Bearing Status: Full weight bearing Meaningful Use Info Meaningful Use Diagnoses (Choose all that apply): None applicable Discharge Plan Admission Admit Date/Time: 07/20/21 14:28 Primary Reason for Your Visit: alcohol detox Attending Provider: Ede Flores Primary Care Provider: Fady Dang Consulting Providers: Jered Cabrera Discharge Orders/Prescriptions Prescriptions: Continued hydroxyzine pamoate [Vistaril] 50 mg capsule 50 mg PO BID RF: 0 buspirone 10 mg tablet 10 mg PO TID RF: 0 cariprazine 3 mg capsule 3 mg PO DAILY RF: 0 trazodone 50 MG tablet 100 mg PO QHS RF: 0 multivitamin Tablet 1 tab PO DAILY RF: 0 vitamin B complex Tablet 1 tab PO DAILY RF: 0 cholecalciferol (vitamin D3) 50 mcg (2,000 unit) capsule 50 mcg PO DAILY RF: 0 fluoxetine 40 mg capsule 40 mg PO DAILY Qty: 90 RF: 3 Referrals / Follow Up: Jered Cabrera MD [STAFF PHYSICIAN] - See Referral Note (call to make appointment-within 6 weeks) Fady Dang MD [Primary Care Provider] - Disposition Disposition (needs filled in before D/C Order can be placed): Home, Self Care Charges/Coding Visit Charges Inpatient E&M: 08965 Disch Hosp
== END 2021-07-24 10:03 | disposition home or self-care (01) | DRG 775 ==
LOC: ED 14:24 → MS3 14:47
PROVIDERS: Admitting Provider Internal Medicine; Emergency Provider Emergency Medicine; PCP Internal Medicine; Visit Provider Internal Medicine
DX: F10.239 Alcohol dependence with withdrawal, unspecified (principal); B18.2 Chronic viral hepatitis C; F31.9 Bipolar disorder, unspecified; F10.229 Alcohol dependence with intoxication, unspecified; F19.19 Other psychoactive substance abuse with unspecified psychoactive substance-induced disorder; I10 Essential (primary) hypertension; F17.210 Nicotine dependence, cigarettes, uncomplicated; F41.8 Other specified anxiety disorders; E87.6 Hypokalemia; D10.39 Benign neoplasm of other parts of mouth; Z79.899 Other long term (current) drug therapy; E66.9 Obesity, unspecified; Z68.32 Body mass index [BMI] 32.0-32.9, adult
CPT/HCPCS: 70486; 80053; 80307; 82077; 83690; 85025; 99282; 99406; J7030; J7120; A4216; J2405

== ENCOUNTER 2022-01-12 10:05 | Outpatient (CLI) | payer MEDICAID, SELFPAY ==
[2022-01-12 11:09] LABS: Hematocrit 45.3 % (40-54); Hemoglobin 15.7 g/dL (13.0-16.5); Mean Corp Hgb Conc 34.7 g/dL (32-36); Mean Corpuscular Hgb 29.6 pg (27.0-32.0); Mean Corpuscular Volume 85.5 fL (80-94); Mean Platelet Vol. 9.2 fl (6.2-12.0); Platelet Count 317 K/mm3 (150-450); RBC Distribution Width CV 13.2 % (11.6-14.6); RBC Distribution Width SD 40.7 fl (35.1-43.9); White Blood Count 15.8 K/mm3 (4.4-11.0)
[2022-01-12 11:47] LABS: Prothrombin Time (Protime)PT. 13.1 SECONDS (11.7-14.9)
[2022-01-12 12:06] LABS: ALB/GLOB Ratio 1.1 RATIO (0.9-2.4); AST(SGOT) 39 U/L (15-37); Alanine Aminotransfer ALT/SGPT 59 U/L (16-61); Albumin, Serum 3.9 g/dL (3.2-5.0); Alkaline Phosphatase 71 U/L (45-117); Anion Gap 7 (5-15); BUN 13 mg/dL (7-18); BUN/Creat Ratio 14.3 RATIO (10-20); Calcium,Total 8.8 mg/dL (8.5-10.1); Chloride 103 mmol/L (98-107); Creatinine, Serum 0.91 mg/dL (0.70-1.30); EST Glomerular Filtration Rate 103 mL/min (>60); Est Glom Filt Rate - Afr Amer 125 mL/min (>60); Globulin 3.6 g/dL (2.2-4.2); Glucose 95 mg/dL (74-106); Potassium 3.9 mmol/L (3.5-5.1); Protein, Total 7.5 g/dL (6.4-8.2); Sodium Level 138 mmol/L (136-145)
[2022-01-12 12:48] LABS: HIV - WCH Non-Reactive (Nonreactive); Hepatitis B Surface Antibody Reactive; Hepatitis B Surface Antigen Non-Reactive (Nonreactive)
[2022-01-12 12:56] LABS: Hepatitis C Antibody REACTIVE (Nonreactive)
[2022-01-13 07:53] LABS: Hepatitis A AB, Total Negative (Negative)
== END 2022-01-12 23:59 | disposition home or self-care (01) ==
LOC: LAB 10:07
PROVIDERS: PCP Internal Medicine; Referring Provider Family Medicine; Visit Provider Family Medicine
DX: Z00.00 Encounter for general adult medical examination without abnormal findings (principal)
CPT/HCPCS: 36415; 80053; 85027; 85610; 86703; 86706; 86708; 86803; 87340

== ENCOUNTER 2022-01-12 22:14 | Emergency (ER) | payer MEDICAID, SELFPAY ==
[2022-01-12 22:15] VITALS: BP 129/85; PULSE 100; RESP 18; TEMP 36; O2SAT 97; BMI 33.4
--- NOTE | 2022-01-12 22:42 | ED.VIS.LOWEX ---
HPI History of Present Illness HPI Narrative: Patient presents with left foot pain that has been getting worse over the past week. Patient states it is gradually getting worse. Patient denies any trauma or injury. Patient states his pain is worse with ambulation and better with rest. Patient describes his pain is sharp. Patient states his pain is more over the lateral malleolus area. Patient denies any paresthesias or weakness. Patient denies any radiation of the pain. Patient denies any pain over the fifth metatarsal or proximal fibula. Chief Complaint: Lower Extremity Injury Informant: patient Onset/Context/Timing Onset: Weeks (1) Context: Gradual Onset Timing: Continuous Quality of Pain: Sharp Location: Left ankle Worsened by: Ambulation Relieved by: Rest Associated Symptoms Associated Symptoms: Negative for Parasthesia, Weakness or Loss of Funtion [facility] Medical History Admitted to substance misuse detoxification center Alcohol intoxication Anxiety and depression Bipolar 1 disorder Bone fracture Drug abuse Foot fracture, left H/O emotional problems Hepatitis B Hepatitis C Hypertension Influenza vaccine needed Recovering alcoholic Seasonal allergies SOB (shortness of breath) Withdrawn from alcohol detoxification program Home Medications fluoxetine 40 mg capsule 40 mg PO DAILY depression #90 caps 07/05/19 [Rx Last Taken 07/02/21] trazodone 50 mg tablet 100 mg PO QHS sleep 04/20/20 [History Last Taken 07/19/21] hydroxyzine pamoate 50 mg capsule (Vistaril) 50 mg PO BID mood 12/18/20 [History Last Taken 07/02/21] buspirone 10 mg tablet 10 mg PO TID mood 03/19/21 [History Last Taken 07/02/21] cariprazine 3 mg capsule 3 mg PO DAILY mood 03/19/21 [History Last Taken 07/02/21] cholecalciferol (vitamin D3) 50 mcg (2,000 unit) capsule 50 mcg PO DAILY supplement 07/03/21 [History Last Taken 07/02/21] multivitamin 1 tab PO DAILY supplement 07/03/21 [History Last Taken 07/02/21] vitamin B complex 1 tab PO DAILY supplement 07/03/21 [History Last Taken 07/02/21] meloxicam 15 mg tablet 15 mg PO DAILY PRN Pain #30 tabs 08/15/21 [Rx Last Taken Unknown] Allergy/AdvReac Type Severity Reaction Status Date / Time adhesive tape Allergy Mild Hives Verified 01/12/22 22:17 Family History Grandfather Hypertension Grandmother Hypertension Breast cancer Mother Breast cancer Hypertension Alcohol abuse Anxiety Asthma Respiratory disease Cancer uterine, skin Father Alcohol abuse Surgical History History of facial surgery Status post left foot surgery Social History household members: significant other housing: house pets and animals: Yes Smoking Status: Current every day smoker tobacco type: cigarettes alcohol intake: former year quit: 2019 substance use type: former substance user what type of physical activity do you participate in: none ROS ROS ED Constitutional Constitutional ED: Denies chills or fever(s) Eyes Eyes: Denies blurry vision or change in vision ENT ENT ED: Denies rhinorrhea or sore throat Cardiovascular Cardiovascular: Denies chest pain or palpitations Respiratory/Chest Respiratory/Chest: Denies cough or dyspnea Gastrointestinal Gastrointestinal: Denies nausea or vomiting Genitourinary Genitourinary ED: Denies dysuria or hematuria Musculoskeletal Musculoskeletal: Denies back pain or neck pain Integumentary Denies abscess or rash Neurologic Neurologic: Denies headache(s) or weakness Allergic/Immunologic Allergic/Immunologic ED: Denies mouth swelling or urticaria EXAM Physical Exam Const Vital Signs: 01/12/22 22:15 Temperature 96.8 F L Temperature Source Temporal Pulse Rate 100 Respiratory Rate 18 Blood Pressure 129/85 H Blood Pressure Mean 99 Pulse Ox 97 Oxygen Delivery Method Room Air Positive well nourished and well developed General Appearance ED: well developed and NAD HEENT Reports moist mucous membranes Extremity Extremity Narrative: There is tenderness over the lateral malleolus of the left ankle. There is no edema or ecchymosis. There is no bony crepitance or step-off. There is no deformity noted. Range of motion was slightly limited in all motions of the left ankle secondary to pain. There is no tenderness over the fifth metatarsal. There is no tenderness over the proximal fibula. Pedal pulses are equal bilateral. Sensation was intact to light touch in all digits. Capillary refills less than 2 seconds in all digits. Neuro oriented x3, CN's II-XII intact bilaterally, moves all extremities and no sensory deficits noted Sensorium / Orientation: alert Motor Exam: strength 5/5 throughout Psych mental status grossly normal MDM MDM MDM Narrative Medical decision making narrative: X-rays of the left ankle were obtained. There are 3 views. On my interpretation, there is no acute fracture. There is no dislocation. There is no soft tissue swelling. Radiologist also interpreted the x-rays and agrees. Patient was given an Aircast. Patient was instructed to take Tylenol or ibuprofen as needed for pain. Patient was instructed to ice and elevate the left ankle. Patient was instructed to follow-up with his primary care physician in 5 to 7 days. Patient understood and was agreeable with the plan. All questions were answered. Radiography Diagnostic Testing: Clinical Impression(s) from Imaging Studies Ankle X-Ray 01/12/22 23:00 IMPRESSION: No acute findings in the left ankle. Electronically Signed: Francisco King MD at 23:21 EDT , Discharge Plan Triage Chief Complaint: Lower Extremity Injury ED Provider: Kurtis Ahn Dx/Rx/DC Orders Clinical Impression: Left ankle pain Instructions: ED Ankle Sprain (Adult) Prescriptions: No Action hydroxyzine pamoate [Vistaril] 50 mg capsule 50 mg PO BID buspirone 10 mg tablet 10 mg PO TID cariprazine 3 mg capsule 3 mg PO DAILY trazodone 50 MG tablet 100 mg PO QHS multivitamin Tablet 1 tab PO DAILY vitamin B complex Tablet 1 tab PO DAILY cholecalciferol (vitamin D3) 50 mcg (2,000 unit) capsule 50 mcg PO DAILY fluoxetine 40 mg capsule 40 mg PO DAILY Qty: 90 3RF Rx Instructions: depression meloxicam 15 mg tablet 15 mg PO DAILY PRN (Reason: Pain) Qty: 30 1RF Primary Care Provider: Fady Dang Referrals: Fady Dang MD [Primary Care Provider] - 5-7 Days Disposition Disposition: Home, Self Care
[2022-01-12] MEDS: Naproxen 500 MG Tablet PO (22:58)
--- NOTE | 2022-01-12 23:00 | RAD_ITS ---
EXAM: XR LEFT ANKLE COMPLETE, 3 OR MORE VIEWS CLINICAL INDICATION: Injury/Pain TECHNIQUE: Frontal, lateral and oblique views of the left ankle. This report was created using [employer] report generation technology. COMPARISON: None. FINDINGS: BONES/JOINTS: Degenerative changes of the talonavicular joint. No acute fracture. No subluxation. Normal alignment. No sclerotic or destructive changes observed. SOFT TISSUES: Unremarkable. No soft tissue swelling or gas. No radiopaque foreign body. RAD/Ankle min 3 Views IMPRESSION: No acute findings in the left ankle. Electronically Signed: Francisco King MD at 23:21 EDT ,
== END 2022-01-13 00:28 | disposition home or self-care (01) ==
PROVIDERS: Emergency Provider Emergency Medicine; PCP Internal Medicine; Visit Provider Emergency Medicine
DX: M25.572 Pain in left ankle and joints of left foot (principal); F31.9 Bipolar disorder, unspecified; F17.210 Nicotine dependence, cigarettes, uncomplicated; F41.9 Anxiety disorder, unspecified; I10 Essential (primary) hypertension; Z79.899 Other long term (current) drug therapy
CPT/HCPCS: 36415; 73610; 80053; 85027; 85610; 86703; 86706; 86708; 86803; 87340; 99283

== ENCOUNTER → 2022-01-14 | Outpatient (CLI) | payer MEDICAID, SELFPAY ==
--- NOTE | 2022-01-14 07:24 | US_ITS ---
STUDY: ABDOMINAL ULTRASOUND - ELASTOGRAPHY REASON FOR VISIT: Male, 31 years old. Hepatitis C. TECHNIQUE: Liver stiffness measurements were obtained on a [employer] RS 85 ultrasound machine using a CA 1-7 probe following the SRU guidelines. 3 measurements were obtained using a 2-D-SWE method. The IQR/M was 19 % suggesting a quality data set. TECHNICAL QUALITY: Adequate. COMPARISON: None. FINDINGS: Liver: There is no demonstrated mass lesion. Median liver stiffness measured 12.6 kPa. US/Elastography Parenchyma/Organ IMPRESSION: Liver stiffness measures 12.6 kPa compatible with F3-F4 (Moderate to severe liver fibrosis) Metavir score. Electronically Signed: Bartolo Funk MD at 9:08 EDT ,
--- NOTE | 2022-01-14 07:24 | US_ITS ---
STUDY: ABDOMINAL ULTRASOUND - RIGHT UPPER QUADRANT REASON FOR VISIT: Male, 31 years old HEP C TECHNIQUE: Ultrasound evaluation of the right upper quadrant was performed with real-time and static nix-scale imaging. TECHNICAL QUALITY: Adequate. COMPARISON: None. FINDINGS: Liver: The liver is mildly enlarged and measures 16.8 cm. There is increased echogenicity consistent with fatty infiltration. The bile ducts are within normal limits. There is hepatic color flow. The direction of portal flow is hepatopetal. There is a 5.3 cm x 7.4 cm hypoechoic nodule in the region of the caudate lobe of the liver. This is unchanged as compared to prior CT scan of the abdomen dated 01/11/2020. Gallbladder: Normal distended gallbladder. The gallbladder wall measures 3.0 mm. There is a negative sonographic Frost''s sign. There is no pericholecystic fluid. There are no gallstones. Common Bile Duct (C.B.D.): The common bile duct measures 4 mm. Pancreas: Normal size of the head, body and tail of the pancreas. There is normal echogenicity of the pancreas. There is no demonstrated pancreatic mass or cyst. Right Kidney: Normal size of the right kidney. The right kidney measures 12.4 cm x 5.4 cm x 5 cm. Normal renal cortex. The right cortex measures 2.0 cm. There is no demonstrated renal mass or cyst. There is no right hydronephrosis. US/Abdomen Limited IMPRESSION: Fatty infiltration of the liver. 5.3 cm x 7.4 cm hypoechoic nodule in the region of the caudate lobe of the liver. This may represent either a regenerating nodule or focal area of fatty sparing. This is unchanged as compared to prior CT scan of the abdomen dated 01/11/2020. Electronically Signed: Bartolo Funk MD at 9:27 EDT ,
== END | disposition home or self-care (01) ==
LOC: US 07:22
PROVIDERS: PCP Internal Medicine; Referring Provider Family Medicine; Visit Provider Family Medicine
DX: B18.2 Chronic viral hepatitis C (principal)
CPT/HCPCS: 76705; 76981